=== PATIENT | female | born 1950 | race Caucasian/White ===

== ENCOUNTER 2020-01-01 10:00 | Day surgery (SDC) | payer MEDICARE, SELFPAY ==
[2019-12-31 14:06] VITALS: BMI 22.6
--- NOTE | 2019-12-31 14:27 | HO.ANESPROP2 ---
Documented by User: Audelia Rome 12/31/19 14:28 HPI - Anesthesia Eval Consult details Narrative: 69yo F for EGD and Colonoscopy [facility] Past Medical History Medical History Anxiety Normal colonoscopy Surgical History Surgical History S/P LAURO (total abdominal hysterectomy) Social History Social History Smoking Status: Never smoker Use of substances other than those prescribed or required for medical reasons: No Have you been hit, kicked, punched, or otherwise hurt by someone within the past year? If so, by whom?: No Advance Directives: No Advance Directives Information Provided: Yes Advance Directives on File: No Recently lost weight without trying: Unsure Meds Allergies Allergy/AdvReac Type Severity Reaction Status Date / Time peanut [PEANUT] Allergy Intermediate HEADACHE,RA Verified 01/01/20 06:17 SH tree nut [TREE NUT] Allergy Mild HEADACHE,RA Verified 01/01/20 06:17 SH meperidine [From DEMEROL] AdvReac Intermediate AGITATION Verified 01/01/20 06:17 BEER Allergy Intermediate RASH/HEADAC Uncoded 01/01/20 06:17 HE WINE Allergy Intermediate HEADACHE,RA Uncoded 01/01/20 06:17 Home Medications Medication Instructions Recorded Confirmed Type escitalopram oxalate 1 tab PO DAILY 01/01/20 01/01/20 History Exam Exam Date and Time: December 31, 2019 1427 Height,Weight and Vital Signs: Height 5 ft 2 in Weight 56.245 kg Assessment and Plan Assessment Anesthesia Assessment: Chart Reviewed Documented by User: Refugio Garcia 01/01/20 10:53 [facility] Past Medical History Medical History Anxiety Normal colonoscopy Surgical History Surgical History S/P LAURO (total abdominal hysterectomy) Social History Social History Smoking Status: Never smoker Use of substances other than those prescribed or required for medical reasons: No Have you been hit, kicked, punched, or otherwise hurt by someone within the past year? If so, by whom?: No Advance Directives: No Advance Directives Information Provided: Yes Advance Directives on File: No Recently lost weight without trying: Unsure Meds Allergies Allergy/AdvReac Type Severity Reaction Status Date / Time peanut [PEANUT] Allergy Intermediate HEADACHE,RA Verified 01/01/20 06:17 SH tree nut [TREE NUT] Allergy Mild HEADACHE,RA Verified 01/01/20 06:17 SH meperidine [From DEMEROL] AdvReac Intermediate AGITATION Verified 01/01/20 06:17 BEER Allergy Intermediate RASH/HEADAC Uncoded 01/01/20 06:17 HE WINE Allergy Intermediate HEADACHE,RA Uncoded 01/01/20 06:17 SH Home Medications Medication Instructions Recorded Confirmed Type escitalopram oxalate 1 tab PO DAILY 01/01/20 01/01/20 History Exam Airway Mallampati Class: II TM Dist: >3cm Neck ROM: Full Loose/Missing/Broken Teeth: No ([id number]+[id number]) Lungs: cta b/l Assessment and Plan Assessment Anesthesia Assessment: Anesthesia Plan Discussed, PAT Visit and Chart Reviewed Final Anesthetic Review NPO: Yes ASA Class: II Final Preanesthetic Review: No Changes in Pt Med Stat, Meds/Allgs Chart Reviewed, Consent Obtained/Reviewed and Anes Risks/Benef Reviewed Patient Risk: Low Procedure Risk: Low Anesthetic Plan Anesthetic Plan: MAC: Disposition: Standard PACU
[2020-01-01 10:10] VITALS: BP 145/81; PULSE 102; RESP 18; TEMP 36.1; O2SAT 96
[2020-01-01] MEDS: Lactated Ringers 1,000 ML 100 ML IVCONT (10:28)
[2020-01-01 11:57] VITALS: BP 121/55; PULSE 96; RESP 12; TEMP 35.8; O2SAT 97
--- NOTE | 2020-01-01 12:07 | PM.OP ---
Brief Operative Note Date of procedure: 01/01/20 Pre-op diagnosis: GERD and rectal bleeding Post-op diagnosis: other (Hiatal hernia, Mild gastritis, Nonobstructing esophageal ring, diverticulosis, internal and external hemorrhoids) Procedure: EGD with biopsies and Colonoscopy to the cecum and TI Surgeon: Wiley Andersen Anesthesia: MAC Pathology: other (A. Gastric antrum) Condition: stable Disposition: PACU
[2020-01-01 12:12] VITALS: BP 133/59; PULSE 78; RESP 18; O2SAT 98
[2020-01-01] MEDS: Magnesium Hydrox/Alum Hydrox 30 ML ORAL.SUSP PO (12:21)
[2020-01-01 12:23] VITALS: BP 100/79; O2SAT 96
[2020-01-01] MEDS: ondansetron HCL 4 MG/2 ML VIAL IVPUSH (12:33)
--- NOTE | 2020-01-01 12:52 | OP_ITS ---
SURGEON: Wiley Andersen MD INDICATIONS: The patient presents for evaluation of gastroesophageal reflux and hematochezia. Full consent has been obtained from her for this, including risks of bleeding and perforation. PREOPERATIVE DIAGNOSIS: POSTOPERATIVE DIAGNOSIS: PROCEDURE PERFORMED: Esophagogastroduodenoscopy with biopsies, and colonoscopy to cecum and terminal ileum. ESTIMATED BLOOD LOSS: COMPLICATIONS: ANESTHESIA: Monitored anesthesia care. ASSISTANTS: SPECIMENS: PREOPERATIVE DIAGNOSES: Gastroesophageal reflux and hematochezia. POSTOPERATIVE DIAGNOSES: Gastroesophageal reflux and hematochezia, hiatal hernia, nonobstructing esophageal ring, mild gastritis, diverticulosis, internal and external hemorrhoids. DESCRIPTION OF PROCEDURE: The patient was placed in the left lateral decubitus position. The Olympus video gastroscope was passed in the posterior oropharynx and upper esophagus under direct vision. The scope was passed slowly to the distal esophagus. The gastroesophageal junction appeared at 33 cm. There was no sign of esophagitis nor Judd's esophagus. There was a non-obstructing esophageal ring and the scope easily entered the stomach. There was a moderate-sized hiatal hernia. The hiatal hernia mucosa appeared normal. The scope was advanced to pylorus and duodenum cannulated to the descending portion. The duodenum including the bulb appeared normal without mass or ulceration. The scope was withdrawn back in the stomach. The gastric antrum had some mild areas of edema and erythema, but no erosions or ulceration. There was good peristalsis. Scope was retroflexed visualizing the proximal stomach carefully, which appeared normal, without any sign of mass or ulceration. The scope was straightened. Biopsies were obtained from the gastric antrum. The scope was withdrawn back in the esophagus. The esophageal mucosa appeared normal. The scope was withdrawn from the patient. She was turned around for colonoscopy. The digital rectal exam revealed some small external hemorrhoidal tissue. The digital rectal exam revealed no other abnormalities. The Olympus video pediatric colonoscope was entered into the rectum and advanced easily to the cecum. Once in the cecum, I did identify normal-appearing cecal pouch with appendiceal orifice and a normal-appearing ileocecal valve. The terminal ileum was cannulated and appeared normal. The scope was withdrawn back in the colon. The entire cecum and ileocecal valve appeared normal. The scope was slowly withdrawn assessing all mucosal surfaces carefully. Preparation was excellent. I did not visualize any sign of polyps, colitis, nor angiodysplasia. There was a mild amount of sigmoid diverticulosis. In the rectum, scope was retroflexed visualizing small internal hemorrhoids, but no other pathology. The rectal mucosa appeared normal. The scope was straightened and withdrawn from the patient. She tolerated both procedures well and was returned to the recovery area in stable condition. IMPRESSION: 1. Moderate-sized hiatal hernia. 2. Nonobstructing distal esophageal ring. 3. Mild gastritis. 4. Mild diverticulosis. 5. Internal and external hemorrhoids. PLAN: The results of the biopsy will be checked. At this point, she has been using Pepcid once or twice a day for reflux, which she said is working well. I did advise to use that as needed. If her symptoms worsen, we could always switch her to a PPI if need be. I do not think H pylori needs to be treated if it is in the gastric biopsies unless she was to have more upper GI complaints. Given her age, today's negative colonoscopy, and no family history of colon cancer other than in her father in his 80s, I do not think she will need any further screening colonoscopies at this time. As such, she will see me on a p.r.n. basis. This has been discussed with her family. MD LIZANDRO Mckeon/ROSANA / [id number]
[2020-01-01 12:54] VITALS: BP 140/58; PULSE 68; O2SAT 97
[2020-01-01 13:17] VITALS: BP 141/61; PULSE 58; RESP 18; TEMP 36.1; O2SAT 98
== END 2020-01-01 13:59 | disposition home or self-care (01) ==
PROVIDERS: PCP Internal Medicine; Visit Provider Internal Medicine
PROC: (CPT 45378; principal; 2020-01-01 11:30)
DX: K62.5 Hemorrhage of anus and rectum (principal); K57.30 Diverticulosis of large intestine without perforation or abscess without bleeding; K64.8 Other hemorrhoids; K64.4 Residual hemorrhoidal skin tags; K21.9 Gastro-esophageal reflux disease without esophagitis; K22.2 Esophageal obstruction; K29.50 Unspecified chronic gastritis without bleeding; K44.9 Diaphragmatic hernia without obstruction or gangrene; Z79.899 Other long term (current) drug therapy; Z91.010 Allergy to peanuts; Z91.018 Allergy to other foods; Z88.8 Allergy status to other drugs, medicaments and biological substances
CPT/HCPCS: 45378; 43239; 88305; 88342; J2405

== ENCOUNTER 2020-06-08 10:33 | Outpatient (REF) | payer MEDICARE, SELFPAY ==
[2020-06-08 15:34] LABS: Alanine Aminotransferase 24 U/L (0-31); Albumin Level 4.4 g/dL (3.5-5.0); Alkaline Phosphatase 98 U/L (39-117); Anion Gap 14 (12-20); Aspartate Amino Transferase 32 U/L (5-31); Bilirubin Total 0.6 mg/dL (0.0-1.0); Blood Urea Nitrogen 17 mg/dL (9-16); Calcium 8.8 mg/dL (8.4-10.2); Carbon Dioxide 27 mmol/L (22-29); Chloride 107 mmol/L (96-108); Cholesterol 201 mg/dL; Estimated Glomerular Filt Rate 54; Glucose Fasting 89 mg/dL (60-99); HDL Cholesterol 88 mg/dL; LDL Cholesterol Calculated 94 mg/dl; Potassium 4.2 mmol/L (3.3-5.1); Sodium 144 mmol/L (135-145); Triglycerides 95 mg/dL
== END 2020-06-08 10:34 | disposition home or self-care (01) ==
LOC: HO.HMGCLDS 10:33
PROVIDERS: PCP Internal Medicine; Visit Provider Internal Medicine
DX: E78.00 Pure hypercholesterolemia, unspecified (principal)
CPT/HCPCS: 36415; 80053; 80061

== ENCOUNTER 2020-09-15 12:50 | Outpatient (REF) | payer MEDICARE, SELFPAY ==
--- NOTE | ~2020-09-15 | XR_ITS ---
EXAMINATION: XR ELBOW, RIGHT CLINICAL INFORMATION: Injury COMPARISON: None TECHNIQUE: AP, lateral, and oblique views of the right elbow. FINDINGS: The bones and soft tissues are normal. No fracture or joint effusion. Alignment is anatomic. Joint spaces are maintained. XR/XR elbow RT min 3V IMPRESSION: Normal right elbow.
== END 2020-09-15 12:51 | disposition home or self-care (01) ==
LOC: HO.HMGCX 12:50
PROVIDERS: PCP Internal Medicine; Visit Provider Nurse Practitioner Family
DX: S59.901A Unspecified injury of right elbow, initial encounter (principal)
CPT/HCPCS: 73080

== ENCOUNTER 2020-10-02 14:30 | Outpatient (RCR) | payer MEDICARE, SELFPAY ==
--- NOTE | 2020-10-02 15:26 | MHC.OT.DC ---
[address] [phone] F: [phone] Occupational Therapy Discharge Note Provider: Arin Jansen, Diagnosis: Right elbow medial epicondylitis Date of Surgery: Date of Evaluation: 09/28/20 Date of Discharge: Treatments to Date: 3 Cancellations to Date: 0 No Shows to Date: Discharge Status: Achieved Goals Improved Function Independent with HEP Discharge Summary: Pt denies pain. Tender at medial elbow and mild edema improving Pt with a good awareness of return to sports , principles and tech. Goals met Electronically Signed By: Stephanie Montano OT CHT CLT Reviewed/agree with student documentation: N/A Therapist: Please Sign and return to therapist, thank you for your referral.
== END 2020-10-02 15:27 | disposition other institution (70) ==
LOC: HO.OT 14:30
PROVIDERS: PCP Internal Medicine; Visit Provider Nurse Practitioner Family
DX: M77.01 Medial epicondylitis, right elbow (principal)
CPT/HCPCS: 97033; 97110; 97165

== ENCOUNTER 2020-10-27 09:41 | Outpatient (REF) | payer MEDICARE, SELFPAY ==
[2020-10-27 11:27] LABS: MANUAL DIFF FLAG NO
[2020-10-27 11:36] LABS: Basophils Percent Auto 0.8 % (0-2); Eosinophils Absolute Auto 0.1 X10*3/uL (0.0-0.4); Eosinophils Percent Auto 2.3 % (0-4); Hematocrit 38.9 % (37-47); Hemoglobin 12.6 g/dl (12.0-16.0); Imm Gran Abs Auto 0.01 X10*3/uL (0.00-0.03); Imm Gran Pct Auto 0.2 % (0.0-0.4); Lymphocytes Absolute Auto 2.6 X10*3/uL (1.2-4.9); Lymphocytes Percent Auto 50.4 % (20-40); Mean Corpuscular HGB Conc 32.4 g/dl (31.0-35.0); Mean Corpuscular Hemoglobin 30.2 pg (27.0-33.0); Mean Corpuscular Volume 93.3 fL (80-98); Mean Platelet Volume 9.2 fL (9.4-12.3); Monocytes Absolute Auto 0.4 X10*3/uL (0.1-1.2); Monocytes Percent Auto 8.4 % (2-11); Neutrophils Absolute Auto 1.9 X10*3/uL (2.0-8.3); Neutrophils Percent Auto 37.9 % (45-73); Platelet Count 338 X10*3/uL (160-400); Red Blood Count 4.17 X10*6/uL (4.20-5.50); Red Cell Distribution Width 12.9 % (11.0-16.0); White Blood Count 5.1 X10*3/uL (4.8-10.8)
[2020-10-27 12:04] LABS: Alanine Aminotransferase 26 U/L (0-31); Albumin Level 4.3 g/dL (3.5-5.0); Alkaline Phosphatase 96 U/L (39-117); Anion Gap 13 (12-20); Aspartate Amino Transferase 34 U/L (5-31); Bilirubin Total 0.4 mg/dL (0.0-1.0); Blood Urea Nitrogen 14 mg/dL (9-16); Calcium 9.2 mg/dL (8.4-10.2); Carbon Dioxide 28 mmol/L (22-29); Chloride 107 mmol/L (96-108); Estimated Glomerular Filt Rate 57; Glucose Random 85 mg/dL (60-115); Potassium 4.6 mmol/L (3.3-5.1); Sodium 143 mmol/L (135-145); Total Protein 6.8 g/dL (6.5-8.0)
[2020-10-27 12:08] LABS: Thyroid Stimulating Hormone 2.43 uIU/mL (0.32-4.0)
== END 2020-10-27 09:42 | disposition home or self-care (01) ==
LOC: HO.HMGCLDS 09:41
PROVIDERS: PCP Internal Medicine; Visit Provider Internal Medicine
DX: R06.02 Shortness of breath (principal)
CPT/HCPCS: 36415; 80053; 84443; 85025

== ENCOUNTER → 2020-11-04 08:53 | Outpatient (REF) | payer MEDICARE, SELFPAY ==
--- NOTE | 2020-11-04 08:59 | CA_ITS ---
Acquisition Time: 2020-11-04 09:21:28 Total Exercise Time: 00:06:20 Test Indications: CP Medications: Protocol: BLAINE Max HR: 148 BPM 100% of Pred: 148 BPM Max BP: 140/080 mmHG Max Work Load: 7.4 METS Exercise stress test using Blaine protocol, total of 6 minutes and 20 sec. METS 7.40 and MAPHR up to 100 %. Pt c/o troat thightness that started at 1 min 46 sec into the exercise and then chest thighness 3/10 that went away in recovery. EKG with occ. PVC's, mild horizontal depressions seen lateraly and inferiorly. Normotensive response to exercise. Test reviewed with Dr. Bowne. Referred By: Wiley Segura Overread By: Leatha Carlos NP
== END ==
LOC: HO.CARD 08:53
PROVIDERS: Visit Provider Internal Medicine
DX: R06.09 Other forms of dyspnea (principal)
CPT/HCPCS: 93017

== ENCOUNTER → 2020-11-10 13:44 | Outpatient (REF) | payer MEDICARE, SELFPAY ==
[2020-11-10 15:42] LABS: INTERNATIONAL NORM RATIO 0.9 (0.9-1.1); Prothrombin Time 9.9 SEC (9.9-13.0)
== END ==
LOC: HO.CARD 13:44
PROVIDERS: PCP Internal Medicine; Visit Provider Internal Medicine
DX: Z20.822 Contact with and (suspected) exposure to COVID-19 (principal); R07.2 Precordial pain
CPT/HCPCS: 85610; U0003; U0005

== ENCOUNTER → 2020-11-11 07:13 | Outpatient (REF) | payer MEDICARE, SELFPAY ==
--- NOTE | 2020-11-11 07:20 | CA_ITS ---
Transthoracic Echocardiogram Patient (Last, First, Middle): Leslie Wagner R Gender: Female Date of : 1950 Age: 70 Procedure Date: 11/11/2020 Procedure Type: Transthoracic Echocardiogram Location: OP Height: 157.48 cm Weight: 57.15 kg BSA: 1.57 m2 Heart Rate: bpm BP: 132 / 70 mmHg Shovel Operator: ANDREA Jackson MD: Bhupendra Bowen MD Filler Feeder: Darius Brink MD Symptoms: I25.10 - Atherosclerotic heart disease of [place] coronary... Study Quality: Fair ECG Rhythm: Sinus Conclusions: - 1. Normal LV systolic function with grade 1 diastolic dysfunction with basal inferior hypokinesis 2. Normal cardiac valvular Doppler 3. Normal RV systolic pressure 4. No pericardial effusion Findings Left Ventricle Normal left ventricular size, thickness, and systolic function. The visually estimated ejection fraction is between 60-65%. Spectral Doppler is indicative of an impaired relaxation filling pattern. E/E prime ratio is <8, consistent with normal filling pressures. Evidence suggests grade I (mild) diastolic dysfunction. Wall Motion Rest Echo Findings The basal inferior segment is hypokinetic. All other scored wall segments showed normal motion. Right Ventricle Normal right ventricular cavity size and systolic function. Atria Both atria are normal in size. There is no evidence of interatrial shunt. Aortic Valve The aortic valve structure and function is likely normal. There is no aortic valve stenosis. There is no aortic valve regurgitation. Mitral Valve Normal mitral valve structure and function. There is trace mitral valve regurgitation. There is no mitral valve stenosis. Pulmonic Valve The pulmonic valve was not well visualized. Tricuspid Valve Likely normal tricuspid valve structure and function. There is trace tricuspid valve regurgitation. The right ventricular systolic pressure is normal. The right ventricular systolic pressure is 12 mmHg. Normal right atrial pressure. There is no evidence of pulmonary hypertension. Great Vessels All visible segments of the aorta are normal in size. The pulmonary artery was not well visualized. Venous The inferior vena cava is normal in size and collapses greater than 50% with inspiration. Pericardium/Pleural There is no evidence of pericardial effusion. Prior Study Comparison No prior study available for comparison. Measurements 2D Linear Measurements IVSd: 0.74 0.6-0.9/0.6-1.0 cm LVIDd: 4.35 3.9-5.3/4.2-5.9 cm LVIDd Index: 2.77 2.4-3.2/2.2-3.1 cm/m2 LVIDs: 2.64 2.0-3.6 cm LVPWd: 0.84 0.7-1.1 cm Ao Root: 2.90 2.1-3.5 cm LA Diam: 3.00 2.7-3.8/3.0-4.0 cm LAIDs Index: 1.91 1.5-2.3 cm/m2 LV Mass: 131.70 67-162/88-224 g LV Mass Index: 83.89 43-95/49-115 g/m2 LVOT Diam: 2.00 3.0+(-)1.3 cm 2D Systolic Function EF 4C: 55.40 >55% EF 2C: 70.00 >55% EF BiP: 62.90 >55% Mitral Valve MV Pk E: 0.84 MV PK A: 0.85 MV Decel Time: 248.00 E/A: 1.00 E'Lateral: 7.40 E'Medial: 5.87 E/E' Med: 14.30 E/E' Lat: 11.30 PHT: 73.00 MVA PHT: 3.01 Decel [place]: 3.38 Aortic Valve AoV Pk Angus: 1.12 AoV Mn Angus: 0.84 AoV VTI: 0.29 AoV Pk Grad: 5.00 Aov Mn Grad: 3.00 PRANAV Cont.VTI: 2.06 LVOT LVOT Pk Angus: 0.72 LVOT Mn Angus: 0.51 LVOT VTI: 0.19 LVOT Pk Grad: 2.00 LVOT Mn Grad: 1.00 LVOT Diam: 2.00 LVOT Area: 3.14 Diastolic Function MV Pk E: 0.84 MV Pk A: 0.85 E/A: 1.00 E'Medial: 5.87 E/E' Med: 14.30 E' Laterial: 7.40 E/E' Lat: 11.30 Right Ventricle TAPSE (mm): 1.92 TVS' Angus: 10.00 Tricuspid Valve TR Pk Angus: 1.47 TR Pk Grad: 9.00 RA Press: 3.00 RVSP: 12.00 Great Vessels Aorta Ao Root-2D: 2.90 2.0-3.7 cm Ao Asc: 2.30 2.1-3.4 cm Ao Arch: 2.80 Updated in Other Vendor System with Status of Final Darius Brink MD electronically signed on 11/11/2020 1:49:15 PM with status of Final
== END ==
LOC: HO.CARD 07:13
PROVIDERS: PCP Internal Medicine; Visit Provider Internal Medicine
DX: R07.2 Precordial pain (principal); I25.10 Atherosclerotic heart disease of native coronary artery without angina pectoris; R94.39 Abnormal result of other cardiovascular function study; Z20.822 Contact with and (suspected) exposure to COVID-19
CPT/HCPCS: 85610; 93005; 93306; 99202; U0003; U0005

== ENCOUNTER 2020-11-24 10:53 | Outpatient (REF) | payer MEDICARE, SELFPAY ==
--- NOTE | 2020-11-24 | PFT_ITS ---
INDICATION: Shortness of breath. SPIROMETRY: The FEV1 to FVC of 79% with an FEV1 of 1.78 L, which is 87% predicted, and an FVC of 2.26 L, which is 84% predicted. No significant response to bronchodilators noted. Maximum voluntary ventilation 87% predicted. LUNG VOLUMES: Total lung capacity 83% predicted with residual volume of 86% predicted. DIFFUSION CAPACITY: DLCO 55% predicted. COMPARISONS: None. INTERPRETATION: No obstructive nor restrictive ventilatory defects have been identified. No significant response to bronchodilators noted. Maximum voluntary ventilation is within normal limits. The patient does have a low normal total lung capacity, in addition to that, has a moderate diffusion impairment. Need to consider occult interstitial lung conditions and/or pulmonary vascular conditions. Should also correct for hemoglobin. The patient does have normal pulmonary function study. The patient should undergo imaging studies and consider a pulmonary consultation. Marvel Root MD MR/MODL / [id number]
--- NOTE | ~2020-11-24 | XR_ITS ---
EXAMINATION: XR CHEST CLINICAL INFORMATION: Shortness of breath on exertion. COMPARISON: None TECHNIQUE: 2 views of the chest were obtained. FINDINGS: No significant abnormality is noted involving the heart, lungs, mediastinum, bony thorax or soft tissues. XR/XR chest 2V IMPRESSION: Unremarkable chest exam.
== END 2020-11-24 10:54 | disposition home or self-care (01) ==
LOC: HO.RESP 10:53
PROVIDERS: PCP Internal Medicine; Visit Provider Internal Medicine
DX: R06.02 Shortness of breath (principal)
CPT/HCPCS: 71046; 94060; 94727; 94729

== ENCOUNTER → 2020-11-26 14:13 | Outpatient (BNVA) | payer MEDICARE, SELFPAY | PROVIDERS: PCP Internal Medicine; Visit Provider Internal Medicine | DX: R06.02 Shortness of breath (principal); R07.2 Precordial pain | CPT/HCPCS: 99212 ==

== ENCOUNTER → 2020-12-03 15:07 | Outpatient (BNVA) | payer MEDICARE, SELFPAY | PROVIDERS: PCP Internal Medicine; Visit Provider Internal Medicine | DX: K21.9 Gastro-esophageal reflux disease without esophagitis (principal); G47.9 Sleep disorder, unspecified; R06.02 Shortness of breath; R07.2 Precordial pain | CPT/HCPCS: 99202 ==

== ENCOUNTER 2020-12-08 12:48 | Outpatient (REF) | payer MEDICARE, SELFPAY ==
[2020-12-08 13:48] LABS: MANUAL DIFF FLAG NO
[2020-12-08 14:06] LABS: Basophils Percent Auto 0.7 % (0-2); Eosinophils Absolute Auto 0.1 X10*3/uL (0.0-0.4); Eosinophils Percent Auto 1.6 % (0-4); Hemoglobin 12.6 g/dl (12.0-16.0); Imm Gran Abs Auto 0.02 X10*3/uL (0.00-0.03); Imm Gran Pct Auto 0.3 % (0.0-0.4); Lymphocytes Absolute Auto 2.1 X10*3/uL (1.2-4.9); Mean Corpuscular HGB Conc 33.2 g/dl (31.0-35.0); Mean Corpuscular Hemoglobin 30.8 pg (27.0-33.0); Mean Corpuscular Volume 92.9 fL (80-98); Mean Platelet Volume 9.5 fL (9.4-12.3); Monocytes Absolute Auto 0.5 X10*3/uL (0.1-1.2); Neutrophils Percent Auto 52.4 % (45-73); Platelet Count 277 X10*3/uL (160-400); Red Blood Count 4.09 X10*6/uL (4.20-5.50); Red Cell Distribution Width 12.6 % (11.0-16.0); White Blood Count 5.8 X10*3/uL (4.8-10.8)
[2020-12-08 14:16] LABS: Alanine Aminotransferase 23 U/L (0-31); Albumin Level 4.6 g/dL (3.5-5.0); Alkaline Phosphatase 89 U/L (39-117); Anion Gap 14 (12-20); Aspartate Amino Transferase 27 U/L (5-31); Bilirubin Total 0.9 mg/dL (0.0-1.0); Blood Urea Nitrogen 14 mg/dL (9-16); Calcium 9.7 mg/dL (8.4-10.2); Carbon Dioxide 23 mmol/L (22-29); Chloride 107 mmol/L (96-108); Estimated Glomerular Filt Rate > 60; Glucose Random 109 mg/dL (60-115); Potassium 3.9 mmol/L (3.3-5.1); Sodium 140 mmol/L (135-145)
[2020-12-08 14:38] LABS: Free T4 (Free Thyroxine) 0.88 ng/dL (0.71-1.85); Thyroid Stimulating Hormone 1.02 uIU/mL (0.32-4.0)
[2020-12-10 11:37] LABS: Triiodothyronine T3 Free 2.9 pg/mL (2.3-4.2)
== END 2020-12-08 12:49 | disposition home or self-care (01) ==
LOC: HO.HMGCLDS 12:48
PROVIDERS: PCP Internal Medicine; Visit Provider Internal Medicine
DX: R06.02 Shortness of breath (principal); R23.2 Flushing
CPT/HCPCS: 36415; 80053; 84439; 84443; 84481; 85025

== ENCOUNTER 2020-12-16 09:51 | Outpatient (REF) | payer MEDICARE, SELFPAY ==
--- NOTE | ~2020-12-16 | CT_ITS ---
EXAMINATION: CT CHEST WITHOUT CONTRAST CLINICAL INFORMATION: Shortness of breath COMPARISON: Chest x-ray November 2020 TECHNIQUE: Multidetector volumetric CT imaging of the chest was done. Axial MIP volume rendering provided. Sagittal and coronal reformatted images were obtained. This CT examination was performed using dose optimization techniques as appropriate, variously including the following: *Automated exposure control *Adjustment of mA and/or kV according to patient size (this includes techniques or standardized protocols for targeted exams where dose is matched to indication/reason for exam; i.e. extremities or head) *Use of iterative reconstruction technique DLP: 84 mGy-cm FINDINGS: LUNGS: There is a 2 mm calcified right middle lobe nodule axial image 266 series 4. The lungs are otherwise clear. No evidence of emphysema interstitial lung disease or bronchiectasis is seen. There is no endobronchial or endotracheal lesion. MEDIASTINUM: The mediastinum is normal. PLEURA: There is no pleural effusion. No pleural mass or thickening. AXILLA: No lymphadenopathy. UPPER ABDOMEN: There are surgical clips in the upper retroperitoneum. There are atrophic changes or fatty infiltration of the pancreas. There is a small 2 mm stone in the upper pole right kidney. OSSEOUS STRUCTURES: There are mild degenerative changes of the spine. There is curvature of the lower thoracic and upper lumbar spine to the right. CT/CT chest wo con IMPRESSION: Solitary small 2 mm calcified right middle lobe nodule. Otherwise unremarkable exam. Postsurgical changes in the upper midline retroperitoneum. Atrophic changes of the pancreas. Small right renal stone.
== END 2020-12-16 09:52 | disposition home or self-care (01) ==
LOC: HO.CT 09:51
PROVIDERS: PCP Internal Medicine; Visit Provider Internal Medicine
DX: R06.02 Shortness of breath (principal)
CPT/HCPCS: 71250

== ENCOUNTER 2020-12-17 09:54 | Outpatient (REF) | payer MEDICARE, SELFPAY ==
--- NOTE | ~2020-12-17 | US_ITS ---
EXAMINATION: US THYROID CLINICAL INFORMATION: Shortness of breath. COMPARISON: Ultrasound soft tissue head/neck thyroid dated 02/16/2006. TECHNIQUE: Linear transducer grayscale and color Doppler examination with attention to the region of the thyroid. FINDINGS: SIZE: Measurements of the thyroid lobes and nodules are given in sagittal, anteroposterior and transverse dimensions respectively. Right Thyroid Lobe: 4.01 x 1.35 x 1.07 cm, volume 3.02 mL. Measurements were not documented on the prior study. Parenchyma: The gland echotexture is heterogeneous. Thyroid vascularity is normal. Left Thyroid Lobe: 3.8 x 0.87 x 0.88 cm, volume 1.5 mL. Measurements were not documented on the prior study. Parenchyma: The gland echotexture is heterogeneous. Thyroid vascularity is normal. Isthmus: 0.17 cm in maximum AP dimension. Measurements were not documented on the prior study. Estimated total number of nodules greater than or equal to 1 cm: 1. Sales Trainer nodules are described as follows: 1. Location: Right superior. Size: 1.3 x 0.77 x 0.92 cm, volume 0.49 mL. Previously: 1.1 x 0.77 x 0.89 cm, volume 0.40 mL. Nodule characteristics: Composition: Solid (2). Echogenicity: Hypoechoic (2). Shape: Not taller than wide (0). Margins: Smooth (0). Echogenic Foci: None (0). ACR TI-RADS total points: 4 ACR TI-RADS category: 4 Significant change in size (>/= 20% in 2 dimensions and minimal increase of 2 mm or 50% or greater increase in volume): Change in features: Change in ACR TI-RADS risk category: 2. Location: Left superior. Size: 0.2 x 0.22 x 0.18 cm, volume 0.004 mL. Nodule characteristics: Composition: Cystic(0). ACR TI-RADS total points: 0 ACR TI-RADS category: 1 NODES: No lymphadenopathy is seen in the tissue surrounding the thyroid gland. US/US thyroid IMPRESSION: Small heterogeneous thyroid gland. Solitary solid right thyroid nodule not appreciably changed from 2006. ACR TI-RADS RECOMMENDATION REFERENCE: Ultrasound-guided fine-needle aspiration, followup ultrasound, no further follow up. * TR1 (0 point) and TR 2 (2 points): No FNA or follow up * TR3 (3 points): FNA if more than or equal to 2.5 cm in maximum dimension, followup ultrasound in 1, 3 and 5 years if 1.5 to 2.4 cm in maximum dimension. * TR4 (4-6 points): FNA if more than or equal to 1.5 cm in maximum dimension, followup ultrasound in 1, 2, 3 and 5 years if 1 to 1.4 cm in maximum dimension. * TR5 (more than or equal to 7 points): FNA if more than or equal to 1 cm in maximum dimension, followup ultrasound every year for 5 years if 0.5 to 0.9 cm in maximum dimension. * TR3, TR4 or TR5 nodules that are below the size threshold for follow up receive no follow up.
[2020-12-19 05:11] LABS: Lyme Abs Screen <0.90 index
== END 2020-12-17 09:55 | disposition home or self-care (01) ==
LOC: HO.HMGCX 09:54
PROVIDERS: PCP Internal Medicine; Visit Provider Internal Medicine
DX: M25.579 Pain in unspecified ankle and joints of unspecified foot (principal); R22.1 Localized swelling, mass and lump, neck; R06.02 Shortness of breath
CPT/HCPCS: 36415; 76536; 86617; 86618

== ENCOUNTER → 2020-12-22 14:09 | Outpatient (BNVA) | payer MEDICARE, SELFPAY | PROVIDERS: PCP Internal Medicine; Visit Provider Internal Medicine | DX: G47.9 Sleep disorder, unspecified (principal); K21.9 Gastro-esophageal reflux disease without esophagitis | CPT/HCPCS: 99212 ==

== ENCOUNTER 2020-12-30 08:16 | Outpatient (REF) | payer MEDICARE, SELFPAY ==
--- NOTE | ~2020-12-30 | US_ITS ---
EXAMINATION: US DIAGNOSTIC ULTRASOUND BREAST, RIGHT CLINICAL INFORMATION: Palpable abnormality 10:00 position. COMPARISON: Mammography of same day and mammograms dating back to May 07, 2018. TECHNIQUE: Ultrasound of the breast is performed with real-time chang scale imaging and color Doppler. FINDINGS: Targeted right breast ultrasound did not demonstrate any abnormal cystic or solid masses. No region of abnormal distal sound shadowing appreciated. Results are discussed with the patient at time of visit. US/US breast RT limited IMPRESSION: No mammographic or ultrasound right breast abnormality appreciated. Left breast density deep inferior aspect for which 6 month follow-up right breast mammography is recommended. ASSESSMENT: BI-RADS 3: Probably Benign RECOMMENDATION: Diagnostic left mammography in 6 months.
--- NOTE | ~2020-12-30 | MM_ITS ---
EXAMINATION: MM DIAGNOSTIC DIGITAL BREAST TOMOSYNTHESIS, BILATERAL US TARGETED RIGHT BREAST ULTRASOUND CLINICAL INFORMATION: Palpable abnormality right breast 10 o'clock position. The lifetime risk of breast cancer based on the Tyrer-Cuzick Model is 7%. COMPARISON: Mammography: 04/16/2020 and 05/07/2018. TECHNIQUE: Digital breast tomosynthesis is performed in both the craniocaudal and mediolateral oblique views along with computer-aided detection (CAD). Synthesized 2D images are generated from the tomosynthesis. Spot compression views of the left breast in craniocaudal projection. Targeted right breast ultrasound. FINDINGS: MAMMOGRAM: There are scattered areas of fibroglandular density (ACR BI-RADS breast composition Category b). No specific right breast parenchymal abnormality is appreciated. Within the deep inferior aspect of the left breast, which had not been imaged that far back previously, there is a density lying approximately 10 to 12 cm from the nipple but which on tomosynthesis views appears to represent asymmetric parenchyma rather than a true mass. ULTRASOUND: Targeted right breast ultrasound did not demonstrate any abnormal cystic or solid masses. No region of abnormal distal sound shadowing appreciated. Results are discussed with the patient at time of visit. MM/MM tomosynthesis diagnostic BI IMPRESSION: No mammographic or ultrasound right breast abnormality appreciated. Left breast density deep inferior aspect for which a 6-month follow-up left breast mammography is recommended. ASSESSMENT: BI-RADS 3: Probably benign. RECOMMENDATION: Diagnostic left mammography in 6 months. This patient's information was entered into a reminder system with a target due date for their next mammogram.
== END 2020-12-30 08:17 | disposition home or self-care (01) ==
LOC: HO.MAMMO 08:16
PROVIDERS: Visit Provider Student in an Organized Health Care Education/Training Program
DX: N63.11 Unspecified lump in the right breast, upper outer quadrant (principal)
CPT/HCPCS: 76642; 77062; 77066

== ENCOUNTER 2021-01-06 08:01 | Outpatient (REF) | payer MEDICARE, SELFPAY ==
--- NOTE | ~2021-01-06 | CT_ITS ---
EXAMINATION: CT ABDOMEN WITH CONTRAST CLINICAL INFORMATION: Atrophic pancreas COMPARISON: Chest CT November 2020 and abdominal ultrasound October 2017 and renal ultrasound August 2016 TECHNIQUE: Contiguous axial thin section helical images of the abdomen were performed following the administration of oral contrast and 85 mL of Omnipaque 350 intravenous contrast. The data set was reformatted in the coronal and sagittal planes and reviewed on an independent workstation. This CT examination was performed using dose optimization techniques as appropriate, variously including the following: *Automated exposure control *Adjustment of mA and/or kV according to patient size (this includes techniques or standardized protocols for targeted exams where dose is matched to indication/reason for exam; i.e. extremities or head) *Use of iterative reconstruction technique DLP: 118 mGy-cm FINDINGS: LUNG BASES: The lung bases are clear. LIVER, GALLBLADDER, AND BILIARY TREE: The liver is low in attenuation suggestive of fatty infiltration. The liver is normal in size and contour. No focal liver lesion or biliary duct dilatation. Normal gallbladder. PANCREAS: There is fatty infiltration of the pancreas. The main pancreatic duct does not appear dilated. SPLEEN: Normal. ADRENAL GLANDS AND KIDNEYS: The adrenal glands are normal. There is a small 2 mm nonobstructing stone in the upper pole the right kidney. The kidneys are otherwise normal. BOWEL LOOPS: Normal LYMPH NODES: Normal. VASCULAR: There are surgical clips in the upper retroperitoneum adjacent to the celiac axis. BONES: There is mild curvature of the proximal lumbar spine to the right and lower lumbar spine to the left. CT/CT abdomen w con IMPRESSION: Fatty infiltration of the pancreas. Fatty infiltration of the liver. Small 2 mm nonobstructing right upper pole renal stone.
[2021-01-06] MEDS: iohexoL 350 MG/ML 100 ML INFUS..BTL IV (09:42)
[2021-01-06] MEDS: Barium Sulfate Oral (Vanilla) 450 ML ORAL.SUSP PO (09:44)
== END 2021-01-06 08:02 | disposition home or self-care (01) ==
LOC: HO.CT 08:01
PROVIDERS: Visit Provider Internal Medicine
DX: K86.89 Other specified diseases of pancreas (principal)
CPT/HCPCS: 74160; Q9967

== ENCOUNTER → 2021-01-20 11:15 | Outpatient (BNVA) | payer MEDICARE, SELFPAY | PROVIDERS: PCP Internal Medicine; Visit Provider Internal Medicine | DX: E04.2 Nontoxic multinodular goiter (principal) | CPT/HCPCS: 99202 ==

== ENCOUNTER 2021-01-21 13:00 | Outpatient (REF) | payer MEDICARE, SELFPAY ==
[2021-01-21 14:40] LABS: Free T4 (Free Thyroxine) 0.82 ng/dL (0.71-1.85); Thyroid Stimulating Hormone 2.75 uIU/mL (0.32-4.0)
[2021-01-22 18:01] LABS: Thyroglobulin Antibodies <1 IU/mL (< or = 1); Thyroid Peroxidase Antibodies 2 IU/mL (<9)
== END 2021-01-21 13:01 | disposition home or self-care (01) ==
LOC: HO.HMGCLDS 13:00
PROVIDERS: PCP Internal Medicine; Visit Provider Internal Medicine
DX: E04.2 Nontoxic multinodular goiter (principal)
CPT/HCPCS: 36415; 84439; 84443; 86376; 86800

== ENCOUNTER 2021-03-09 13:07 | Outpatient (REF) | payer MEDICARE, SELFPAY ==
--- NOTE | ~2021-03-09 | CT_ITS ---
EXAMINATION: CT SOFT TISSUE NECK WITHOUT CONTRAST CLINICAL INFORMATION: Nontoxic nodular goiter. COMPARISON: Previous chest CT and thyroid ultrasound November 2020. TECHNIQUE: Helical imaging was performed in the axial plane with generation of coronal and sagittal reformatted images. This CT examination was performed using dose optimization techniques as appropriate, variously including the following: *Automated exposure control *Adjustment of mA and/or kV according to patient size (this includes techniques or standardized protocols for targeted exams where dose is matched to indication/reason for exam; i.e. extremities or head) *Use of iterative reconstruction technique DLP: 344 mGy-cm FINDINGS: The thyroid gland appears small. No nodules appreciated by CT scan. The nasopharynx, oropharynx, hypopharynx and larynx are normal. The salivary glands are normal. There are no enlarged lymph nodes. Visualized intracranial structures are normal. The orbits are normal. The paranasal analysis, mastoid air cells and middle ears are clear. The superior mediastinum is normal. The visualized lung apices are clear. There is degenerative spondylosis and degenerative disc disease at C5-C6 and C6-C7. CT/CT soft tissue neck wo con IMPRESSION: Small thyroid gland. No thyroid nodule appreciated by CT scan. No adenopathy.
== END 2021-03-09 13:08 | disposition home or self-care (01) ==
LOC: HO.CT 13:07
PROVIDERS: Visit Provider Internal Medicine
DX: E04.2 Nontoxic multinodular goiter (principal)
CPT/HCPCS: 70490

== ENCOUNTER 2021-04-08 09:40 | Outpatient (REF) | payer MEDICARE, SELFPAY ==
--- NOTE | 2021-04-08 10:36 | P.BOP_ITS ---
Brief Operative Note Date of Service: 04/08/21 Pre-op diagnosis: Multinodular thyroid Procedure: This is doctor Jamia Serrano. This is an ultrasound-guided fine-needle aspiration report. Date of Examination: 04/08/2021 Indication: Multinodular Thyroid Porcedure: Procedure was explained to the patient. Alternatives, the risk and benefits were discussed. Written consent was obtained. A time-out was also obtained. After sterile preparation, fine-needle aspiration of a right mid pole 1.0 cm thyroid nodule was performed using direct ultrasound guidance to confirm accurate needle placement. Four aspirations were made using 27 gauge needles. Samples were submitted for cytology. 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 The patient tolerated the procedure well. Aftercare instructions were provided. Impression: Uncomplicated fine needle aspiration biopsy of a right mid pole 1.0 cm thyroid nodule under ultrasound guidance. Surgeon: Jamia Serrano, DO Was an Supervisor Shuttle Veneering used for this Procedure?: No Estimated blood loss (mL): 0
[2021-04-08] MEDS: Lidocaine HCl 1 % MPF 5 ML VIAL 2 ML SUBCUT (11:35)
== END 2021-04-08 09:41 | disposition home or self-care (01) ==
LOC: HO.US 09:40
PROVIDERS: Visit Provider Internal Medicine
DX: E04.2 Nontoxic multinodular goiter (principal)
CPT/HCPCS: 10005; 88172; 88173; 88177

== ENCOUNTER → 2021-04-26 10:08 | Outpatient (BNVA) | payer MEDICARE, SELFPAY | PROVIDERS: PCP Internal Medicine; Visit Provider Internal Medicine | DX: E04.2 Nontoxic multinodular goiter (principal) | CPT/HCPCS: Q3014 ==

== ENCOUNTER 2021-06-20 12:22 | Inpatient (IN) | payer MEDICARE, SELFPAY ==
--- NOTE | ~2021-06-20 | CT_ITS ---
EXAMINATION: CT ABDOMEN AND PELVIS WITH CONTRAST CLINICAL INFORMATION: Flank pain COMPARISON: 01/06/2021 TECHNIQUE: Multidetector volumetric images were obtained from the superior aspect of the liver through the pubic symphysis following administration 85 mL of Omnipaque 350 intravenous contrast. Sagittal and coronal reformatted images were obtained on the technologist's workstation. Oral contrast: No This CT examination was performed using dose optimization techniques as appropriate, variously including the following: *Automated exposure control *Adjustment of mA and/or kV according to patient size (this includes techniques or standardized protocols for targeted exams where dose is matched to indication/reason for exam; i.e. extremities or head) *Use of iterative reconstruction technique DLP: 558 mGy-cm FINDINGS: LUNG BASES: Mild atelectasis LIVER, GALLBLADDER, AND BILIARY TREE: Mild intrahepatic ductal prominence. The gallbladder is unremarkable with no evidence of radiopaque gallstones, gallbladder wall thickening, or obvious pericholecystic inflammatory changes. PANCREAS: Unremarkable. SPLEEN: Unremarkable. ADRENAL GLANDS: Unremarkable. KIDNEYS AND URETERS: Soft tissue stranding around the right kidney. The right ureter is prominent to the level of the UVJ.. There is no obvious stone here. There is some high density is seen in the region. An underlying lesion or blood clot versus other would be a consideration. Left kidney is unremarkable BLADDER: Unremarkable. GASTROINTESTINAL TRACT: Diverticulosis. There is some fluid immediately adjacent to the distal sigmoid but I feel this is likely change associated with the adjacent right ureter which is demonstrating again prominence with mildly thick wall. ABDOMINAL WALL: No significant hernia is appreciated. LYMPH NODES: Normal. VASCULAR: Some atherosclerotic changes mild PELVIC VISCERA: Unremarkable. OSSEOUS STRUCTURES: Unremarkable. CT/CT abdomen pelvis w con IMPRESSION: Abnormal right ureter with dilatation and thickening and enhancement of the wall with some surrounding fluid. There is also fluid surrounding the right kidney. Certainly pyelonephritis needs to be a consideration. As described no evidence for an obstructing stone but at the level of the UVJ the ureter once again is thick and there appears to be high density within it. Certainly a blood clot other inspissated material would need to be considered. No stone is identified. A lesion cannot be excluded here. As described there is some fluid adjacent to diverticula disease in the mid to distal sigmoid but I believe this likely is likely reflective of fluid around the adjacent right ureter. Correlation recommended clinically. The bowel pattern is nonobstructing. Fleischner guidelines were followed.
--- NOTE | ~2021-06-20 | FL_ITS ---
EXAMINATION: XR FLUOROSCOPY WITH IMAGES CLINICAL INFORMATION: Right ureteral stent placement. COMPARISON: CT abdomen and pelvis 06/20/2021 TECHNIQUE: Fluoroscopy performed by Dr. Margarito Garcia. Fluoroscopy time: 3.7 seconds Dosage: 0.69 mGy Images: 1 FINDINGS: Single image demonstrates the tip of a catheter/stent in the right renal pelvis. No pelvocaliectasis is seen. FL/FL guidance in OR IMPRESSION: Fluoroscopy and spot films provided during ureteral stent placement. Please see Dr. Garcia's procedure note.
[2021-06-20 12:25] VITALS: BP 193/74; PULSE 71; RESP 18; TEMP 36.9; O2SAT 98; BMI 21.9
--- NOTE | 2021-06-20 12:44 | PC.NURSE ---
PT SLIDE SELF OFF OF CAIR TO FLOOR STATING SHE PASS OUT FROM THE PAIN PT WAS ALERT ON ASSESSMENT CHG AWARE
[2021-06-20 15:44] VITALS: BP 162/94; PULSE 82; RESP 18; TEMP 36.6; O2SAT 98
[2021-06-20 16:06] LABS: MANUAL DIFF FLAG NO
[2021-06-20] MEDS: 0.9 % Sodium Chloride 1,000 ML 999 ML IV (16:06)
[2021-06-20] MEDS: Ketorolac Tromethamine 15 MG/ML VIAL IVPUSH (16:06)
[2021-06-20] MEDS: ondansetron HCL 4 MG/2 ML VIAL IVPUSH (16:06)
[2021-06-20 16:08] LABS: Appearance Urine HAZY; Color Urine YELLOW; Glucose Urine UA NEG (NEG); Leukocyte Esterase Urine NEG (NEG); Nitrite Urine NEG (NEG); PH 5.5 (5.0-8.0); Specific Gravity - Urine >= 1.030 (1.005-1.025); UACC Culture Trigger NO; Urine Blood 3+ (NEG); Urine Ketones 40 MG/DL (NEG); Urine Protein TRACE MG/DL (NEG-TRACE)
[2021-06-20 16:09] LABS: Basophils Percent Auto 0.3 % (0-2); Eosinophils Percent Auto 0.1 % (0-4); Hematocrit 38.1 % (37.0-47.0); Hemoglobin 12.2 g/dl (12.0-16.0); Imm Gran Abs Auto 0.04 X10*3/uL (0.00-0.03); Imm Gran Pct Auto 0.4 % (0.0-0.4); Lymphocytes Absolute Auto 0.8 X10*3/uL (1.2-4.9); Lymphocytes Percent Auto 7.1 % (20-40); Mean Corpuscular Hemoglobin 30.3 pg (27.0-33.0); Mean Corpuscular Volume 94.5 fL (80.0-98.0); Mean Platelet Volume 9.4 fL (9.4-12.3); Monocytes Absolute Auto 0.4 X10*3/uL (0.1-1.2); Monocytes Percent Auto 3.8 % (2-11); Neutrophils Absolute Auto 9.8 x10*3/uL (2.0-8.3); Neutrophils Percent Auto 88.3 % (45-73); Platelet Count 252 X10*3/uL (160-400); Red Blood Count 4.03 X10*6/uL (4.20-5.50); Red Cell Distribution Width 13.3 % (11.0-16.0); White Blood Count 11.1 X10*3/uL (4.8-10.8)
[2021-06-20 16:16] LABS: Bacteria Urine 1+ /LPF; Mucus Urine TRACE /LPF; RBC Urine TNTC /HPF (0); Squamous Epithelial Cell Urine TRACE /LPF; UACC CULT YES
[2021-06-20 16:28] LABS: Alanine Aminotransferase 22 U/L (0-31); Albumin Level 4.3 g/dL (3.5-5.0); Alkaline Phosphatase 113 U/L (39-117); Anion Gap 16 (12-20); Aspartate Amino Transferase 27 U/L (5-31); Bilirubin Total 0.5 mg/dL (0.0-1.0); Blood Urea Nitrogen 12 mg/dL (9-16); Calcium 9.1 mg/dL (8.4-10.2); Carbon Dioxide 21 mmol/L (22-29); Chloride 106 mmol/L (96-108); Creatinine Clr Calc Pharmacy 39.8; Estimated Glomerular Filt Rate 54; Glucose Random 125 mg/dL (60-115); Lipase 11 U/L (8-78); Potassium 4.2 mmol/L (3.3-5.1); Sodium 139 mmol/L (135-145)
--- NOTE | 2021-06-20 16:56 | ED_ITS ---
HPI - Female Genitourinary General Chief complaint: Urogenital-Female Stated complaint: Kidney stone? Time Seen by Provider: 06/20/21 14:44 Source: patient Mode of arrival: ambulatory Limitations: no limitations History of Present Illness HPI Narrative: 70-year-old female who presents emergency department for evaluation of right flank pain. She states the pain came on gradually yesterday in the morning. She points to her right lower quadrant and right flank when asked to localize the pain. She states the pain is a constant, sharp pain which is 10/10 at its worst. She has had some dysuria and urgency. She states that she did have diarrhea 3 days prior but it is not unusual for her to get diarrhea on and off and she has seen a car groomer for this problem. She states that today she took a Tylenol p.m. with no relief of her pain. On presentation to the emergency department the patient states that her pain is 10/10. Related Data Home Medications Medication Instructions Recorded Confirmed rosuvastatin 10 mg tablet 10 mg PO BEDTIME 09/15/20 04/26/21 diphenhydramine 25 1 tab PO BEDTIME 11/10/20 04/26/21 mg-acetaminophen 500 mg tablet (Tylenol PM Extra Strength) aspirin 81 mg tablet,delayed 81 mg PO DAILY 11/11/20 04/26/21 release (Adult Low Dose Aspirin) estradiol 0.025 mg/24 hr weekly 1 patch TOPICAL QWEEK 12/22/20 04/26/21 transdermal patch melatonin 10 mg capsule 10 mg PO BEDTIME PRN 12/22/20 04/26/21 omeprazole 20 mg capsule,delayed 20 mg PO DAILY 04/26/21 04/26/21 release Previous Rx's Medication Instructions Recorded trazodone 50 mg tablet 50 mg PO BEDTIME 90 Days #90 tab 01/11/21 cephalexin 500 mg capsule 500 mg PO QID 5 Days #20 cap 06/20/21 morphine 15 mg immediate release 15 mg PO Q4-6H PRN #14 tab 06/20/21 tablet tamsulosin 0.4 mg capsule (Flomax) 0.4 mg PO BEDTIME #30 cap 06/20/21 Allergies Allergy/AdvReac Type Severity Reaction Status Date / Time meperidine [From DEMEROL] AdvReac Intermediate AGITATION Verified 04/26/21 12:04 Review of Systems Review of Systems: Yes all other systems are reviewed and are negative [facility] Past Medical History [facility] Narrative: Social history: The patient denies tobacco use. She denies drug use. She states that she drinks a glass of wine at night. Medical History Anxiety GERD (gastroesophageal reflux disease) Lump Multinodular thyroid Normal colonoscopy Sleep disorder Thyroid nodule Surgical History History of cardiac catheterization (~10/2020) S/P LAURO (total abdominal hysterectomy) Family History Family History Father History of colon cancer Family history of hypertension Family history of polyps in the colon Congestive heart failure Mother Family history of hypertension History of diabetes mellitus History of heart disease Congestive heart failure Brother Family history of prostate cancer Sister History of heart disease Sister Breast cancer History of heart disease Sister Fatty liver Social History Social History Alcohol intake: current Alcohol intake frequency: 0-2 drinks per day Alcohol type: wine Patient Tobacco Use Status: Never used Tobacco Advance Directives: No Physical Exam Vital Signs: Vital Signs: Last Vital Signs Temp 97.8 F 06/20/21 17:29 Pulse 80 06/20/21 21:39 Resp 12 06/20/21 21:39 BP 158/50 H 06/20/21 21:39 Pulse Ox 97 06/20/21 21:39 BMI result Body Mass Index 21.9 Const: Other: Very pleasant and cooperative female patient, answers all questions appropriately, does appear to be in moderate distress secondary to her pain. HEENT: Head: Yes normal to inspection, Yes normocephalic and Yes atraumatic Ears: external ears normal General nose exam: Normal external nose present Face and sinus: Yes normal facial exam Mouth: Normal oral and palatal mucosa present Throat: Yes posterior oropharynx normal Eyes: General: appearance normal, both eyes and all related structures Pupils: Equal, round and reactive pupils present Neck: Neck: Yes normal visual inspection, Yes no lymphadenopathy, Yes trachea midline and Yes supple Chest: Chest palpation & inspection: normal inspection of the chest and normal palpation of entire chest wall Resp: Effort & Inspection: normal respiratory effort and able to speak in complete sentences Auscultation: clear to auscultation bilaterally Cardio: Rate: regular rate Rhythm: regular rhythm Heart sounds: S1 normal heart sound present, S2 normal heart sound present and no murmurs GI: Inspection: Yes normal to inspection Palpation (GI): Soft to palpation, Tenderness to palpation present (GI) in the RLQ (Moderate to severe) and no guarding Auscultation: normal bowel sounds : General: Yes CVA tenderness on the right (Moderate) Back/Spine/Pelvis: Back: CVA tenderness Skin: General skin exam: no rashes or lesions noted Neuro: Cranial nerves: Yes CN's II-XII intact bilaterally and Yes Equal, round and reactive pupils present Cognition (Neuro): normal cognition Motor exam (neuro): 5/5 motor strength present throughout Extrem: General: Yes normal to inspection Psych: Appearance: grossly normal Speech and movement: Normal speech and movement present Affect: normal affect Attitude: cooperative Thought process: Normal thought process present Thought content: Normal thought content present Course Course Course Narrative: 70-year-old female who presents emergency department for evaluation of gradual onset right-sided pain which began yesterday morning and got progressively worse. The patient currently is complaining of severe right lower quadrant and right flank pain. She states she does have a history of kidney stones in the past. Past surgical history was significant for hysterectomy and celiac artery occlusion. Vital signs did reveal an elevated blood pressure of 193/74 otherwise unremarkable. Physical examination did reveal significant right lower quadrant tenderness and right CVA tenderness. Differential includes was not limited to appendicitis, ureteral stone, pyelonephritis, colitis, diverticulitis. Laboratory evaluation and CT scan of the abdomen pelvis with IV contrast was ordered patient was ordered to get Toradol 15 mg IV, Zofran 4 mg IV and normal saline x1 L. 1833: Laboratory evaluation: WBC elevated 11,100. CO2 low 21. Glucose elevated 125. Urinalysis 3+ blood. Microscopic too numerous to count RBCs, 9 WBCs, 1+ bacteria, 1+ squamous cells. Radiology evaluation: CT scan of the abdomen pelvis with IV contrast radiology reading below: IMPRESSION: Abnormal right ureter with dilatation and thickening and enhancement of the wall with some surrounding fluid. There is also fluid surrounding the right kidney. Certainly pyelonephritis needs to be a consideration. ? As described no evidence for an obstructing stone but at the level of the UVJ the ureter once again is thick and there appears to be high density within it. Certainly a blood clot other inspissated material would need to be considered. No stone is identified. A lesion cannot be excluded here. ? As described there is some fluid adjacent to diverticula disease in the mid to distal sigmoid but I believe this likely is likely reflective of fluid around the adjacent right ureter. Correlation recommended clinically. The bowel pattern is nonobstructing. 2214:The patient got minimal improvement with IV Toradol, she was given morphine 4 mg IV x2 with complete resolution of her pain however, when the nurse went to discharge the patient she states that she still felt uncomfortable and did not think that she could go home. I did discuss the patient's findings and presentation with the covering neurologist, Dr. Garcia and he agreed that the patient should be admitted for pain management and that the patient should be managed on the hospital service. I will contact the covering hospitalist to discuss admission. MDM - Female Genitourinary Lab Data Result diagrams: 06/20/21 15:59 06/20/21 15:59 Labs: Lab Results 06/20/21 06/20/21 06/20/21 Range/Units 15:59 15:59 16:01 WBC 11.1 H (4.8-10.8) X10*3/uL RBC 4.03 L (4.20-5.50) X10*6/uL Hgb 12.2 (12.0-16.0) g/dl Hct 38.1 (37.0-47.0) % MCV 94.5 (80.0-98.0) fL MCH 30.3 (27.0-33.0) pg MCHC 32.0 (31.0-35.0) g/dl RDW 13.3 (11.0-16.0) % Plt Count 252 (160-400) X10*3/uL MPV 9.4 (9.4-12.3) fL Immature Gran % (Auto) 0.4 (0.0-0.4) % Neut % (Auto) 88.3 H (45-73) % Lymph % (Auto) 7.1 L (20-40) % Dale % (Auto) 3.8 (2-11) % Eos % (Auto) 0.1 (0-4) % Baso % (Auto) 0.3 (0-2) % Lymph # (Auto) 0.8 L (1.2-4.9) X10*3/uL Dale # (Auto) 0.4 (0.1-1.2) X10*3/uL Eos # (Auto) 0.0 (0.0-0.4) X10*3/uL Baso # (Auto) 0.0 (0.0-0.2) X10*3/uL Abs Immat Gran (auto) 0.04 H (0.00-0.03) X10*3/uL Absolute Neuts (auto) 9.8 H (2.0-8.3) x10*3/uL Absolute Nucleated RBC 0.000 (0.0-0.012) X10*3/uL Nucleated RBC % (auto) 0.0 (0.0-0.2) /100WBC Sodium 139 (135-145) mmol/L Potassium 4.2 (3.3-5.1) mmol/L Chloride 106 (96-108) mmol/L Carbon Dioxide 21 L (22-29) mmol/L Anion Gap 16 (12-20) BUN 12 (9-16) mg/dL Creatinine 1.01 (0.5-1.4) mg/dL Estim Creat Clear Calc 39.8 Estimated GFR 54 Random Glucose 125 H (60-115) mg/dL Calcium 9.1 D (8.4-10.2) mg/dL Total Bilirubin 0.5 (0.0-1.0) mg/dL AST 27 (5-31) U/L ALT 22 (0-31) U/L Alkaline Phosphatase 113 D (39-117) U/L Total Protein 7.0 (6.5-8.0) g/dL Albumin 4.3 (3.5-5.0) g/dL Lipase 11 (8-78) U/L Urine Color YELLOW Urine Appearance HAZY Urine pH 5.5 (5.0-8.0) Ur Specific [place] >= 1.030 H (1.005-1.025) Urine Protein TRACE (NEG-TRACE) MG/DL Urine Glucose (UA) NEG (NEG) MG/DL Urine Ketones 40 (NEG) MG/DL Urine Blood 3+ H (NEG) Urine Nitrite NEG (NEG) Ur Leukocyte Esterase NEG (NEG) Urine RBC TNTC H (0) /HPF Urine WBC 5-9 H (0-4) /HPF Ur Squamous Epith Cells TRACE /LPF Urine Bacteria 1+ /LPF Urine Mucus TRACE /LPF COVID-19 ([facility]) (Negative) COVID-19 Clin Com 06/20/21 Range/Units 18:58 WBC (4.8-10.8) X10*3/uL RBC (4.20-5.50) X10*6/uL Hgb (12.0-16.0) g/dl Hct (37.0-47.0) % MCV (80.0-98.0) fL MCH (27.0-33.0) pg MCHC (31.0-35.0) g/dl RDW (11.0-16.0) % Plt Count (160-400) X10*3/uL MPV (9.4-12.3) fL Immature Gran % (Auto) (0.0-0.4) % Neut % (Auto) (45-73) % Lymph % (Auto) (20-40) % Dale % (Auto) (2-11) % Eos % (Auto) (0-4) % Baso % (Auto) (0-2) % Lymph # (Auto) (1.2-4.9) X10*3/uL Dale # (Auto) (0.1-1.2) X10*3/uL Eos # (Auto) (0.0-0.4) X10*3/uL Baso # (Auto) (0.0-0.2) X10*3/uL Abs Immat Gran (auto) (0.00-0.03) X10*3/uL Absolute Neuts (auto) (2.0-8.3) x10*3/uL Absolute Nucleated RBC (0.0-0.012) X10*3/uL Nucleated RBC % (auto) (0.0-0.2) /100WBC Sodium (135-145) mmol/L Potassium (3.3-5.1) mmol/L Chloride (96-108) mmol/L Carbon Dioxide (22-29) mmol/L Anion Gap (12-20) BUN (9-16) mg/dL Creatinine (0.5-1.4) mg/dL Estim Creat Clear Calc Estimated GFR Random Glucose (60-115) mg/dL Calcium (8.4-10.2) mg/dL Total Bilirubin (0.0-1.0) mg/dL AST (5-31) U/L ALT (0-31) U/L Alkaline Phosphatase (39-117) U/L Total Protein (6.5-8.0) g/dL Albumin (3.5-5.0) g/dL Lipase (8-78) U/L Urine Color Urine Appearance Urine pH (5.0-8.0) Ur Specific [place] (1.005-1.025) Urine Protein (NEG-TRACE) MG/DL Urine Glucose (UA) (NEG) MG/DL Urine Ketones (NEG) MG/DL Urine Blood (NEG) Urine Nitrite (NEG) Ur Leukocyte Esterase (NEG) Urine RBC (0) /HPF Urine WBC (0-4) /HPF Ur Squamous Epith Cells /LPF Urine Bacteria /LPF Urine Mucus /LPF COVID-19 ([facility]) Negative (Negative) COVID-19 Clin Com See Note Discharge Plan Discharge Clinical Impression: Renal colic, Ureteral obstruction, right, Acute UTI Patient Disposition: Home, Self-Care Instructions: Kidney Stones (ED), How to Strain Your Urine (ED) Additional Instructions: Your blood work was unremarkable. Including normal kidney function with a BUN of 12 and a creatinine of 1.0. The CT scan of your abdomen pelvis with IV contrast did reveal inflammatory changes around your right kidney with swelling of the right ureter up until the point where it attaches to your bladder at the ureteral vesicular junction (UVJ). The radiologist dense material at the UVJ which could be a kidney stone however the radiologist was not certain therefore it is important that you follow-up with your urologist and you may need a cystoscopy to determine if this is stone or another cause for blockage of the ureter. In the emergency department you received Toradol 15 mg IV, morphine 4 mg IV x2, Flomax 0.4 mg orally and ceftriaxone 1 g IV for possible urine infection. Medications Take Flomax (tamsulosin) 0.4 mg, 1 pill at night until you pass the kidney stone. Strain your urine to try to catch kidney stone. Take Keflex (cephalexin) 500 mg pills, 1 pill 3 times a day for 5 days for urinary tract infection. Take ibuprofen 200 mg pills, 2 pills every 6 hours as needed for pain. Take Tylenol (acetaminophen) 500 mg pills, 2 pills every 4-6 hours as needed for pain. For pain not relieved by ibuprofen or Tylenol take morphine 15 mg pills, 1 pill every 4 hours as needed for pain. Do not drive or work while taking this medication since they can cause sleepiness. Morphine is a narcotic medication that can be addicting. If you are concerned about addiction you can ask the pharmacist for less pills or do not get this prescription filled. Follow-up with your [facility] urologist in 2-3 days for re-evaluation. Please return to the emergency department if your symptoms get worse or if you develop any symptoms that are concerning to you. Here is the official radiology reading of your CT scan [place] [id number] CT Scan Report Signed Patient: Leslie Wagner MR#: [id number] : 1950 Acct:[id number] Age/Sex: 70 / F ADM Date: 06/20/[address]: Ordering Physician: Renan Parker MD Date of Service: 06/20/21 Procedure(s): CT abdomen pelvis w con Accession Number(s): [id number] cc: Renan Parker MD~ EXAMINATION: CT ABDOMEN AND PELVIS WITH CONTRAST? CLINICAL INFORMATION: Flank pain? COMPARISON: 01/06/2021? TECHNIQUE: Multidetector volumetric images were obtained from the superior aspect of the liver through the pubic symphysis following administration 85 mL of Omnipaque 350 intravenous contrast. Sagittal and coronal reformatted images were obtained on the technologist's workstation.? Oral contrast: No This CT examination was performed using dose optimization techniques as appropriate, variously including the following: *Automated exposure control *Adjustment of mA and/or kV according to patient size (this includes techniques or standardized protocols for targeted exams where dose is matched to indication/reason for exam; i.e. extremities or head) *Use of iterative reconstruction technique DLP: 558 mGy-cm FINDINGS: LUNG BASES: Mild atelectasis? LIVER, GALLBLADDER, AND BILIARY TREE: Mild intrahepatic ductal prominence. The gallbladder is unremarkable with no evidence of radiopaque gallstones, gallbladder wall thickening, or obvious pericholecystic inflammatory changes.? PANCREAS: Unremarkable.? SPLEEN: Unremarkable.? ADRENAL GLANDS: Unremarkable.? KIDNEYS AND URETERS: Soft tissue stranding around the right kidney. The right ureter is prominent to the level of the UVJ.. There is no obvious stone here. There is some high density is seen in the region. An underlying lesion or blood clot versus other would be a consideration. Left kidney is unremarkable BLADDER: Unremarkable.? GASTROINTESTINAL TRACT: Diverticulosis. There is some fluid immediately adjacent to the distal sigmoid but I feel this is likely change associated with the adjacent right ureter which is demonstrating again prominence with mildly thick wall.? ABDOMINAL WALL: No significant hernia is appreciated.? LYMPH NODES: Normal. VASCULAR: Some atherosclerotic changes mild PELVIC VISCERA: Unremarkable.? OSSEOUS STRUCTURES: Unremarkable. CT/CT abdomen pelvis w con IMPRESSION: Abnormal right ureter with dilatation and thickening and enhancement of the wall with some surrounding fluid. There is also fluid surrounding the right kidney. Certainly pyelonephritis needs to be a consideration. ? As described no evidence for an obstructing stone but at the level of the UVJ the ureter once again is thick and there appears to be high density within it. Certainly a blood clot other inspissated material would need to be considered. No stone is identified. A lesion cannot be excluded here. ? As described there is some fluid adjacent to diverticula disease in the mid to distal sigmoid but I believe this likely is likely reflective of fluid around the adjacent right ureter. Correlation recommended clinically. The bowel pattern is nonobstructing. ? Prescriptions: New cephalexin 500 mg capsule 500 mg PO QID 5 Days Qty: 20 0RF morphine 15 mg tablet 15 mg PO Q4-6H PRN (Reason: pain) Qty: 14 0RF Rx Instructions: Patient may request partial fill tamsulosin [Flomax] 0.4 mg capsule 0.4 mg PO BEDTIME Qty: 30 0RF No Action aspirin [Adult Low Dose Aspirin] 81 mg tablet,delayed release (DR/EC) 81 mg PO DAILY 0RF trazodone 50 mg tablet 50 mg PO BEDTIME 90 Days Qty: 90 1RF rosuvastatin 10 mg tablet 10 mg PO BEDTIME 0RF diphenhydramine-acetaminophen [Tylenol PM Extra Strength] 25-500 mg tablet 1 tab PO BEDTIME 0RF estradiol 0.025 mg/24 hr patch weekly 1 patch topical QWEEK 0RF melatonin 10 mg capsule 10 mg PO BEDTIME PRN0RF omeprazole 20 mg capsule,delayed release(DR/EC) 20 mg PO DAILY 0RF
[2021-06-20] MEDS: iohexoL 350 MG/ML 100 ML INFUS..BTL IV (17:13)
[2021-06-20] MEDS: Morphine Sulfate 4 MG/ML CARTRIDGE IVPUSH ×3 (17:25→23:32)
[2021-06-20 17:29] VITALS: BP 162/94; PULSE 85; RESP 11; TEMP 36.6; O2SAT 98
[2021-06-20 19:21] LABS: COVID-19 Test Negative (Negative)
[2021-06-20] MEDS: Tamsulosin HCL 0.4 MG CAPSULE PO (19:28)
[2021-06-20 21:39] VITALS: BP 158/50; PULSE 80; RESP 12; O2SAT 97
--- NOTE | 2021-06-20 22:21 | PM.IMHP ---
History of Present Illness Date of Service: 06/20/21 Chief Complaint: Right flank pain 70-year-old female with a past medical history of multi nodular goiter, anxiety, sleep disorder; presented to the hospital today with a chief complaint of right flank pain. Patient reports that over the past 1-2 days she has been having right flank pain which has been gradually worsening; denies any nausea vomiting or diarrhea. Reports he has mild burning in the urination. Denies any urinary frequency. Denies any fever chills cough. Denies any chest pain or palpitations. Review of all other systems is negative except mentioned above ER course: Per ER team patient noted to have right flank tenderness; CT abdomen showed findings concerning for pyelonephritis and possible UVJ kidney stone; discussed with Dr. Garcia who recommended admission to the hospitalist service. Urinalysis was abnormal consistent UTI. Given ceftriaxone. FOR[facility], LATER [facility] Medical History Anxiety GERD (gastroesophageal reflux disease) Lump Multinodular thyroid Normal colonoscopy Sleep disorder Thyroid nodule Family History Father History of colon cancer Family history of hypertension Family history of polyps in the colon Congestive heart failure Mother Family history of hypertension History of diabetes mellitus History of heart disease Congestive heart failure Brother Family history of prostate cancer Sister History of heart disease Sister Breast cancer History of heart disease Sister Fatty liver Surgical History History of cardiac catheterization (~10/2020) S/P LAURO (total abdominal hysterectomy) Social History Household Members: None Housing: House Alcohol intake: current Alcohol intake frequency: 0-2 drinks per day Alcohol type: wine Patient Tobacco Use Status: Never used Tobacco Advance Directives Date on File: 06/21/21 service: No Current occupational status: retired Meds Allergies Allergy/AdvReac Type Severity Reaction Status Date / Time hydromorphone [From Dilaudid] Allergy Palpitation Verified 06/29/21 10:16 s meperidine [From DEMEROL] AdvReac Intermediate AGITATION Verified 06/29/21 10:16 Home Medications Medication Instructions Recorded Confirmed Last Taken Type rosuvastatin 10 mg tablet 10 mg PO DAILY 09/15/20 06/21/21 Unknown History diphenhydramine 25 1 tab PO BEDTIME 11/10/20 06/21/21 Unknown History mg-acetaminophen 500 mg tablet (Tylenol PM Extra Strength) aspirin 81 mg tablet,delayed 81 mg PO DAILY 11/11/20 06/21/21 Unknown History release (Adult Low Dose Aspirin) melatonin 10 mg capsule 10 mg PO BEDTIME PRN Sleep 12/22/20 06/21/21 Unknown History omeprazole 20 mg capsule,delayed 20 mg PO DAILY 04/26/21 06/21/21 Unknown History release cholecalciferol (vitamin D3) 25 25 mcg PO DAILY 06/21/21 06/21/21 Unknown History mcg (1,000 unit) tablet (Vitamin D3) estradiol 1 g vaginal DAILY PRN DISCOMFORT 06/21/21 06/21/21 Unknown History estradiol 0.0375 mg/24 hr weekly 1 patch transdermal TOPETE@1000 06/21/21 06/21/21 06/20/21 History transdermal patch tamsulosin 0.4 mg capsule 0.4 mg PO BEDTIME 06/29/21 Unknown History Physical Exam Vital Signs and Narrative: Vital Signs: Last Vital Signs Temp 97.8 F 06/20/21 17:29 Pulse 80 06/20/21 21:39 Resp 12 06/20/21 21:39 BP 158/50 H 06/20/21 21:39 Pulse Ox 97 06/20/21 21:39 BMI result Body Mass Index 21.9 Gen: Appears be in no acute distress HEENT: NCAT, Moist mucosa. Pulmonary: Vesicular breath sounds, fair air entry CVS: Normal S1-S2 Abdomen: BS+, Soft, tender in the right flank Extremities: Warm well perfused Neuro: Alert and awake. Results Labs CBC and Chem 7: 06/23/21 05:17 06/23/21 05:17 Labs: Laboratory Results - last 24 hr 06/20/21 06/20/21 06/20/21 15:59 15:59 16:01 MCV 94.5 MCH 30.3 MCHC 32.0 RDW 13.3 Plt Count 252 MPV 9.4 Immature Gran % (Auto) 0.4 Neut % (Auto) 88.3 H Lymph % (Auto) 7.1 L [place] % (Auto) 3.8 Eos % (Auto) 0.1 Baso % (Auto) 0.3 Lymph # (Auto) 0.8 L [place] # (Auto) 0.4 Eos # (Auto) 0.0 Baso # (Auto) 0.0 Abs Immat Gran (auto) 0.04 H Absolute Neuts (auto) 9.8 H Absolute Nucleated RBC 0.000 Nucleated RBC % (auto) 0.0 Anion Gap 16 Estim Creat Clear Calc 39.8 Estimated GFR 54 Random Glucose 125 H Calcium 9.1 D Total Bilirubin 0.5 AST 27 ALT 22 Alkaline Phosphatase 113 D Total Protein 7.0 Albumin 4.3 Lipase 11 Urine Color YELLOW Urine Appearance HAZY Urine pH 5.5 Ur Specific [place] >= 1.030 H Urine Protein TRACE Urine Glucose (UA) NEG Urine Ketones 40 Urine Blood 3+ H Urine Nitrite NEG Ur Leukocyte Esterase NEG Urine RBC TNTC H Urine WBC 5-9 H Ur Squamous Epith Cells TRACE Urine Bacteria 1+ Urine Mucus TRACE COVID-19 ([facility]) COVID-19 Clin Com 06/20/21 18:58 MCV MCH MCHC RDW Plt Count MPV Immature Gran % (Auto) Neut % (Auto) Lymph % (Auto) [place] % (Auto) Eos % (Auto) Baso % (Auto) Lymph # (Auto) [place] # (Auto) Eos # (Auto) Baso # (Auto) Abs Immat Gran (auto) Absolute Neuts (auto) Absolute Nucleated RBC Nucleated RBC % (auto) Anion Gap Estim Creat Clear Calc Estimated GFR Random Glucose Calcium Total Bilirubin AST ALT Alkaline Phosphatase Total Protein Albumin Lipase Urine Color Urine Appearance Urine pH Ur Specific [place] Urine Protein Urine Glucose (UA) Urine Ketones Urine Blood Urine Nitrite Ur Leukocyte Esterase Urine RBC Urine WBC Ur Squamous Epith Cells Urine Bacteria Urine Mucus COVID-19 ([facility]) Negative COVID-19 Clin Com See Note Imaging Radiologist's Impressions: Impressions Abdomen/Pelvis CT 06/20/21 17:16 IMPRESSION: Abnormal right ureter with dilatation and thickening and enhancement of the wall with some surrounding fluid. There is also fluid surrounding the right kidney. Certainly pyelonephritis needs to be a consideration. As described no evidence for an obstructing stone but at the level of the UVJ the ureter once again is thick and there appears to be high density within it. Certainly a blood clot other inspissated material would need to be considered. No stone is identified. A lesion cannot be excluded here. As described there is some fluid adjacent to diverticula disease in the mid to distal sigmoid but I believe this likely is likely reflective of fluid around the adjacent right ureter. Correlation recommended clinically. The bowel pattern is nonobstructing. Fleischner guidelines were followed. Assessment and Plan (1) Renal colic: Status: Resolved (2) Acute UTI: Status: Resolved Plan 70-year-old female with a past medical history of multi nodular goiter, anxiety, sleep disorder; presented to the hospital today with a chief complaint of right flank pain. Noted to have pyelonephritis/question kidney stone. Admitted for further management. Pyelonephritis: Continue ceftriaxone. Follow up cultures. ?UVJ stone: Dr. Garcia from urology was notified. Pain control. Microscopic hematuria: Likely in the setting of renal stone. DVT prophylaxis: Subcu heparin Code status: Full code Quality Stroke Does the patient have a stroke diagnosis?: No VTE Prior VTE?: No VTE Risk Level:: Medical - moderate - high VTE Device Contraindication: Treatment Not Indicated VTE Drug Contraindication: N/A - Med Ordered
[2021-06-20] MEDS: Heparin Sodium,Porcine 5,000 UNIT/ML VIAL 5000 UNIT SUBCUT (23:32)
[2021-06-20] MEDS: Dextrose 5 % and 0.45 % NaCl 1,000 ML 50 ML IVCONT (23:32)
[2021-06-21] VITALS (13 sets, daily range): BP systolic 115–167; BP diastolic 54–77; PULSE 75–97; RESP 7–20; TEMP 36.5–37.3; O2SAT 91–98
[2021-06-21] MEDS: diphenhydrAMINE HCL 25 MG TABLET PO (01:11)
[2021-06-21] MEDS: Acetaminophen 325 MG TABLET 650 MG PO ×4 (01:11→22:50)
[2021-06-21] MEDS: HYDROmorphone HCl 1 MG/ML SYRINGE 0.5 MG IVPUSH (01:23)
[2021-06-21 06:34] LABS: MANUAL DIFF FLAG NO
[2021-06-21 06:47] LABS: Basophils Percent Auto 0.6 % (0-2); Eosinophils Absolute Auto 0.1 X10*3/uL (0.0-0.4); Hematocrit 32.4 % (37.0-47.0); Hemoglobin 10.3 g/dl (12.0-16.0); Imm Gran Abs Auto 0.01 X10*3/uL (0.00-0.03); Imm Gran Pct Auto 0.1 % (0.0-0.4); Lymphocytes Percent Auto 28.6 % (20-40); Mean Corpuscular HGB Conc 31.8 g/dl (31.0-35.0); Mean Corpuscular Hemoglobin 30.3 pg (27.0-33.0); Mean Corpuscular Volume 95.3 fL (80.0-98.0); Mean Platelet Volume 9.4 fL (9.4-12.3); Monocytes Absolute Auto 0.8 X10*3/uL (0.1-1.2); Monocytes Percent Auto 11.6 % (2-11); Neutrophils Absolute Auto 3.9 x10*3/uL (2.0-8.3); Neutrophils Percent Auto 57.1 % (45-73); Platelet Count 234 X10*3/uL (160-400); Red Cell Distribution Width 13.4 % (11.0-16.0); White Blood Count 6.9 X10*3/uL (4.8-10.8)
[2021-06-21 07:01] LABS: Anion Gap 11 (12-20); Blood Urea Nitrogen 9 mg/dL (9-16); Calcium 8.4 mg/dL (8.4-10.2); Carbon Dioxide 23 mmol/L (22-29); Chloride 107 mmol/L (96-108); Estimated Glomerular Filt Rate > 60; Glucose Random 89 mg/dL (60-115); Potassium 3.6 mmol/L (3.3-5.1); Sodium 137 mmol/L (135-145)
[2021-06-21] MEDS: Heparin Sodium,Porcine 5,000 UNIT/ML VIAL 5000 UNIT SUBCUT ×2 (08:10→21:35)
[2021-06-21] MEDS: 0.9 % Sodium Chloride Flush 3 ML SYRINGE IVFLUSH (08:13)
--- NOTE | 2021-06-21 08:32 | PHA.MEDREC ---
MED REC COMPLETE, NO ISSUES Pharmacy Consult ? Medication Reconciliation Pharmacy has completed the medication reconciliation.
[2021-06-21] MEDS: Morphine Sulfate 4 MG/ML CARTRIDGE IVPUSH ×3 (09:03→20:56)
--- NOTE | 2021-06-21 10:52 | HO.PM.IMPN ---
Subjective Subjective Date of Service: 06/21/21 Interval History: Complaining of severe right flank pain little better with morphine, also complaining of headache, denies fever, chills no nausea, vomiting, has multiple questions about course of treatment. Review of Systems Review of Systems: Yes all other systems are reviewed and are negative Physical Exam Vital Signs: Vital Signs: Last Vital Signs Temp 97.8 F 06/20/21 17:29 Pulse 76 06/21/21 10:20 Resp 18 06/21/21 10:20 BP 154/65 H 06/21/21 10:20 Pulse Ox 96 06/21/21 10:20 BMI result Body Mass Index 21.9 Const: Other: General Awake alert, no acute distress. Neck supple no JVD. CVS regular rate rhythm, Respiratory lungs clear to auscultation, no respiratory distress, no wheeze, no rhonchi. Gastrointestinal abdomen soft, bowel sounds audible, tenderness right lower quadrant right flank, positive right CVA tenderness Extremities no edema. Neuro nonfocal Skin no rash psych appropriate affect Objective Data Active Medications Acetaminophen (Acetaminophen 325 Mg Tablet) 650 mg PO Q6H PRN PRN Reason: Pain, Mild (Pain Scale 1-3) Last Admin: 06/21/21 10:26 Dose: 650 mg Documented by: BROCK Aspirin (Aspirin Enteric Coated 81 Mg Tablet.) 81 mg PO DAILY [facility] Atorvastatin Calcium (Atorvastatin Calcium 40 Mg Tablet) 40 mg PO DAILY [facility] Heparin Sodium (Porcine) (Heparin Sodium,Porcine 5,000 Unit/Ml Vial) 5,000 unit SUBCUT Q8H [facility] Last Admin: 06/21/21 08:10 Dose: 5,000 unit Documented by: BROCK Ceftriaxone Sodium 1 gm/ (Sodium Chloride) 50 mls @ 100 mls/hr IV Q24H [facility] Dextrose/Sodium Chloride (D5ns) 1,000 mls @ 125 mls/hr IVCONT .Q8H [facility] Melatonin (Melatonin 3 Mg Tablet) 9 mg PO BEDTIME PRN PRN Reason: Sleep Morphine Sulfate (Morphine Sulfate 4 Mg/Ml Cartridge) 4 mg IVPUSH Q4H PRN; Protocol PRN Reason: Pain, Severe (Pain Scale 7-10) Last Admin: 06/21/21 09:03 Dose: 4 mg Documented by: BROCK Omeprazole (Omeprazole 20 Mg Capsule.) 20 mg PO DAILY [facility] Senna (Sennosides 8.6 Mg Tablet) 17.2 mg PO BEDTIME PRN PRN Reason: Constipation Sodium Chloride (0.9 % Sodium Chloride Flush 3 Ml Syringe) 3 ml IVFLUSH QSHIFT [facility] Last Admin: 06/21/21 08:13 Dose: 3 ml Documented by: BROCK Vitamin D (Cholecalciferol (Vitamin D3) 25 Mcg Tablet) 25 mcg PO DAILY [facility] Labs CBC & Chem 7: 06/21/21 06:28 06/21/21 06:28 Labs: Laboratory Results - last 24 hr 06/20/21 06/20/21 06/20/21 15:59 15:59 16:01 MCV 94.5 MCH 30.3 MCHC 32.0 RDW 13.3 Plt Count 252 MPV 9.4 Immature Gran % (Auto) 0.4 Neut % (Auto) 88.3 H Lymph % (Auto) 7.1 L [place] % (Auto) 3.8 Eos % (Auto) 0.1 Baso % (Auto) 0.3 Lymph # (Auto) 0.8 L [place] # (Auto) 0.4 Eos # (Auto) 0.0 Baso # (Auto) 0.0 Abs Immat Gran (auto) 0.04 H Absolute Neuts (auto) 9.8 H Absolute Nucleated RBC 0.000 Nucleated RBC % (auto) 0.0 Anion Gap 16 Estim Creat Clear Calc 39.8 Estimated GFR 54 Random Glucose 125 H Calcium 9.1 D Total Bilirubin 0.5 AST 27 ALT 22 Alkaline Phosphatase 113 D Total Protein 7.0 Albumin 4.3 Lipase 11 Urine Color YELLOW Urine Appearance HAZY Urine pH 5.5 Ur Specific [place] >= 1.030 H Urine Protein TRACE Urine Glucose (UA) NEG Urine Ketones 40 Urine Blood 3+ H Urine Nitrite NEG Ur Leukocyte Esterase NEG Urine RBC TNTC H Urine WBC 5-9 H Ur Squamous Epith Cells TRACE Urine Bacteria 1+ Urine Mucus TRACE COVID-19 ([facility]) COVID-19 Clin Com 06/20/21 06/21/21 06/21/21 18:58 06:28 06:28 MCV 95.3 MCH 30.3 MCHC 31.8 RDW 13.4 Plt Count 234 MPV 9.4 Immature Gran % (Auto) 0.1 Neut % (Auto) 57.1 Lymph % (Auto) 28.6 [place] % (Auto) 11.6 H Eos % (Auto) 2.0 Baso % (Auto) 0.6 Lymph # (Auto) 2.0 [place] # (Auto) 0.8 Eos # (Auto) 0.1 Baso # (Auto) 0.0 Abs Immat Gran (auto) 0.01 Absolute Neuts (auto) 3.9 Absolute Nucleated RBC 0.000 Nucleated RBC % (auto) 0.0 Anion Gap 11 L Estim Creat Clear Calc 49.0 Estimated GFR > 60 Random Glucose 89 Calcium 8.4 D Total Bilirubin AST ALT Alkaline Phosphatase Total Protein Albumin Lipase Urine Color Urine Appearance Urine pH Ur Specific [place] Urine Protein Urine Glucose (UA) Urine Ketones Urine Blood Urine Nitrite Ur Leukocyte Esterase Urine RBC Urine WBC Ur Squamous Epith Cells Urine Bacteria Urine Mucus COVID-19 ([facility]) Negative COVID-19 Clin Com See Note Assessment and Plan (1) Ureteral obstruction, right: Status: Acute (2) Renal colic: Status: Acute (3) Acute pyelonephritis: Status: Acute Plan 70-year-old female with a past medical history of multi nodular goiter, anxiety, sleep disorder; presented to the hospital today with a chief complaint of right flank pain.? Noted to have pyelonephritis/question kidney stone.? Admitted for further management.? Acute Pyelonephritis: Continue iv ceftriaxone, Follow urine cultures. WBC normalized, no fever, UVJ density question stone: severe right flank and lower abdominal pain?, continue IV fluids, continue analgesics, await input from Dr. Garcia Microscopic hematuria:? Likely in the setting of renal stone. Anemia drop in hematocrit likely dilutional, no active GI bleed, no marcus hematuria,follow CBC hyperlipidemia continue statin Insomnia continue melatonin at home also take Tylenol p.m. DVT prophylaxis:? Subcu heparin Code status:? Full code Quality Stroke Does the patient have a stroke diagnosis?: No VTE Prior VTE?: No VTE Risk Level:: Medical - moderate - high VTE Device Contraindication: Treatment Not Indicated VTE Drug Contraindication: N/A - Med Ordered
[2021-06-21] MEDS: Dextrose 5 % and 0.9 % NaCl 1,000 ML 125 ML IVCONT ×2 (11:39→21:29)
[2021-06-21] MEDS: Omeprazole 20 MG CAPSULE.DR PO (11:46)
[2021-06-21] MEDS: Cholecalciferol (Vitamin D3) 25 MCG TABLET PO (11:46)
[2021-06-21] MEDS: Atorvastatin Calcium 40 MG TABLET PO (11:46)
--- NOTE | 2021-06-21 13:33 | MHC.CM.PN ---
CM attempted to speak with Patient at [phone], but her Sister/HCP/Heydi answered the phone. 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 Home/no services and continued support from Heydi is the goal and BRIANNA has initiated and will follow for dc planning. Dr. Wiley Segura is the PCP and Patient has received Moderna/covid vax x3.
--- NOTE | 2021-06-21 18:43 | MHC.SHP ---
Pre-Procedural Eval Section A Date of Service: 06/21/21 The patient is an INPATIENT: Yes Changes since office visit: No Cold of Flu in the past 2 weeks, No New Medical Problems, No Changes in Medication and No Patient answered all questions The History & Physical has been completed within 30 days and I have reviewed it.: No Section B Chief Complaint: UTI Details of Present Illness: present with right-sided flank pain and question of distal right ureteric narrowing. Relevant Family History (Specify if Yes): No Relevant Social History: None Present Medications: see Short Stay Collaborative assessment Medical History: No relevant PMH History of Previous Operations: No relevant previous surgery Allergies: Allergies Allergy/AdvReac Type Severity Reaction Status Date / Time hydromorphone [From Dilaudid] Allergy Palpitation Verified 06/21/21 15:09 s meperidine [From DEMEROL] AdvReac Intermediate AGITATION Verified 04/26/21 12:04 Review of Systems Sugical H&P ROS: Negative: Constitution, Cardiovascular, Respiratory, Neurological, Psychiatric, Hem-Onc, Allergic/Immunologic, Gastrointestinal, Genitourinary, Musculoskeletal, Integumentary, Endocrine and Eyes/Ears/Nose/Throat Exam Surgical H&P Exam: Normal: HEENT, Normal: Heart, Normal: Lungs, Normal: Extremities, Normal: Abdomen, Normal: Skin and Normal: Neurological Plan Diagnosis/Plan: Unchanged ( Cystoscopy, right retrograde, right stent placement) I have reviewed the history and physical and performed a pertinent physical examination on my patient. No changes have occurred unless specified.
--- NOTE | 2021-06-21 18:49 | HO.ANESPROP2 ---
[facility] Active Problems Active Problems: All Active Problems (Updated 06/21/21 @ 10:57 by Johnny Villalobos MD) Acute pyelonephritis (Acute) Renal colic (Acute) Ureteral obstruction, right (Acute) Acute UTI (Acute) Multinodular thyroid (Acute) Thyroid nodule (Acute) Sleep disorder (Acute) GERD (gastroesophageal reflux disease) (Acute) Lump (Acute) SOB (shortness of breath) (Acute) Abnormal stress test (Acute) Precordial chest pain (Acute) Medial epicondylitis of right elbow (Acute) Elbow injury (Acute) Past Medical History Medical History Anxiety GERD (gastroesophageal reflux disease) Lump Multinodular thyroid Normal colonoscopy Sleep disorder Thyroid nodule Family History Family History Father History of colon cancer Family history of hypertension Family history of polyps in the colon Congestive heart failure Mother Family history of hypertension History of diabetes mellitus History of heart disease Congestive heart failure Brother Family history of prostate cancer Sister History of heart disease Sister Breast cancer History of heart disease Sister Fatty liver Family history of problems with anesthesia: No Surgical History Surgical History History of cardiac catheterization (~10/2020) S/P LAURO (total abdominal hysterectomy) History of Problems with Anesthesia: No Social History Social History Alcohol intake: current Alcohol intake frequency: 0-2 drinks per day Alcohol type: wine Patient Tobacco Use Status: Never used Tobacco service: No Current occupational status: retired Meds Allergies Allergy/AdvReac Type Severity Reaction Status Date / Time hydromorphone [From Dilaudid] Allergy Palpitation Verified 06/21/21 15:09 s meperidine [From DEMEROL] AdvReac Intermediate AGITATION Verified 04/26/21 12:04 Active Medications: Current Medications Acetaminophen (Acetaminophen 325 Mg Tablet) 650 mg PO Q6H PRN PRN Reason: Pain, Mild (Pain Scale 1-3) Last Admin: 06/21/21 10:26 Dose: 650 mg Documented by: Aspirin (Aspirin Enteric Coated 81 Mg Tablet.) 81 mg PO DAILY [facility] Atorvastatin Calcium (Atorvastatin Calcium 40 Mg Tablet) 40 mg PO DAILY [facility] Last Admin: 06/21/21 11:46 Dose: 40 mg Documented by: Heparin Sodium (Porcine) (Heparin Sodium,Porcine 5,000 Unit/Ml Vial) 5,000 unit SUBCUT Q8H [facility] Last Admin: 06/21/21 16:21 Dose: Not Given Documented by: Ceftriaxone Sodium 1 gm/ (Sodium Chloride) 50 mls @ 100 mls/hr IV Q24H [facility] Dextrose/Sodium Chloride (D5ns) 1,000 mls @ 125 mls/hr IVCONT .Q8H [facility] Last Admin: 06/21/21 11:39 Dose: 125 mls/hr Documented by: Melatonin (Melatonin 3 Mg Tablet) 9 mg PO BEDTIME PRN PRN Reason: Sleep Morphine Sulfate (Morphine Sulfate 4 Mg/Ml Cartridge) 4 mg IVPUSH Q4H PRN; Protocol PRN Reason: Pain, Severe (Pain Scale 7-10) Last Admin: 06/21/21 14:55 Dose: 4 mg Documented by: Omeprazole (Omeprazole 20 Mg Capsule.) 20 mg PO DAILY [facility] Last Admin: 06/21/21 11:46 Dose: 20 mg Documented by: Senna (Sennosides 8.6 Mg Tablet) 17.2 mg PO BEDTIME PRN PRN Reason: Constipation Sodium Chloride (0.9 % Sodium Chloride Flush 3 Ml Syringe) 3 ml IVFLUSH QSHIFT [facility] Last Admin: 06/21/21 16:38 Dose: Not Given Documented by: Vitamin D (Cholecalciferol (Vitamin D3) 25 Mcg Tablet) 25 mcg PO DAILY [facility] Last Admin: 06/21/21 11:46 Dose: 25 mcg Documented by: Home Medications Medication Instructions Recorded Confirmed Last Taken Type rosuvastatin 10 mg tablet 10 mg PO DAILY 09/15/20 06/21/21 Unknown History diphenhydramine 25 1 tab PO BEDTIME 11/10/20 06/21/21 Unknown History mg-acetaminophen 500 mg tablet (Tylenol PM Extra Strength) aspirin 81 mg tablet,delayed 81 mg PO DAILY 11/11/20 06/21/21 Unknown History release (Adult Low Dose Aspirin) melatonin 10 mg capsule 10 mg PO BEDTIME PRN 12/22/20 06/21/21 Unknown History omeprazole 20 mg capsule,delayed 20 mg PO DAILY 04/26/21 06/21/21 Unknown History release cholecalciferol (vitamin D3) 25 25 mcg PO DAILY 06/21/21 06/21/21 Unknown History mcg (1,000 unit) tablet (Vitamin D3) estradiol 1 g VAGINAL DAILY PRN 06/21/21 06/21/21 Unknown History estradiol 0.0375 mg/24 hr weekly 1 patch TRANSDERMAL TOPETE@1000 06/21/21 06/21/21 06/20/21 History transdermal patch Exam Exam Date and Time: June 21, [id number] Height,Weight and Vital Signs: Height 5 ft 2 in Weight 54.431 kg Last Vital Signs Temp 97.7 F 06/21/21 18:38 Pulse 90 06/21/21 18:38 Resp 20 06/21/21 18:38 BP 166/66 H 06/21/21 18:38 Pulse Ox 96 06/21/21 18:38 Pertinent Lab Results Pertinent Lab Results: Laboratory Tests 06/20/21 06/20/21 06/20/21 15:59 15:59 16:01 WBC 11.1 H RBC 4.03 L Hgb 12.2 Hct 38.1 MCV 94.5 MCH 30.3 MCHC 32.0 RDW 13.3 Plt Count 252 MPV 9.4 Immature Gran % (Auto) 0.4 Neut % (Auto) 88.3 H Lymph % (Auto) 7.1 L [place] % (Auto) 3.8 Eos % (Auto) 0.1 Baso % (Auto) 0.3 Lymph # (Auto) 0.8 L [place] # (Auto) 0.4 Eos # (Auto) 0.0 Baso # (Auto) 0.0 Abs Immat Gran (auto) 0.04 H Absolute Neuts (auto) 9.8 H Absolute Nucleated RBC 0.000 Nucleated RBC % (auto) 0.0 Sodium 139 Potassium 4.2 Chloride 106 Carbon Dioxide 21 L Anion Gap 16 BUN 12 Creatinine 1.01 Estim Creat Clear Calc 39.8 Estimated GFR 54 Random Glucose 125 H Calcium 9.1 D Total Bilirubin 0.5 AST 27 ALT 22 Alkaline Phosphatase 113 D Total Protein 7.0 Albumin 4.3 Lipase 11 Urine Color YELLOW Urine Appearance HAZY Urine pH 5.5 Ur Specific [place] >= 1.030 H Urine Protein TRACE Urine Glucose (UA) NEG Urine Ketones 40 Urine Blood 3+ H Urine Nitrite NEG Ur Leukocyte Esterase NEG Urine RBC TNTC H Urine WBC 5-9 H Ur Squamous Epith Cells TRACE Urine Bacteria 1+ Urine Mucus TRACE COVID-19 ([facility]) COVID-19 Clin Com 06/20/21 06/21/21 06/21/21 18:58 06:28 06:28 WBC 6.9 RBC 3.40 L Hgb 10.3 L Hct 32.4 L MCV 95.3 MCH 30.3 MCHC 31.8 RDW 13.4 Plt Count 234 MPV 9.4 Immature Gran % (Auto) 0.1 Neut % (Auto) 57.1 Lymph % (Auto) 28.6 [place] % (Auto) 11.6 H Eos % (Auto) 2.0 Baso % (Auto) 0.6 Lymph # (Auto) 2.0 [place] # (Auto) 0.8 Eos # (Auto) 0.1 Baso # (Auto) 0.0 Abs Immat Gran (auto) 0.01 Absolute Neuts (auto) 3.9 Absolute Nucleated RBC 0.000 Nucleated RBC % (auto) 0.0 Sodium 137 Potassium 3.6 Chloride 107 Carbon Dioxide 23 Anion Gap 11 L BUN 9 Creatinine 0.82 Estim Creat Clear Calc 49.0 Estimated GFR > 60 Random Glucose 89 Calcium 8.4 D Total Bilirubin AST ALT Alkaline Phosphatase Total Protein Albumin Lipase Urine Color Urine Appearance Urine pH Ur Specific [place] Urine Protein Urine Glucose (UA) Urine Ketones Urine Blood Urine Nitrite Ur Leukocyte Esterase Urine RBC Urine WBC Ur Squamous Epith Cells Urine Bacteria Urine Mucus COVID-19 ([facility]) Negative COVID-19 Clin Com See Note Airway Mallampati Class: I TM Dist: >3cm Neck ROM: Full Heart: RRR Lungs: CTA Assessment and Plan Assessment Anesthesia Assessment: Anesthesia Plan Discussed and Chart Reviewed Final Anesthetic Review Family History of Problems with Anesthesia: No History of Problems with Anesthesia: No NPO: Yes ASA Class: II Final Preanesthetic Review: No Changes in Pt Med Stat, Meds/Allgs Chart Reviewed, Consent Obtained/Reviewed and Anes Risks/Benef Reviewed Patient Risk: Intermediate Procedure Risk: Low Anesthetic Plan Anesthetic Plan: MAC: Disposition: Standard PACU
--- NOTE | 2021-06-21 18:51 | P.CNUR_ITS ---
History of Present Illness Consult details Consult date: 06/21/21 Narrative: 70-year-old female who presented to hospital with right-sided flank pain. Initial WBC 11.4 Imaging performed KIDNEYS AND URETERS: Soft tissue stranding around the right kidney. The right ureter is prominent to the level of the UVJ.. There is no obvious stone here. There is some high density is seen in the region urine culture Gram-negative rods Given persistent pain and inability to fully managed with oral pain medications recommendation for cystoscopy, retrograde, stent placement Review of Systems Constitutional: Constitutional: Reports as per HPI and Reports no additional constitutional complaints Cardiovascular: Cardiovascular: Reports as per HPI and Reports no additional cardiovascular complaints Respiratory: Respiratory: Reports as per HPI and Reports no additional respiratory complaints Gastrointestinal: Gastrointestinal: Reports as per HPI and Reports no additional gastrointestinal complaints Genitourinary: Genitourinary: Reports as per HPI Musculoskeletal: Musculoskeletal: Reports no additional musculoskeletal complaints and Reports as per HPI Neurologic: Reports system reviewed and no additional complaints, except as documented and Reports as per HPI PMFSH Past Medical History Medical History Anxiety GERD (gastroesophageal reflux disease) Lump Multinodular thyroid Normal colonoscopy Sleep disorder Thyroid nodule Family History Family History Father History of colon cancer Family history of hypertension Family history of polyps in the colon Congestive heart failure Mother Family history of hypertension History of diabetes mellitus History of heart disease Congestive heart failure Brother Family history of prostate cancer Sister History of heart disease Sister Breast cancer History of heart disease Sister Fatty liver Surgical History Surgical History History of cardiac catheterization (~10/2020) S/P LAURO (total abdominal hysterectomy) Social History Social History Alcohol intake: current Alcohol intake frequency: 0-2 drinks per day Alcohol type: wine Patient Tobacco Use Status: Never used Tobacco service: No Current occupational status: retired Meds Allergies Allergy/AdvReac Type Severity Reaction Status Date / Time hydromorphone [From Dilaudid] Allergy Palpitation Verified 06/21/21 15:09 s meperidine [From DEMEROL] AdvReac Intermediate AGITATION Verified 04/26/21 12:04 Active Medications: Current Medications Acetaminophen (Acetaminophen 325 Mg Tablet) 650 mg PO Q6H PRN PRN Reason: Pain, Mild (Pain Scale 1-3) Last Admin: 06/21/21 10:26 Dose: 650 mg Documented by: Aspirin (Aspirin Enteric Coated 81 Mg Tablet.) 81 mg PO DAILY [facility] Atorvastatin Calcium (Atorvastatin Calcium 40 Mg Tablet) 40 mg PO DAILY [facility] Last Admin: 06/21/21 11:46 Dose: 40 mg Documented by: Heparin Sodium (Porcine) (Heparin Sodium,Porcine 5,000 Unit/Ml Vial) 5,000 unit SUBCUT Q8H [facility] Last Admin: 06/21/21 16:21 Dose: Not Given Documented by: Ceftriaxone Sodium 1 gm/ (Sodium Chloride) 50 mls @ 100 mls/hr IV Q24H [facility] Dextrose/Sodium Chloride (D5ns) 1,000 mls @ 125 mls/hr IVCONT .Q8H [facility] Last Admin: 06/21/21 11:39 Dose: 125 mls/hr Documented by: Melatonin (Melatonin 3 Mg Tablet) 9 mg PO BEDTIME PRN PRN Reason: Sleep Morphine Sulfate (Morphine Sulfate 4 Mg/Ml Cartridge) 4 mg IVPUSH Q4H PRN; Protocol PRN Reason: Pain, Severe (Pain Scale 7-10) Last Admin: 06/21/21 14:55 Dose: 4 mg Documented by: Omeprazole (Omeprazole 20 Mg Capsule.) 20 mg PO DAILY [facility] Last Admin: 06/21/21 11:46 Dose: 20 mg Documented by: Senna (Sennosides 8.6 Mg Tablet) 17.2 mg PO BEDTIME PRN PRN Reason: Constipation Sodium Chloride (0.9 % Sodium Chloride Flush 3 Ml Syringe) 3 ml IVFLUSH QSHIFT [facility] Last Admin: 06/21/21 16:38 Dose: Not Given Documented by: Vitamin D (Cholecalciferol (Vitamin D3) 25 Mcg Tablet) 25 mcg PO DAILY [facility] Last Admin: 06/21/21 11:46 Dose: 25 mcg Documented by: Home Medications Medication Instructions Recorded Confirmed Last Taken Type rosuvastatin 10 mg tablet 10 mg PO DAILY 09/15/20 06/21/21 Unknown History diphenhydramine 25 1 tab PO BEDTIME 11/10/20 06/21/21 Unknown History mg-acetaminophen 500 mg tablet (Tylenol PM Extra Strength) aspirin 81 mg tablet,delayed 81 mg PO DAILY 11/11/20 06/21/21 Unknown History release (Adult Low Dose Aspirin) melatonin 10 mg capsule 10 mg PO BEDTIME PRN 12/22/20 06/21/21 Unknown History omeprazole 20 mg capsule,delayed 20 mg PO DAILY 04/26/21 06/21/21 Unknown History release cholecalciferol (vitamin D3) 25 25 mcg PO DAILY 06/21/21 06/21/21 Unknown History mcg (1,000 unit) tablet (Vitamin D3) estradiol 1 g VAGINAL DAILY PRN 06/21/21 06/21/21 Unknown History estradiol 0.0375 mg/24 hr weekly 1 patch TRANSDERMAL TOPETE@1000 06/21/21 06/21/21 06/20/21 History transdermal patch Physical Exam Vital Signs: Vital Signs: Last Vital Signs Temp 97.7 F 06/21/21 18:38 Pulse 90 06/21/21 18:38 Resp 20 06/21/21 18:38 BP 166/66 H 06/21/21 18:38 Pulse Ox 96 06/21/21 18:38 BMI result Body Mass Index 21.9 Const: General: cooperative, healthy appearing, comfortable and no acute distress Orientation/consciousness: patient oriented x3 HEENT: Face and sinus: Yes normal facial exam Mouth: moist mucous membranes Neck: Neck: Yes normal visual inspection, Yes full ROM and Yes trachea midline Chest: Chest palpation & inspection: normal inspection of the chest Resp: Effort & Inspection: normal respiratory effort, able to speak in complete sentences and no respiratory distress GI: Inspection: Yes normal to inspection Back/Spine/Pelvis: Cervical Spine: normal cervical lordosis Thoracic/Lumbar Spine: thoracic and lumbar spine normal to inspection Skin: General skin exam: no rashes or lesions noted Neuro: General: patient oriented x3, tone normal and moves all extremities Extrem: General: Yes normal to inspection and Yes capillary refill normal Results Labs Result diagrams: 06/21/21 06:28 06/21/21 06:28 Labs: Abnormal lab results 06/21/21 06/21/21 Range/Units 06:28 06:28 RBC 3.40 L (4.20-5.50) X10*6/uL Hgb 10.3 L (12.0-16.0) g/dl Hct 32.4 L (37.0-47.0) % Bertie % (Auto) 11.6 H (2-11) % Anion Gap 11 L (12-20) Short CBC 06/21/21 Range/Units 06:28 WBC 6.9 (4.8-10.8) X10*3/uL Hgb 10.3 L (12.0-16.0) g/dl Hct 32.4 L (37.0-47.0) % Plt Count 234 (160-400) X10*3/uL BMP 06/21/21 06:28 Sodium 137 Potassium 3.6 Chloride 107 Carbon Dioxide 23 BUN 9 Creatinine 0.82 Calcium 8.4 D Urine 06/20/21 Range/Units 16:01 Urine Color YELLOW Urine Appearance HAZY Urine pH 5.5 (5.0-8.0) Ur Specific [place] >= 1.030 H (1.005-1.025) Urine Protein TRACE (NEG-TRACE) MG/DL Urine Glucose (UA) NEG (NEG) MG/DL All other labs normal. Assessment and Plan (1) Ureteral obstruction, right: Status: Acute Plan Risks, benefits and alternatives to therapy were discussed. These include but are not limited to infection, bleeding, damage to local organs and tissues, need for further interventions. Anesthetic risks regarding cardiac arrhythmia, blood clots, and potential mortality were discussed. The patient understands the typical recovery time and the outpatient nature of the procedure. After consideration of these risks the patient gives full in formed consent and they wish to move ahead with the procedure. Procedures Date of Service Date of Service: 06/21/21
--- NOTE | 2021-06-21 19:30 | P.OP_ITS ---
Operative Note Operative Note Date of Service: 06/21/21 Narrative: PreOperative Diagnosis: right hydroureteronephrosis Post Operative Diagnosis: distal right ureteric stone Procedure: cystoscopy, right retrograde, right stent placement Surgeon: Dr Margarito Garcia Anesthesia: sedation Indications for procedure: presented with right flank pain not tolerating oral medication and hydroureteronephrosis on imaging Procedure: After informed consent was verified the patient was brought to the operating room and placed in a supine position. anesthesia was administered per protocol. placed was placed in modified dorsal lithotomy position and prepped and draped in sterile fashion. Safety pause time-out was performed. Antibiotics being given. Cystoscopy performed. Right ureteric orifice was clearly inflamed. Retrograde examination performed. Hydroureteronephrosis. Sensor guidewire placed small stone popped out of the distal portion of the ureter and sat in the bladder. Six [place] by 22 cm double-J stent placed over the wire up to the level renal pelvis and in the bladder under fluoroscopy and direct visualization The small stone that had fallen to the bladder was able to be removed through the cystoscope. The patient tolerated procedure well was extubated in operating room transferred in stable condition recovery area Pathology: Stones Drains: 6 [place] by 22 cm double-J stent right side
[2021-06-21] MEDS: cefTRIAXone sodium 1 GM in 0.9 % Sodium Chloride 50 ML IV (21:27)
[2021-06-21] MEDS: Phenazopyridine HCL 100 MG TABLET PO (21:35)
[2021-06-21] MEDS: oxyCODONE HCl Immed Release 5 MG TABLET PO (22:50)
[2021-06-22] VITALS (7 sets, daily range): BP systolic 130–187; BP diastolic 68–85; PULSE 75–82; RESP 14–18; TEMP 36–37.2; O2SAT 91–98
[2021-06-22] MEDS: Morphine Sulfate 4 MG/ML CARTRIDGE IVPUSH ×4 (01:41→20:08)
[2021-06-22] MEDS: ondansetron HCL 4 MG/2 ML VIAL IVPUSH (04:12)
[2021-06-22] MEDS: Dextrose 5 % and 0.9 % NaCl 1,000 ML 125 ML IVCONT (04:15)
[2021-06-22] MEDS: Atorvastatin Calcium 40 MG TABLET PO (07:33)
[2021-06-22] MEDS: Aspirin Enteric Coated 81 MG TABLET.DR PO (07:33)
[2021-06-22] MEDS: Cholecalciferol (Vitamin D3) 25 MCG TABLET PO (07:33)
[2021-06-22] MEDS: Omeprazole 20 MG CAPSULE.DR PO (07:33)
--- NOTE | 2021-06-22 09:44 | PC.NURSE ---
Attempted to scan patients wristband 4 times, scanner would not scan. Done manual as patient needed pain medication.
--- NOTE | 2021-06-22 11:37 | P.PNIM_ITS ---
Subjective Subjective Date of Service: 06/22/21 Interval History: complaining of significant right flank pain, dry heaves and headache, denies fever chills denies urinary symptoms no other acute issues overnight, family concern about side effect from anesthesia medication, since she has allergy to Demerol, patient received propofol and fentanyl yesterday for cystoscopy. Review of Systems Review of Systems: Yes all other systems are reviewed and are negative Physical Exam Vital Signs: Vital Signs: Last Vital Signs Temp 97.7 F 06/22/21 11:13 Pulse 77 06/22/21 11:13 Resp 17 06/22/21 11:13 BP 140/74 H 06/22/21 11:13 Pulse Ox 92 06/22/21 11:13 BMI result Body Mass Index 21.9 Const: Other: General ? Awake alert, mild acute distress due to headache and nausea? Neck supple no JVD. CVS? regular rate rhythm, Respiratory lungs clear to auscultation, no respiratory distress, no wheeze, no rhonchi. Gastrointestinal abdomen soft,? bowel sounds audible, tenderness right right flank Extremities no edema. Neuro nonfocal Skin no rash/pale psych appropriate affect Objective Data Active Medications Acetaminophen (Acetaminophen 325 Mg Tablet) 650 mg PO Q6H PRN PRN Reason: Pain, Mild (Pain Scale 1-3) Last Admin: 06/21/21 22:50 Dose: 650 mg Documented by: ALEX Acetaminophen (Acetaminophen 325 Mg Tablet) 650 mg PO ONCE PRN PRN Reason: Pain, Mild (Pain Scale 1-3) Aspirin (Aspirin Enteric Coated 81 Mg Tablet.) 81 mg PO DAILY [facility] Last Admin: 06/22/21 07:33 Dose: 81 mg Documented by: ROSENDO Atorvastatin Calcium (Atorvastatin Calcium 40 Mg Tablet) 40 mg PO DAILY [facility] Last Admin: 06/22/21 07:33 Dose: 40 mg Documented by: ROSENDO Fentanyl (Fentanyl Citrate/Pf 100 Mcg/2 Ml Vial) 50 mcg IVPUSH Q5M PRN; Protocol PRN Reason: Pain, Severe (Pain Scale 7-10) Heparin Sodium (Porcine) (Heparin Sodium,Porcine 5,000 Unit/Ml Vial) 5,000 unit SUBCUT Q8H [facility] Last Admin: 06/22/21 05:39 Dose: Not Given Documented by: ALEX Non-Admin Reason: pt ambulating Hydromorphone HCl (Hydromorphone Hcl 0.5 Mg/0.5 Ml Syringe) 0.25 mg IVPUSH Q5M PRN; Protocol PRN Reason: Pain, Severe (Pain Scale 7-10) Ceftriaxone Sodium 1 gm/ (Sodium Chloride) 50 mls @ 100 mls/hr IV Q24H [facility] Last Infusion: 06/21/21 22:31 Dose: 0 mls/hr Documented by: ALEX Melatonin (Melatonin 3 Mg Tablet) 9 mg PO BEDTIME PRN PRN Reason: Sleep Morphine Sulfate (Morphine Sulfate 4 Mg/Ml Cartridge) 4 mg IVPUSH Q4H PRN; Protocol PRN Reason: Pain, Severe (Pain Scale 7-10) Last Admin: 06/22/21 09:43 Dose: 4 mg Documented by: ROSENDO Omeprazole (Omeprazole 20 Mg Capsule.Dr) 20 mg PO DAILY [facility] Last Admin: 06/22/21 07:33 Dose: 20 mg Documented by: ROSENDO Senna (Sennosides 8.6 Mg Tablet) 17.2 mg PO BEDTIME PRN PRN Reason: Constipation Sodium Chloride (0.9 % Sodium Chloride Flush 3 Ml Syringe) 3 ml IVFLUSH QSHIFT [facility] Last Admin: 06/22/21 07:33 Dose: Not Given Documented by: ROSENDO Non-Admin Reason: IV Running Tramadol HCl (Tramadol Hcl 50 Mg Tablet) 50 mg PO Q6H PRN PRN Reason: Pain, Moderate (Pain Scale 4-6 Vitamin D (Cholecalciferol (Vitamin D3) 25 Mcg Tablet) 25 mcg PO DAILY [facility] Last Admin: 06/22/21 07:33 Dose: 25 mcg Documented by: ROSENDO Labs CBC & Chem 7: 06/21/21 06:28 06/21/21 06:28 Microbiology Microbiology Results: Microbiology 06/20/21 16:16 Urine Culture - Final Urine clean catch - Clean Catch Midstream Enterobacter aerogenes Assessment and Plan (1) Ureteral obstruction, right: Status: Acute (2) Renal colic: Status: Acute (3) Acute pyelonephritis: Status: Acute Plan 70-year-old female with a past medical history of multi nodular goiter, anxiety, sleep disorder; presented to the hospital today with a chief complaint of right flank pain.? Noted to have pyelonephritis/question kidney stone.? Admitted for further management.? Acute Pyelonephritis: Continue iv ceftriaxone, urine culture grew Enterobacter aerogenes sensitive to ceftriaxone right hydroureteronephrosis secondary to right UVJ stone: underwent cystoscopy and stent placement with removal of stone postprocedure complaining of significant headache, dry heaves and back pain continue symptomatic treatment with IV fluids, antiemetics, analgesics symptoms question related to infection and anesthesia medication Anemia drop in hematocrit likely dilutional, no active GI bleed, no marcus hematuria,follow CBC hyperlipidemia continue statin Insomnia continue melatonin prn DVT prophylaxis:? Subcu heparin Code status:? Full code Quality Stroke Does the patient have a stroke diagnosis?: No VTE Prior VTE?: No VTE Risk Level:: Medical - moderate - high VTE Device Contraindication: Treatment Not Indicated VTE Drug Contraindication: N/A - Med Ordered
--- NOTE | 2021-06-22 12:13 | PC.NURSE ---
Spoke with pharmacist Rin, concerning hydromorphone allergy and being ordered. Rin said we could use it if we needed to but she will look into it more, she did not think it was a true allergy. I told Rin that I was using the Morphine instead.
[2021-06-22] MEDS: Dextrose 5 % and 0.9 % NaCl 1,000 ML 100 ML IVCONT ×2 (14:19→22:55)
--- NOTE | 2021-06-22 14:19 | HO.POSTANES ---
Post Anesthesia Evaluation Post Anesthesia Evaluation Vital Signs: Vital Signs Temp Pulse Resp BP Pulse Ox 06/22/21 11:13 97.7 F 77 17 140/74 H 92 06/22/21 07:24 96.8 F 79 17 130/84 92 06/22/21 04:00 98.9 F 76 16 163/72 H 91 L Anesthesia: General Mental Status: Awake Pain Control: Satisfactory Nausea/Vomiting: None Hydration: Adequate Anesthesia-Related Issues: No Anes. Related Issues
[2021-06-22] MEDS: traMADoL HCL 50 MG TABLET PO (16:16)
[2021-06-22] MEDS: Heparin Sodium,Porcine 5,000 UNIT/ML VIAL 5000 UNIT SUBCUT ×2 (16:18→22:53)
[2021-06-22] MEDS: 0.9 % Sodium Chloride Flush 3 ML SYRINGE IVFLUSH ×2 (16:18→22:55)
[2021-06-22] MEDS: cefTRIAXone sodium 1 GM in 0.9 % Sodium Chloride 50 ML IV (20:07)
[2021-06-22] MEDS: SUMAtriptan succinate 50 MG TABLET PO (20:52)
[2021-06-23] VITALS (13 sets, daily range): BP systolic 148–180; BP diastolic 67–96; PULSE 70–90; RESP 14–18; TEMP 36.7–37.2; O2SAT 96–99
[2021-06-23] MEDS: hydrALAZINE HCl 20 MG/ML VIAL 5 MG IVPUSH (01:00)
[2021-06-23 05:47] LABS: Hematocrit 34.9 % (37.0-47.0); Hemoglobin 11.1 g/dl (12.0-16.0); Mean Corpuscular HGB Conc 31.8 g/dl (31.0-35.0); Mean Corpuscular Hemoglobin 29.8 pg (27.0-33.0); Mean Corpuscular Volume 93.8 fL (80.0-98.0); Mean Platelet Volume 9.7 fL (9.4-12.3); Platelet Count 259 X10*3/uL (160-400); Red Blood Count 3.72 X10*6/uL (4.20-5.50); Red Cell Distribution Width 13.2 % (11.0-16.0); White Blood Count 6.6 X10*3/uL (4.8-10.8)
[2021-06-23 06:30] LABS: Anion Gap 13 (12-20); Blood Urea Nitrogen 3 mg/dL (9-16); Calcium 8.8 mg/dL (8.4-10.2); Carbon Dioxide 23 mmol/L (22-29); Chloride 108 mmol/L (96-108); Creatinine Clr Calc Pharmacy 55.1; Estimated Glomerular Filt Rate > 60; Glucose Random 130 mg/dL (60-115); Potassium 3.6 mmol/L (3.3-5.1); Sodium 140 mmol/L (135-145)
[2021-06-23] MEDS: Acetaminophen 325 MG TABLET 650 MG PO ×2 (07:46→15:12)
[2021-06-23] MEDS: Cholecalciferol (Vitamin D3) 25 MCG TABLET PO (07:46)
[2021-06-23] MEDS: Aspirin Enteric Coated 81 MG TABLET.DR PO (07:47)
[2021-06-23] MEDS: Heparin Sodium,Porcine 5,000 UNIT/ML VIAL 5000 UNIT SUBCUT ×2 (07:48→16:33)
[2021-06-23] MEDS: Omeprazole 20 MG CAPSULE.DR PO (10:36)
[2021-06-23] MEDS: Atorvastatin Calcium 40 MG TABLET PO (10:37)
[2021-06-23] MEDS: traMADoL HCL 50 MG TABLET PO (10:37)
[2021-06-23] MEDS: amLODIPine Besylate 5 MG TABLET PO (12:02)
[2021-06-23] MEDS: polyethylene glycoL 3350 17 GM POWD.PACK PO (12:03)
[2021-06-23] MEDS: Fluticasone Propionate Nasal 16 GM SPRAY 1 SPRAY NOSTRIL-B ×2 (14:01→20:17)
--- NOTE | 2021-06-23 15:24 | HO.PM.IMPN ---
Subjective Subjective Date of Service: 06/23/21 Interval History: multiple complaints this morning complaining of headache, right facial pressure, blocked right ear, mild right lower abdominal discomfort, and dry heaves, denies chest pain, no shortness of breath no palpitations, no fevers, no chills. Review of Systems Review of Systems: Yes all other systems are reviewed and are negative Physical Exam Vital Signs: Vital Signs: Last Vital Signs Temp 99.0 F 06/23/21 15:02 Pulse 80 06/23/21 15:02 Resp 17 06/23/21 15:02 BP 170/67 H 06/23/21 15:02 Pulse Ox 96 06/23/21 15:02 BMI result Body Mass Index 21.9 Const: Other: General ? Awake alert,? mild acute distress due to headache ? Neck supple no JVD. CVS? regular rate rhythm, Respiratory lungs clear to auscultation, no respiratory distress, no wheeze, no rhonchi. Gastrointestinal abdomen soft,? bowel sounds audible, mild discomfort right Lower quadrant, no CVA tenderness Extremities no edema. Neuro nonfocal Skin no rash psych appropriate affect Objective Data Active Medications Acetaminophen (Acetaminophen 325 Mg Tablet) 650 mg PO Q6H PRN PRN Reason: Pain, Mild (Pain Scale 1-3) Last Admin: 06/23/21 15:12 Dose: 650 mg Documented by: RUDDY Acetaminophen (Acetaminophen 325 Mg Tablet) 650 mg PO ONCE PRN PRN Reason: Pain, Mild (Pain Scale 1-3) Amlodipine Besylate (Amlodipine Besylate 5 Mg Tablet) 5 mg PO DAILY [facility]; Protocol Last Admin: 06/23/21 12:02 Dose: 5 mg Documented by: ROC Comments: BP148/80 P 71, first dose teaching med purpose & side effects Aspirin (Aspirin Enteric Coated 81 Mg Tablet.) 81 mg PO DAILY [facility] Last Admin: 06/23/21 07:47 Dose: 81 mg Documented by: ROC Atorvastatin Calcium (Atorvastatin Calcium 40 Mg Tablet) 40 mg PO DAILY [facility] Last Admin: 06/23/21 10:37 Dose: 40 mg Documented by: ROC Cefuroxime Axetil (Cefuroxime Axetil 250 Mg Tablet) 250 mg PO Q12H [facility] Last Admin: 06/23/21 10:37 Dose: 250 mg Documented by: ROC Comments: pt teaching first dose med purpose, side effects, when to notify staff Fentanyl (Fentanyl Citrate/Pf 100 Mcg/2 Ml Vial) 50 mcg IVPUSH Q5M PRN; Protocol PRN Reason: Pain, Severe (Pain Scale 7-10) Fluticasone Propionate (Fluticasone Propionate Nasal 16 Gm [place]) 1 spray NOSTRIL-B BID [facility] Last Admin: 06/23/21 14:01 Dose: 1 spray Documented by: ROSENDO Heparin Sodium (Porcine) (Heparin Sodium,Porcine 5,000 Unit/Ml Vial) 5,000 unit SUBCUT Q8H [facility] Last Admin: 06/23/21 07:48 Dose: 5,000 unit Documented by: ROC Hydromorphone HCl (Hydromorphone Hcl 0.5 Mg/0.5 Ml Syringe) 0.25 mg IVPUSH Q5M PRN; Protocol PRN Reason: Pain, Severe (Pain Scale 7-10) Melatonin (Melatonin 3 Mg Tablet) 9 mg PO BEDTIME PRN PRN Reason: Sleep Morphine Sulfate (Morphine Sulfate 4 Mg/Ml Cartridge) 4 mg IVPUSH Q4H PRN; Protocol PRN Reason: Pain, Severe (Pain Scale 7-10) Last Admin: 06/22/21 20:08 Dose: 4 mg Documented by: JAMES Omeprazole (Omeprazole 20 Mg Capsule.Dr) 20 mg PO DAILY [facility] Last Admin: 06/23/21 10:36 Dose: 20 mg Documented by: ROC Polyethylene Glycol (Polyethylene Glycol 3350 17 Gm Powd.Pack) 17 gm PO DAILY [facility] Last Admin: 06/23/21 12:03 Dose: 17 gm Documented by: ROC Comments: med first dose teaching Senna (Sennosides 8.6 Mg Tablet) 17.2 mg PO BEDTIME PRN PRN Reason: Constipation Sodium Chloride (0.9 % Sodium Chloride Flush 3 Ml Syringe) 3 ml IVFLUSH QSHIFT [facility] Last Admin: 06/23/21 15:13 Dose: Not Given Documented by: RUDDY Non-Admin Reason: No Access Tramadol HCl (Tramadol Hcl 50 Mg Tablet) 50 mg PO Q6H PRN PRN Reason: Pain, Moderate (Pain Scale 4-6 Last Admin: 06/23/21 10:37 Dose: 50 mg Documented by: ROC Vitamin D (Cholecalciferol (Vitamin D3) 25 Mcg Tablet) 25 mcg PO DAILY [facility] Last Admin: 06/23/21 07:46 Dose: 25 mcg Documented by: ROC Labs CBC & Chem 7: 06/23/21 05:17 06/23/21 05:17 Labs: Laboratory Results - last 24 hr 06/23/21 06/23/21 05:17 05:17 MCV 93.8 MCH 29.8 MCHC 31.8 RDW 13.2 Plt Count 259 MPV 9.7 Absolute Nucleated RBC 0.000 Nucleated RBC % (auto) 0.0 Anion Gap 13 Estim Creat Clear Calc 55.1 Estimated GFR > 60 Random Glucose 130 H Calcium 8.8 Assessment and Plan (1) Ureteral obstruction, right: Status: Acute (2) Renal colic: Status: Acute (3) Acute pyelonephritis: Status: Acute Plan 70-year-old female with a past medical history of multi nodular goiter, anxiety, sleep disorder; presented to the hospital today with a chief complaint of right flank pain.? Noted to have pyelonephritis/question kidney stone.? Admitted for further management.? Acute Pyelonephritis: on iv ceftriaxone, urine culture grew Enterobacter aerogenes sensitive to ceftriaxone no fevers, WBC normalized, will change antibiotic to by mouth Ceftin right hydroureteronephrosis secondary to right UVJ stone: underwent cystoscopy and stent placement with removal of stone postprocedure complaining of significant headache, and dry heaves back pain and right flank pain improved continue symptomatic treatment with antiemetics, DC narcotics due to nausea and constipation, will place on Fioricet/ nasal spray Elevated blood pressure, not on antihypertensives, at baseline systolic blood pressure 140-[address] patient on Norvasc 5 mg daily, question headache related to hypertension Anemia drop in hematocrit likely dilutional, no active GI bleed, no marcus hematuria, repeat hematocrit improved to 34.9 hyperlipidemia continue statin Insomnia continue melatonin prn DVT prophylaxis:? Subcu heparin Code status:? Full code will need continued inpatient hospitalization due to persistent lower abdominal pain, worsening headache, dry heaves, decreased by mouth intake and elevated blood pressure. Quality Stroke Does the patient have a stroke diagnosis?: No VTE Prior VTE?: No VTE Risk Level:: Medical - moderate - high VTE Device Contraindication: Treatment Not Indicated VTE Drug Contraindication: N/A - Med Ordered
[2021-06-23] MEDS: Butalb/Acetamin/Caff 50/325/40 TABLET 1 TAB PO ×2 (15:35→20:17)
[2021-06-24] MEDS: Heparin Sodium,Porcine 5,000 UNIT/ML VIAL 5000 UNIT SUBCUT ×2 (00:12→08:12)
[2021-06-24 03:50] VITALS: BP 140/68; PULSE 89; RESP 14; TEMP 36.4; O2SAT 96
[2021-06-24 07:52] VITALS: BP 130/70; PULSE 70; RESP 18; TEMP 36.8; O2SAT 95
[2021-06-24] MEDS: Omeprazole 20 MG CAPSULE.DR PO (08:12)
[2021-06-24] MEDS: Atorvastatin Calcium 40 MG TABLET PO (08:12)
[2021-06-24] MEDS: Aspirin Enteric Coated 81 MG TABLET.DR PO (08:12)
[2021-06-24] MEDS: amLODIPine Besylate 5 MG TABLET PO (08:12)
[2021-06-24] MEDS: Cholecalciferol (Vitamin D3) 25 MCG TABLET PO (08:12)
[2021-06-24] MEDS: Fluticasone Propionate Nasal 16 GM SPRAY 1 SPRAY NOSTRIL-B (08:14)
[2021-06-24] MEDS: polyethylene glycoL 3350 17 GM POWD.PACK PO (08:27)
[2021-06-24] MEDS: Acetaminophen 325 MG TABLET 650 MG PO (08:27)
--- NOTE | 2021-06-24 09:40 | PM.DS ---
DS: Providers Provider Date of Service: 06/24/21 Date of admission: 06/20/21 22:28 Primary care physician: Wiley Segura MD, DO Consults: 06/20/21 22:27 Consult to Urology Routine Consulting Provider: Margarito Garcia Reason for consultation: kidney stone; pyelonephritis DS: Diagnosis Discharge Diagnosis (1) Ureteral obstruction, right: Status: Acute (2) Renal colic: Status: Acute (3) Acute pyelonephritis: Status: Acute DS: Summary Hospital Course Hospital Course: Chief Complaint: Right flank pain 70-year-old female with a past medical history of multi nodular goiter, anxiety, sleep disorder; presented to the hospital today with a chief complaint of right flank pain.? Patient reports that over the past 1-2 days she has been having right flank pain which has been gradually worsening; denies any nausea vomiting or diarrhea.? Reports he has mild burning in the urination.? Denies any urinary frequency.? Denies any fever chills cough.? Denies any chest pain or palpitations.? Review of all other systems is negative except mentioned above ER course: Per ER team patient noted to have right flank tenderness; CT abdomen showed findings concerning for pyelonephritis and possible UVJ kidney stone; discussed with Dr. Garcia who recommended admission to the hospitalist service. Urinalysis was abnormal consistent UTI.? Given ceftriaxone. hospital course 70-year-old female with a past medical history of multi nodular goiter, anxiety, sleep disorder; presented to the hospital today with a chief complaint of right flank pain.? Noted to have pyelonephritis/question kidney stone.? Admitted for further management.? ?Acute Pyelonephritis: patient treated with IV ceftriaxone, urine culture grew Enterobacter aerogenes sensitive to ceftriaxone?,had?no fevers, WBC normalized, patient underwent cystoscopy due to?right hydroureteronephrosis secondary to right UVJ? stone by Dr. Garcia for stent placement with removal of stone, postprocedure patient developed headache, dry heaves, and back pain required treatment with antiemetics, analgesics all symptoms have resolved patient is tolerating diet therefore being discharged home on Ceftin 250 mg twice daily for 6 more days and has been recommended to follow-up with Dr. Garcia for stent removal. ? Elevated blood pressure, Noted to have elevated blood pressure,not on antihypertensives at home, placed on Norvasc 5 mg daily, with good blood pressure control recommend to continue Norvasc 5 mg and follow up with PCP Anemia drop in hematocrit likely dilutional, no active GI bleed, no marcus hematuria,? repeat hematocrit improved to 34.9, follow CBC as outpatient. hyperlipidemia continue statin Insomnia continue melatonin prn Time Spent with Patient Time attestation: Total time spent providing and/or coordinating discharge services: Discharge coordination time: Greater than 30 minutes Quality: Safe Use of Opioids Does Pt have an Active Cancer Diagnosis on the Problem List?: No Quality: Stroke Does the patient have a stroke diagnosis?: No Physical Exam Vital Signs: Vital Signs: Last Vital Signs Temp 98.3 F 06/24/21 07:52 Pulse 70 06/24/21 07:52 Resp 18 06/24/21 07:52 BP 130/70 06/24/21 07:52 Pulse Ox 95 06/24/21 07:52 BMI result Body Mass Index 21.9 Const: Other: General ? Awake alert, no acute distress Neck supple no JVD. CVS? regular rate rhythm, Respiratory lungs clear to auscultation, no respiratory distress, no wheeze, no rhonchi. Gastrointestinal abdomen soft,? bowel sounds audible,nontender, no CVA tenderness Extremities no edema. Neuro nonfocal Skin no rash psych appropriate affect DS: Data Data Completed and Pending Completed studies during hospitalization [Text1]: Pending at discharge 06/21/21 19:31 Surgical [PTH] Routine Discharge Plan Discharge Patient Disposition: Home, Self-Care Discharge Diagnosis: Acute pyelonephritis right hydroureteronephrosis secondary to right UVJ stone elevated blood pressure Referrals: Wiley Segura MD, DO [Primary Care Provider] - 1 Week Discharge Medications: New cefuroxime axetil 250 mg Tablet 250 mg PO Q12H Qty: 12 0RF amlodipine 5 mg Tablet 5 mg PO DAILY Qty: 30 0RF Protocol: Hold for SBP< HOLD for SBP < : 90 Continued aspirin [Adult Low Dose Aspirin] 81 mg tablet,delayed release (DR/EC) 81 mg PO DAILY 0RF cholecalciferol (vitamin D3) [Vitamin D3] 25 mcg (1,000 unit) Tablet 25 mcg PO DAILY 0RF estradiol 0.0375 mg/24 hr Patch Weekly 1 patch TRANSDERMAL TOPETE@1000 0RF estradiol 0.01 % (0.1 mg/gram) Cream 1 g VAGINAL DAILY PRN (Reason: DISCOMFORT) 0RF rosuvastatin 10 mg tablet 10 mg PO DAILY 0RF diphenhydramine-acetaminophen [Tylenol PM Extra Strength] 25-500 mg tablet 1 tab PO BEDTIME 0RF melatonin 10 mg capsule 10 mg PO BEDTIME PRN (Reason: Sleep) 0RF omeprazole 20 mg capsule,delayed release(DR/EC) 20 mg PO DAILY 0RF Discharge Orders: Discharge Order (Routine); Ordered 06/24/21 Ordered By: Johnny Villalobos Diet: advance to usual diet Activity on Discharge: As tolerated Stand Alone Forms: Patient Portal Discharge page Care Plan Goals: acute pyelonephritis improved take Ceftin 1 tablet twice daily for 6 more days, take Norvasc 5 mg by mouth daily for elevated blood pressure and follow-up with primary care physician. Health Concerns: take all home medications as before Plan of Treatment: outpatient follow-up with Dr. Garcia next week Assessment: per discharge summary Patient Instructions: Kidney Stones (ED), How to Strain Your Urine (ED)
--- NOTE | 2021-06-24 09:47 | MHC.CM.PN ---
PATIENT IS DC HOME - SELF CARE. SISTER TO PROVIDE TRANSPORT HOME. IMM 06/23 IN CHART
[2021-06-25 20:52] LABS: Stone Source KIDNEY STONE
== END 2021-06-24 10:49 | disposition home or self-care (01) | DRG 661 ==
LOC: HO.ED 18:49 → HO.EDOVER 22:59 → HO.S3 06-21 18:00
PROVIDERS: Urology; Admitting Provider Hospitalist; Emergency Provider Emergency Medicine Emergency Medical Services; PCP Internal Medicine; Visit Provider Hospitalist
PROC: 0T768DZ Dilation of Right Ureter with Intraluminal Device, Via Natural or Artificial Opening Endoscopic (ICD-10-PCS; principal; 2021-06-21 14:20)
DX: N13.6 Pyonephrosis (principal); K21.9 Gastro-esophageal reflux disease without esophagitis; D64.9 Anemia, unspecified; F41.9 Anxiety disorder, unspecified; I10 Essential (primary) hypertension; E78.5 Hyperlipidemia, unspecified; G47.00 Insomnia, unspecified; Z20.822 Contact with and (suspected) exposure to COVID-19; Z88.5 Allergy status to narcotic agent; Z79.82 Long term (current) use of aspirin; Z79.890 Hormone replacement therapy; Z79.899 Other long term (current) drug therapy
CPT/HCPCS: 36415; 74177; 80048; 80053; 81001; 82365; 83690; 85025; 85027; 87086; 87088; 87186; 87635; 88300; 96361; 96365; 96375; 96376; 99285; C1758; C1769; C2617; J0696; J1170; J1885; J2270; J2405; J2550; J3010; Q0163; Q9967

== ENCOUNTER 2021-06-28 09:27 | Outpatient (REF) | payer MEDICARE, SELFPAY ==
--- NOTE | ~2021-06-28 | MM_ITS ---
EXAMINATION: MM DIAGNOSTIC DIGITAL BREAST TOMOSYNTHESIS, LEFT CLINICAL INFORMATION: Short interval six-month follow-up probable benign parenchymal asymmetry posterior left breast noted on prior mammogram, beyond field of view on prior outside exams. The lifetime risk of breast cancer based on the Tyrer-Cuzick Model is 4%. COMPARISON: Mammography: 12/30/2020 (diagnostic, BI-RADS 3); outside mammography 04/16/2020, 05/07/2018 ([facility]). TECHNIQUE: Digital breast tomosynthesis is performed in both the craniocaudal and mediolateral oblique views along with computer-aided detection (CAD). Synthesized 2D images are generated from the tomosynthesis. FINDINGS: There are scattered areas of fibroglandular density (ACR BI-RADS breast composition Category b). Parenchymal pattern is similar to prior studies. The asymmetric density left breast along posterior nipple line at posterior aspect CC view is stable from prior exam. There is no developing density or interval architectural changes. The remainder left breast parenchymal pattern is similar to prior studies. There are no abnormal calcifications. The axilla and skin contours are unremarkable. Results are provided to the patient at time of visit by the technologist. MM/MM tomosynthesis diagnostic LT IMPRESSION: Probable benign asymmetric density posterior left breast on CC view, stable. ASSESSMENT: BI-RADS 3: Probably Benign RECOMMENDATION: Diagnostic mammography at time of annual bilateral mammography, due in 6 months. This patient's information was entered into a reminder system with a target due date for their next mammogram.
== END 2021-06-28 09:28 | disposition home or self-care (01) ==
LOC: HO.MAMMO 09:27
PROVIDERS: Visit Provider Internal Medicine
DX: R92.8 Other abnormal and inconclusive findings on diagnostic imaging of breast (principal)
CPT/HCPCS: 77061; 77062; 77065

== ENCOUNTER → 2021-06-29 10:02 | Outpatient (BNVA) | payer MEDICARE, SELFPAY | PROVIDERS: PCP Internal Medicine; Visit Provider Urology | DX: N20.0 Calculus of kidney (principal); N13.5 Crossing vessel and stricture of ureter without hydronephrosis | CPT/HCPCS: 52310; 99212 ==

== ENCOUNTER 2021-08-23 14:30 | Outpatient (REF) | payer MEDICARE, SELFPAY ==
--- NOTE | ~2021-08-23 | US_ITS ---
EXAMINATION: US RETROPERITONEAL LIMITED (RENAL ONLY) CLINICAL INFORMATION: Calculus of kidney. COMPARISON: CT abdomen and pelvis 06/20/2021, renal ultrasound 09/15/2016, ultrasound abdomen 10/23/2013. TECHNIQUE: Real-time imaging of the kidneys. FINDINGS: RIGHT KIDNEY: 8.1 x 3.3 x 4.8 cm (SAG x AP x TRV). The kidney is normal in size, contour, and echogenicity. Renal cortical thickness is normal. No calculi or focal parenchymal lesions. No hydronephrosis. Mildly prominent ureter pelvic junction but no visible echogenic stones. LEFT KIDNEY: 9.7 x 4.7 x 4.1 cm (SAG x AP x TRV). The kidney is normal in size, contour, and echogenicity. Renal cortical thickness is normal. No calculi or focal parenchymal lesions. No hydronephrosis. Mildly prominent ureteric pelvic junction but no visible echogenic stones. US/US renal BI IMPRESSION: Prominent bilateral UPJ stones. No echogenic calculi.
== END 2021-08-23 14:31 | disposition home or self-care (01) ==
LOC: HO.HMGCX 14:30
PROVIDERS: PCP Internal Medicine; Visit Provider Urology
DX: N20.0 Calculus of kidney (principal)
CPT/HCPCS: 76775

== ENCOUNTER → 2021-09-03 08:24 | Outpatient (BNVA) | payer MEDICARE, SELFPAY | PROVIDERS: PCP Internal Medicine; Visit Provider Urology | DX: N20.0 Calculus of kidney (principal) | CPT/HCPCS: Q3014 ==

== ENCOUNTER 2021-09-06 09:39 | Outpatient (REF) | payer MEDICARE, SELFPAY ==
[2021-09-06 11:18] LABS: MANUAL DIFF FLAG NO
[2021-09-06 11:29] LABS: Basophils Percent Auto 0.7 % (0-2); Eosinophils Absolute Auto 0.1 X10*3/uL (0.0-0.4); Eosinophils Percent Auto 2.6 % (0-4); Hemoglobin 12.1 g/dl (12.0-16.0); Imm Gran Abs Auto 0.01 X10*3/uL (0.00-0.03); Imm Gran Pct Auto 0.2 % (0.0-0.4); Lymphocytes Absolute Auto 2.1 X10*3/uL (1.2-4.9); Lymphocytes Percent Auto 45.9 % (20-40); Mean Corpuscular HGB Conc 31.8 g/dl (31.0-35.0); Mean Corpuscular Hemoglobin 29.7 pg (27.0-33.0); Mean Corpuscular Volume 93.4 fL (80.0-98.0); Mean Platelet Volume 9.7 fL (9.4-12.3); Monocytes Absolute Auto 0.4 X10*3/uL (0.1-1.2); Monocytes Percent Auto 9.5 % (2-11); Neutrophils Absolute Auto 1.9 x10*3/uL (2.0-8.3); Neutrophils Percent Auto 41.1 % (45-73); Platelet Count 313 X10*3/uL (160-400); Red Blood Count 4.07 X10*6/uL (4.20-5.50); Red Cell Distribution Width 13.2 % (11.0-16.0); White Blood Count 4.5 X10*3/uL (4.8-10.8)
[2021-09-06 11:43] LABS: Appearance Urine CLOUDY; Color Urine YELLOW; Glucose Urine UA NEG (NEG); Leukocyte Esterase Urine NEG (NEG); Nitrite Urine NEG (NEG); PH 5.5 (5.0-8.0); Specific Gravity - Urine 1.025 (1.005-1.025); Urine Blood 2+ (NEG); Urine Ketones NEG (NEG); Urine Protein NEG (NEG-TRACE)
[2021-09-06 11:57] LABS: Alanine Aminotransferase 12 U/L (0-31); Albumin Level 4.1 g/dL (3.5-5.0); Alkaline Phosphatase 94 U/L (39-117); Anion Gap 10 (12-20); Aspartate Amino Transferase 19 U/L (5-31); Bilirubin Total 0.7 mg/dL (0.0-1.0); Blood Urea Nitrogen 19 mg/dL (9-16); Calcium 8.6 mg/dL (8.4-10.2); Carbon Dioxide 25 mmol/L (22-29); Chloride 109 mmol/L (96-108); Cholesterol 191 mg/dL; Estimated Glomerular Filt Rate > 60; Glucose Fasting 92 mg/dL (60-99); HDL Cholesterol 83 mg/dL; LDL Cholesterol Calculated 87 mg/dl; Potassium 4.3 mmol/L (3.3-5.1); Sodium 140 mmol/L (135-145); Total Protein 6.8 g/dL (6.5-8.0); Triglycerides 107 mg/dL
[2021-09-06 12:04] LABS: Vitamin D 25-OH Total 26.6 ng/mL (>30)
[2021-09-06 12:26] LABS: WBC Urine 0-2 /HPF (0-4)
[2021-09-06 12:27] LABS: Bacteria Urine 1+ /LPF; Squamous Epithelial Cell Urine 2+ /LPF
== END 2021-09-06 09:40 | disposition home or self-care (01) ==
LOC: HO.HMGCLDS 09:39
PROVIDERS: Visit Provider Internal Medicine
DX: K21.9 Gastro-esophageal reflux disease without esophagitis (principal); E78.00 Pure hypercholesterolemia, unspecified
CPT/HCPCS: 36415; 80053; 80061; 81001; 82306; 85025

== ENCOUNTER 2021-11-05 08:34 | Outpatient (REF) | payer MEDICARE, SELFPAY ==
[2021-11-05 09:01] LABS: Binax Internal Control QC Valid; Binax Now Covid-19 Ag Negative (Negative)
== END 2021-11-05 08:35 | disposition home or self-care (01) ==
LOC: HO.HMGCLDS 08:34
PROVIDERS: PCP Internal Medicine; Visit Provider Internal Medicine
DX: Z20.822 Contact with and (suspected) exposure to COVID-19 (principal); J06.9 Acute upper respiratory infection, unspecified
CPT/HCPCS: 87811; C9803

== ENCOUNTER 2021-11-20 10:23 | Outpatient (REF) | payer MEDICARE, SELFPAY ==
--- NOTE | ~2021-11-20 | XR_ITS ---
EXAMINATION: XR LUMBOSACRAL SPINE WITH OBLIQUES CLINICAL INFORMATION: Sacrococcygeal disorders. COMPARISON: None TECHNIQUE: AP, both oblique, and lateral views of the lumbar spine. Lateral view of the lumbosacral junction. FINDINGS: There is normal lumbar lordosis and spinal alignment. Minimal to mild multilevel degenerative disc disease is seen. There is no acute fracture. There is normal sacrococcygeal curvature. The soft tissues are unremarkable. Postsurgical clips overlie the epigastric region. XR/XR lumbar spine 4V min IMPRESSION: Minimal to mild multilevel degenerative disc disease in the lumbar spine. No acute abnormality.
== END 2021-11-20 10:24 | disposition home or self-care (01) ==
LOC: HO.HMGCX 10:23
PROVIDERS: PCP Internal Medicine; Visit Provider Nurse Practitioner Acute Care
DX: M53.3 Sacrococcygeal disorders, not elsewhere classified (principal)
CPT/HCPCS: 72110

== ENCOUNTER 2022-02-15 08:28 | Outpatient (REF) | payer MEDICARE, SELFPAY ==
--- NOTE | ~2022-02-15 | MM_ITS ---
EXAMINATION: MM DIAGNOSTIC DIGITAL BREAST TOMOSYNTHESIS, BILATERAL CLINICAL INFORMATION: Due for yearly. Also follow-up probable benign parenchymal asymmetry posterior left breast at film margin 1 view. Family history breast cancer, sister. COMPARISON: Mammography: 06/28/2021, 12/30/2020 (diagnostic, BI-RADS 3); outside mammography 04/16/2020, 05/07/2018 ([facility]). TECHNIQUE: Digital breast tomosynthesis is performed in both the craniocaudal and mediolateral oblique views along with computer-aided detection (CAD). Synthesized 2D images are generated from the tomosynthesis. FINDINGS: There are scattered parenchymal asymmetries similar to prior studies. No developing density or interval mass or architectural abnormality. No abnormal calcifications. The axilla and skin contours are unremarkable. The small asymmetric density posterior central left breast on CC view is linear, possibly stromal, and less conspicuous when compared with prior exam. There is no developing density or architectural changes. Finding will be reassessed at next bilateral annual mammography in 12 months. Results are provided to the patient at time of visit by the technologist. MM/MM tomosynthesis diagnostic BI IMPRESSION: -No mammographic evidence of malignancy. -Small asymmetric density posterior central left breast on CC view is less conspicuous. ASSESSMENT: BI-RADS 3: Probably Benign RECOMMENDATION: Diagnostic mammography at time of next annual exam, due in 12 months. This patient's information was entered into a reminder system with a target due date for their next mammogram.
== END 2022-02-15 08:29 | disposition home or self-care (01) ==
LOC: HO.MAMMO 08:28
PROVIDERS: Visit Provider Internal Medicine
DX: R92.8 Other abnormal and inconclusive findings on diagnostic imaging of breast (principal)
CPT/HCPCS: 77062; 77066

== ENCOUNTER 2022-02-23 12:05 | Outpatient (REF) | payer MEDICARE, SELFPAY ==
--- NOTE | ~2022-02-23 | XR_ITS ---
EXAMINATION: XR CHEST CLINICAL INFORMATION: Cough. COMPARISON: 11/24/2020 chest radiographs. TECHNIQUE: 2 views of the chest were obtained. FINDINGS: No significant abnormality is noted involving the heart, lungs, mediastinum, bony thorax or soft tissues. Surgical clips overlie the epigastric region. XR/XR chest 2V IMPRESSION: No acute cardiopulmonary process.
== END 2022-02-23 12:06 | disposition home or self-care (01) ==
LOC: HO.HMGCX 12:05
PROVIDERS: PCP Internal Medicine; Visit Provider Nurse Practitioner Family
DX: R05.9 Cough, unspecified (principal)
CPT/HCPCS: 71046

== ENCOUNTER 2022-04-22 12:58 | Outpatient (REF) | payer MEDICARE, SELFPAY ==
--- NOTE | ~2022-04-22 | US_ITS ---
EXAMINATION: US THYROID CLINICAL INFORMATION: Nontoxic multinodular goiter. COMPARISON: Ultrasound thyroid 12/17/2020. CT soft tissue neck without contrast 03/09/2021. US-guided thyroid biopsy 04/08/2021. TECHNIQUE: Linear transducer grayscale and color Doppler examination with attention to the region of the thyroid. FINDINGS: SIZE: Measurements of the thyroid lobes and nodules are given in sagittal, anteroposterior and transverse dimensions respectively. Right Thyroid Lobe: 3.9 x 1.2 x 1.3 cm, volume 3.1 mL. Previously 4.0 x 1.3 x 1.1 cm, volume 3.0 mL. Parenchyma: The gland echotexture is heterogeneous. Thyroid vascularity is normal. Left Thyroid Lobe: 3.3 x 1.1 x 1.0 cm, volume 1.8 mL. Previously 3.8 x 0.9 x 0.9 cm, volume 1.5 mL. Parenchyma: The gland echotexture is homogeneous. Thyroid vascularity is normal. Isthmus: 0.14 cm in maximum AP dimension. Previously 0.17 cm. Estimated total number of nodules greater than or equal to 1 cm: 1. Thread Singer nodules are described as follows: 1. Location: Right superior/mid. Size: 1.4 x 1.0 x 1.0 cm, volume 0.7 mL. Previously: 1.3 x 0.8 x 0.9 cm, volume 0.49 mL. Nodule characteristics: Composition: Solid/almost completely solid (2). Echogenicity: Hypoechoic (2). Shape: Not taller than wide (0). Margins: Smooth (0). Echogenic Foci: None (0). ACR TI-RADS total points: 4 Previous: 4 ACR TI-RADS category: 4 Previous: 4 Significant change in size (>/= 20% in 2 dimensions and minimal increase of 2 mm or 50% or greater increase in volume): No Change in features: No Change in ACR TI-RADS risk category: No 2. Location: Left superior. Size: 0.5 x 0.2 x 0.3 cm, volume 0.02 mL. Previously: 0.2 x 0.2 x 0.2 cm, volume 0.04 mL. Nodule characteristics: Composition: Cystic(0). ACR TI-RADS total points: 0 Previous: 0 ACR TI-RADS category: 1 Previous: 1 Significant change in size (>/= 20% in 2 dimensions and minimal increase of 2 mm or 50% or greater increase in volume): No Change in features: No Change in ACR TI-RADS risk category: No NODES: No lymphadenopathy is seen in the tissue surrounding the thyroid gland. US/US thyroid IMPRESSION: 1. Bilateral thyroid nodules are seen, as detailed. 2. There is heterogeneous thyroid echotexture, which can be associated with thyroiditis. ACR TI-RADS RECOMMENDATION REFERENCE: Ultrasound-guided fine-needle aspiration, followup ultrasound, no further follow up. * TR1 (0 point) and TR2 (2 points): No FNA or follow up. * TR3 (3 points): FNA if more than or equal to 2.5 cm in maximum dimension, followup ultrasound in 1, 3 and 5 years if 1.5 to 2.4 cm in maximum dimension. * TR4 (4-6 points): FNA if more than or equal to 1.5 cm in maximum dimension, followup ultrasound in 1, 2, 3 and 5 years if 1 to 1.4 cm in maximum dimension. * TR5 (more than or equal to 7 points): FNA if more than or equal to 1 cm in maximum dimension, followup ultrasound every year for 5 years if 0.5 to 0.9 cm in maximum dimension. * TR3, TR4 or TR5 nodules that are below the size threshold for followup receive no follow up.
== END 2022-04-22 12:59 | disposition home or self-care (01) ==
LOC: HO.HMGCX 12:58
PROVIDERS: PCP Internal Medicine; Visit Provider Internal Medicine
DX: E04.2 Nontoxic multinodular goiter (principal)
CPT/HCPCS: 76536

== ENCOUNTER 2022-04-25 09:52 | Outpatient (REF) | payer MEDICARE, SELFPAY ==
[2022-04-25 12:16] LABS: Free T4 (Free Thyroxine) 0.91 ng/dL (0.71-1.85); Thyroid Stimulating Hormone 2.27 uIU/mL (0.32-4.0)
== END 2022-04-25 09:53 | disposition home or self-care (01) ==
LOC: HO.LAB 09:52
PROVIDERS: PCP Internal Medicine; Visit Provider Internal Medicine
DX: E04.2 Nontoxic multinodular goiter (principal)
CPT/HCPCS: 36415; 84439; 84443; 99212

== ENCOUNTER 2022-04-29 07:29 | Outpatient (REF) | payer MEDICARE, SELFPAY ==
--- NOTE | ~2022-04-29 | CT_ITS ---
EXAMINATION: CT SOFT TISSUE NECK WITHOUT CONTRAST CLINICAL INFORMATION: Nontoxic multinodular goiter. COMPARISON: Previous thyroid ultrasound April 2022. TECHNIQUE: Helical imaging was performed in the axial plane with generation of coronal and sagittal reformatted images. This CT examination was performed using dose optimization techniques as appropriate, variously including the following: *Automated exposure control *Adjustment of mA and/or kV according to patient size (this includes techniques or standardized protocols for targeted exams where dose is matched to indication/reason for exam; i.e. extremities or head) *Use of iterative reconstruction technique DLP: 301 mGy-cm FINDINGS: Small thyroid gland. Known thyroid nodule seen by ultrasound not well appreciated. No adenopathy. Normal salivary glands. Normal hard palate variant, torus palatini. Visualized paranasal sinuses, mastoid air cells and middle ears are clear. Visualized orbits and intracranial structures are normal. The superior mediastinum is normal. Visualized upper lungs are clear. There are mild degenerative changes of the spine. CT/CT soft tissue neck wo IV con IMPRESSION: Small thyroid gland. Known thyroid nodules not well appreciated by CT scan. No adenopathy.
== END 2022-04-29 07:30 | disposition home or self-care (01) ==
LOC: HO.CT 07:29
PROVIDERS: PCP Internal Medicine; Visit Provider Internal Medicine
DX: E04.2 Nontoxic multinodular goiter (principal)
CPT/HCPCS: 70490

== ENCOUNTER → 2022-06-06 14:37 | Outpatient (BNVA) | payer MEDICARE, SELFPAY | PROVIDERS: PCP Internal Medicine; Visit Provider Internal Medicine | DX: E04.2 Nontoxic multinodular goiter (principal) | CPT/HCPCS: 99212 ==

== ENCOUNTER 2022-07-27 07:38 | Outpatient (REF) | payer MEDICARE, SELFPAY ==
--- NOTE | ~2022-07-27 | CT_ITS ---
EXAMINATION: CT SOFT TISSUE NECK WITHOUT CONTRAST CLINICAL INFORMATION: Nontoxic multinodular goiter. COMPARISON: Neck CT April 29, 2022. TECHNIQUE: Helical imaging was performed in the axial plane with generation of coronal and sagittal reformatted images. This CT examination was performed using dose optimization techniques as appropriate, variously including the following: *Automated exposure control *Adjustment of mA and/or kV according to patient size (this includes techniques or standardized protocols for targeted exams where dose is matched to indication/reason for exam; i.e. extremities or head) *Use of iterative reconstruction technique DLP: 288 mGy-cm FINDINGS: The nasopharynx appears normal. The palatine tonsils and base of tongue appears normal. No oral cavity lesion is seen. There is prominent torus palatinus. No laryngeal lesion is seen. The parotid and submandibular glands appear normal. No enlarged cervical chain lymph nodes are seen. The thyroid gland is small in size but otherwise unremarkable. No enlarged upper mediastinal lymph nodes are seen. There is no consolidation within the upper lungs. The imaged intracranial contents are unremarkable. Mild multilevel degenerative changes are seen within the spine. CT/CT soft tissue neck wo IV con IMPRESSION: No neck mass or suspicious lymphadenopathy identified. Thyroid gland is small in size but otherwise unremarkable.
== END 2022-07-27 07:39 | disposition home or self-care (01) ==
LOC: HO.CT 07:38
PROVIDERS: Visit Provider Internal Medicine
DX: E04.2 Nontoxic multinodular goiter (principal)
CPT/HCPCS: 70490

== ENCOUNTER 2022-07-28 07:54 | Outpatient (REF) | payer MEDICARE, SELFPAY ==
--- NOTE | ~2022-07-28 | XR_ITS ---
EXAMINATION: XR CHEST 2 VIEWS CLINICAL INFORMATION: Hoarseness and anxiety. COMPARISON: Radiographs dated 02/23/2022. TECHNIQUE: Frontal and lateral views of the chest were obtained. FINDINGS: The heart, great vessels, pulmonary vasculature and mediastinum are normal. The lungs show no focal infiltrate, effusion or pneumothorax. There is no acute osseous abnormality. There is a mild thoracic levoscoliosis. There are upper abdominal surgical clips. XR/XR chest 2V IMPRESSION: No active cardiopulmonary disease.
[2022-07-28 11:23] LABS: MANUAL DIFF FLAG NO
[2022-07-28 11:43] LABS: Basophils Percent Auto 0.6 % (0-2); Eosinophils Absolute Auto 0.2 X10*3/uL (0.0-0.4); Eosinophils Percent Auto 3.6 % (0-4); Hematocrit 38.1 % (37.0-47.0); Hemoglobin 12.1 g/dl (12.0-16.0); Lymphocytes Absolute Auto 2.6 X10*3/uL (1.2-4.9); Lymphocytes Percent Auto 51.8 % (20-40); Mean Corpuscular HGB Conc 31.8 g/dl (31.0-35.0); Mean Corpuscular Hemoglobin 30.6 pg (27.0-33.0); Mean Corpuscular Volume 96.5 fL (80.0-98.0); Mean Platelet Volume 9.6 fL (9.4-12.3); Monocytes Absolute Auto 0.5 X10*3/uL (0.1-1.2); Monocytes Percent Auto 10.1 % (2-11); Neutrophils Absolute Auto 1.7 x10*3/uL (2.0-8.3); Neutrophils Percent Auto 33.9 % (45-73); Platelet Count 334 X10*3/uL (160-400); Red Blood Count 3.95 X10*6/uL (4.20-5.50); Red Cell Distribution Width 13.4 % (11.0-16.0)
[2022-07-28 12:07] LABS: Alanine Aminotransferase 15 U/L (0-31); Albumin Level 4.1 g/dL (3.5-5.0); Alkaline Phosphatase 91 U/L (39-117); Anion Gap 13 (12-20); Aspartate Amino Transferase 25 U/L (5-31); Bilirubin Total 0.6 mg/dL (0.0-1.0); Blood Urea Nitrogen 11 mg/dL (9-16); Calcium 8.9 mg/dL (8.4-10.2); Carbon Dioxide 28 mmol/L (22-29); Chloride 107 mmol/L (96-108); Cholesterol 196 mg/dL; Estimated Glomerular Filt Rate > 60; Glucose Fasting 93 mg/dL (60-99); HDL Cholesterol 95 mg/dL; LDL Cholesterol Calculated 77 mg/dl; Sodium 144 mmol/L (135-145); Total Protein 6.6 g/dL (6.5-8.0); Triglycerides 120 mg/dL
[2022-07-28 12:25] LABS: Erythrocyte Sedimentation Rate 7 MM/HR (0-20)
== END 2022-07-28 07:55 | disposition home or self-care (01) ==
LOC: HO.HMGCX 07:54
PROVIDERS: PCP Internal Medicine; Visit Provider Internal Medicine
DX: E04.1 Nontoxic single thyroid nodule (principal); K21.9 Gastro-esophageal reflux disease without esophagitis; E78.00 Pure hypercholesterolemia, unspecified; F41.9 Anxiety disorder, unspecified; R49.0 Dysphonia
CPT/HCPCS: 36415; 71046; 80053; 80061; 84443; 85025; 85652; 86140

== ENCOUNTER 2022-08-04 10:28 | Outpatient (REF) | payer MEDICARE, SELFPAY ==
--- NOTE | 2022-08-04 11:19 | PM.OP ---
Brief Operative Note Date of Service: 08/04/22 Pre-op diagnosis: Multinodular Thyroid Procedure: EXAMINATION: US THYROID CLINICAL INFORMATION: Multinodular Thyroid COMPARISON: Prior TECHNIQUE: Linear transducer chang-scale and color Doppler examination with attention to the region of the thyroid. FINDINGS: SIZE: Measurements of the thyroid lobes and nodules are given in sagittal, anteroposterior and transverse dimensions respectively. Right Thyroid Lobe: 3.4 x 1.6 x 1.4 cm, volume 4.0 mL. Parenchyma: The gland echotexture is heterogenous. Left Thyroid Lobe: 3.1 x 0.9 x 1.0 cm, volume 1.5 mL. Parenchyma: The gland echotexture is heterogenous. Isthmus: 0.1 cm in maximum AP dimension. RIGHT THYROID LOBE: There is 1 nodule. 1) Right upper lobe: There is a 1.22 x 0.81 x 0.71 cm predominantly solid hypoechoic nodule. Regular margins, no microcalcifications. LEFT THYROID LOBE: There are no nodules. NODES: No lymphadenopathy is seen in the tissue surrounding the thyroid gland. Surgeon: Jamia Serrano, DO Was an Wood Veneer Taper used for this Procedure?: No Estimated blood loss (mL): 0
== END 2022-08-04 10:29 | disposition home or self-care (01) ==
LOC: HO.US 10:28
PROVIDERS: PCP Internal Medicine; Visit Provider Internal Medicine
DX: E04.2 Nontoxic multinodular goiter (principal)
CPT/HCPCS: 76536

== ENCOUNTER 2022-08-12 10:00 | Outpatient (REF) | payer MEDICARE, SELFPAY ==
--- NOTE | ~2022-08-12 | FL_ITS ---
EXAMINATION: FL BARIUM SWALLOW CLINICAL INFORMATION: Dysphagia. Palpable swelling right neck. COMPARISON: None available. TECHNIQUE: Barium swallow examination is performed using fluoroscopic evaluation in addition to multiple fluoroscopic spot views. The patient is imaged both upright and prone and using both thick and thin sulfate along with effervescent granules. Fluoroscopy time: 1.0 minutes DAP: 3.695 Gycm2 Images: 40 FINDINGS: Following oral administration of thick barium, barium coated turkey and barium tablet in upright view there is normal propagation of bolus from the oral cavity through the pharynx, esophagus into stomach without any evidence of obstruction, narrowing or stricture. There is no hiatal hernia or reflux seen in the upright view. There are surgical emrey in the left epigastric region from previous intervention. FL/FL barium swallow IMPRESSION: Unremarkable barium swallow exam.
== END 2022-08-12 10:01 | disposition home or self-care (01) ==
LOC: HO.XRAY 10:00
PROVIDERS: PCP Internal Medicine; Visit Provider Internal Medicine
DX: R13.10 Dysphagia, unspecified (principal)
CPT/HCPCS: 74220

== ENCOUNTER 2022-09-01 12:58 | Outpatient (REF) | payer MEDICARE, SELFPAY ==
[2022-09-01 15:12] LABS: Free T4 (Free Thyroxine) 0.77 ng/dL (0.71-1.85); Thyroid Stimulating Hormone 1.84 uIU/mL (0.32-4.0)
== END 2022-09-01 12:59 | disposition home or self-care (01) ==
LOC: CF 12:58
PROVIDERS: PCP Internal Medicine; Visit Provider Internal Medicine
DX: E04.2 Nontoxic multinodular goiter (principal); Z71.2 Person consulting for explanation of examination or test findings; Z79.899 Other long term (current) drug therapy
CPT/HCPCS: 36415; 84439; 84443; 99212

== ENCOUNTER 2022-09-30 09:02 | Outpatient (REF) | payer MEDICARE, SELFPAY ==
--- NOTE | ~2022-09-30 | US_ITS ---
EXAMINATION: US RETROPERITONEAL LIMITED (RENAL ONLY) CLINICAL INFORMATION: Calculus of kidney. COMPARISON: Renal ultrasound 08/23/2021 and 09/15/2016. CT abdomen and pelvis 06/20/2021. TECHNIQUE: Real-time imaging of the kidneys. FINDINGS: RIGHT KIDNEY: 8.0 x 3.5 x 4.2 cm (SAG x AP x TRV). The kidney is normal in size, contour, and echogenicity. Renal cortical thickness is normal. No calculi or focal parenchymal lesions. No hydronephrosis. LEFT KIDNEY: 8.5 x 4.2 x 4.4 cm (SAG x AP x TRV). The kidney is normal in size, contour, and echogenicity. Renal cortical thickness is normal. No calculi or focal parenchymal lesions. No hydronephrosis. US/US renal BI IMPRESSION: Normal renal ultrasound.
== END 2022-09-30 09:03 | disposition home or self-care (01) ==
LOC: HO.US 09:02
PROVIDERS: PCP Internal Medicine; Visit Provider Urology
DX: N20.0 Calculus of kidney (principal)
CPT/HCPCS: 76775

== ENCOUNTER 2022-10-21 10:06 | Outpatient (AMB) | payer MEDICARE, SELFPAY ==
--- NOTE | 2022-10-21 10:10 | MHC.OFFVIS ---
Intake Intake Visit Reasons: 1Y US(set) Intake Note: Patient is present for Follow Up ultrasound Urology Med: Estradiol, Tamsulosin Antibiotic Allergy:None Blood Thinner: Aspirin Pharmacy: [facility] Allergies hydromorphone [From Dilaudid] Allergy (Verified 10/21/22 10:12) Palpitations meperidine [From DEMEROL] Adverse Reaction (Intermediate, Verified 10/21/22 10:12) AGITATION Medication List - Last Reconciled 10/21/22 by Margarito Garcia MD amlodipine 5 mg See Protocol PO DAILY aspirin (Adult Low Dose Aspirin) 81 mg PO DAILY diphenhydramine-acetaminophen 25-500 mg (Tylenol PM Extra Strength) 1 tab PO BEDTIME estradiol 1 patch transdermal TOPETE@1000 estradiol 0.01%(0.1mg/gram) 1 g vaginal DAILY PRN melatonin 10 mg PO BEDTIME PRN naproxen 500 mg PO BID PRN omeprazole 20 mg PO DAILY rosuvastatin 10 mg PO DAILY tamsulosin 0.4 mg PO BEDTIME HPI HPI Comments History of Present Illness Details Leslie is a very pleasant female. She is a patient of Dr. Segura. She is seen for the following urologic conditions - nephrolithiasis Ultrasound no evidence of stones Continue adequate oral intake Imaging in 12 months Nephrolithiasis Seen in hospital 06/08 Distal right ureteric stone Ureteroscopy performed Imaging - 10/09 renal ultrasound negative Intervention - 06/08 right ureteroscopy Stone composition - 06/08 calcium oxalate Therapeutic plan - encourage fluid intake - surveillance imaging PFSH Medical History Anxiety GERD (gastroesophageal reflux disease) Lump Multinodular thyroid Normal colonoscopy Sleep disorder Thyroid nodule Surgical History History of cardiac catheterization (~10/2020) Hx of elbow surgery S/P LAURO (total abdominal hysterectomy) Family History Father History of colon cancer Family history of hypertension Family history of polyps in the colon Congestive heart failure Mother Family history of hypertension History of diabetes mellitus History of heart disease Congestive heart failure Brother Family history of prostate cancer Sister History of heart disease Sister Breast cancer History of heart disease Sister Fatty liver Social History Household Members: None Housing: House Alcohol intake: current Alcohol intake frequency: 0-2 drinks per day Alcohol type: wine Patient Tobacco Use Status: Never used Tobacco Advance Directives Date on File: 06/21/21 service: No Current occupational status: retired Review of Systems Const Denies chills and Denies fever(s) Card Reports no additional complaints and Denies syncope Resp Denies cough GI Denies abdominal pain and Denies heartburn Reports as per HPI and Denies change in libido Neuro Denies syncope Psych Denies change in libido Endo Denies change in libido Physical Exam Const General: cooperative, healthy appearing, comfortable and no acute distress Orientation/consciousness: patient oriented x3 HEENT Face and sinus: Yes normal facial exam Mouth: moist mucous membranes Neck Neck: Yes normal visual inspection, Yes full ROM and Yes trachea midline Chest Chest palpation & inspection: normal inspection of the chest Resp Effort & Inspection: normal respiratory effort, able to speak in complete sentences and no respiratory distress GI Inspection: Yes normal to inspection Back/Spine/Pelvis Cervical Spine: normal cervical lordosis Thoracic/Lumbar Spine: thoracic and lumbar spine normal to inspection Skin General skin exam: no rashes or lesions noted Neuro General: patient oriented x3, gait normal, tone normal and moves all extremities Extrem General: Yes normal to inspection and Yes capillary refill normal Assessment & Plan Assessment & Plan (1) Nephrolithiasis: Code(s): N20.0 - Calculus of kidney Plan Yearly surveillance Orders: Orders US renal BI 364 Days N20.0 - Calculus of kidney Patient Instructions: Imaging studies, laboratory and physical exam results were discussed and reviewed in detail. No major barriers to patient understanding were identified. An opportunity to ask questions regarding the treatment plan was provided. All questions were answered. The patient expressed understanding and agreement with the above treatment plan. The patient is aware they should contact our office by phone for worsening of their current condition or the appearance of new urologic symptoms. Compliance is encouraged with any medications and followup testing that is ordered. It is a privilege to participate in the urologic care of your patient. If you have any questions or concerns regarding treatment for the above conditions, or other urologic issues, please do not hesitate to contact me. The office telephone contact is [phone]. This note is constructed using voice recognition software. While every effort has been made to ensure accuracy management development specialist errors may have been included. Yours sincerely, Dr Margarito Garcia MD, [facility] - Urology Providers of Expert, Compassionate Care for the Genitourinary System Coding Level of Care Code Est Pt Level 4 (33276) Diagnoses Nephrolithiasis N20.0
== END 2022-10-21 10:55 | disposition home or self-care (01) ==
PROVIDERS: Visit Provider Urology
DX: N20.0 Calculus of kidney (principal)
CPT/HCPCS: 99214

== ENCOUNTER → 2022-10-21 10:06 | Outpatient (BNVA) | payer MEDICARE, SELFPAY | PROVIDERS: Visit Provider Urology | DX: N20.0 Calculus of kidney (principal) | CPT/HCPCS: 99212 ==

== ENCOUNTER 2022-12-12 08:56 | Outpatient (AMB) | payer MEDICARE, SELFPAY ==
--- NOTE | 2022-12-12 09:19 | AM.OFFWIN_ITS ---
Intake Vital Signs 12/12/22 09:22 Height 5 ft 2 in Weight 125 lb BMI 22.9 BP 126/70 Blood Pressure Location Rt brachial Position Sitting Pulse 70 Pulse Source Pulse Oximeter Temp 97.6 F Temp Source Temporal Artery Scan Pulse Oximetry (%) 97 Intake Visit Reasons: EST/sore throat(masked lobby) Intake Note: pt is here for c/o sore throat Patient Tobacco Use Status: Never used Tobacco Allergies hydromorphone [From Dilaudid] Allergy (Verified 12/12/22 09:53) Palpitations meperidine [From DEMEROL] Adverse Reaction (Intermediate, Verified 12/12/22 09:53) AGITATION Medication List - Last Reconciled 12/12/22 by Isma Westbrook MD albuterol sulfate 90 mcg/actuation (Ventolin HFA) 1 inh inhalation QID PRN amlodipine 5 mg See Protocol PO DAILY azithromycin take 500 mg today (day 1), then 250 mg for 4 days (days 2-5) PO diphenhydramine-acetaminophen 25-500 mg (Tylenol PM Extra Strength) 1 tab PO BEDTIME estradiol 1 patch transdermal TOPETE@1000 estradiol 0.01%(0.1mg/gram) 1 g vaginal DAILY PRN melatonin 10 mg PO BEDTIME PRN omeprazole 20 mg PO DAILY rosuvastatin 10 mg PO DAILY tamsulosin 0.4 mg PO BEDTIME Do you need a note to return to daycare/school/sports/work: Yes HPI EST/sore throat(masked lobby) HPI Details Patient presents for a sick visit. Reporting symptoms of sinus congestion, sore throat and difficulty swallowing. Low-grade fever. No family member is sick. No recent travel. Patient reports symptoms of malaise and fatigue. PFSH Medical History Anxiety GERD (gastroesophageal reflux disease) Lump Multinodular thyroid Normal colonoscopy Sleep disorder Thyroid nodule Surgical History History of cardiac catheterization (~10/2020) Hx of elbow surgery S/P LAURO (total abdominal hysterectomy) Family History Father History of colon cancer Family history of hypertension Family history of polyps in the colon Congestive heart failure Mother Family history of hypertension History of diabetes mellitus History of heart disease Congestive heart failure Brother Family history of prostate cancer Sister History of heart disease Sister Breast cancer History of heart disease Sister Fatty liver Social History Household Members: None Housing: House Alcohol intake: current Alcohol intake frequency: 0-2 drinks per day Alcohol type: wine Patient Tobacco Use Status: Never used Tobacco Advance Directives Date on File: 06/21/21 service: No Current occupational status: retired Physical Exam Vital Signs: Last Vital Signs Temp 97.6 F 12/12/22 09:22 Pulse 70 12/12/22 09:22 BP 126/70 12/12/22 09:22 Pulse Ox 97 12/12/22 09:22 BMI result Body Mass Index 22.9 Const General: cooperative and healthy appearing Nutritional Appearance: well nourished Orientation/consciousness: patient oriented x3 Limitations: no limitations HEENT Head: Yes normal to inspection Eyes General: appearance normal, both eyes and all related structures Neck Neck: Yes normal visual inspection Chest Chest palpation & inspection: normal palpation of entire chest wall Resp Effort & Inspection: normal respiratory effort Neuro General: patient oriented x3 Results AMB Rapid Strep AMB Rapid Strep Negative Last Edit by Erlin Tyler CMA on 12/12/22 09 :32 Results Reviewed Results Reviewed: Laboratory Last Values Strep Scn Rapid Clinic Negative 12/12/22 09:32 Assessment & Plan Assessment & Plan (1) Upper respiratory tract infection: Code(s): J06.9 - Acute upper respiratory infection, unspecified Qualifiers: URI type: unspecified URI Qualified Code(s): J06.9 - Acute upper respiratory infection, unspecified Plan: Antibiotics ordered. Increase fluid intake. Tylenol for aches and pains. If symptoms worsen, follow-up here for a recheck. Will call with results of the COVID test. Orders: Orders SARS-CoV2/FLU/RSV Today R43.9 - Unspecified disturbances of smell and taste AMB Rapid Strep Screen Today Z13.9 - Encounter for screening, unspecified Medications: New albuterol sulfate 90 mcg/actuation (Ventolin HFA) 1 inh inhalation QID PRN 8.5 grams 1RF shortness of breath or wheezing azithromycin take 500 mg today (day 1), then 250 mg for 4 days (days 2-5) PO 6 tabs 0RF Coding Level of Care Code Est Pt Level 3 (03174) Diagnoses Upper respiratory tract infection, unspecified type J06.9 URI type: unspecified URI
[2022-12-12 09:22] VITALS: BP 126/70; PULSE 70; TEMP 36.4; O2SAT 97; BMI 22.9
== END 2022-12-12 10:06 | disposition home or self-care (01) ==
PROVIDERS: PCP Internal Medicine; Visit Provider Internal Medicine
DX: J06.9 Acute upper respiratory infection, unspecified (principal); J02.9 Acute pharyngitis, unspecified
CPT/HCPCS: 87880; 99213

== ENCOUNTER 2022-12-12 13:35 | Outpatient (REF) | payer MEDICARE, SELFPAY ==
[2022-12-12 15:51] LABS: Influenza A PCR NEGATIVE (Negative); Influenza B PCR NEGATIVE (Negative); Resp Syncy Virus RNA Qual PCR NEGATIVE (Negative); SARS COV2 PCR INHOUSE NEGATIVE (Negative)
== END 2022-12-12 13:36 | disposition home or self-care (01) ==
LOC: HO.LNP 13:35
PROVIDERS: Visit Provider Internal Medicine
DX: Z20.822 Contact with and (suspected) exposure to COVID-19 (principal); R43.9 Unspecified disturbances of smell and taste
CPT/HCPCS: 0241U

== ENCOUNTER 2023-02-16 13:27 | Outpatient (REF) | payer MEDICARE, SELFPAY ==
--- NOTE | ~2023-02-16 | MM_ITS ---
EXAMINATION: MM DIAGNOSTIC DIGITAL BREAST TOMOSYNTHESIS, BILATERAL CLINICAL INFORMATION: Follow-up left breast density far posterior aspect along the nipple line. Not seen on ML or MLO views. Stable since 2000. COMPARISON: Mammography: 02/15/2022, 06/28/2021, 12/30/2020. TECHNIQUE: Digital breast tomosynthesis is performed in both the craniocaudal and mediolateral oblique views along with computer-aided detection (CAD). Synthesized 2D images are generated from the tomosynthesis. In addition, full-field right ML view was obtained, as well as a 3-D spot compression right CC view. FINDINGS: There are scattered areas of fibroglandular density (ACR BI-RADS breast composition Category b). The small asymmetry in the far posterior left cc view along the nipple line is unchanged, and has remained unchanged since 2000 confirming benignity. No further follow-up recommended. There is a stable asymmetry in the slightly outer right CC projection, posterior one third, which spreads out nicely on spot compression view, and is likely a small island of normal tissue. This has been unchanged since 2020. Otherwise, there are no suspicious masses, suspicious grouped calcifications, or areas of architectural distortion in either breast. The parenchymal pattern is stable from prior exams. MM/MM tomosynthesis diagnostic BI IMPRESSION: There are no findings suspicious for malignancy in either breast. Recommend the patient return to routine annual screening. ASSESSMENT: BI-RADS BI-RADS 2 - Benign Findings RECOMMENDATION: 1 year F/U Results were provided to the patient at time of visit by the technologist. This patient's information was entered into a reminder system with a target due date for their next mammogram.
== END 2023-02-16 13:28 | disposition home or self-care (01) ==
LOC: HO.MAMMO 13:27
PROVIDERS: Absent Provider Nurse Practitioner Adult Health; PCP Internal Medicine; Visit Provider Internal Medicine
DX: R92.2 Inconclusive mammogram (principal)
CPT/HCPCS: 77062; 77066

== ENCOUNTER 2023-02-23 11:27 | Outpatient (AMB) | payer MEDICARE, SELFPAY ==
--- NOTE | 2023-02-23 11:29 | MHC.OFFVIS ---
Intake Vital Signs 02/23/23 11:39 Height 5 ft 2 in Weight 125 lb BMI 22.9 BP 137/63 Blood Pressure Location Rt brachial Position Standing Respiration 82 H Intake Visit Reasons: External Hemorrhoid, ? fissure Intake Note: This patient presents for an assessment for external hemorrhoid, question fissure. Patient c/o; reports occasional rectal bleeding , reports discomfort with bowel movements, reports changes in bowel habits. Product Support Sales Representative Required: No Gallery Or Museum Technician: Gallery Or Museum Technician offered & declined Accompanied by: Self / Same As Patient Allergies hydromorphone [From Dilaudid] Allergy (Verified 02/23/23 11:36) Palpitations meperidine [From DEMEROL] Adverse Reaction (Intermediate, Verified 02/23/23 11:36) AGITATION Medication List - Last Reconciled 02/23/23 by Manuel Carter MD albuterol sulfate 90 mcg/actuation (Ventolin HFA) 1 inh inhalation QID PRN amlodipine 5 mg See Protocol PO DAILY azithromycin take 500 mg today (day 1), then 250 mg for 4 days (days 2-5) PO diphenhydramine-acetaminophen 25-500 mg (Tylenol PM Extra Strength) 1 tab PO BEDTIME estradiol 1 patch transdermal TOPETE@1000 estradiol 0.01%(0.1mg/gram) 1 g vaginal DAILY PRN melatonin 10 mg PO BEDTIME PRN omeprazole 20 mg PO DAILY rosuvastatin 10 mg PO DAILY tamsulosin 0.4 mg PO BEDTIME HPI External Hemorrhoid, ? fissure HPI Details 72-year-old female referred for hemorrhoids. She describes having some discomfort with passage of stools. She says she does not think that this is actually ?pain?. She just says that this is some vague dull discomfort with bowel movements. She occasionally notices small amounts of blood on wiping but this is not often. She has had these for more than a year as well. She knows that she has hemorrhoids since her and her son is now 50 years old. She also says that she has had pain on her tailbone after she had fallen on her backside about 8 months ago. She describes very irregular bowel movements for a couple of years now with diarrhea and constipation. She had a colonoscopy about 2 years ago which was unremarkable she says. [facility] Medical History (Updated 02/23/23 @ 12:15 by Manuel Carter MD) External hemorrhoid, bleeding Multinodular thyroid Thyroid nodule Sleep disorder GERD (gastroesophageal reflux disease) Lump Normal colonoscopy Anxiety Surgical History Hx of elbow surgery History of cardiac catheterization (~10/2020) S/P LAURO (total abdominal hysterectomy) Family History Father History of colon cancer Family history of hypertension Family history of polyps in the colon Congestive heart failure Mother Family history of hypertension History of diabetes mellitus History of heart disease Congestive heart failure Brother Family history of prostate cancer Sister History of heart disease Sister Breast cancer History of heart disease Sister Fatty liver Social History Household Members: None Housing: House Alcohol intake: current Alcohol intake frequency: 0-2 drinks per day Alcohol type: wine Comment: NOT PROCEDURAL RELATED PAIN Patient Tobacco Use Status: Never used Tobacco Advance Directives Date on File: 06/21/21 service: No Current occupational status: retired Review of Systems Const Denies chills and Denies fever(s) Card Denies chest pain, Denies dyspnea and Denies dyspnea on exertion Resp Denies cough, Denies dyspnea and Denies dyspnea on exertion GI Reports hematochezia and Denies change in bowel habits Denies hematuria Musc Denies back pain and Denies limited range of motion Neuro Denies focal weakness and Denies convulsions Psych Denies depression and Denies mood swings Physical Exam Vital Signs: Last Vital Signs Resp 82 H 02/23/23 11:39 BP 137/63 02/23/23 11:39 BMI result Body Mass Index 22.9 Const General: comfortable and no acute distress Orientation/consciousness: patient oriented x3 Neck Neck: Yes no lymphadenopathy Resp Auscultation: clear to auscultation bilaterally Cardio Rhythm: regular rhythm GI Other: Rectal exam - external hemorrhoids on the anterior side, moderate-sized, nonthrombosed, nontender, no fissure Palpation (GI): Soft to palpation, nontender and no guarding Neuro General: patient oriented x3 Office Procedures Anoscopy She was in bryant-knife position. The anoscope was gently inserted. A full examination of the anal canal was done. Small internal hemorrhoids on both the left and right side. There was no ulcer, fissure nor bleeding. She did have this external hemorrhoid anteriorly which was moderate size. Again there was no induration on digital exam. There was no fissure. [id number] Assessment & Plan Assessment & Plan (1) External hemorrhoid, bleeding: Code(s): K64.4 - Residual hemorrhoidal skin tags Plan: She describes discomfort with passage of stools periodically. She does have a long history of alternating diarrhea and constipation. She also sees small amounts of blood on wiping once in a while. She does have external hemorrhoids and internal hemorrhoids as described above I advised her to try taking Metamucil twice a day to achieved some regularity of bowel movements at this will help with her hemorrhoid issues. I also assured her that her pain on her coccyx is related to her hemorrhoids as she had fallen in the past. I did tell her that she is welcome to come to the office to be re-examined if he has concerns down the line. She seems to be comfortable with the plan. Coding Level of Care Code New Pt Level 3 (06759) Diagnoses External hemorrhoid, bleeding K64.4 CPT Codes Details - CPT: 99810-[id number] ([id number])
[2023-02-23 11:39] VITALS: BP 137/63; RESP 82; BMI 22.9
== END 2023-02-23 12:04 | disposition home or self-care (01) ==
PROVIDERS: PCP Internal Medicine; Referring Provider Internal Medicine; Visit Provider Surgery
DX: K64.4 Residual hemorrhoidal skin tags (principal)
CPT/HCPCS: 46600; 99203

== ENCOUNTER → 2023-02-23 11:27 | Outpatient (BNVA) | payer MEDICARE, SELFPAY | PROVIDERS: PCP Internal Medicine; Referring Provider Internal Medicine; Visit Provider Surgery | DX: K64.4 Residual hemorrhoidal skin tags (principal) | CPT/HCPCS: 46600; 99202 ==

== ENCOUNTER 2023-06-22 09:05 | Outpatient (AMB) | payer MEDICARE, SELFPAY ==
[2023-06-22 09:10] VITALS: BP 120/78; PULSE 79; TEMP 36.2; O2SAT 98; BMI 22.7
--- NOTE | 2023-06-22 09:10 | AM.OFFWIN_ITS ---
Intake Vital Signs 06/22/23 09:10 Height 5 ft 2 in Weight 124 lb BMI 22.7 BP 120/78 Blood Pressure Location Lt brachial Position Sitting Pulse 79 Pulse Source Pulse Oximeter Temp 97.2 F Temp Source Temporal Artery Scan Pulse Oximetry (%) 98 Oxygen Delivery Method Room Air Intake Visit Reasons: EP RT Ear ache Intake Note: pt is here today for rt ear ache started 1 week ago Patient Tobacco Use Status: Never used Tobacco Allergies hydromorphone [From Dilaudid] Allergy (Verified 06/22/23 10:05) Palpitations meperidine [From DEMEROL] Adverse Reaction (Intermediate, Verified 06/22/23 10:05) AGITATION Do you need a note to return to daycare/school/sports/work: No HPI EP RT Ear ache HPI Details 72 year old female patient presents toda y with 1 week history of right ear pain/pressure. Denies fever/chills or URI symptoms. Reports frequent ear infections. Has seen ENT previously. PFS Medical History External hemorrhoid, bleeding Multinodular thyroid Thyroid nodule Sleep disorder GERD (gastroesophageal reflux disease) Lump Normal colonoscopy Anxiety Surgical History Hx of elbow surgery History of cardiac catheterization (~10/2020) S/P LAURO (total abdominal hysterectomy) Family History Father History of colon cancer Family history of hypertension Family history of polyps in the colon Congestive heart failure Mother Family history of hypertension History of diabetes mellitus History of heart disease Congestive heart failure Brother Family history of prostate cancer Sister History of heart disease Sister Breast cancer History of heart disease Sister Fatty liver Social History Household Members: None Housing: House Alcohol intake: current Alcohol intake frequency: 0-2 drinks per day Alcohol type: wine Comment: NOT PROCEDURAL RELATED PAIN Patient Tobacco Use Status: Never used Tobacco Advance Directives Date on File: 06/21/21 service: No Current occupational status: retired Review of Systems Const All systems reviewed & are unremarkable except as noted in HPI and below Physical Exam Vital Signs: Last Vital Signs Temp 97.2 F 06/22/23 09:10 Pulse 79 06/22/23 09:10 BP 120/78 06/22/23 09:10 Pulse Ox 98 06/22/23 09:10 Oxygen Delivery Method Room Air 06/22/23 09:10 BMI result Body Mass Index 22.7 Const General: cooperative, healthy appearing and no acute distress HEENT Head: Yes normal to inspection Ears: hearing grossly normal bilaterally, external ears normal, TM abnormal (ri ght TM erythematous, serous effusion) wth effusion and unable to visualize TM (cerumen) on the left General nose exam: Normal external nose present Throat: Yes posterior oropharynx normal Neck Neck: Yes no lymphadenopathy Resp Effort & Inspection: normal respiratory effort Auscultation: clear to auscultation bilaterally Cardio Rate: regular rate Rhythm: regular rhythm Skin General skin exam: no rashes or lesions noted Extrem General: Yes capillary refill normal Psych Appearance: grossly normal Mental Status: mental status grossly normal Speech and movement: Normal speech and movement present Assessment & Plan Assessment & Plan (1) Right otitis media: Code(s): H66.91 - Otitis media, unspecified, right ear Qualifiers: Otitis media type: unspecified Qualified Code(s): H66.91 - Otitis media, unspecified, right ear Plan: Will start on Augmentin 7 days. Reviewed indications, use, possible s/e of medication. Advised debrox drops for the cerumen buildup and informed patient she can return once feeling better to have ear irrigation if she wishes to. If she does not improve with treatment she will return to the clinic for further evaluation. She agrees to plan. Medications: New amoxicillin-pot clavulanate 875-125 mg 1 tab PO BID 7 days 14 tabs 0RF H66.91 - Otitis media, unspecified, right ear Coding Level of Care Code Est Pt Level 4 (40220) Diagnoses Right otitis media, unspecified otitis media type H66.91 Otitis media type: unspecified
== END 2023-06-22 10:41 | disposition home or self-care (01) ==
PROVIDERS: PCP Internal Medicine; Visit Provider Nurse Practitioner Family
DX: H66.91 Otitis media, unspecified, right ear (principal)
CPT/HCPCS: 99214

== ENCOUNTER 2023-08-21 08:33 | Outpatient (REF) | payer MEDICARE, SELFPAY ==
--- NOTE | ~2023-08-21 | US_ITS ---
EXAMINATION: US THYROID CLINICAL INFORMATION: Nontoxic multinodular goiter. Prior FNA 04/08/2021, right mid lobe, benign COMPARISON: Thyroid ultrasound 08/04/2022 and 04/22/2022. CT soft tissue neck 07/27/2022. Ultrasound-guided thyroid biopsy 04/08/2021. TECHNIQUE: Linear transducer grayscale and color Doppler examination with attention to the region of the thyroid. FINDINGS: SIZE: Measurements of the thyroid lobes and nodules are given in sagittal, anteroposterior and transverse dimensions respectively. Right Thyroid Lobe: 3.7 x 1.3 x 1.3 cm, volume 3.3 mL. Previously 3.9 x 1.1 x 1.3 cm, volume 3.1 mL. Parenchyma: The gland echotexture is heterogeneous. Thyroid vascularity is normal. Left Thyroid Lobe: 3.6 x 0.9 x 1.1 cm, volume 1.9 mL. Previously 3.3 x 1.1 x 1.0 cm, volume 1.8 mL. Parenchyma: The gland echotexture is heterogeneous. Thyroid vascularity is normal. Isthmus: 0.1 cm in maximum AP dimension. Previously 0.1 cm. Estimated total number of nodules greater than or equal to 1 cm: 1. Ensemble Member nodules are described as follows: 1. Location: Right mid pole. Size: 1.4 x 0.9 x 0.9 cm, volume 0.60 mL. Previously: 1.4 x 1.0 x 1.0 cm, volume 0.73 mL. Nodule characteristics: Composition: Solid (2). Echogenicity: Hypoechoic (2). Shape: Not taller than wide (0). Margins: Smooth (0). Echogenic Foci: None (0). ACR TI-RADS total points: 4 Previous: 4 ACR TI-RADS category: 4 Previous: 4 Significant change in size (>/= 20% in 2 dimensions and minimal increase of 2 mm or 50% or greater increase in volume): No Change in features: No Change in ACR TI-RADS risk category: No 2. Location: Left upper pole. Size: 0.6 x 0.3 x 0.4 cm, volume 0.03 mL. Previously: 0.5 x 0.2 x 0.3 cm, volume 0.02 mL. Nodule characteristics: Composition: Cystic(0). ACR TI-RADS total points: 0 Previous: 0 ACR TI-RADS category: 1 Previous: 1 Significant change in size (>/= 20% in 2 dimensions and minimal increase of 2 mm or 50% or greater increase in volume): No Change in features: No Change in ACR TI-RADS risk category: No NODES: No lymphadenopathy is seen in the tissue surrounding the thyroid gland. US/US thyroid IMPRESSION: 1.4 cm nodule in the mid right lobe, TR 4. Follow-up ultrasound in one year is recommended. ACR TI-RADS RECOMMENDATION REFERENCE: Ultrasound-guided fine-needle aspiration, follow up ultrasound, no further followup. * TR1 (0 point) and TR2 (2 points): No FNA or followup * TR3 (3 points): FNA if more than or equal to 2.5 cm in maximum dimension, follow up ultrasound in 1, 3 and 5 years if 1.5 to 2.4 cm in maximum dimension. * TR4 (4-6 points): FNA if more than or equal to 1.5 cm in maximum dimension, follow up ultrasound in 1, 2, 3 and 5 years if 1 to 1.4 cm in maximum dimension. * TR5 (more than or equal to 7 points): FNA if more than or equal to 1 cm in maximum dimension, follow up ultrasound every year for 5 years if 0.5 to 0.9 cm in maximum dimension. * TR3, TR4 or TR5 nodules that are below the size threshold for follow up receive no followup.
== END 2023-08-21 08:34 | disposition home or self-care (01) ==
LOC: HO.HMGCX 08:33
PROVIDERS: PCP Internal Medicine; Visit Provider Internal Medicine Endocrinology, Diabetes & Metabolism
DX: E04.2 Nontoxic multinodular goiter (principal)
CPT/HCPCS: 76536

== ENCOUNTER 2023-08-28 14:36 | Outpatient (REF) | payer MEDICARE, SELFPAY ==
[2023-08-28 16:36] LABS: Free T4 (Free Thyroxine) 0.78 ng/dL (0.71-1.85); Thyroid Stimulating Hormone 2.36 uIU/mL (0.32-4.0)
== END 2023-08-28 14:37 | disposition home or self-care (01) ==
LOC: HO.HMGCLDS 14:36
PROVIDERS: PCP Internal Medicine; Visit Provider Internal Medicine Endocrinology, Diabetes & Metabolism
DX: E04.2 Nontoxic multinodular goiter (principal)
CPT/HCPCS: 36415; 84439; 84443

== ENCOUNTER 2023-08-31 10:31 | Outpatient (AMB) | payer MEDICARE, SELFPAY ==
--- NOTE | 2023-08-31 10:40 | MHC.OFFVIS ---
Vital Signs 08/31/23 10:41 Height 5 ft 2 in Weight 126 lb 15.78 oz BMI 23.2 BP 136/78 Blood Pressure Location Lt brachial Position Sitting Pulse 83 Pulse Source Pulse Oximeter Intake Visit Reasons: NMG-CONFIRMED Intake Note: Patient present today for MNG follow up visit. Previously seen by Dr. Goins on 08/01/22. Underliner Required: No Accompanied by: Self / Same As Patient Allergies hydromorphone [From Dilaudid] Allergy (Verified 08/31/23 10:45) Palpitations meperidine [From DEMEROL] Adverse Reaction (Intermediate, Verified 08/31/23 10:45) AGITATION Medication List - Last Reconciled 08/31/23 by Wiley Washington MD albuterol sulfate 90 mcg/actuation (Ventolin HFA) 1 inh inhalation QID PRN amlodipine 5 mg See Protocol PO DAILY amoxicillin-pot clavulanate 875-125 mg 1 tab PO BID 7 days diphenhydramine-acetaminophen 25-500 mg (Tylenol PM Extra Strength) 1 tab PO BEDTIME estradiol 1 patch transdermal TOPETE@1000 estradiol 0.01%(0.1mg/gram) 1 g vaginal DAILY PRN melatonin 10 mg PO BEDTIME PRN omeprazole 20 mg PO DAILY rosuvastatin 10 mg PO DAILY HPI Comments Details: 71 YO Female with a PMHx of a multinodular thyroid who is seen in F/U for the same. Patient last saw Dr. Goins 09/01/2022 She had an US of the thyroid in 2005 which revealed a 1.1 cm hypoechoic nodule within the RMP. She was subsequently lost to F/U. More recently she began having tenderness in the neck. This prompted her PCP to check an US of the thyroid which revealed a 1.3 cm RMP thyroid nodule. This was present in 2005, and measured 1.1 cm. She underwent FNA Biopsy of her RMP 1.0 cm thyroid nodule 04/08/2021 with benign (bethesda category II) cytology. She had her US repeated 04/22/2022 which does reveal significant growth in terms of volume. I repeated the US myself 08/04/2022 and remeasured this nodule at 1.2 cm, with no significant change to indicate repeat FNA biopsy. She is complaining of tenderness in the neck particularly with activity as well as some swelling in the neck. She does report a sensation of catching while swallowing. She had a CT of the neck 04/29/2022 which was largely WNL. Labs do now show hypothyroidism. US Thyroid: 04/22/2022 Right Thyroid Lobe: 3.9 x 1.2 x 1.3 cm, volume 3.1 mL. Previously 4.0 x 1.3 x 1.1 cm, volume 3.0 mL. Parenchyma: The gland echotexture is heterogeneous. Thyroid vascularity is normal. Left Thyroid Lobe: 3.3 x 1.1 x 1.0 cm, volume 1.8 mL. Previously 3.8 x 0.9 x 0.9 cm, volume 1.5 mL. Parenchyma: The gland echotexture is homogeneous. Thyroid vascularity is normal. Isthmus: 0.14 cm in maximum AP dimension. Previously 0.17 cm. Estimated total number of nodules greater than or equal to 1 cm: 1. Configuration Management Consultant nodules are described as follows: 1.? Location: Right superior/mid. ?? ? Size: 1.4 x 1.0 x 1.0 cm, volume 0.7 mL. ?? ? Previously: 1.3 x 0.8 x 0.9 cm, volume 0.49 mL. ?? ? Nodule characteristics: ?? ? Composition: Solid/almost completely solid (2). ?? ? Echogenicity: Hypoechoic (2). ?? ? Shape: Not taller than wide (0). ?? ? Margins: Smooth (0). ?? ? Echogenic Foci: None (0). ? ACR TI-RADS total points: 4 Previous: 4 ?? ? ACR TI-RADS category: 4 Previous: 4 ? Significant change in size (>/= 20% in 2 dimensions and minimal increase of 2 mm or 50% or greater increase in volume): No ?? ? Change in features: No ?? ? Change in ACR TI-RADS risk category: No 2.? Location: Left superior. ?? ? Size: 0.5 x 0.2 x 0.3 cm, volume 0.02 mL. ?? ? Previously: 0.2 x 0.2 x 0.2 cm, volume 0.04 mL. ?? ? Nodule characteristics: ?? ? Composition: Cystic(0). ?? ? ACR TI-RADS total points: 0 Previous: 0 ?? ? ACR TI-RADS category: 1 Previous: 1 ? Significant change in size (>/= 20% in 2 dimensions and minimal increase of 2 mm or 50% or greater increase in volume): No ?? ? Change in features: No ?? ? Change in ACR TI-RADS risk category: No NODES: No lymphadenopathy is seen in the tissue surrounding the thyroid gland. Labs: Laboratory Tests 04/25/22 07/28/22 10:35 08:11 TSH 4.80 H Free T4 0.91 PFSH Medical History External hemorrhoid, bleeding Multinodular thyroid Thyroid nodule Sleep disorder GERD (gastroesophageal reflux disease) Lump Normal colonoscopy Anxiety Surgical History Hx of elbow surgery History of cardiac catheterization (~10/2020) S/P LAURO (total abdominal hysterectomy) Family History Father History of colon cancer Family history of hypertension Family history of polyps in the colon Congestive heart failure Mother Family history of hypertension History of diabetes mellitus History of heart disease Congestive heart failure Brother Family history of prostate cancer Sister History of heart disease Sister Breast cancer History of heart disease Sister Fatty liver Social History Household Members: None Housing: House Alcohol intake: current Alcohol intake frequency: 0-2 drinks per day Alcohol type: wine Comment: NOT PROCEDURAL RELATED PAIN Patient Tobacco Use Status: Never used Tobacco Advance Directives Date on File: 06/21/21 service: No Current occupational status: retired Physical Exam Vital Signs: Last Vital Signs Pulse 83 08/31/23 10:41 BP 136/78 08/31/23 10:41 BMI result Body Mass Index 23.2 Const Other: Thyroid gland is normal size weighs about 15 g. There are no palpable thyroid nodules Assessment & Plan Assessment & Plan (1) Thyroid nodule: Code(s): E04.1 - Nontoxic single thyroid nodule Category: Medical Plan: This is a 72-year-old white female with a history of multinodular goiter status post FNA of a right midpole nodule with benign cytology. Repeat thyroid ultrasound report is pending. Patient appears to be clinically and biochemically euthyroid Will await thyroid ultrasound report. Assuming nodule stable in size, patient can follow up with the primary care provider can we check a thyroid ultrasound about 2-3 years time at this a change in the size or characteristics of the nodule, patient returned back to endocrinology Coding Level of Care Code Est Pt Level 3 (77349) Diagnoses Thyroid nodule E04.1
[2023-08-31 10:41] VITALS: BP 136/78; PULSE 83; BMI 23.2
== END 2023-08-31 11:36 | disposition home or self-care (01) ==
PROVIDERS: PCP Internal Medicine; Visit Provider Internal Medicine Endocrinology, Diabetes & Metabolism
DX: E04.1 Nontoxic single thyroid nodule (principal)
CPT/HCPCS: 99213

== ENCOUNTER → 2023-08-31 10:31 | Outpatient (BNVA) | payer MEDICARE, SELFPAY | PROVIDERS: PCP Internal Medicine; Visit Provider Internal Medicine Endocrinology, Diabetes & Metabolism | DX: E04.1 Nontoxic single thyroid nodule (principal) | CPT/HCPCS: 99212 ==

== ENCOUNTER 2023-10-11 08:21 | Outpatient (REF) | payer MEDICARE, SELFPAY ==
--- NOTE | ~2023-10-11 | US_ITS ---
EXAMINATION: US RETROPERITONEAL LIMITED (RENAL ONLY) CLINICAL INFORMATION: Calculus of kidney. COMPARISON: Renal ultrasound 09/30/2022 and 08/23/2021. CT abdomen and pelvis 06/20/2021. TECHNIQUE: Real-time imaging of the kidneys. FINDINGS: RIGHT KIDNEY: 7.6 x 4.3 x 3.9 cm (SAG x AP x TRV). The kidney is normal in size, contour, and echogenicity. Renal cortical thickness is normal. No calculi or focal parenchymal lesions. No hydronephrosis. LEFT KIDNEY: 9.1 x 4.0 x 4.5 cm (SAG x AP x TRV). The kidney is normal in size, contour, and echogenicity. Renal cortical thickness is normal. No calculi or focal parenchymal lesions. No hydronephrosis. US/US renal BI IMPRESSION: Unremarkable examination. No detected renal calculi.
== END 2023-10-11 08:22 | disposition home or self-care (01) ==
LOC: HO.HMGCX 08:21
PROVIDERS: PCP Internal Medicine; Visit Provider Urology
DX: N20.0 Calculus of kidney (principal)
CPT/HCPCS: 76775

== ENCOUNTER 2023-10-19 09:30 | Outpatient (AMB) | payer MEDICARE, SELFPAY ==
--- NOTE | 2023-10-19 09:38 | MHC.OFFVIS ---
Intake Visit Reasons: 1Y Follow Up- US(set) Intake Note: Patient is Present for Follow Up Ultrasound Urology Medication: None Antibiotic Allergies: None Blood Thinners: None Regional Branch Manager Required: No Accompanied by: Self / Same As Patient Allergies hydromorphone [From Dilaudid] Allergy (Verified 10/19/23 09:40) Palpitations meperidine [From DEMEROL] Adverse Reaction (Intermediate, Verified 10/19/23 09:40) AGITATION Medication List - Last Reconciled 10/19/23 by Margarito Garcia MD albuterol sulfate 90 mcg/actuation (Ventolin HFA) 1 inh inhalation QID PRN amlodipine 5 mg See Protocol PO DAILY diphenhydramine-acetaminophen 25-500 mg (Tylenol PM Extra Strength) 1 tab PO BEDTIME estradiol 1 patch transdermal TOPETE@1000 estradiol 0.01%(0.1mg/gram) 1 g vaginal DAILY PRN melatonin 10 mg PO BEDTIME PRN omeprazole 20 mg PO DAILY rosuvastatin 10 mg PO DAILY HPI Comments Details: Leslie is a very pleasant female. She is a patient of Dr. Segura. She is seen for the following urologic conditions - nephrolithiasis Ultrasound no evidence of stones Continue adequate oral intake Imaging in 12 months Continue to encourage use of lemon juice in her fluids She remains very active playing pickleball almost daily and golfing and hiking Nephrolithiasis Seen in hospital 06/08 Distal right ureteric stone Ureteroscopy performed Imaging - 10/09 renal ultrasound negative Intervention - 06/08 right ureteroscopy Stone composition - 06/08 calcium oxalate Therapeutic plan - encourage fluid intake - surveillance imaging PFSH Medical History External hemorrhoid, bleeding Multinodular thyroid Thyroid nodule Sleep disorder GERD (gastroesophageal reflux disease) Lump Normal colonoscopy Anxiety Surgical History Hx of elbow surgery History of cardiac catheterization (~10/2020) S/P LAURO (total abdominal hysterectomy) Family History Father History of colon cancer Family history of hypertension Family history of polyps in the colon Congestive heart failure Mother Family history of hypertension History of diabetes mellitus History of heart disease Congestive heart failure Brother Family history of prostate cancer Sister History of heart disease Sister Breast cancer History of heart disease Sister Fatty liver Social History Household Members: None Housing: House Alcohol intake: current Alcohol intake frequency: 0-2 drinks per day Alcohol type: wine Comment: NOT PROCEDURAL RELATED PAIN Patient Tobacco Use Status: Never used Tobacco Advance Directives Date on File: 06/21/21 service: No Current occupational status: retired Review of Systems Const Denies chills and Denies fever(s) Card Reports no additional complaints and Denies syncope Resp Denies cough GI Denies abdominal pain and Denies heartburn Reports as per HPI and Denies change in libido Neuro Denies syncope Psych Denies change in libido Endo Denies change in libido Physical Exam Const General: cooperative, healthy appearing, comfortable and no acute distress Orientation/consciousness: patient oriented x3 HEENT Face and sinus: Yes normal facial exam Mouth: moist mucous membranes Neck Neck: Yes normal visual inspection, Yes full ROM and Yes trachea midline Chest Chest palpation & inspection: normal inspection of the chest Resp Effort & Inspection: normal respiratory effort, able to speak in complete sentences and no respiratory distress GI Inspection: Yes normal to inspection Back/Spine/Pelvis Cervical Spine: normal cervical lordosis Thoracic/Lumbar Spine: thoracic and lumbar spine normal to inspection Skin General skin exam: no rashes or lesions noted Neuro General: patient oriented x3, gait normal, tone normal and moves all extremities Extrem General: Yes normal to inspection and Yes capillary refill normal Assessment & Plan Assessment & Plan (1) Nephrolithiasis: Code(s): N20.0 - Calculus of kidney Category: Medical Plan 12 month follow-up renal ultrasound Orders: Orders US renal BI 1 Year N20.0 - Calculus of kidney Patient Instructions: Imaging studies, laboratory and physical exam results were discussed and reviewed in detail. No major barriers to patient understanding were identified. An opportunity to ask questions regarding the treatment plan was provided. All questions were answered. The patient expressed understanding and agreement with the above treatment plan. The patient is aware they should contact our office by phone for worsening of their current condition or the appearance of new urologic symptoms. Compliance is encouraged with any medications and followup testing that is ordered. It is a privilege to participate in the urologic care of your patient. If you have any questions or concerns regarding treatment for the above conditions, or other urologic issues, please do not hesitate to contact me. The office telephone contact is [phone]. This note is constructed using voice recognition software. While every effort has been made to ensure accuracy casting machine service operator errors may have been included. Yours sincerely, Dr Margarito Garcia MD, [facility] - Urology Providers of Expert, Compassionate Care for the Genitourinary System Coding Level of Care Code Est Pt Level 4 (97594) Diagnoses Nephrolithiasis N20.0
== END 2023-10-19 10:14 | disposition home or self-care (01) ==
PROVIDERS: PCP Internal Medicine; Visit Provider Urology
DX: N20.0 Calculus of kidney (principal)
CPT/HCPCS: 99214

== ENCOUNTER → 2023-10-19 09:30 | Outpatient (BNVA) | payer MEDICARE, SELFPAY | PROVIDERS: PCP Internal Medicine; Visit Provider Urology | DX: N20.0 Calculus of kidney (principal) | CPT/HCPCS: 99212 ==

== ENCOUNTER 2023-12-04 09:26 | Outpatient (REF) | payer MEDICARE, SELFPAY ==
[2023-12-04 13:46] LABS: MANUAL DIFF FLAG NO
[2023-12-04 13:52] LABS: Basophils Percent Auto 0.9 % (0-2); Eosinophils Absolute Auto 0.2 X10*3/uL (0.0-0.4); Eosinophils Percent Auto 4.3 % (0-4); Hematocrit 39.1 % (37.0-47.0); Hemoglobin 12.8 g/dl (12.0-16.0); Imm Gran Abs Auto 0.01 X10*3/uL (0.00-0.03); Imm Gran Pct Auto 0.2 % (0.0-0.4); Lymphocytes Absolute Auto 1.7 X10*3/uL (1.2-4.9); Lymphocytes Percent Auto 36.7 % (20-40); Mean Corpuscular HGB Conc 32.7 g/dl (31.0-35.0); Mean Corpuscular Hemoglobin 31.3 pg (27.0-33.0); Mean Corpuscular Volume 95.6 fL (80.0-98.0); Mean Platelet Volume 9.7 fL (9.4-12.3); Monocytes Absolute Auto 0.5 X10*3/uL (0.1-1.2); Monocytes Percent Auto 10.8 % (2-11); Neutrophils Absolute Auto 2.2 x10*3/uL (2.0-8.3); Neutrophils Percent Auto 47.1 % (45-73); Platelet Count 291 X10*3/uL (160-400); Red Blood Count 4.09 X10*6/uL (4.20-5.50); Red Cell Distribution Width 12.6 % (11.0-16.0); White Blood Count 4.6 X10*3/uL (4.8-10.8)
[2023-12-04 14:25] LABS: Alanine Aminotransferase 38 U/L (0-31); Albumin Level 4.2 g/dL (3.5-5.0); Alkaline Phosphatase 83 U/L (39-117); Anion Gap 13 (12-20); Aspartate Amino Transferase 33 U/L (5-31); Bilirubin Total 0.4 mg/dL (0.0-1.0); Blood Urea Nitrogen 15 mg/dL (9-16); Carbon Dioxide 26 mmol/L (22-29); Chloride 109 mmol/L (96-108); Cholesterol 196 mg/dL (<200); Estimated Glomerular Filt Rate > 60; Glucose Fasting 89 mg/dL (60-99); HDL Cholesterol 82 mg/dL (>40); LDL Cholesterol Calculated 84 mg/dL (<100); Sodium 144 mmol/L (135-145); Total Protein 6.8 g/dL (6.5-8.0); Triglycerides 153 mg/dL (<150)
[2023-12-04 14:43] LABS: Thyroid Stimulating Hormone 2.99 uIU/mL (0.32-4.0)
== END 2023-12-04 09:27 | disposition home or self-care (01) ==
LOC: HO.HMGCLDS 09:26
PROVIDERS: PCP Internal Medicine; Visit Provider Internal Medicine
DX: I10 Essential (primary) hypertension (principal); E78.00 Pure hypercholesterolemia, unspecified; K21.9 Gastro-esophageal reflux disease without esophagitis
CPT/HCPCS: 36415; 80053; 80061; 84443; 85025

== ENCOUNTER 2024-02-19 13:59 | Outpatient (REF) | payer MEDICARE, SELFPAY ==
--- NOTE | ~2024-02-19 | MM_ITS ---
EXAMINATION: MM SCREENING DIGITAL BREAST TOMOSYNTHESIS, BILATERAL CLINICAL INFORMATION: Screening. Asymptomatic. COMPARISON: Mammography: Comparison is made with available priors TECHNIQUE: Digital breast mammography with tomosynthesis is performed in both the craniocaudal and mediolateral oblique views along with computer-aided detection (CAD). FINDINGS: There are scattered areas of fibroglandular density (ACR BI-RADS breast composition Category b). Left: There are no significant masses, abnormal calcifications, or other abnormalities. Right: Asymmetry superior breast middle depth on MLO view. No suspicious calcifications or other abnormal findings. MM/MM tomosynthesis screening BI IMPRESSION: Additional imaging is recommended ASSESSMENT: BI-RADS BI-RADS 0 - Incomplete: Needs additional Imaging. RECOMMENDATION: 1. Additional views of the right breast 2. Targeted ultrasound if warranted after review of the additional views. 3. Radiology department staff will contact the patient for additional imaging. Additional Imaging required This examination should not preclude the clinical evaluation of a suspicious palpable abnormality. This patient's information was entered into a reminder system with a target due date for their next mammogram. Electronically signed by: Ro Styles DO 02/26/2024 09:00 AM AIYANA
== END 2024-02-19 14:00 | disposition home or self-care (01) ==
LOC: HO.MAMMO 13:59
PROVIDERS: PCP Internal Medicine; Visit Provider Internal Medicine
DX: Z12.31 Encounter for screening mammogram for malignant neoplasm of breast (principal)
CPT/HCPCS: 77063; 77067

== ENCOUNTER → 2024-02-19 14:00 | Outpatient (BNV) | payer MEDICARE, SELFPAY | PROVIDERS: PCP Internal Medicine; Visit Provider Internal Medicine | DX: Z12.31 Encounter for screening mammogram for malignant neoplasm of breast (principal) | CPT/HCPCS: 77063; 77067 ==

== ENCOUNTER 2024-03-21 13:31 | Outpatient (REF) | payer MEDICARE, SELFPAY ==
--- NOTE | ~2024-03-21 | MM_ITS ---
EXAMINATION: MM DIAGNOSTIC DIGITAL BREAST TOMOSYNTHESIS, RIGHT Limited right breast ultrasound. CLINICAL INFORMATION: Call back from screening for asymmetry in the right breast MLO view. COMPARISON: Mammography: relevant available prior examinations. TECHNIQUE: Digital breast tomosynthesis is performed in both the craniocaudal and mediolateral oblique views along with computer-aided detection (CAD). Synthesized 2D images are generated from the tomosynthesis. Limited right breast ultrasound. FINDINGS: The breasts are heterogeneously dense, which may obscure small masses (ACR BI-RADS breast composition Category c). Asymmetry in the superior right breast on MLO view partially effaces on additional imaging projections. Suspicious calcifications or other abnormal findings. Targeted color Doppler ultrasound from 9- 2:00 demonstrates normal fibroglandular breast tissue. There is no sonographic abnormality. MM/MM tomosynthesis added views R IMPRESSION: Asymmetry superior right breast on MLO view without sonographic correlate which partially effaces. Recommend 6 month follow-up right breast mammography for further evaluation of stability. ASSESSMENT: BI-RADS BI-RADS 3 - Probably benign finding(s) - 6 month follow-up suggested RECOMMENDATION: 6 Month F/U Results were provided to the patient at time of visit by the technologist. This patient's information was entered into a reminder system with a target due date for their next mammogram. Electronically signed by: Ro Styles DO 03/21/2024 02:33 PM AIYANA ALVARADO
--- OUTSIDE RECORDS SUMMARY | 2024-03-21 14:46 | XMS_ITS ---
Author Organization [facility] Segura DO [facility] Address [address] [place], [place] [id number] Care Team Providers Care Multiple Wire Sawyer Name Role Phone Wiley Segura Primary Care Provider REASON FOR VISIT 6 month f/u Encounters Encounter Location Date Provider Diagnosis Wiley Segura DO, [facility] [id number] 12/05/2023 Wiley Segura PLAN OF TREATMENT No Information
--- OUTSIDE RECORDS SUMMARY | 2024-03-21 14:47 | XMS_ITS ---
Author Organization Wiley Segura DO, [facility] Address [address] [place], [place] [id number] Care Team Providers Care Nurse Administrator Name Role Phone Wiley Segura Primary Care Provider REASON FOR VISIT Message Encounters Encounter Location Date Provider Diagnosis Wiley Segura DO, [facility] [address] [place], [place] [id number] 12/01/2023 Wiley Segura Primary hypertension I10 ; Hypercholesterolemia E78.00 and Gastroesophageal reflux disease, esophagitis presence not specified K21.9 ASSESSMENTS Encounter Date Diagnosis Assessment Notes Treatment Notes Treatment Clinical Notes 12/01/2023 Primary hypertension (ICD-10 - I10) 12/01/2023 Hypercholesterolemia (ICD-10 - E78.00) 12/01/2023 Gastroesophageal ref lux disease, esophagitis presence not specified (ICD-10 - K21.9) PLAN OF TREATMENT No Information
--- OUTSIDE RECORDS SUMMARY | 2024-03-21 14:47 | XMS_ITS ---
Author Organization [facility] Address [address] [place] [address] Care Team Providers Care Trading Analyst Name Role Phone Wiley Segura DO Primary Care Provider Unavail able Wiley Andersen Unavailable [phone] ALLERGIES Allergen (clinical drug ingredient) Drug/Non Drug Allergy documented on EMR Reaction Allergy Type Onset Date Status meperidine Demerol Unknown Drug Allergy Active REASON FOR VISIT Patient presents today for constipation MEDICATIONS Medication SIG (Take, Route, Frequency, Duration) Notes Start Date End Date Status Rosuvastatin Calcium 10 MG Oral for 90 Active Biotin Active Tylenol PM Extra Strength Active Omeprazole 20 MG TAKE 1 CAPSULE BY [facility] EVERY MORNING FOR 30 DAYS for 90 Active Estradiol 0.0375 MG/24HR Transdermal for 84 Active Pepcid AC Maximum Strength 20 MG 1 Orally BID Active SOCIAL HISTORY Tobacco Use: Social History Observation Description Date Details (start date - stop date) Never Smoker NA - NA Sex Assigned At : Social History Observation Description Sex Assigned At Unknown Tobacco Use/Smoking Question Answer Notes Patient is a nonsmoker Alcohol Screen Question Answer Notes Did you have a drink contain ing alcohol in the past year? Yes How often did you have a dri nk containing alcohol in the past year? 4 or more times a week (4 points) How many drinks did you have on a typical day when you were drinking in the past year? 1 or 2 drinks (0 point) How often did you have 6 or more drinks on one occasion in the past year? Never (0 point) Points 4 Interpretation Positive PROBLEMS Problem Type ICD Code Onset Dates Problem Status W/U Status Risk SNOMED Code Notes Problem Constipation, unspecified constipation type (K59.00) Active confirmed 86551938 VITAL SIGNS BMI 22.86 kg/m2 11/29/2022 Blood pressure systolic 000 mm Hg 11/30/19 23 Blood pressure diastolic 00 mm Hg 023 Height 62 in 11/29/2022 Temperature 98.2 degrees Fahrenheit 11/30/19 23 Weight 125 lbs 11/29/2022 Encounters Encounter Location Date Provider Diagnosis [facility] [address] [place] [address] 11/29/2022 Wiley Andersen Constipation, unspec ified constipation type K59.00 and Gastroesophageal reflux disease without esophagitis K21.9 ASSESSMENTS Encounter Date Diagnosis Assessment Notes Treatment Notes Treatment Clinical Notes 11/29/2022 Constipation, unspecified constipation type (ICD-10 - K59.00) Stop [employer] fiber. Begin using 2 Metamucil fiber pills once or twice a day with a lot of water. Use Miralax 1 capful in a glass of water at least every other day, but take every day if needed Try some Senokot by the third day if needed 11/29/2022 Gastroesophageal ref lux disease without esophagitis (ICD-10 - K21.9) PLAN OF TREATMENT Treatment Notes Assessment Notes Constipation, unspecified constipation t ype Stop [employer] fiber. Begin using 2 Metamucil fiber pills once or twice a day with a lot of water. Use Miralax 1 capful in a glass of water at least every other day, but take every day if needed Try some Senokot by the third day if needed Next Appt Details Follow Up: prn, Reason: Progress Notes * Examination Category Sub-Category Detail Notes General Examination GENERAL APPEARANCE: pleasant , well nourished, well developed, in no acute distress HEAD: EYES: sclera non-icteric EARS: NOSE: THROAT: NECK/THYROID: no cervical lymphade nopathy, neck supple HEART: S1, S2 normal CHEST: LUNGS: clear to auscultatio n bilaterally ABDOMEN: normal bowel sounds, no guarding or rigidity, no guarding or rigidity, no masses palpable, soft, nontender, nondistended NEUROLOGIC: alert and oriented SKIN: nonjaundiced, no spi yonis angiomata EXTREMITIES: no edema PERIPHERAL PULSES: BACK: BREASTS: MUSCULOSKELETAL: MALE GENITOURINARY: LYMPH NODES: RECTAL EXAM: FEMALE GENITOURINARY: ORAL CAVITY: mucosa moist
--- OUTSIDE RECORDS SUMMARY | 2024-03-21 14:47 | XMS_ITS ---
Author Organization Wiley Segura DO, FACP Address [address], [place] [id number] Care Team Providers Care Paralegal Legal Secretary Name Role Phone Wiley Segura Primary Care Provider ALLERGIES Allergen (clinical drug ingredient) Drug/Non Drug Allergy documented on EMR Reaction Allergy Type Onset Date Status meperidine Demerol excitation Drug Allergy Activ e REASON FOR VISIT Pre-op, cataracts MEDICATIONS Medication SIG (Take, Route, Frequency, Duration) Notes Start Date End Date Status Estradiol 0.0375 MG/24HR 1 patch to skin Transdermal Once a Week Active Omeprazole 40 MG 1 capsule 30 minutes before morning meal as needed Orally Once a day Active Rosuvastatin Calcium 10 MG 1 tablet Oral ly Once a day Active amLODIPine Besylate 5 MG 1 tablet Orally Once a day Active SOCIAL HISTORY Tobacco Use: Social History Observation Description Date Details (start date - stop date) Never Smoker NA - NA Sex Assigned At : Social History Observation Description Sex Assigned At Unknown Tobacco Use/Smoking Question Answer Notes Patient is a nonsmoker Additional Findings: Tobacco Non-User Cu rrent non-smoker, currently using no form of tobacco Alcohol Screen Question Answer Notes Did you have a drink contain ing alcohol in the past year? Yes How often did you have a dri nk containing alcohol in the past year? 2 to 3 times a week (3 points) How many drinks did you have on a typical day when you were drinking in the past year? 1 or 2 drinks (0 point) How often did you have 6 or more drinks on one occasion in the past year? Never (0 point) Points 3 Interpretation Positive PROBLEMS Problem Type ICD Code Onset Dates Problem Status W/U Status Risk SNOMED Code Notes Problem Cataract of both eyes, unspecified cataract type (H26.9) Active confirmed [id number] VITAL SIGNS BMI 24.02 kg/m2 06/07/2023 Blood pressure systolic 102 mm Hg 06/07/19 24 Blood pressure diastolic 60 mm Hg 024 Height 60 in 06/07/2023 Weight 123 lbs 06/07/2023 Encounters Encounter Location Date Provider Diagnosis Wiley Segura DO, [address] [id number] 06/07/2023 Wiley Segura Cataract of both eye s, unspecified cataract type H26.9 ; Primary hypertension I10 ; Hypercholesterolemia E78.00 and Gastroesophageal reflux disease, esophagitis presence not specified K21.9 ASSESSMENTS Encounter Date Diagnosis Assessment Notes Treatment Notes Treatment Clinical Notes 06/07/2023 Cataract of both eye s, unspecified cataract type (ICD-10 - H26.9) Nneka is an appropriate candidate for the proposed surgical procesdures and is medically cleared for surgery 06/07/2023 Primary hypertension (ICD-10 - I10) 06/07/2023 Hypercholesterolemia (ICD-10 - E78.00) 06/07/2023 Gastroesophageal ref lux disease, esophagitis presence not specified (ICD-10 - K21.9) PLAN OF TREATMENT Medication Medication Name Sig Start Date Stop Date Notes Estradiol 0.0375 MG/24HR 1 patch to skin Transdermal Once a Week Omeprazole 40 MG 1 capsule 30 minutes before morning meal as needed Orally Once a day Rosuvastatin Calcium 10 MG 1 tablet Orally Once a day amLODIPine Besylate 5 MG 1 tablet Orally Once a day Treatment Notes Assessment Notes Cataract of both eyes, unspe cified cataract type Nneka is an appropriate candidate for the proposed surgical procesdures and is medically cleared for surgery Next Appt Details Follow Up: 6 Months, Reason: follow up visit Progress Notes * Examination Category Sub-Category Detail Notes General Examination GENERAL APPEARANCE: in no ac dorina distress, well developed, well nourished HEAD: normocephalic, atrau matic HEART: no murmurs, regular rate and rhythm, S1, S2 normal LUNGS: clear to auscultatio n bilaterally ABDOMEN: normal, bowel sounds present, soft, nontender, nondistended NEUROLOGIC: nonfocal SKIN: warm and dry EXTREMITIES: no edema PSYCH: alert, oriented, cog nitive function intact
--- OUTSIDE RECORDS SUMMARY | 2024-03-21 14:47 | XMS_ITS ---
Author Organization [facility] Address [address] [place] [address] Care Team Providers Care Bindery Machine Setter/Set Up Operator Name Role Phone Wiley Segura DO Primary Care Provider Unavail able Wliey Andersen Unavailable [phone] Encounters Encounter Location Date Provider Diagnosis [facility] [address] [place] [address] 11/01/2022 Wiley Andersen PLAN OF TREATMENT No Information
--- OUTSIDE RECORDS SUMMARY | 2024-03-21 14:47 | XMS_ITS ---
Author Organization [facility] Address [address] [place] [address] Care Team Providers Care Cloth Shrinker Name Role Phone Wiley Rodriguez DO Primary Care Provider Unavail able Wiley Andersen Unavailable [phone] rodriguez requesting pts note from yesterday Encounters Encounter Location Date Provider Diagnosis [facility] [address] [place] [address] 11/30/2022 Wiley Andersen PLAN OF TREATMENT No Information
--- OUTSIDE RECORDS SUMMARY | 2024-03-21 14:47 | XMS_ITS | Patient Health Record ---
Author Organization Wiley Segura DO, FAC Address [address], [place] [id number] Care Team Providers Care Incoming Freight Clerk Name Role Phone Wiley Segura Primary Care Provider ALLERGIES Allergen (clinical drug ingredient) Drug/Non Drug Allergy documented on EMR Reaction Allergy Type Onset Date Status meperidine Demerol excitation Drug Allergy Activ e RESULTS Component Value Reference Range Notes US thyroid Reviewed date:09/04/2023 10:40:55 AM Interpretation:Abnormal Performing Lab: Notes/Report: [facility] [address] [place] [address] [place] [address] Ultrasound Report Signed Patient: Leslie Wagner MR#: [id number] : 1950 Acct:[id number] Age/Sex: 72 / F ADM Date: 08/21/23 Loc: HO.HMGCX Attending Dr: Wiley Washington MD Ordering Physician: Wiley Washington MD Date of Service: 08/21/23 Procedure(s): US thyroid Accession Number(s): [id number] cc: Wiley Washington MD; Wiley Segura DO EXAMINATION: US THYROID CLINICAL INFORMATION: Nontoxic multinodular goiter. Prior FNA 04/08/2021, right mid lobe, benign COMPARISON: Thyroid ultrasound 08/04/2022 and 04/22/2022. CT soft tissue neck 07/27/2022. Ultrasound-guided thyroid biopsy 04/08/2021. TECHNIQUE: Linear transducer grayscale and color Doppler examination with attention to the region of the thyroid. FINDINGS: SIZE: Measurements of the thyroid lobes and nodules are given in sagittal, anteroposterior and transverse dimensions respectively. Right Thyroid Lobe: 3.7 x 1.3 x 1.3 cm, volume 3.3 mL. Previously 3.9 x 1.1 x 1.3 cm, volume 3.1 mL. Parenchyma: The gland echotexture is heterogeneous. Thyroid vascularity is normal. Left Thyroid Lobe: 3.6 x 0.9 x 1.1 cm, volume 1.9 mL. Previously 3.3 x 1.1 x 1.0 cm, volume 1.8 mL. Parenchyma: The gland echotexture is heterogeneous. Thyroid vascularity is normal. Isthmus: 0.1 cm in maximum AP dimension. Previously 0.1 cm. Estimated total number of nodules greater than or equal to 1 cm: 1. Public Health Professor nodules are described as follows: 1. Location: Right mid pole. Size: 1.4 x 0.9 x 0.9 cm, volume 0.60 mL. Previously: 1.4 x 1.0 x 1.0 cm, volume 0.73 mL. Nodule characteristics: Composition: Solid (2). Echogenicity: Hypoechoic (2). Shape: Not taller than wide (0). Margins: Smooth (0). Echogenic Foci: None (0). ACR TI-RADS total points: 4 Previous: 4 ACR TI-RADS category: 4 Previous: 4 Significant change in size (>/= 20% in 2 dimensions and minimal increase of 2 mm or 50% or greater increase in volume): No Change in features: No Change in ACR TI-RADS risk category: No 2. Location: Left upper pole. Size: 0.6 x 0.3 x 0.4 cm, volume 0.03 mL. Previously: 0.5 x 0.2 x 0.3 cm, volume 0.02 mL. Nodule characteristics: Composition: Cystic(0). ACR TI-RADS total points: 0 Previous: 0 ACR TI-RADS category: 1 Previous: 1 Significant change in size (>/= 20% in 2 dimensions and minimal increase of 2 mm or 50% or greater increase in volume): No Change in features: No Change in ACR TI-RADS risk category: No NODES: No lymphadenopathy is seen in the tissue surrounding the thyroid gland. US/US thyroid IMPRESSION: 1.4 cm nodule in the mid right lobe, TR 4. Follow-up ultrasound in one year is recommended. ACR TI-RADS RECOMMENDATION REFERENCE: Ultrasound-guided fine-needle aspiration, follow up ultrasound, no further followup. * TR1 (0 point) and TR2 (2 points): No FNA or followup * TR3 (3 points): FNA if more than or equal to 2.5 cm in maximum dimension, follow up ultrasound in 1, 3 and 5 years if 1.5 to 2.4 cm in maximum dimension. * TR4 (4-6 points): FNA if more than or equal to 1.5 cm in maximum dimension, follow up ultrasound in 1, 2, 3 and 5 years if 1 to 1.4 cm in maximum dimension. * TR5 (more than or equal to 7 points): FNA if more than or equal to 1 cm in maximum dimension, follow up ultrasound every year for 5 years if 0.5 to 0.9 cm in maximum dimension. * TR3, TR4 or TR5 nodules that are below the size threshold for follow up receive no followup. Dictated By: Rolanda Abad MD Signed By: <Electronically signed by Rolanda Abad MD in OV> 09/04/23 1022 DD/ 0855 TD/TT: Auto Body Repair Technician: Free T4 (Free Thyroxine) Reviewed date:08/28/2023 04:55:14 PM Interpretation:Normal Performing Lab:[address] [address] Notes/Report: Free T4 (Free Thyroxine) 0.78 0.71-1.85 ng/dL Thyroid Stimulating Hormone Reviewed date:08/28/2023 04:55:14 PM Interpretation:Normal Performing Lab:[address] [address] Notes/Report: Thyroid Stimulating Hormone 2.36 0.32-4.0 uIU/ mL TSH 3rd Generation ([facility]) US renal BI Reviewed date:10/26/2023 09:36:48 PM Interpretation:Normal Performing Lab: Notes/Report: [facility] [place] [address] Ultrasound Report Signed Patient: Leslie Wagner MR#: [id number] : 1950 Acct:[id number] Age/Sex: 72 / F ADM Date: 10/11/23 Loc: HO.HMGCX Attending Dr: Margarito Garcia MD Ordering Physician: Margarito Garcia MD Date of Service: 10/11/23 Procedure(s): US renal BI Accession Number(s): [id number] cc: Margarito Garcia MD; Wiley Segura DO EXAMINATION: US RETROPERITONEAL LIMITED (RENAL ONLY) CLINICAL INFORMATION: Calculus of kidney. COMPARISON: Renal ultrasound 09/30/2022 and 08/23/2021. CT abdomen and pelvis 06/20/2021. TECHNIQUE: Real-time imaging of the kidneys. FINDINGS: RIGHT KIDNEY: 7.6 x 4.3 x 3.9 cm (SAG x AP x TRV). The kidney is normal in size, contour, and echogenicity. Renal cortical thickness is normal. No calculi or focal parenchymal lesions. No hydronephrosis. LEFT KIDNEY: 9.1 x 4.0 x 4.5 cm (SAG x AP x TRV). The kidney is normal in size, contour, and echogenicity. Renal cortical thickness is normal. No calculi or focal parenchymal lesions. No hydronephrosis. US/US renal BI IMPRESSION: Unremarkable examination. No detected renal calculi. Dictated By: Yusef Anderson MD Signed By: <Electronically signed by Yusef Anderson MD in OV> 10/26/232034 DD/ 0850 TD/TT: Auto Body Repair Technician: Complete Blood Count Auto Di ff Reviewed date:12/04/2023 02:00:13 PM Interpretation:Abnormal Performing Lab:[facility], [address] [place] [phone] Notes/Report: White Blood Count 4.6 4.8-10.8 X10*3/uL Red Blood Count 4.09 4.20-5.50 X10*6/uL Hemoglobin 12.8 12.0-16.0 g/dl Hematocrit 39.1 37.0-47.0 % Mean Corpuscular Volume 95.6 80.0-98.0 fL Mean Corpuscular Hemoglobin 31.3 27.0-33.0 pg Mean Corpuscular HGB Conc 32.7 31.0-35.0 g/dl Red Cell Distribution Width 12.6 11.0-16.0 % Platelet Count 291 160-400 X10*3/uL Mean Platelet Volume 9.7 9.4-12.3 fL Neutrophils Percent Auto 47.1 45-73 % Imm Gran Pct Auto 0.2 0.0-0.4 % Lymphocytes Percent Auto 36.7 20-40 % Monocytes Percent Auto 10.8 2-11 % Eosinophils Percent Auto 4.3 0-4 % Basophils Percent Auto 0.9 0-2 % NRBC Pct Auto 0.0 0.0-0.2 /100WBC Neutrophils Absolute Auto 2.2 2.0-8.3 x10*3/u L Imm Gran Abs Auto 0.01 0.00-0.03 X10*3/uL Lymphocytes Absolute Auto 1.7 1.2-4.9 X10*3/u L Monocytes Absolute Auto 0.5 0.1-1.2 X10*3/uL Eosinophils Absolute Auto 0.2 0.0-0.4 X10*3/u L Basophils Absolute Auto 0.0 0.0-0.2 X10*3/uL NRBC Abs Auto 0.000 0.0-0.012 X10*3/uL Comprehensive [place]. Panel Fa st Reviewed date:12/05/2023 10:23:54 AM Interpretation:Abnormal Performing Lab:[facility], [address] [place] [phone] Notes/Report: Sodium 144 135-145 mmol/L Potassium 4.0 3.3-5.1 mmol/L Chloride 109 96-108 mmol/L Carbon Dioxide 26 22-29 mmol/L Anion Gap 13 12-20 Blood Urea Nitrogen 15 9-16 mg/dL Creatinine 0.90 0.5-1.4 mg/dL Estimated Glomerular Filt Rate > 60 NOTE: For -Leb[place] individuals, multiply the result by 1.210. Chronic Kidney Disease: Estimated GFR < 60 mL/min/1.73m2 Severe Kidney Disease: Estimated GFR < 15 mL/min/1.73m2 Glucose Fasting 89 60-99 mg/dL Calcium 9.0 8.4-10.2 mg/dL Bilirubin Total 0.4 0.0-1.0 mg/dL Aspartate Amino Transferase 33 5-31 U/L Alanine Aminotransferase 38 0-31 U/L Total Protein 6.8 6.5-8.0 g/dL Albumin Level 4.2 3.5-5.0 g/dL Alkaline Phosphatase 83 39-117 U/L Lipid Panel Reviewed date:12/04/2023 03:03:46 PM Interpretation:Normal Performing Lab:[facility], [address] [place] [phone] Notes/Report: Triglycerides 153 <150 mg/dL Desirable Triglyceride: less than 150 mg/dL Borderline High Triglyceride 150-199 mg/dL High Triglyceride: 200-499 mg/dL Very High Triglyceride: greater than or equal to 5OO mg/dL Cholesterol 196 <200 mg/dL Desirable Cholesterol: less than 200 mg/dL Borderline High Cholesterol: 200-239 mg/dL High Cholesterol: greater than 239 mg/dL LDL Cholesterol Calculated 84 <100 mg/dL Desirable LDL: less than 100 mg/dL Near Optimal/Above Optimal LDL: 110-129 mg/dL Borderline High LDL: 130-159 mg/dL High LDL: 160-189 mg/dL Very High LDL: greater than or equal to 190 mg/dL HDL Cholesterol 82 >40 mg/dL Desirable HDL: greater than 40 mg/dL Note: This HDL assay may give artificially low results in patients with liver disease. Thyroid Stimulating Hormone Reviewed date:12/04/2023 03:03:46 PM Interpretation:Normal Performing Lab:[facility], [address] [place] [phone] Notes/Report: Thyroid Stimulating Hormone 2.99 0.32-4.0 uIU/ mL Note: A sustained TSH level above 2.5 uIU/mL may warrant further investigation. TSH 3rd Generation ([facility]) MM tomosynthesis screening B I Reviewed date:02/26/2024 10:15:07 AM Interpretation:Incomplete Performing Lab: Notes/Report: [facility] [address] [place] [address] Mammography Report Signed Patient: Leslie Wagner MR#: [id number] : 1950 Acct:[id number] Age/Sex: 73 / F ADM Date: 02/19/24 Loc: HO.MAMMO Attending Dr: Wiley Segura DO Ordering Physician: Wiley Segura DO Results: 0Incom plete: Needs Additional Imaging Evaluation Date of Service: 02/19/24 Follow Up: Additional Imagi ng Procedure(s): MM tomosynthesis screening BI Accession Number(s): [id number] cc: Wiley Segura DO EXAMINATION: MM SCREENING DIGITAL BREAST TOMOSYNTHESIS, BILATERAL CLINICAL INFORMATION: Screening. Asymptomatic. COMPARISON: Mammography: Comparison is made with available priors TECHNIQUE: Digital breast mammography with tomosynthesis is performed in both the craniocaudal and mediolateral oblique views along with computer-aided detection (CAD). FINDINGS: There are scattered areas of fibroglandular density (ACR BI-RADS breast composition Category b). Left: There are no significant masses, abnormal calcifications, or other abnormalities. Right: Asymmetry superior breast middle depth on MLO view. No suspicious calcifications or other abnormal findings. MM/MM tomosynthesis screening BI IMPRESSION: Additional imaging is recommended ASSESSMENT: BI-RADS BI-RADS 0 - Incomplete: Needs additional Imaging. RECOMMENDATION: 1. Additional views of the right breast 2. Targeted ultrasound if warranted after review of the additional views. 3. Radiology department staff will contact the patient for additional imaging. Additional Imaging required This examination should not preclude the clinical evaluation of a suspicious palpable abnormality. This patient's information was entered into a reminder system with a target due date for their next mammogram. Electronically signed by: Ro Styles DO 02/26/2024 09:00 AM EST Dictated By: Ro Styles DO Signed By: <Electronically signed by Ro Styles DO in OV> 02/26/24 0900 DD/ 1405 TD/TT: 02/19/24 1421 Auto Body Repair Technician: RAVI tomosynthecesar added views R (Not yet reviewed by provider) Interpretation: Performing Lab: Notes/Report: [facility] [address] [place] [address] Mammography Report Signed Patient: Leslie Wagner MR#: [id number] : 1950 Acct:[id number] Age/Sex: 73 / F ADM Date: 03/21/24 Loc: HO.MAMMO Attending Dr: Wiley Segura DO Ordering Physician: Wiley Segura DO Results: 3.6MPr obably Benign Finding - Short 6 M F/U Suggested Date of Service: 03/21/24 Follow Up: 6 Month F/U Procedure(s): MM tomosynthesis added views R Accession Number(s): [id number] cc: Wiley Segura DO; JUANA DENT NP EXAMINATION: MM DIAGNOSTIC DIGITAL BREAST TOMOSYNTHESIS, RIGHT Limited right breast ultrasound. CLINICAL INFORMATION: Call back from screening for asymmetry in the right breast MLO view. COMPARISON: Mammography: relevant available prior examinations. TECHNIQUE: Digital breast tomosynthesis is performed in both the craniocaudal and mediolateral oblique views along with computer-aided detection (CAD). Synthesized 2D images are generated from the tomosynthesis. Limited right breast ultrasound. FINDINGS: The breasts are heterogeneously dense, which may obscure small masses (ACR BI-RADS breast composition Category c). Asymmetry in the superior right breast on MLO view partially effaces on additional imaging projections. Suspicious calcifications or other abnormal findings. Targeted color Doppler ultrasound from 9- 2:00 demonstrates normal fibroglandular breast tissue. There is no sonographic abnormality. MM/MM tomosynthesis added views R IMPRESSION: Asymmetry superior right breast on MLO view without sonographic correlate which partially effaces. Recommend 6 month follow-up right breast mammography for further evaluation of stability. ASSESSMENT: BI-RADS BI-RADS 3 - Probably benign finding(s) - 6 month follow-up suggested RECOMMENDATION: 6 Month F/U Results were provided to the patient at time of visit by the technologist. This patient's information was entered into a reminder system with a target due date for their next mammogram. Electronically signed by: Ro Styles DO 03/21/2024 02:33 PM [facility] Dictated By: Ro Styles DO Signed By: <Electronically signed by Ro Styles DO in OV> 03/21/24 1433 DD/ 1345 TD/TT: 03/21/24 1355 Auto Body Repair Technician: US breast RT limited mamm on ly (Not yet reviewed by provider) Interpretation: Performing Lab: Notes/Report: [facility] [address] [place] [address] Ultrasound Report Signed Patient: Leslie Wagner MR#: [id number] : 1950 Acct:[id number] Age/Sex: 73 / F ADM Date: 03/21/24 Loc: HO.MAMMO Attending Dr: Wiley Segura DO Ordering Physician: Wiley Segura DO Date of Service: 03/21/24 Procedure(s): US breast RT limited mamm only Accession Number(s): [id number] cc: Wiley Segura DO; JUANA DENT SALES AND MARKETING ENGINEER EXAMINATION: MM DIAGNOSTIC DIGITAL BREAST TOMOSYNTHESIS, RIGHT Limited right breast ultrasound. CLINICAL INFORMATION: Call back from screening for asymmetry in the right breast MLO view. COMPARISON: Mammography: relevant available prior examinations. TECHNIQUE: Digital breast tomosynthesis is performed in both the craniocaudal and mediolateral oblique views along with computer-aided detection (CAD). Synthesized 2D images are generated from the tomosynthesis. Limited right breast ultrasound. FINDINGS: The breasts are heterogeneously dense, which may obscure small masses (ACR BI-RADS breast composition Category c). Asymmetry in the superior right breast on MLO view partially effaces on additional imaging projections. Suspicious calcifications or other abnormal findings. Targeted color Doppler ultrasound from 9- 2:00 demonstrates normal fibroglandular breast tissue. There is no sonographic abnormality. US/US breast RT limited mamm only IMPRESSION: Asymmetry superior right breast on MLO view without sonographic correlate which partially effaces. Recommend 6 month follow-up right breast mammography for further evaluation of stability. ASSESSMENT: BI-RADS BI-RADS 3 - Probably benign finding(s) - 6 month follow-up suggested RECOMMENDATION: 6 Month F/U Results were provided to the patient at time of visit by the technologist. This patient's information was entered into a reminder system with a target due date for their next mammogram. Electronically signed by: Ro Styles DO 03/21/2024 02:33 PM [facility] Dictated By: Ro Styles DO Signed By: <Electronically signed by Ro Styles DO in OV> 03/21/24 1433 DD/ 1400 TD/TT: 03/21/24 1428 Auto Body Repair Technician: REASON FOR REFERRAL No Information MEDICATIONS Medication SIG (Take, Route, Frequency, Duration) Notes Start Date End Date Status amLODIPine Besylate 5 MG 1 tablet Orally Once a day for 90 days Active Estradiol 0.0375 MG/24HR 1 patch to skin Transdermal Once a Week Active Omeprazole 40 MG 1 capsule 30 minutes before morning meal as needed Orally Once a day Active Rosuvastatin Calcium 10 MG 1 tablet Oral ly Once a day Active IMMUNIZATIONS Vaccine Route Administration Date Status Comme nts Influenza Quad IM Intramuscular 01/16/2019 Administered COVID-19 Moderna Vaccine Unknown 06/10/2020 Administere d COVID-19 Moderna Vaccine Unknown 05/13/2020 Administere d Influnza High Dose Quad Unknown 01/12/2021 Administered Influnza High Dose Quad Unknown 12/23/2019 Administered Influenza High Dose Unknown 01/02/2017 Administered Influenza High Dose Unknown 01/18/2016 Administered COVID-19 Moderna Vaccine Unknown 03/18/2021 Administere d Zoster Vaccine Unknown 01/05/2012 Administered Influenza High Dose Unknown 12/27/2017 Administered SOCIAL HISTORY Tobacco Use: Social History Observation [...] W/U Status Risk SNOMED Code Notes Problem Adjustment insomnia (F51.02) Active confirmed 477366343 Problem Anxiety (F41.9) Active confirmed 819592 02 Problem SOB (shortness of breath) on exertion (R06.02) Active confirmed 53117833 Problem Gastroesophageal ref lux disease, esophagitis presence not specified (K21.9) Active confirmed 337441884 Problem Hypercholesterolemia (E78.00) Active confirmed 02516043 Problem Thyroid nodule (E04.1) Active confirmed Thyroid nodule (062531621) Problem Cataract of both eye s, unspecified cataract type (H26.9) Active confirmed 19884826 Problem Dysphagia, unspecifi ed type (R13.10) Active confirmed 95839866 Problem BRBPR (bright red bl ood per rectum) (K62.5) Active confirmed 16236156 Problem Primary hypertension (I10) Active confirmed 78353783 VITAL SIGNS Blood pressure diastolic 60 mm Hg 06/07/2023 Height 60 in 06/07/2023 Blood pressure systolic 102 mm Hg 06/07/2023 Weight 123 lbs 06/07/2023 BMI 24.02 kg/m2 06/07/2023 Encounters Encounter Location Date Provider Diagnosis Wiley Choi [facility], [facility] [address], [place] [phone] 06/07/2023 Wiley Flowersman Cataract of both eye s, unspecified cataract type H26.9 ; Primary hypertension I10 ; Hypercholesterolemia E78.00 and Gastroesophageal reflux disease, esophagitis presence not specified K21.9 Wiley Segura DO, [facility] [address], [place] [phone] 12/05/2023 Wiley Segura DO, [facility] [address], [place] [phone] 03/24/2023 Wiley Segura Wiley Choi [facility], [facility] [address], [place] [phone] 12/01/2023 Wiley Segura Primary hypertension I10 ; Hypercholesterolemia E78.00 and Gastroesophageal reflux disease, esophagitis presence not specified K21.9 ASSESSMENTS Encounter Date Diagnosis Assessment Notes Treatment Notes Treatment Clinical Notes 06/07/2023 Cataract of both eye s, unspecified cataract type (ICD-10 - H26.9) Nneka is an appropriate candidate for the proposed surgical procesdures and is medically cleared for surgery 06/07/2023 Primary hypertension (ICD-10 - I10) 12/01/2023 Hypercholesterolemia (ICD-10 - E78.00) 12/01/2023 Primary hypertension (ICD-10 - I10) 06/07/2023 Hypercholesterolemia (ICD-10 - E78.00) 12/01/2023 Gastroesophageal ref lux disease, esophagitis presence not specified (ICD-10 - K21.9) 06/07/2023 Gastroesophageal ref lux disease, esophagitis presence not specified (ICD-10 - K21.9) PLAN OF TREATMENT Pending Test Test Name Order Date MM tomosynthesis added views R 5 US breast RT limited mamm only 5 Insurance Providers Payer Name Payer Address Payer Phone Subscriber Number Group Number Insured Name Patient Relationship to Insured Coverage Start Date Coverage End Date MEDICARE [address] [place] [phone] [id number] Lselie Allen Self - patient is the insured MED[employer] [address] [place] [address] [id number] Leslie Allen Self - patient is the insured MEDICAL (GENERAL) HISTORY Medical History History ICD Code chronic sinusitis endometriosis migraine headaches Adjustment insomnia F51.02 Anxiety F41.9 Gastroesophageal reflux disease, esophag itis presence not specified K21.9 Hypercholesterolemia E78.00 Gross hematuria R31.0 SOB (shortness of breath) on exertion R0 6.02 Thyroid nodule E04.1 Dysphagia, unspecified type R13.10 Surgical History Surgery Date(Month/Year) hysterectomy, total with bilateral salpi clifton-oophorectomy (BSO) celiac artery surgery deviated septum repair tonsillectomy
--- OUTSIDE RECORDS SUMMARY | 2024-03-21 14:48 | XMS_ITS | Patient Health Record ---
Author Organization [facility] Address [address] [facility] [place] [address] Care Team Providers Care Landcare Facilitator Name Role Phone Wiley Segura MD Primary Care Provider Unavail able [place] Disla Unavailable [phone] Allergies Allergen (clinical drug ingredient) Drug/Non Drug Allergy documented on EMR Reaction Allergy Type Onset Date Status 12 Hour Nasal [place] Unknown Drug Allergy Active meperidine Demerol Unknown Drug Allergy Active Reason For Referral No Information Medications Medication SIG (Take, Route, Frequency, Duration) Notes Start Date End Date Status Rosuvastatin Calcium 10 MG 1 tablet Orally Once a day for 30 day(s) Not-Taking Atorvastatin Calcium Active Immunizations Vaccine Route Administration Date Status Comme nts COVID-19 Moderna Vaccine Unknown 05/13/2020 Administered Second Dose: Social History Tobacco Use: Social History Observation Description Date Details (start date - stop date) Never Smoker NA - NA Tobacco Use/Smoking Question Answer Notes Are you a: nonsmoker Alcohol Screen Question Answer Notes Did you have a drink contain ing alcohol in the past year? Yes How often did you have a dri nk containing alcohol in the past year? 2 to 4 times a month (2 points) How often did you have 6 or more drinks on one occasion in the past year? Weekly (3 points) Points 5 Interpretation Positive Tobacco use other than smoking: Question Answer Notes Are you an other tobacco user? No Problems Problem Type SNOMED Code ICD Code Onset Dates Problem Status W/U Status Risk Notes Problem [id number] Hallux valgus (acquired), left foot (M20.12) Active confirmed Plan Of Treatment No Information Insurance Providers Payer Name Payer Address Payer Phone Subscriber Number Group Number Insured Name Patient Relationship to Insured Coverage Start Date Coverage End Date Medicare National [employer]t [employer] [address] [place] [address] [id number] Leslie Allen Self - patient is the insured [employer] [address] [place] [address] [phone] [id number] Leslie Allen Self - patient is the insured Medical (General) History Surgical History Surgery Date(Month/Year) Systocopy 1984 Celiac Artery Repair 1985
--- OUTSIDE RECORDS SUMMARY | 2024-03-21 14:48 | XMS_ITS | Patient Health Record ---
Author Organization [facility] Address [address] [place] [address] Care Team Providers Care Ad Operations Specialist Name Role Phone Wiley Segura DO Primary Care Provider Unavail able Wiley Andersen Unavailable [phone] ALLERGIES Allergen (clinical drug ingredient) Drug/Non Drug Allergy documented on EMR Reaction Allergy Type Onset Date Status meperidine Demerol Unknown Drug Allergy Active REASON FOR REFERRAL No Information MEDICATIONS Medication SIG (Take, Route, Frequency, Duration) Notes Start Date End Date Status Rosuvastatin Calcium 10 MG Oral for 90 Active Biotin Active Tylenol PM Extra Strength Active Pepcid AC Maximum Strength 20 MG 1 Orally BID Active Omeprazole 20 MG TAKE 1 CAPSULE BY [facility] EVERY MORNING FOR 30 DAYS for 90 Active Estradiol 0.0375 MG/24HR Transdermal for 84 Active IMMUNIZATIONS Vaccine Route Administration Date Status Comme nts Influenza Unknown 12/18/2020 Administered SOCIAL HISTORY Tobacco Use: Social History [...] W/U Status Risk SNOMED Code Notes Problem Rectal bleeding (K62.5) Active confirmed 20795044 Problem Gastroesophageal reflux disease, unspecified whether esophagitis present (K21.9) Active confirmed 968480761 Problem Gastroesophageal reflux disease without esophagitis (K21.9) Active confirmed 989983442 Problem Hiatal hernia (K44.9) Active confirmed 48401625 Problem Fatty liver (K76.0) Active confirmed 19 8113789 Problem Fatty pancreas (K86.89) Active confirmed 769354960 Problem Constipation, unspecified constipation type (K59.00) Active confirmed 95283134 PLAN OF TREATMENT Future Test Test Name Order Date UPPER GI ENDOSCOPY 12/25/2019 COLONOSCOPY 12/25/2019 Insurance Providers Payer Name Payer Address Payer Phone Subscriber Number Group Number Insured Name Patient Relationship to Insured Coverage Start Date Coverage End Date MEDICARE OF [place] [address] [place] [address] [id number] GIANCARLO THOMSON Self - patient is the insured [employer] ATT[employer] CLAIMS [address] [place] [address] [phone] [id number] GIANCARLO THOMSON Self - patient is the insured MEDICAL (GENERAL) HISTORY Medical History History ICD Code Anxiety Neg. screening colonoscopy in 09/2008 Denies [place],DM,CVA,Lung disease,renal dise ase EGD 12/2019 with a moderate- sized hiatal hernia, negative for esophagitis, Judd's, nor H.pylori Screening Colonoscopy 12/2019 was negati ve Surgical History Surgery Date(Month/Year) LAURO Celiac Artery Surgery 1972
--- OUTSIDE RECORDS SUMMARY | 2024-03-21 14:48 | XMS_ITS | Continuity of Care Document ---
Author Organization [facility] [address] [place] [address] Phone [phone] Social History Type Date Description Comments Sex Unknown Medical Devices Description No Information Available Encounters Description No Information Available Assessments Description No Information Available Plan of Treatment No Information Available Functional Status Description No Information Available Mental Status Description No Information Available Referrals Description No Information Available
== END 2024-03-21 13:32 | disposition home or self-care (01) ==
LOC: HO.MAMMO 13:31
PROVIDERS: PCP Nurse Practitioner Adult Health; Visit Provider Internal Medicine
DX: N64.89 Other specified disorders of breast (principal); R92.331 Mammographic heterogeneous density, right breast
CPT/HCPCS: 76642; 77061; 77065

== ENCOUNTER → 2024-03-21 14:00 | Outpatient (BNV) | payer MEDICARE, SELFPAY | PROVIDERS: PCP Nurse Practitioner Adult Health; Visit Provider Internal Medicine | DX: N64.89 Other specified disorders of breast (principal) | CPT/HCPCS: 76642; 77065; G0279 ==

== ENCOUNTER 2024-06-26 11:03 | Outpatient (REF) | payer MEDICARE, SELFPAY ==
--- NOTE | ~2024-06-26 | XR_ITS ---
EXAMINATION: XR KNEE, RIGHT CLINICAL INFORMATION: M25.561 - Pain in right knee COMPARISON: None available. TECHNIQUE: Two views of the right knee. FINDINGS: No fracture or joint effusion. Alignment is anatomic. Minimal medial and lateral compartment joint space narrowing. No significant marginal spurs. No evidence of joint effusion. Normal soft tissues. XR/XR knee RT 2V IMPRESSION: 1. No acute bony abnormalities. 2. Minimal medial and lateral compartment osteoarthrosis. Electronically signed by: Ortega Maravilla MD 06/26/2024 12:55 PM EDT
--- OUTSIDE RECORDS SUMMARY | 2024-06-26 14:07 | XMS_ITS | Continuity of Care Document ---
Author Organization [facility] [address] [place] [address] Phone [phone] Social History Type Date Description Comments Sex Unknown Medical Devices Description No Information Available Encounters Description No Information Available Assessments Description No Information Available Plan of Treatment No Information Available Functional Status Description No Information Available Mental Status Description No Information Available Referrals Description No Information Available
== END 2024-06-26 11:04 | disposition home or self-care (01) ==
LOC: HO.HMGCX 11:03
PROVIDERS: PCP Nurse Practitioner Adult Health; Visit Provider Internal Medicine
DX: M25.561 Pain in right knee (principal); M71.21 Synovial cyst of popliteal space [Baker], right knee
CPT/HCPCS: 73560; 99212

== ENCOUNTER 2024-06-26 11:03 | Outpatient (AMB) | payer MEDICARE, SELFPAY ==
--- NOTE | 2024-06-26 11:07 | AM.OFFWIN_ITS ---
Intake Vital Signs 06/26/24 11:10 Weight 125 lb BP 130/90 H Blood Pressure Location Lt brachial Position Sitting Pulse 90 Pulse Source Pulse Oximeter Pulse Oximetry (%) 97 Oxygen Delivery Method Room Air Intake Visit Reasons: EP RT leg pain/pulled muscle? Intake Note: Patient here for right leg pain after playing pickle ball on monday. Patient Tobacco Use Status: Never used Tobacco Allergies hydromorphone [From Dilaudid] Allergy (Verified 06/26/24 11:11) Palpitations meperidine [From DEMEROL] Adverse Reaction (Intermediate, Verified 06/26/24 11:11) AGITATION Medication List - Last Reconciled 06/26/24 by Erich Damian MD albuterol sulfate 90 mcg/actuation (Ventolin HFA) 1 inh inhalation QID PRN amlodipine 5 mg See Protocol PO DAILY diphenhydramine-acetaminophen 25-500 mg (Tylenol PM Extra Strength) 1 tab PO BEDTIME estradiol 1 patch transdermal TOPETE@1000 melatonin 10 mg PO BEDTIME PRN omeprazole 20 mg PO DAILY rosuvastatin 10 mg PO DAILY Do you need a note to return to daycare/school/sports/work: No HPI EP RT leg pain/pulled muscle? HPI Details History - The patient is a 73-year-old female pr esenting with concern over pain in the leg. - Experienced onset of symptoms the prev ious day while playing pickleball. - Pain is localized behind the knee, exa cerbated by weight-bearing activities, and becomes more pronounced at night. - The patient reported tenderness rather than sharp pain during specific movements. - Continued physical activity despite di scomfort, which led to more pronounced symptoms. - Current management includes Tylenol an d topical creams, with rest providing temporary relief. - Painful area is not associated with vi sible swelling as per patient report but worsens with certain movements. Problem List - Reynolds's Cyst Patient Instructions - Rest the affected leg and avoid activi ties such as jogging, running, or long walks. - Use Ibuprofen, Naproxen, or Aleve for inflammation if available. Suggested dosage: one Aleve with breakfast and another five hours later for a week. - Apply cold compresses to help with swe lling. - Massage the back of the knee gently wi th oil if comfortable. - Follow up with an x-ray to rule out an y further complications; this will not visualize the cyst, but can check the joint structure. Review of Systemsg. - General: No fever no chills - Neurological: No headaches no dizziness - Ear nose throat: No sore throat no hearing difficulty no ear pain - Cardiovascular: No syncope, no chest pain, no palpitations - Gastrointestinal: No nausea vomiting or diarrhea Physical Exam General: No acute distress HEENT: No acute findings Neck: Supple Respiratory system: Able to talk in full sentences, no audible wheeze Gastrointestinal: No pain Extremities: Tenderness behind the knee, knee with full range of motion no swelling, no calf tenderness Homans sign negative ALLIGATOR TRAPPER: Alert awake oriented x3 motor sensory intact Skin: Normal turgor PFSH Medical History External hemorrhoid, bleeding Multinodular thyroid Thyroid nodule Sleep disorder GERD (gastroesophageal reflux disease) Lump Normal colonoscopy Anxiety Surgical History Hx of elbow surgery History of cardiac catheterization (~10/2020) S/P LAURO (total abdominal hysterectomy) Family History Father History of colon cancer Family history of hypertension Family history of polyps in the colon Congestive heart failure Mother Family history of hypertension History of diabetes mellitus History of heart disease Congestive heart failure Brother Family history of prostate cancer Sister History of heart disease Sister Breast cancer History of heart disease Sister Fatty liver Social History Household Members: None Housing: House Alcohol intake: current Alcohol intake frequency: 0-2 drinks per day Alcohol type: wine Comment: NOT PROCEDURAL RELATED PAIN Patient Tobacco Use Status: Never used Tobacco Advance Directives Date on File: 06/21/21 service: No Current occupational status: retired Physical Exam Vital Signs: Last Vital Signs Pulse 90 06/26/24 11:10 BP 130/90 H 06/26/24 11:10 Pulse Ox 97 06/26/24 11:10 Oxygen Delivery Method Room Air 06/26/24 11:10 Assessment & Plan Assessment & Plan (1) Knee pain, right: Code(s): M25.561 - Pain in right knee Qualifiers: Chronicity: acute Qualified Code(s): M25.561 - Pain in right knee (2) Synovial cyst of popliteal space [Reynolds], right knee: Code(s): M71.21 - Synovial cyst of popliteal space [Reynolds], right knee Plan History - The patient is a 73-year-old female presenting with concern over pain in the leg. - Experienced onset of symptoms the previous day while playing pickleball. - Pain is localized behind the knee, exacerbated by weight-bearing activities, and becomes more pronounced at night. - The patient reported tenderness rather than sharp pain during specific movements. - Continued physical activity despite discomfort, which led to more pronounced symptoms. - Current management includes Tylenol and topical creams, with rest providing temporary relief. - Painful area is not associated with visible swelling as per patient report but worsens with certain movements. Problem List - Reynolds's Cyst Patient Instructions - Rest the affected leg and avoid activities such as jogging, running, or long walks. - Use Ibuprofen, Naproxen, or Aleve for inflammation if available. Suggested dosage: one Aleve with breakfast and another five hours later for a week. - Apply cold compresses to help with swelling. - Massage the back of the knee gently with oil if comfortable. - Follow up with an x-ray to rule out any further complications; this will not visualize the cyst, but can check the joint structure. Orders: Orders XR knee RT 2V Today M25.561 - Pain in right knee Coding Level of Care Code Est Pt Level 3 (78940) Diagnoses Acute pain of right knee M25.561 Chronicity: acute Synovial cyst of popliteal space [Reynolds], right knee M71.21
[2024-06-26 11:10] VITALS: BP 130/90; PULSE 90; O2SAT 97
--- OUTSIDE RECORDS SUMMARY | 2024-06-26 13:02 | XMS_ITS | Continuity of Care Document ---
Author Organization [facility] [address] [place] [address] Phone [phone] Social History Type Date Description Comments Sex Unknown Medical Devices Description No Information Available Encounters Description No Information Available Assessments Description No Information Available Plan of Treatment No Information Available Functional Status Description No Information Available Mental Status Description No Information Available Referrals Description No Information Available
--- OUTSIDE RECORDS SUMMARY | 2024-06-26 13:02 | XMS_ITS | Patient Health Record ---
Author Organization [facility] Address [address] [place] [address] Care Team Providers Care Electroencephalographic Technologist Name Role Phone Wiley Segura MD Primary Care Provider Unavail able Mansoor Disla Unavailable [phone] Allergies Allergen (clinical drug ingredient) Drug/Non Drug Allergy documented on EMR Reaction Allergy Type Onset Date Status 12 Hour Nasal [place] Unknown Drug Allergy Active meperidine Demerol Unknown [...] Problem Status W/U Status Risk Notes Problem [id number] Hallux valgus (acquired), left foot (M20.12) Active confirmed Plan Of Treatment No Information Insurance Providers Payer Name Payer Address Payer Phone Subscriber Number Group Number Insured Name Patient Relationship to Insured Coverage Start Date Coverage End Date Medicare National [employer]t S[employer] [address] [place] [address] [id number] Leslie Allen Self - patient is the insured [employer] [address] [place] [address] [id number] Leslie Allen Self - patient is the insured Medical (General) History Surgical History Surgery Date(Month/Year) Systocopy 1984 Celiac Artery Repair 1985
--- OUTSIDE RECORDS SUMMARY | 2024-06-26 13:02 | XMS_ITS | Patient Health Record ---
Author Organization [facility] Address [address] [place] [address] Care Team Providers Care Front End Technician Name Role Phone Colton (RETIRED) Wiley JOHNSON Primary Care Provid er Unavailable Wiley Andersen Unavailable [phone] Allergies Allergen (clinical drug ingredient) Drug/Non Drug Allergy documented on EMR Reaction Allergy Type Onset Date Status meperidine Demerol Unknown Drug Allergy Active Reason For Referral No Information Medications Medication SIG (Take, Route, Frequency, Duration) Notes Start Date End Date Status Rosuvastatin Calcium 10 MG Oral for 90 Active Biotin Active Tylenol PM Extra Strength Active Pepcid AC Maximum Strength 20 MG 1 Orally BID Active Omeprazole 20 MG TAKE 1 CAPSULE BY [facility] EVERY MORNING FOR 30 DAYS for 90 Active Estradiol 0.0375 MG/24HR Transdermal for 84 Active Immunizations Vaccine Route Administration Date Status Comme nts Influenza Unknown 12/18/2020 Administered Social History Tobacco Use: Social History Observation Description Date Details (start date - stop date) Never Smoker NA - NA Tobacco Use/Smoking Question Answer Notes Patient is [...] Never (0 point) Points 4 Interpretation Positive Section Notes: Nonsmoker; 1 glass of wine Q D Nonsmoker; 1 glass of wine Q D Nonsmoker; 1 glass of wine Q D Problems Problem Type SNOMED Code ICD Code Onset Dates Problem Status W/U Status Risk Notes Problem 72394870 Rectal bleeding (K62.5) Active confirmed Problem 091363358 Gastroesophageal reflux disease without esophagitis (K21.9) Active confirmed Problem 219225259 Fatty liver (K76.0) Active confirmed Problem 09535090 Hiatal hernia (K44.9) Active confirmed Problem 26036324 Constipation, unspecified constipation type (K59.00) Active confirmed Problem 274796816 Gastroesophageal reflux disease, unspecified whether esophagitis present (K21.9) Active confirmed Problem 694820614 Fatty pancreas (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) Active confirmed Plan Of Treatment Future Test Test Name Order Date UPPER GI ENDOSCOPY 12/25/2019 COLONOSCOPY 12/25/2019 Insurance Providers Payer Name Payer Address Payer Phone Subscriber Number Group Number Insured Name Patient Relationship to Insured Coverage Start Date Coverage End Date MEDICARE OF [place] [address] [place] [address] [id number] GIANCARLO THOMSON Self - patient is the insured [employer] ATTN CLAIMS [address] [place] [address] [id number] GIANCARLO THOMSON Self - patient is the insured Medical (General) History Medical History History ICD Code Anxiety Neg. screening colonoscopy in 09/2008 Denies [place],DM,CVA,Lung disease,renal dise ase EGD 12/2019 with a moderate- sized hiatal hernia, negative for esophagitis, Judd's, nor H.pylori Screening Colonoscopy 12/2019 was negati ve Surgical History Surgery Date(Month/Year) LAURO Celiac Artery Surgery 1972
== END 2024-06-26 12:21 | disposition home or self-care (01) ==
PROVIDERS: PCP Nurse Practitioner Adult Health; Visit Provider Internal Medicine
DX: M25.561 Pain in right knee (principal); M71.21 Synovial cyst of popliteal space [Baker], right knee

== ENCOUNTER → 2024-06-26 12:06 | Outpatient (BNV) | payer MEDICARE, SELFPAY | PROVIDERS: PCP Nurse Practitioner Adult Health; Visit Provider Radiology Diagnostic Radiology | DX: M25.561 Pain in right knee (principal) | CPT/HCPCS: 73560 ==

== ENCOUNTER 2024-07-04 09:52 | Outpatient (REF) | payer MEDICARE, SELFPAY ==
--- NOTE | ~2024-07-04 | XR_ITS ---
EXAMINATION: XR SHOULDER, RIGHT CLINICAL INFORMATION: S46.911A - Strain of unspecified muscle, fascia and tendon at shoulder a... COMPARISON: None available. TECHNIQUE: AP external rotation, Grashey, scapular Y, and axillary views of the right shoulder. FINDINGS: Normal bone mineralization. No gross fracture or suspicious bone lesion. The glenohumeral joint is intact. Mild degenerative arthritis. The AC joint is significantly widened, and mildly subluxed, suggesting high-grade injury. There is a type I acromion. No undersurface spurring. The subacromial space is preserved. Remainder of the soft tissue and bony structures appear normal. XR/XR shoulder RT min 2V IMPRESSION: No fracture. Widening and subluxation of the right AC joint suggesting high-grade AC joint injury. Electronically signed by: Ortega Maravilla MD 07/04/2024 11:26 AM EDT
--- OUTSIDE RECORDS SUMMARY | 2024-07-04 12:35 | XMS_ITS | Continuity of Care Document ---
Author Organization [facility] [address] [place] [address] Phone [phone] Social History Type Date Description Comments Sex Unknown Medical Devices Description No Information Available Encounters Description No Information Available Assessments Description No Information Available Plan of Treatment No Information Available Functional Status Description No Information Available Mental Status Description No Information Available Referrals Description No Information Available
== END 2024-07-04 09:53 | disposition home or self-care (01) ==
LOC: HO.HMGCX 09:52
PROVIDERS: PCP Nurse Practitioner Adult Health; Visit Provider Nurse Practitioner Family
DX: S46.911A Strain of unspecified muscle, fascia and tendon at shoulder and upper arm level, right arm, initial encounter (principal)
CPT/HCPCS: 73030; 99212

== ENCOUNTER 2024-07-04 09:52 | Outpatient (AMB) | payer MEDICARE, SELFPAY ==
[2024-07-04 09:58] VITALS: BP 130/80; PULSE 72; O2SAT 98
--- NOTE | 2024-07-04 09:58 | AM.OFFWIN_ITS ---
Intake Vital Signs 07/04/24 09:58 Weight 121 lb BP 130/80 Blood Pressure Location Rt brachial Position Sitting Pulse 72 Pulse Source Pulse Oximeter Pulse Oximetry (%) 98 Oxygen Delivery Method Room Air Intake Visit Reasons: EP-rt shoulder pain from fall Intake Note: Patient here for right shoulder pain after a fall yesterday. Patient Tobacco Use Status: Never used Tobacco Allergies hydromorphone [From Dilaudid] Allergy (Verified 07/04/24 09:58) Palpitations meperidine [From DEMEROL] Adverse Reaction (Intermediate, Verified 07/04/24 09:5 8) AGITATION Do you need a note to return to daycare/school/sports/work: No HPI HPI Comments History of Present Illness Details 73 y/o Female patient who presents to [facility] walk in clinic with c/o Right shoulder pain after a Fall yesterday. She was working in her garden Trimming the bushes when she tripped and fell to the ground, hitting her right shoulder. Reports pain with ROM. She has been taking Advil and Acetaminophen with minimal relief. [facility] Medical History (Updated 07/04/24 @ 10:28 by Radha Verma NP) Muscle strain of right shoulder External hemorrhoid, bleeding Multinodular thyroid Thyroid nodule Sleep disorder GERD (gastroesophageal reflux disease) Lump Normal colonoscopy Anxiety Surgical History Hx of elbow surgery History of cardiac catheterization (~10/2020) S/P LAURO (total abdominal hysterectomy) Family History Father History of colon cancer Family history of hypertension Family history of polyps in the colon Congestive heart failure Mother Family history of hypertension History of diabetes mellitus History of heart disease Congestive heart failure Brother Family history of prostate cancer Sister History of heart disease Sister Breast cancer History of heart disease Sister Fatty liver Social History Household Members: None Housing: House Alcohol intake: current Alcohol intake frequency: 0-2 drinks per day Alcohol type: wine Comment: NOT PROCEDURAL RELATED PAIN Patient Tobacco Use Status: Never used Tobacco Advance Directives Date on File: 06/21/21 service: No Current occupational status: retired Review of Systems Const All systems reviewed & are unremarkable except as noted in HPI and below Physical Exam Vital Signs: Last Vital Signs Pulse 72 07/04/24 09:58 BP 130/80 07/04/24 09:58 Pulse Ox 98 07/04/24 09:58 Oxygen Delivery Method Room Air 07/04/24 09:58 Const General: no acute distress; No comfortable Nutritional Appearance: well nourished Orientation/consciousness: patient oriented x3 Neuro General: patient oriented x3, gait normal and moves all extremities Extrem Right upper extremity: shoulder/upper arm Details: normal to inspection, tenderness and abnormal ROM Details: pain with active ROM and pain with passive ROM; no swelling and no crepitus Psych Speech and movement: Normal speech and movement present Assessment & Plan Assessment & Plan (1) Muscle strain of right shoulder: Code(s): S46.911A - Strain of unspecified muscle, fascia and tendon at shoulder and upper arm level, right arm, initial encounter Qualifiers: Encounter type: initial encounter Qualified Code(s): S46.911A - Strain of unspecified muscle, fascia and tendon at shoulder and upper arm level, right arm, initial encounter Plan: Ordered Xray Shoulder. Placed Arm on a Sling NSAIDs and Acetaminophen for pain relief. Ice/Hot Rest Joint. Orders: Orders XR shoulder RT min 2V Today S46.911A - Strain of unspecified muscle, fascia and tendon at shoulder and upper arm level, right arm, initial encounter Medications: New cyclobenzaprine 5 mg PO BEDTIME 14 tabs 0RF S46.911A - Strain of unspecified muscle, fascia and tendon at shoulder and upper arm level, right arm, initial encounter ibuprofen 800 mg PO Q8H 30 tabs 0RF S46.911A - Strain of unspecified muscle, fascia and tendon at shoulder and upper arm level, right arm, initial encounter Coding Level of Care Code Est Pt Level 4 (30350) Diagnoses Muscle strain of right shoulder, initial encounter S46.911A Encounter type: initial encounter Time Spent (min) 20
--- OUTSIDE RECORDS SUMMARY | 2024-07-04 11:27 | XMS_ITS | Patient Health Record ---
Author Organization [facility] Address [address] [place] [address] Care Team Providers Care Integration Aide Name Role Phone Colton (RETIRED) Wiley JOHNSON Primary Care Provid er Unavailable Wiley Andersen Unavailable [phone] Allergies Allergen (clinical drug ingredient) Drug/Non Drug [...] 20 MG TAKE 1 CAPSULE BY [facility] EVERY MORNING FOR 30 DAYS for 90 [...] Problem Status W/U Status Risk Notes Problem 11015569 Rectal bleeding (K62.5) Active confirmed Problem 299435872 Gastroesophageal reflux disease without esophagitis (K21.9) Active confirmed Problem 191296052 Fatty liver (K76.0) Active confirmed Problem 46408958 Hiatal hernia (K44.9) Active confirmed Problem 98540020 Constipation, unspecified constipation type (K59.00) Active confirmed Problem 595881601 Gastroesophageal reflux disease, unspecified whether esophagitis present (K21.9) Active confirmed Problem 671978626 Fatty pancreas (K86.89) Active confirmed Plan Of Treatment Future Test Test Name Order Date UPPER GI ENDOSCOPY 12/25/2019 COLONOSCOPY 12/25/2019 Insurance Providers Payer Name Payer Address Payer Phone Subscriber Number Group Number Insured Name Patient Relationship to Insured Coverage Start Date Coverage End Date MEDICARE OF [place] [address] [place] [address] [id number] GIANCARLO THOMSON Self - patient is the insured [employer] ATT[employer] CLAIMS [address] [place] [address] [id number] GIANCARLO THOMSON Self - patient is the insured Medical (General) History Medical History History ICD Code Anxiety Neg. screening colonoscopy in 09/2008 Denies [place],DM,CVA,Lung disease,renal dise ase EGD 12/2019 with a moderate- sized hiatal hernia, negative for esophagitis, Judd's, nor H.pylori Screening Colonoscopy 12/2019 was negati ve Surgical History Surgery Date(Month/Year) LAURO Celiac Artery Surgery 1972
--- OUTSIDE RECORDS SUMMARY | 2024-07-04 11:27 | XMS_ITS | Continuity of Care Document ---
Author Organization [facility] [address] [place] [address] Phone [phone] Social History Type Date Description Comments Sex Unknown Medical Devices Description No Information Available Encounters Description No Information Available Assessments Description No Information Available Plan of Treatment No Information Available Functional Status Description No Information Available Mental Status Description No Information Available Referrals Description No Information Available
--- OUTSIDE RECORDS SUMMARY | 2024-07-04 11:27 | XMS_ITS | Patient Health Record ---
[facility] Address [address] [place] [address] Care Team Providers Care Oral Hygienist Name Role Phone Wiley Segura MD Primary Care Provider Unavail able Mansoor Disla Unavailable [phone] Allergies Allergen (clinical drug ingredient) Drug/Non Drug Allergy documented on EMR Reaction Allergy Type Onset Date Status 12 Hour Nasal [place] Unknown Drug Allergy Active meperidine Demerol Unknown [...] Problem Status W/U Status Risk Notes Problem [id number] Hallux valgus (acquired), left foot (M20.12) Active confirmed Plan Of Treatment No Information Insurance Providers Payer Name Payer Address Payer Phone Subscriber Number Group Number Insured Name Patient Relationship to Insured Coverage Start Date Coverage End Date Medicare National Govt Sv[employer] [address] [place] [address] [id number] Leslie Allen Self - patient is the insured [employer] Blue Shield [address] [place] [address] [phone] [id number] Leslie Allen Self - patient is the insured Medical (General) History Surgical History Surgery Date(Month/Year) Systocopy 1984 Celiac Artery Repair 1985
== END 2024-07-04 11:16 | disposition home or self-care (01) ==
PROVIDERS: PCP Nurse Practitioner Adult Health; Visit Provider Nurse Practitioner Family
DX: S46.911A Strain of unspecified muscle, fascia and tendon at shoulder and upper arm level, right arm, initial encounter (principal)

== ENCOUNTER → 2024-07-04 10:33 | Outpatient (BNV) | payer MEDICARE, SELFPAY | PROVIDERS: PCP Nurse Practitioner Adult Health; Visit Provider Radiology Diagnostic Radiology | DX: S43.111A Subluxation of right acromioclavicular joint, initial encounter (principal) | CPT/HCPCS: 73030 ==

== ENCOUNTER 2024-07-23 13:52 | Outpatient (REF) | payer MEDICARE, SELFPAY ==
--- OUTSIDE RECORDS SUMMARY | 2024-07-23 15:15 | XMS_ITS | Patient Health Record ---
Author Organization [facility] Address [address] [place] [address] Care Team Providers Care Vault Cashier Name Role Phone Wiley Segura MD Primary Care Provider Unavail able Mansoor Disla Unavailable [phone] Allergies Allergen (clinical drug ingredient) Drug/Non Drug Allergy documented on EMR Reaction Allergy Type Onset Date Status 12 Hour Nasal [place] Unknown Drug Allergy Active meperidine Demerol Unknown [...] Problem Status W/U Status Risk Notes Problem [id number] Hallux valgus (acquired), left foot (M20.12) Active confirmed Plan Of Treatment No Information Insurance Providers Payer Name Payer Address Payer Phone Subscriber Number Group Number Insured Name Patient Relationship to Insured Coverage Start Date Coverage End Date Medicare National Govt Svcs Inc [address] [place] [address] [id number] Leslie Allen Self - patient is the insured [employer] [address] [place] [address] [phone] [id number] Leslie Allen Self - patient is the insured Medical (General) History Surgical History Surgery Date(Month/Year) Systocopy 1984 Celiac Artery Repair 1985
--- OUTSIDE RECORDS SUMMARY | 2024-07-23 15:15 | XMS_ITS | Continuity of Care Document ---
Author Organization [facility] [address] [place] [address] Phone [phone] Social History Type Date Description Comments Sex Unknown Medical Devices Description No Information Available Encounters Description No Information Available Assessments Description No Information Available Plan of Treatment No Information Available Functional Status Description No Information Available Mental Status Description No Information Available Referrals Description No Information Available
--- OUTSIDE RECORDS SUMMARY | 2024-07-23 15:15 | XMS_ITS | Patient Health Record ---
Author Organization [facility] Address [address] [place] [address] Care Team Providers Care Inspector Advanced Composite Name Role Phone Colton (RETIRED) Wiley JOHNSON Primary Care Provid er Unavailable Wiley Andersen Unavailable [phone] Allergies Allergen (clinical drug ingredient) Drug/Non Drug [...] Omeprazole 20 MG TAKE 1 CAPSULE BY [facility] EVERY MORNING FOR 30 DAYS for [...] Problem Status W/U Status Risk Notes Problem [id number] Rectal bleeding (K62.5) Active confirmed Problem [id number] Gastroesophageal reflux disease without esophagitis (K21.9) Active confirmed Problem 749961082 Fatty liver (K76.0) Active confirmed Problem 86949399 Hiatal hernia (K44.9) Active confirmed Problem 92490428 Constipation, unspecified constipation type (K59.00) Active confirmed Problem 186802578 Gastroesophageal reflux disease, unspecified whether esophagitis present (K21.9) Active confirmed Problem 985185925 Fatty pancreas (K86.89) Active confirmed Plan Of Treatment Future Test Test Name Order Date UPPER GI ENDOSCOPY 12/25/2019 COLONOSCOPY 12/25/2019 Insurance Providers Payer Name Payer Address Payer Phone Subscriber Number Group Number Insured Name Patient Relationship to Insured Coverage Start Date Coverage End Date MEDICARE OF [place] [address] [place] [address] [id number] GIANCARLO THOMSON Self - patient is the insured [employer] CLAIM[employer] [address] [place] [address] [phone] [id number] GIANCARLO THOMSON Self - patient is the insured Medical (General) History Medical History History ICD Code Anxiety Neg. screening colonoscopy in 09/2008 Denies [place],DM,CVA,Lung disease,renal dise ase EGD 12/2019 with a moderate- sized hiatal hernia, negative for esophagitis, Judd's, nor H.pylori Screening Colonoscopy 12/2019 was negati ve Surgical History Surgery Date(Month/Year) LAURO Celiac Artery Surgery 1972
[2024-07-23 16:07] LABS: MANUAL DIFF FLAG NO
[2024-07-23 16:14] LABS: Basophils Percent Auto 0.6 % (0-2); Eosinophils Absolute Auto 0.1 X10*3/uL (0.0-0.4); Eosinophils Percent Auto 0.9 % (0-4); Hematocrit 38.5 % (37.0-47.0); Hemoglobin 12.8 g/dl (12.0-16.0); Imm Gran Abs Auto 0.02 X10*3/uL (0.00-0.03); Imm Gran Pct Auto 0.3 % (0.0-0.4); Lymphocytes Percent Auto 29.2 % (20-40); Mean Corpuscular HGB Conc 33.2 g/dl (31.0-35.0); Mean Corpuscular Hemoglobin 30.7 pg (27.0-33.0); Mean Corpuscular Volume 92.3 fL (80.0-98.0); Mean Platelet Volume 8.8 fL (9.4-12.3); Monocytes Absolute Auto 0.4 X10*3/uL (0.1-1.2); Monocytes Percent Auto 6.1 % (2-11); Neutrophils Absolute Auto 4.3 x10*3/uL (2.0-8.3); Neutrophils Percent Auto 62.9 % (45-73); Platelet Count 367 X10*3/uL (160-400); Red Blood Count 4.17 X10*6/uL (4.20-5.50); Red Cell Distribution Width 12.4 % (11.0-16.0); White Blood Count 6.9 X10*3/uL (4.8-10.8)
[2024-07-23 16:27] LABS: Estimated Average Glucose 111 mg/dL; Hemoglobin A1C 121.3676 umol/L; Hemoglobin A1c % 5.5 % (<6.0); Total Hemoglobin (HGBA1C) 3358.6376 umol/L
[2024-07-23 16:51] LABS: Erythrocyte Sedimentation Rate 13 MM/HR (0-20)
[2024-07-23 18:25] LABS: Vitamin B12 795 pg/mL (200-900)
[2024-07-23 19:06] LABS: Alanine Aminotransferase 33 U/L (0-31); Albumin Level 4.2 g/dL (3.5-5.0); Alkaline Phosphatase 107 U/L (39-117); Anion Gap 13 (12-20); Aspartate Amino Transferase 33 U/L (5-31); Bilirubin Direct 0.1 mg/dL (0.0-0.5); Bilirubin Total 0.3 mg/dL (0.0-1.0); Blood Urea Nitrogen 15 mg/dL (9-16); C Reactive Protein 0.39 mg/dL (< or = 0.50); Calcium 8.5 mg/dL (8.4-10.2); Carbon Dioxide 23 mmol/L (22-29); Chloride 107 mmol/L (96-108); Cholesterol 170 mg/dL (<200); Estimated Glomerular Filt Rate > 60; Glucose Random 82 mg/dL (60-115); HDL Cholesterol 82 mg/dL (>40); LDL Cholesterol Calculated 72 mg/dL (<100); Magnesium 2.1 mg/dL (1.6-2.6); Potassium 4.1 mmol/L (3.3-5.1); Sodium 139 mmol/L (135-145); Total Protein 7.1 g/dL (6.5-8.0); Triglycerides 84 mg/dL (<150)
[2024-07-23 19:08] LABS: TSH reflex Free T4 2.42 uIU/mL (0.32-4.0); Vitamin D 25-OH Total 37.7 ng/mL (>30)
== END 2024-07-23 13:53 | disposition home or self-care (01) ==
LOC: HO.HMGCLDS 13:52
PROVIDERS: PCP Internal Medicine; Visit Provider Physician Assistant Medical
DX: Z00.00 Encounter for general adult medical examination without abnormal findings (principal); Z13.1 Encounter for screening for diabetes mellitus; Z13.6 Encounter for screening for cardiovascular disorders
CPT/HCPCS: 36415; 80053; 80061; 82248; 82306; 82607; 82746; 83036; 83735; 84443; 85025; 85652; 86140

== ENCOUNTER 2024-07-24 08:30 | Outpatient (REF) | payer MEDICARE, SELFPAY ==
--- OUTSIDE RECORDS SUMMARY | 2024-07-24 10:12 | XMS_ITS | Continuity of Care Document ---
Author Organization [facility] [address] [place] [address] Phone [phone] Social History Type Date Description Comments Sex Unknown Medical Devices Description No Information Available Encounters Description No Information Available Assessments Description No Information Available Plan of Treatment No Information Available Functional Status Description No Information Available Mental Status Description No Information Available Referrals Description No Information Available
== END 2024-07-24 08:31 | disposition home or self-care (01) ==
LOC: HO.HMGCLNP 08:30
PROVIDERS: Visit Provider Physician Assistant Medical
DX: R10.9 Unspecified abdominal pain (principal)
CPT/HCPCS: 87338

== ENCOUNTER 2024-07-26 13:28 | Outpatient (AMB) | payer MEDICARE, SELFPAY ==
[2024-07-26 13:24] VITALS: BP 138/76; PULSE 96; RESP 14; TEMP 36.4; O2SAT 100; BMI 22.1
--- NOTE | 2024-07-26 13:24 | MHC.PC.OV ---
Vital Signs 07/26/24 13:24 Height 5 ft 2 in Weight 121 lb BMI 22.1 BP 138/76 Blood Pressure Location Lt brachial Position Sitting Respiration 14 Pulse 96 Pulse Source Pulse Oximeter Temp 97.5 F Temp Source Temporal Artery Scan Pulse Oximetry (%) 100 Oxygen Delivery Method Room Air Intake Visit Reasons: Black, tarry stools Concrete Form Setter And Finisher Required: No Accompanied by: Self / Same As Patient Allergies hydromorphone [From Dilaudid] Allergy (Verified 07/26/24 13:59) Palpitations meperidine [From DEMEROL] Adverse Reaction (Intermediate, Verified 07/26/24 13:59) AGITATION Medication List - Last Reconciled 07/26/24 by Cari Wang PA-C amlodipine 5 mg See Protocol PO DAILY estradiol 1 patch transdermal TOPETE@1000 melatonin 10 mg PO BEDTIME PRN omeprazole 20 mg PO DAILY rosuvastatin 10 mg PO DAILY Tobacco use date assessed: 07/26/24 Fall risk assessment: 1 Fall in past year Last assessed Fall Risk: 07/26/24 Dental Screening Dental Screen Date: 07/26/24 Did you have a dental visit in the last 12 months?: Yes Did you have a dental problem in the last 6 months where you did not have access to dental care?: No Was dental information given to patient?: Patient has dentist HPI Black, tarry stools HPI Details The patient is a 73-year-old female presenting with melena. She describes black stools lasting up to four weeks before resolving, with this pattern repeating over six months. There are no associated medication changes such as the introduction of iron or bismuth-containing products, and her current medications include amlodipine 5 mg, estradiol, melatonin, omeprazole 20 mg, and rosuvastatin 10 mg. A previous colonoscopy from December 2019 indicated a hiatal hernia alongside gastritis, consistent with her current reports of indigestion and cramps related to bowel movements. Recent lab work displayed only mildly elevated liver enzymes (AST and ALT at 33), showing improvement from previous evaluations, with negative findings for H. pylori infection. Despite mild hypertension, likely exacerbated by decreased physical engagement, her overall condition suggests stable health, maintaining an active lifestyle by participating in regular physical activities such as pickleball. Social History - Active lifestyle, regularly participates in pickleball and chair aerobics. 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 - Consumes red and white wine; dietary habits not detailed. - Experienced significant impact from 's passing, who succumbed following multiple major surgeries. [facility] Medical History (Updated 07/26/24 @ 14:28 by Cari Wang PA-C) Establishing care with new doctor, encounter for Essential hypertension Elevated ALT measurement Elevated AST (SGOT) Hemorrhoids Indigestion Hiatal hernia Encounter for screening fecal occult blood testing Black stools Abdominal pain Muscle strain of right shoulder External hemorrhoid, bleeding Multinodular thyroid Thyroid nodule Sleep disorder GERD (gastroesophageal reflux disease) Lump Normal colonoscopy Anxiety Surgical History Hx of elbow surgery History of cardiac catheterization (~10/2020) S/P LAURO (total abdominal hysterectomy) Family History Father History of colon cancer Family history of hypertension Family history of polyps in the colon Congestive heart failure Mother Family history of hypertension History of diabetes mellitus History of heart disease Congestive heart failure Brother Family history of prostate cancer Sister History of heart disease Sister Breast cancer History of heart disease Sister Fatty liver Social History Household Members: None Housing: House Alcohol intake: current Alcohol intake frequency: 0-2 drinks per day Alcohol type: wine Comment: NOT PROCEDURAL RELATED PAIN Patient Tobacco Use Status: Never used Tobacco Advance Directives Date on File: 06/21/21 service: No Current occupational status: retired Cognitive needs: No Hearing needs: No Vision needs: Yes (reading glasses) Questionnaire PHQ-9 Over the last 2 weeks, how often have you been bothered by any of the following problems? 1. Little interest or pleasure in doing things: not at all 2. Feeling down, depressed, or hopeless: not at all 3. Trouble falling or staying asleep, or sleeping too much: not at all 4. Feeling tired or having little energy: not at all 5. Poor appetite or overeating: not at all 6. Feeling bad about yourself - or that you are a failure or have let yourself or your family down: not at all 7. Trouble concentrating on things, such as reading the newspaper or watching television: not at all 8. Moving or speaking so slowly that other people could have noticed. Or the opposite - being so fidgety or restless that you have been moving around a lot more than usual: not at all 9. Thoughts that you would be better off or of hurting yourself in some way: not at all Total score: 0 Depression Screening Interpretation: Negative Depression Screening Done: Yes 23255 - PHQ-9 Billing: Yes Source: Developed by Drs. Wiley Garcia, Karen Pelayo, Rodriguez Cochran and colleagues, with an educational ash from [employer]. Thrive Questionnaire Date Thrive assessed: 07/26/24 I am a: Patient What is your living situation today?: I have a steady place to live Within the past 12 months, did the food you bought not last and you didn't have the money to get more?: Never true Within the past 12 months, did you worry whether your food would run out before you got money to buy more?: Never true Do you have trouble paying for medicines?: No Do you have trouble getting transportation to medical appointments?: No Do you have trouble paying your heating and electricity bill?: No Do you have trouble taking care of your child, family member or friend?: No Do you have trouble with day-to-day activities such as bathing, preparing meals, shopping, managing finances, etc.?: No Are you currently unemployed and looking for a job?: No Are you interested in more education?: No Please select the resources that you would like help with: None THRIVE Score: 0 AUDIT C Alcohol Use Questionnaire (AUDIT-C) 1. How often do you have a drink containing alcohol?: 4 or more times a week 2. How many drinks containing alcohol do you have on a typical day when you are drinking?: 1 or 2 3. How often do you have six or more drinks on one occasion?: Never Total Score: 4 Score Reviewed/Action Taken: Yes (Pt declines) BRIANNA-7 AMB Questionnaire BRIANNA-7 Date BRIANNA - 7 assessed: 07/26/24 Feeling nervous, anxious, or on edge: 0 = Not at all Not being able to stop or control worryin = Not at all Worrying too much about different things: 0 = Not at all Trouble relaxin = Not at all Being so restless that it is hard to sit still: 0 = Not at all Becoming easily annoyed or irritable: 0 = Not at all Feeling afraid as if something awful might happen: 0 = Not at all Total BRIANNA-7 score (0-4 normal; 5-9 mild; 10-14 moderate; 15-21 severe): 0 Source: Developed by Drs. Wiley Garcia, Karen Pelayo, Rodriguez Cochran and colleagues, with an educational ash from [employer]. BRIANNA-7 Assessment Billing BRIANNA-7 Assessment Tool: BRIANNA-7 Assessment 76843 Review of Systems Const Details: - Gastrointestinal: Reports melena, episodes of indigestion and abdominal cramping, denies abdominal pain. - Cardiac: Denies chest pain. - Respiratory: Denies shortness of breath or any respiratory symptoms. - Musculoskeletal: Denies musculoskeletal pain impacting her active lifestyle. - Hematologic: Denies excessive bruising or bleeding outside of described melena. - Neurologic: Reports episodes of dizziness when blood pressure is elevated. - Dermatologic: Denies skin changes or rashes. - Psychological: Denies feelings of depression, despite life changes after 's passing. Physical exam (Primary Care) Vital Signs: Last Vital Signs Temp 97.5 F 07/26/24 13:24 Pulse 96 07/26/24 13:24 Resp 14 07/26/24 13:24 BP 142/84 H 07/26/24 13:24 Pulse Ox 100 07/26/24 13:24 Oxygen Delivery Method Room Air 07/26/24 13:24 Care Plan Goal for BP management: <130/90 at Goal BMI result Body Mass Index 22.1 normal bmi Tobacco/Smoking Status: Tobacco use Status Tobacco use date assessed 07/26/24 07/26/24 13:26 Patient Tobacco Use Status Never used Tobacco 07/26/24 13:26 PHQ-9: PHQ-9 Score PHQ-9: Total score 0 07/26/24 13:45 Depression Screening Interpretation: Negative Thrive Assessment: Date of Thrive Assessment Date Thrive assessed 07/26/24 07/26/24 13:26 Const Other: Appearance: Alert. Oriented X3. No acute distress. Head: Normal external exam. Normocephalic. Atraumatic. Eyes: Pupils are equal, round, and reactive to light. Extraocular movements intact. Conjunctiva and sclera normal. Eyelids normal. Throat: Pharynx normal. Uvula midline. Moist mucous membranes. Neck: Normal inspection. Neck supple. Full range of motion. Cardiovascular: Normal heart rate and rhythm. Respiratory: No respiratory distress. Painless inspiration. Abdomen: Soft and nontender. Bowel sounds normal in all 4 quadrants. No distention noted. No organomegaly noted. No visible injury noted. Stool occult at bedside was negative. Patient had brown colored stools. Patient noted to have 1 external hemorrhoid not thrombosed. Back: Full range of motion noted. Skin: Skin warm and dry. Normal skin color. Normal skin turgor. No rashes/lesions/lacerations noted. Extremities: Extremities exhibit normal range of motion. Neuro: Oriented X 3. No motor deficit. No sensory deficit. Reflexes normal. Office Procedures Comment: done in house not give Results AMB Fecal Occult Blood X1 AMB Fecal Occult Blood X1 Negative Last Edit by Cari Wang PA-C on 07/26/24 14:16 Results Reviewed Results Reviewed: - Labs: AST and ALT levels both 33, indicating slightly elevated but improved liver enzymes. - Stool examination: Negative stool occult test result. - Negative H. pylori test in stool sample from recent evaluation. - patient had a normal H&H that I ordered prior to this visit. Normal CBC. Normal chemistry. Coding Level of Care Code Est Pt Level 4 (83588) Complex EM visit Add On G2211 Diagnoses Establishing care with new doctor, encounter for Z76. Abdominal pain R10.9 Black stools K92.1 Encounter for screening fecal occult blood testing Z12.11 Hiatal hernia K44.9 Indigestion K30 Hemorrhoids K64.9 Elevated AST (SGOT) R74.01 Elevated ALT measurement R74.01 Essential hypertension I10 Additional Codes PHQ-9 - 02719 - PHQ-9 Billing: Yes ([id number]) BRIANNA-7 Assessment Billing - BRIANNA-7 Assessment Tool: BRIANNA-7 Assessment 31024 ([id number]) Assessment & Plan Assessment & Plan (1) Establishing care with new doctor, encounter for: Code(s): Z76.89 - Persons encountering health services in other specified circumstances Category: Medical (2) Abdominal pain: Code(s): R10.9 - Unspecified abdominal pain Category: Medical Plan: Abdomen is soft and nontender. No CVA tenderness noted. Will order outpatient CT scan of abdomen pelvis with IV and p.o. contrast. Will refer to GI. Will increase her omeprazole to 40 mg daily. Stool occult was negative. Will continue to monitor patient instructed to go to the emergency department if any new or worsening symptoms or persistent symptoms. Patient understands agrees with this plan. (3) Black stools: Code(s): K92.1 - Melena Category: Medical Plan: Collection of darker stools recommended during episodes to allow for comprehensive analysis. Omeprazole adjustment to 40 mg, referral to GI including potential for endoscopic evaluations, and schedule a CAT scan of the abdomen and pelvis with contrast. (4) Encounter for screening fecal occult blood testing: Comment: negative in office stool occult on 07/26/2024 Code(s): Z12.11 - Encounter for screening for malignant neoplasm of colon Category: Medical Plan: Stool occult was negative at bedside. (5) Hiatal hernia: Code(s): K44.9 - Diaphragmatic hernia without obstruction or gangrene Category: Medical Plan: Increase in omeprazole to 40 mg, additional instructions on lifestyle and dietary modifications were provided, and arrangements for further GI evaluation. Condition is chronic and stable will continue to monitor. (6) Indigestion: Code(s): K30 - Functional dyspepsia Category: Medical Plan: Increased dose of omeprazole discussed, explored dietary changes, and recommendation for further GI-focused exploration. Condition is chronic and stable will continue to monitor. (7) Hemorrhoids: Code(s): K64.9 - Unspecified hemorrhoids Category: Medical Plan: Recommended lifestyle changes include dietary adjustments and hydration, with continued conservative management preferred. Condition is chronic and stable will continue to monitor. (8) Elevated AST (SGOT): Code(s): R74.01 - Elevation of levels of liver transaminase levels Category: Medical Plan: AST and ALT 33 which has been chronic. Continued monitoring with present management, patient education on potential future evaluations. Condition is chronic and stable continue to monitor. (9) Elevated ALT measurement: Code(s): R74.01 - Elevation of levels of liver transaminase levels Category: Medical Plan: AST and ALT 33 which has been chronic. Continued monitoring with present management, patient education on potential future evaluations. Condition is chronic and stable continue to monitor. (10) Essential hypertension: Code(s): I10 - Essential (primary) hypertension Category: Medical Plan: Maintain antihypertensive regimen with amlodipine 5 mg daily, return to normal physical activity levels anticipated to ease hypertension. Condition is chronic and stable will continue to monitor. Plan Plan Patient was informed and verbally consented to the use of an ambient scribe for clinic note documentation during this visit. 1. Melena Collection of darker stools recommended during episodes to allow for comprehensive analysis. Omeprazole adjustment to 40 mg, referral to GI including potential for endoscopic evaluations, and schedule a CAT scan of the abdomen and pelvis with contrast. 2. Hiatal Hernia Increase in omeprazole to 40 mg, additional instructions on lifestyle and dietary modifications were provided, and arrangements for further GI evaluation. 3. Indigestion Increased dose of omeprazole discussed, explored dietary changes, and recommendation for further GI-focused exploration. 4. Hemorrhoids Recommended lifestyle changes include dietary adjustments and hydration, with continued conservative management preferred. 5. Elevated Liver Enzymes Continued monitoring with present management, patient education on potential future evaluations. 6. Essential Hypertension Maintain antihypertensive regimen, return to normal physical activity levels anticipated to ease hypertension. We discussed at length the episodic nature of the patient's melena and the importance of obtaining a stool sample during an active episode for further analysis. I explained the rationale behind increasing the omeprazole dosage to 40 mg to manage the symptoms associated with her hiatal hernia and indigestion. A referral to Gastroenterology for potential repeat endoscopy was made to rule out any ongoing issues with her gastrointestinal tract, and a CT scan of the abdomen and pelvis with contrast was scheduled, given her reported symptoms and family history of liver disease, despite her liver enzymes showing improvement. We reviewed her elevated blood pressure and the temporary reduction in physical activity due to a shoulder issue, which likely contributed to hypertension levels. I advised that resuming her regular physical activities, including pickleball, could benefit her condition. I have scheduled follow-ups for her to return in about six months, allowing us to review the results and progress, noting any changes from the planned interventions. Orders: Orders CT abdomen pelvis w IV con Today K92.1 - Melena, R10.9 - Unspecified abdominal pain, Z12.11 - Encounter for screening for malignant neoplasm of colon Referrals Gastroenterology Referral K92.1 - Melena, R10.9 - Unspecified abdominal pain, Z12.11 - Encounter for screening for malignant neoplasm of colon Medications: Changed From omeprazole 40 mg PO DAILY To omeprazole 40 mg PO DAILY 90 caps 1RF Patient Instructions: - Monitor for any further black stools and collect a sample if possible. - Begin taking omeprazole 40 mg as directed. - Follow through with scheduled CT scan and Gastroenterology appointments. - Maintain current lifestyle and dietary modifications, prioritize hydration and fiber intake. - Resume physical activities as shoulder recovery allows. - Schedule a follow-up appointment in six months or sooner if symptoms persist or worsen.
== END 2024-07-26 14:16 | disposition home or self-care (01) ==
PROVIDERS: PCP Internal Medicine; Visit Provider Physician Assistant Medical
DX: Z76.89 Persons encountering health services in other specified circumstances (principal); R10.9 Unspecified abdominal pain; K92.1 Melena; Z12.11 Encounter for screening for malignant neoplasm of colon; K44.9 Diaphragmatic hernia without obstruction or gangrene; K30 Functional dyspepsia; K64.9 Unspecified hemorrhoids; R74.01 Elevation of levels of liver transaminase levels; I10 Essential (primary) hypertension

== ENCOUNTER → 2024-07-26 13:28 | Outpatient (BNVA) | payer MEDICARE, SELFPAY | PROVIDERS: PCP Internal Medicine; Visit Provider Physician Assistant Medical | DX: R10.9 Unspecified abdominal pain (principal); K92.1 Melena; K44.9 Diaphragmatic hernia without obstruction or gangrene; K30 Functional dyspepsia; K64.9 Unspecified hemorrhoids; R74.01 Elevation of levels of liver transaminase levels; I10 Essential (primary) hypertension; Z76.89 Persons encountering health services in other specified circumstances | CPT/HCPCS: 96127; 99212 ==

== ENCOUNTER 2024-08-30 12:32 | Outpatient (REF) | payer MEDICARE, SELFPAY ==
--- NOTE | ~2024-08-30 | CT_ITS ---
EXAMINATION: CT ABDOMEN AND PELVIS WITH CONTRAST CLINICAL INFORMATION: Abdominal pain COMPARISON: June 20, 2021 DLP: 298 mGY*cm TECHNIQUE: Multidetector volumetric images were obtained from the superior aspect of the liver through the pubic symphysis following administration 85 mL of Omnipaque 350 intravenous contrast. Sagittal and coronal reformatted images were obtained on the technologist's workstation. Oral contrast: Present This CT examination was performed using dose optimization techniques as appropriate, variously including the following: *Automated exposure control *Adjustment of mA and/or kV according to patient size (this includes techniques or standardized protocols for targeted exams where dose is matched to indication/reason for exam; i.e. extremities or head) *Use of iterative reconstruction technique FINDINGS: LUNG BASES: The visualized lung bases are unremarkable. LIVER, GALLBLADDER, AND BILIARY TREE: Mild diffuse fatty changes are present in the liver. The gallbladder is unremarkable with no evidence of radiopaque gallstones, gallbladder wall thickening, or obvious pericholecystic inflammatory changes. PANCREAS: Unremarkable with fatty infiltration SPLEEN: Unremarkable. ADRENAL GLANDS: Unremarkable. KIDNEYS AND URETERS: The kidneys are normal in size, shape, and attenuation. No hydronephrosis, hydroureter, or calculi seen. No perinephric stranding. BLADDER: Moderately decompressed which likely accounts for mildly thickened appearance of the wall. GASTROINTESTINAL TRACT: There are changes of diverticulosis in the sigmoid colon. Appendix is not well demonstrated. ABDOMINAL WALL: No significant hernia is appreciated. Multiple surgical clips are present in the upper abdomen adjacent to the aorta. LYMPH NODES: Normal. VASCULAR: Multifocal atherosclerotic calcifications are present in the aorta and iliac arteries. PELVIC VISCERA: There are surgical clips likely from prior hysterectomy and oophrectomy. OSSEOUS STRUCTURES: Unremarkable. CT/CT abdomen pelvis w IV con IMPRESSION: Diverticulosis in sigmoid colon without evidence of acute infection. Fatty liver Fleischner guidelines were followed. Electronically signed by: Sinan Ceron MD 08/30/2024 05:32 PM EDT
--- OUTSIDE RECORDS SUMMARY | 2024-08-30 13:05 | XMS_ITS | Continuity of Care Document ---
Author Organization [facility] [address] [facility] [address] [place] [address] Phone [phone] Social History Type Date Description Comments Sex Female Sex Unknown Medical Devices Description No Information Available Encounters Description No Information Available Assessments Description No Information Available Plan of Treatment No Information Available Functional Status Description No Information Available Mental Status Description No Information Available Referrals Description No Information Available
[2024-08-30] MEDS: Barium Sulfate Oral (Berry) 450 ML ORAL.SUSP 900 ML PO (15:53)
[2024-08-30] MEDS: iohexoL 350 MG/ML 100 ML INFUS..BTL 85 ML IV (15:54)
[2024-09-02 07:09] LABS: Creatinine POC 0.9 mg/dL (0.5-1.4); GFR POC > 60
== END 2024-08-30 12:33 | disposition home or self-care (01) ==
LOC: HO.CT 12:32
PROVIDERS: PCP Internal Medicine; Visit Provider Physician Assistant Medical
DX: R10.9 Unspecified abdominal pain (principal); K92.1 Melena
CPT/HCPCS: 74177; 82565; Q9967

== ENCOUNTER → 2024-08-30 12:34 | Outpatient (BNV) | payer MEDICARE, SELFPAY | PROVIDERS: PCP Internal Medicine; Visit Provider Radiology Diagnostic Radiology | DX: K57.30 Diverticulosis of large intestine without perforation or abscess without bleeding (principal); K76.0 Fatty (change of) liver, not elsewhere classified | CPT/HCPCS: 74177 ==

== ENCOUNTER 2024-09-26 12:01 | Outpatient (AMB) | payer MEDICARE, SELFPAY ==
--- NOTE | 2024-09-26 12:03 | AM.OFFWIN_ITS ---
Intake Vital Signs 3 09/26/24 12:04 Height 5 ft 2 in Weight 124 lb BMI 22.7 BP 120/60 Blood Pressure Location Rt brachial Position Sitting Pulse 84 Pulse Source Pulse Oximeter Temp 97.5 F Temp Source Oral Pulse Oximetry (%) 97 Oxygen Delivery Method Room Air Intake Visit Reasons: EP Bee sting on LT ring finger, swelling Intake Note: here for left ring finger swelling, itchy and pain from bee sting 5 days ago Patient Tobacco Use Status: Never used Tobacco Allergies hydromorphone (From Dilaudid) Allergy (Verified 09/26/24 12:04) Palpitations meperidine (From DEMEROL) Adverse Reaction (Intermediate, Verified 09/26/24 12:04) AGITATION Do you need a note to return to daycare/school/sports/work: No HPI HPI Comments 2 History of Present Illness0 Details 73 y/o Female patient who presents to [facility] walk in clinic with c/o left ring finger swelling and pain. Pt was stung by a Bee 5 days ago. Pt reports soaking her finger into warm water once or twice and taking Ibuprofen for pain relief. Denies fevers, chills, nausea or vomiting. [facility] Medical History (Updated 09/26/24 @ 12:53 by Radha Verma NP) Swelling of left ring finger History of mammogram (~03/21/24) Establishing care with new doctor, encounter for Essential hypertension Elevated ALT measurement Elevated AST (SGOT) Hemorrhoids Indigestion Hiatal hernia Encounter for screening fecal occult blood testing Black stools Abdominal pain Muscle strain of right shoulder External hemorrhoid, bleeding Multinodular thyroid Thyroid nodule Sleep disorder GERD (gastroesophageal reflux disease) Lump Normal colonoscopy Anxiety Surgical History (Updated 07/26/24 @ 14:35 by Cari Wang PA-C) History of colonoscopy (~01/01/20) Hx of elbow surgery History of cardiac catheterization (~10/2020) S/P LAURO (total abdominal hysterectomy) Family History Father History of colon cancer Family history of hypertension Family history of polyps in the colon Congestive heart failure Mother Family history of hypertension History of diabetes mellitus History of heart disease Congestive heart failure Brother Family history of prostate cancer Sister History of heart disease Sister Breast cancer History of heart disease Sister Fatty liver Social History Household Members: None Housing: House Alcohol intake: current Alcohol intake frequency: 0-2 drinks per day Alcohol type: wine Comment: NOT PROCEDURAL RELATED PAIN Patient Tobacco Use Status: Never used Tobacco Advance Directives Date on File: 06/21/21 service: No Current occupational status: retired Cognitive needs: No Hearing needs: No Vision needs: Yes (reading glasses) Review of Systems Const All systems reviewed & are unremarkable except as noted in HPI and below Physical Exam Vital Signs: Last Vital Signs Temp 97.5 F 09/26/24 12:04 Pulse 84 09/26/24 12:04 BP 120/60 09/26/24 12:04 Pulse Ox 97 09/26/24 12:04 Oxygen Delivery Method Room Air 09/26/24 12:04 BMI result Body Mass Index 22.7 Const General: comfortable and no acute distress Nutritional Appearance: well nourished Orientation/consciousness: patient oriented x3 Neuro General: patient oriented x3 Extrem Left upper extremity: normal capillary refill and hand Details: normal capillary refill, tenderness Location: of the 4th digit Location: involving the fingernail and involving the entire digit, normal ROM of fingers and swelling Location: of the 4th digit; no unusual warmth and no crepitus; no cyanosis Hand/finger images: 2 1. Some mild swelling, normal color and temperature, TTP Psych Speech and movement: Normal speech and movement present Assessment & Plan Assessment & Plan (1) Swelling of left ring finger: Code(s): M79.89 - Other specified soft tissue disorders Plan: Left ring finger not infected at this time, just swelling. Advised to soak finger everyday - every 20 minutes Ordered Topical Abx BID for now RTC if symptom worse Ibuprofen for pain relief. Coding Level of Care Code Est Pt Level 4 (81283) Diagnoses Swelling of left ring finger M79.89 Time Spent (min) 20
[2024-09-26 12:04] VITALS: BP 120/60; PULSE 84; TEMP 36.4; O2SAT 97; BMI 22.7
== END 2024-09-26 13:36 | disposition home or self-care (01) ==
PROVIDERS: PCP Physician Assistant Medical; Visit Provider Nurse Practitioner Family
DX: M79.89 Other specified soft tissue disorders (principal)

== ENCOUNTER → 2024-09-26 12:01 | Outpatient (BNVA) | payer MEDICARE, SELFPAY | PROVIDERS: PCP Physician Assistant Medical; Visit Provider Nurse Practitioner Family | DX: M79.89 Other specified soft tissue disorders (principal) | CPT/HCPCS: 99212 ==

== ENCOUNTER 2024-09-30 12:21 | Outpatient (REF) | payer MEDICARE, SELFPAY ==
--- NOTE | ~2024-09-30 | MM_ITS ---
EXAMINATION: MM DIAGNOSTIC DIGITAL BREAST TOMOSYNTHESIS, RIGHT CLINICAL INFORMATION: 6 month follow-up for asymmetry in the superior right breast on MLO view without prior sonographic correlate. COMPARISON: Mammography: [facility] on PACS. TECHNIQUE: Digital breast tomosynthesis is performed in both the craniocaudal and mediolateral oblique views along with computer-aided detection (CAD). Synthesized 2D images are generated from the tomosynthesis. FINDINGS: The breasts are heterogeneously dense, which may obscure small masses (ACR BI-RADS breast composition Category c). Previously seen asymmetry in the superior right breast on MLO view without prior sonographic correlate is not significantly changed from prior 6 months ago. No suspicious calcifications or other abnormal findings. MM/MM tomosynthesis diagnostic RT IMPRESSION: Asymmetry superior right breast on MLO view without prior sonographic correlate not significantly changed from prior, recommend 6 month follow-up for further evaluation of stability when the patient will be due for bilateral mammography. ASSESSMENT: BI-RADS BI-RADS 3 - Probably benign finding(s) - 6 month follow-up suggested RECOMMENDATION: 6 Month F/U Results were provided to the patient at time of visit by the technologist. This patient's information was entered into a reminder system with a target due date for their next mammogram. Electronically signed by: Ro Styles DO 09/30/2024 02:43 PM EDT
--- OUTSIDE RECORDS SUMMARY | 2024-09-30 13:17 | XMS_ITS | Continuity of Care Document ---
Author Organization [facility] [address] [facility] [address] [place] [address] Phone [phone] Social History Type Date Description Comments Sex Female Sex Unknown Medical Devices Description No Information Available Encounters Description No Information Available Assessments Description No Information Available Plan of Treatment No Information Available Functional Status Description No Information Available Mental Status Description No Information Available Referrals Description No Information Available
== END 2024-09-30 12:22 | disposition home or self-care (01) ==
LOC: HO.MAMMO 12:21
PROVIDERS: PCP Physician Assistant Medical; Visit Provider Physician Assistant Medical
DX: N64.89 Other specified disorders of breast (principal)
CPT/HCPCS: 77061; 77065

== ENCOUNTER → 2024-09-30 12:30 | Outpatient (BNV) | payer MEDICARE, SELFPAY | PROVIDERS: PCP Physician Assistant Medical; Visit Provider Internal Medicine | DX: N64.89 Other specified disorders of breast (principal) | CPT/HCPCS: 77065; G0279 ==

== ENCOUNTER 2024-10-07 09:03 | Outpatient (REF) | payer MEDICARE, SELFPAY ==
--- OUTSIDE RECORDS SUMMARY | 2024-10-07 09:17 | XMS_ITS | Continuity of Care Document ---
Author Organization [facility] [address] [facility] [address] [place] [address] Phone [phone] Social History Type Date Description Comments Sex Female Sex Unknown Medical Devices Description No Information Available Encounters Description No Information Available Assessments Description No Information Available Plan of Treatment No Information Available Functional Status Description No Information Available Mental Status Description No Information Available Referrals Description No Information Available
--- OUTSIDE RECORDS SUMMARY | 2024-10-07 09:18 | XMS_ITS | Encounter Summary ---
Author Organization [facility] Address [address] [facility] [address] [place] [phone] Phone Care Team Providers Care Slot Machine Key Person Name Role Phone Yusef Soares MD Primary Care Provider Wiley Segura DO Primary Care Provider [phone] Encounter Details Date Type Department Care Team (Late st Contact Info) Description 01/01/2018 Ancillary Orders [facility], X-Ray - [address] [address] Lisa Parham, [place] [address] [place] [phone] [email or web address] Radiculopathy, lumbar region; Sacral pain Social History Tobacco Use Types Packs/Day Years Used Date Smoking Tobacco: Never Assessed Comments Unknown Sex and Gender Information Value Date Recorded Sex Assigned at Female 12/29/2020 11:00 AM EDT Legal Sex Female 11:05 AM EDT Gender Identity Female 12/29/2020 11:00 AM EDT Sexual Orientation Straight 12/29/2020 11 :00 AM EDT documented as of this encounter Plan of Treatment Upcoming Encounters Date Type Department Care Team (Late st Contact Info) Description 02/20/2025 11:00 AM EST App[facility]ment [facility] [address] [place] [address] 02/20/2025 11:20 AM EST Office Visit [facility] [address] [place] [address] Catarino Costello MD [address] [place] [address] [email or web address] documented as of this encounter Results * XR Sacrum and Coccyx (01/01/2018 11:47 AM EDT) Anatomical Region Laterality Modality L-spine Radiographic Marianna ging 01/01/2018 12:4 6 PM EDT Impressions 01/01/2018 1:21 PM EDT No source of the pain detected. POS - [id number] Edited by: Constance Ibarra on 01/01/2018 12:56 PM Narrative 01/01/2018 1:21 PM EDT AP and lateral views of the sacrum and coccyx obtained. No finding of concern is identified. No gross sclerosis or erosion at SI joints. No hypertrophic changes of concern at lumbosacral junction. Small bone island suggested right ischium. Procedure Note Balbina Aldana MD - 01/01/2018 AP and lateral views of the sacrum and coccyx obtained. No finding ofconcern is identified. No gross sclerosis or erosion at SI joints. Nohypertrophic changes of concern at lumbosacral junction. Small bone islandsuggested right ischium. IMPRESSION: No source of the pain detected. POS - [id number] Edited by: Constance Ibarra on 01/01/2018 12:56 PM us Lisa Parham PARING MACHINE OPERATOR IMG XR SPINE Final Result * XR LUMBOSACRAL SPINE 4 OR MORE VIEWS (01/01/2018 11:46 AM EDT) Anatomical Region Laterality Modality L-spine Radiographic Marianna ging 01/01/2018 12:4 6 PM EDT Impressions 01/01/2018 1:21 PM EDT Minor degenerative changes. POS - [id number] Edited by: Constance Ibarra on 01/01/2018 12:57 PM Narrative 01/01/2018 1:21 PM EDT Five view lumbar spine obtained. No prior. There is milder rotatory scoliosis convex right at the thoracolumbar junction. No compression deformity. No marked spurring. No gross lytic or blastic change. Minor endplate spurring throughout. No marked disc height loss. No gross sclerosis or erosion seen at the SI joints. No spondylolysis or spondylolisthesis. No prominent hypertrophic changes of facets. There is some minor facet joint space loss at L5-S1 bilaterally. Procedure Note Balbina Aldana MD - 01/01/2018 Five view lumbar spine obtained. No prior. There is milder rotatoryscoliosis convex right at the thoracolumbar junction. No compressiondeformity. No marked spurring. No gross lytic or blastic change. Minorendplate spurring throughout. No marked disc height loss. No grosssclerosis or erosion seen at the SI joints. No spondylolysis orspondylolisthesis. No prominent hypertrophic changes of facets. There issome minor facet joint space loss at L5-S1 bilaterally. IMPRESSION: Minor degenerative changes. POS - [id number] Edited by: Constance Ibarra on 01/01/2018 12:57 PM Lisa Parham PARING MACHINE OPERATOR IMG XR SPINE Final Result documented in this encounter Visit Diagnoses Diagnosis Radiculopathy, lumbar region Thoracic or lumbosacral neuritis or radiculitis, unspecified Sacral pain Sacral pain Radiculopathy, lumbar region Thoracic or lumbosacral neuritis or radiculitis, unspecified documented in this encounter Care Teams Slot Machine Key Person Relationship Specialty Start Date End Date Yusef Soares MD [address] [place] [id number] PCP - General Internal Medicine 01/01/18 12/28/20 Wiley Segura DO [address] [place] [id number] PCP - General Internal Medicine 12/29/20 documented as of this encounter Additional Source Comments The information contained in this document represents components of the legal health record. It is not the complete legal health record.[facility]
== END 2024-10-07 09:04 | disposition home or self-care (01) ==
LOC: HO.HMGCX 09:03
PROVIDERS: PCP Physician Assistant Medical; Visit Provider Urology
DX: Z13.89 Encounter for screening for other disorder (principal)

== ENCOUNTER 2024-10-17 11:41 | Outpatient (AMB) | payer MEDICARE, SELFPAY ==
--- NOTE | 2024-10-17 11:43 | MHC.OFFVIS ---
Intake Visit Reasons: 1y follow up(pending) Intake Note: Patient is present for 1Y Follow Up Urology Med:NONE Antibiotic Allergy:None Blood Thinner: NONE Food Critic Required: No Allergies hydromorphone (From Dilaudid) Allergy (Verified 10/17/24 12:51) Palpitations meperidine (From DEMEROL) Adverse Reaction (Intermediate, Verified 10/17/24 12:51) AGITATION Medication List - Last Reconciled 10/17/24 by MURPHY Olson amlodipine 5 mg See Protocol PO DAILY estradiol 1 patch transdermal TOPETE@1000 melatonin 10 mg PO BEDTIME PRN omeprazole 40 mg PO DAILY rosuvastatin 10 mg PO DAILY HPI Comments Details: Leslie is a very pleasant 73-year-old female patient of Dr. Segura. She has a past medical history of hemorrhoids, hiatal hernia, sleep disorder, thyroid nodule, GERD, nephrolithiasis, and anxiety. In discussion with the patient today she reports to be doing and feeling well. She denies having had any bothersome urinary issues or concerns since her last office visit here over a year ago. Recent CT results reviewed with the patient today. 09/11 bilateral kidneys are normal in size, shape, and attenuation. No hydronephrosis, hydroureter, or calculi seen. The bladder is moderately decompressed which likely accounts for mildly thickened appearance of the wall per radiology report. She discusses being very active with pickleball, golfing, gardening, and hiking. When asked she denies urinary urgency, urinary frequency, incontinence, nocturia, hematuria, dysuria, foul smelling urine, changes to urinary stream, flank pain, fever, and or chills. She is happy with her current voiding parameters. She reports to be drinking plenty of water daily and adding 1 oz of lemon juice to water daily. In office urinalysis results reviewed with the patient today. All questions were answered. She otherwise offers no other issues or concerns at this time. PREVIOUS OFFICE NOTE: Nephrolithiasis Seen in hospital 06/08 Distal right ureteric stone Ureteroscopy performed Imaging - 10/09 renal ultrasound negative Intervention - 06/08 right ureteroscopy Stone composition - 06/08 calcium oxalate Therapeutic plan - encourage fluid intake - surveillance imaging PFSH Medical History Swelling of left ring finger History of mammogram (~03/21/24) Establishing care with new doctor, encounter for Essential hypertension Elevated ALT measurement Elevated AST (SGOT) Hemorrhoids Indigestion Hiatal hernia Encounter for screening fecal occult blood testing Black stools Abdominal pain Muscle strain of right shoulder External hemorrhoid, bleeding Multinodular thyroid Thyroid nodule Sleep disorder GERD (gastroesophageal reflux disease) Lump Normal colonoscopy Anxiety Surgical History (Updated 07/26/24 @ 14:35 by Cari Wang PA-C) History of colonoscopy (~01/01/20) Hx of elbow surgery History of cardiac catheterization (~10/2020) S/P LAURO (total abdominal hysterectomy) Family History Father History of colon cancer Family history of hypertension Family history of polyps in the colon Congestive heart failure Mother Family history of hypertension History of diabetes mellitus History of heart disease Congestive heart failure Brother Family history of prostate cancer Sister History of heart disease Sister Breast cancer History of heart disease Sister Fatty liver Social History Household Members: None Housing: House Alcohol intake: current Alcohol intake frequency: 0-2 drinks per day Alcohol type: wine Comment: NOT PROCEDURAL RELATED PAIN Patient Tobacco Use Status: Never used Tobacco Advance Directives Date on File: 06/21/21 service: No Current occupational status: retired Cognitive needs: No Hearing needs: No Vision needs: Yes (reading glasses) Review of Systems Const All systems reviewed & are unremarkable except as noted in HPI and below Physical Exam Const General: cooperative, healthy appearing, comfortable, no acute distress, well developed, alert and awake Orientation/consciousness: patient oriented x3 Limitations: no limitations HEENT Head: Yes normal to inspection, Yes normocephalic and Yes atraumatic Ears: hearing grossly normal bilaterally Eyes General: appearance normal, both eyes and all related structures Neck Neck: Yes normal visual inspection and Yes trachea midline Chest Chest palpation & inspection: normal inspection of the chest Resp Effort & Inspection: normal respiratory effort and able to speak in complete sentences Cardio Rate: regular rate GI Inspection: Yes normal to inspection General: Yes no CVA tenderness Back/Spine/Pelvis Back: no CVA tenderness Skin General skin exam: no rashes or lesions noted Neuro General: patient oriented x3 Extrem General: Yes normal to inspection Psych Appearance: grossly normal and well kempt Mental Status: mental status grossly normal Speech and movement: Normal speech and movement present and Clear speech present Affect: normal affect Attitude: cooperative Thought process: Normal thought process present Thought content: Normal thought content present Insight: Fair insight present (Psych) Judgement: Fair judgement present (Psych) Results AMB Urinalysis, Automated UA Leukoctes 0 Gary/uL Last Edit by KARYN Sullivan on 10/17/24 11:58 UA Nitrite Negative Last Edit by Meagan Beckman [facility] on 10/17/24 11:58 UA Urobilinogen 0.2 mg/dL Last Edit by Meagan Beckman [facility] on 10/17/24 11:58 UA Protein 0 mg/dL Last Edit by Meagan Beckman [facility] on 10/17/24 11:58 UA pH 6.0 Last Edit by Meagan Beckman [facility] on 10/17/24 11:58 UA Blood 25 Riky/uL Last Edit by Meagan Beckman [facility] on 10/17/24 11:58 UA Specific [place] 1.005 Last Edit by Meagan Beckman [facility] on 10/17/24 11:58 UA Ketone Negative Last Edit by KARYN Sullivan on 10/17/24 11:58 UA Bilirubin 0 mg/dL Last Edit by Meagan Beckman [facility] on 10/17/24 11:58 UA Glucose 0 mg/dL Last Edit by Meagan Beckman [facility] on 10/17/24 11:58 Results Reviewed Results Reviewed: Laboratory Last Values Urine pH (Auto) 6.0 10/17/24 11:57 Specific [place] (Auto) 1.005 10/17/24 11:57 Urine Protein (Auto) 0 mg/dL 10/17/24 11:57 Glucose (UA)(Auto) 0 mg/dL 10/17/24 11:57 Urine Ketones (Auto) Negative 10/17/24 11:57 Urine Blood (Auto) 25 Riky/uL 10/17/24 11:57 Urine Nitrite (Auto) Negative 10/17/24 11:57 Urine Bilirubin (Auto) 0 mg/dL 10/17/24 11:57 Urine Urobilinogen (Auto) 0.2 mg/dL 10/17/24 11:57 Leukocyte Esterase (Auto) 0 Gary/uL 10/17/24 11:57 Date of Service: 08/30/24 Procedure(s): CT abdomen pelvis w IV con FINDINGS: LUNG BASES: The visualized lung bases are unremarkable. LIVER, GALLBLADDER, AND BILIARY TREE: Mild diffuse fatty changes are present in the liver. The gallbladder is unremarkable with no evidence of radiopaque gallstones, gallbladder wall thickening, or obvious pericholecystic inflammatory changes. PANCREAS: Unremarkable with fatty infiltration SPLEEN: Unremarkable. ADRENAL GLANDS: Unremarkable. KIDNEYS AND URETERS: The kidneys are normal in size, shape, and attenuation. No hydronephrosis, hydroureter, or calculi seen. No perinephric stranding. BLADDER: Moderately decompressed which likely accounts for mildly thickened appearance of the wall. GASTROINTESTINAL TRACT: There are changes of diverticulosis in the sigmoid colon. Appendix is not well demonstrated. ABDOMINAL WALL: No significant hernia is appreciated. Multiple surgical clips are present in the upper abdomen adjacent to the aorta. LYMPH NODES: Normal. VASCULAR: Multifocal atherosclerotic calcifications are present in the aorta and iliac arteries. PELVIC VISCERA: There are surgical clips likely from prior hysterectomy and oophrectomy. OSSEOUS STRUCTURES: Unremarkable. IMPRESSION: Diverticulosis in sigmoid colon without evidence of acute infection. Fatty liver Assessment & Plan Assessment & Plan (1) Nephrolithiasis: Code(s): N20.0 - Calculus of kidney Category: Medical (2) Calcium oxalate stones: Code(s): N20.0 - Calculus of kidney Category: Medical Plan In office urinalysis results reviewed the patient today; as noted above. Recent CT results reviewed with the patient today; as noted above. She currently denies any bothersome urinary issues or concerns. She reports be happy with current voiding parameters. Continue with increased hydration relation to nephrolithiasis as well as overall health and well-being. Continue adding 1 oz of lemon juice to water daily. Will continue with surveillance monitoring. Will obtain renal ultrasound in 1 year. Follow-up in 1 year with imaging to be completed prior; or sooner with any issues, concerns, and or questions. Orders: Orders AMB Urinalysis Automated Today Z13.9 - Encounter for screening, unspecified US renal BI 1 Year N20.0 - Calculus of kidney Patient Instructions: The patient had an opportunity to ask questions regarding the treatment plan. All questions were answered. Physical exam, labs, and imaging were discussed and reviewed in detail. As well as risks, benefits, and discussion of treatment choices. No major barriers to understanding were identified. The patient expressed understanding and agreement with the above treatment plan. The patient was made aware they should contact our office by phone for worsening of their current condition, the appearance of new symptoms, or with any questions or concerns. Compliance is encouraged with any medications and follow up testing that is ordered. It is a privilege to be allowed the opportunity to participate in? your urological care.? Again, if you have any questions or concerns If you have any questions or concerns please do not hesitate to contact me. The office is [phone]. This note is constructed using voice recognition software. While every effort has been made to ensure accuracy siebel developer errors may have been included. Yours sincerely, MURPHY Olson Coding Level of Care Code Est Pt Level 3 (36794) Complex EM visit Add On G2211 Diagnoses Nephrolithiasis N20.0 Calcium oxalate stones N20.0
--- OUTSIDE RECORDS SUMMARY | 2024-10-17 12:23 | XMS_ITS | Encounter Summary ---
Author Organization [facility] Address [address] [place] [address] Phone Care Team Providers Care Fire Fighter Name Role Phone Yusef Soares MD Primary Care Provider Wiley Segura DO Primary Care Provider [phone] Encounter Details Date Type Department Care Team (Late st Contact Info) Description 01/01/2018 Ancillary Orders [facility], X-Ray - [address] [address] Lisa Parham, KENNEDY [address] [place] [phone] [email or web address] Radiculopathy, lumbar region; Sacral pain Social History [...] 11:00 AM EST Appointment [facility] [address] [place] [address] 02/20/2025 11:20 AM EST Office Visit [facility] [address] [place] [address] Catarino Costello MD [address] [place] [address] [email or web address] documented as of this encounter [...] on 01/01/2018 12:56 PM us Lisa Parham ADVERTISING SPACE CLERK IMG XR SPINE Final Result * XR [...] changes. POS - [id number] Edited by: Constance bIarra on 01/01/2018 12:57 PM Lisa Parham ADVERTISING SPACE CLERK IMG XR SPINE Final Result documented in this encounter Visit Diagnoses Diagnosis Radiculopathy, lumbar region Thoracic or lumbosacral neuritis or radiculitis, unspecified Sacral pain Sacral pain Radiculopathy, lumbar region Thoracic or lumbosacral neuritis or radiculitis, unspecified documented in this encounter Care Teams Fire Fighter Relationship Specialty Start Date End Date Yusef Soares MD [address] [place] [id number] PCP - General Internal Medicine 01/01/18 12/28/20 Wiley Segura DO [address] [place] [address] PCP - General Internal Medicine 12/29/20 documented as of this encounter Additional Source Comments The information contained in this document represents components of the legal health record. It is not the complete legal health record.[facility]
--- OUTSIDE RECORDS SUMMARY | 2024-10-17 12:23 | XMS_ITS | Patient Health Record ---
Author Organization [facility] Address [address] [place] [address] Care Team Providers Care Longshore Equipment Operator Name Role Phone ISELA, CANDIDA Primary Care Provider Wiley Sue Unavailable [phone] Allergies Allergen (clinical drug ingredient) Drug/Non Drug [...] Omeprazole 20 MG TAKE 1 CAPSULE BY [facility] EVERY MORNING FOR 30 DAYS for 90 [...] Problem Status W/U Status Risk Notes Problem 20864005 Rectal bleeding (K62.5) Active confirmed Problem 152212691 Gastroesophageal reflux disease without esophagitis (K21.9) Active confirmed Problem 388243709 Fatty liver (K76.0) Active confirmed Problem 64975526 Hiatal hernia (K44.9) Active confirmed Problem 93001742 Constipation, unspecified constipation type (K59.00) Active confirmed Problem 339331133 Gastroesophageal reflux disease, unspecified whether esophagitis present (K21.9) Active confirmed Problem 652595045 Fatty pancreas (K86.89) Active confirmed Plan Of Treatment Future Test Test Name Order Date UPPER GI ENDOSCOPY 12/25/2019 COLONOSCOPY 12/25/2019 Next Appt Details Provider Name:Wiley Choi Ganesh , 11/28/2024 11:00:00 AM, [address] [place] [address], [address], [place], [address], Insurance Providers Payer Name Payer Address Payer Phone Subscriber Number Group Number Insured Name Patient Relationship to Insured Coverage Start Date Coverage End Date MEDICARE OF [place] [address] [facility] [place] [address] [id number] GIANCARLO THOMSON Self - patient is the insured [employer] ATT[employer] CLAIMS [address] [place] [phone] [id number] GIANCARLO THOMSON Self - patient is the insured Medical (General) History Medical History History ICD Code Anxiety Neg. screening colonoscopy in 09/2008 Denies GA,DM,CVA,Lung disease,renal dise ase EGD 12/2019 with a moderate- sized hiatal hernia, negative for esophagitis, Judd's, nor H.pylori Screening Colonoscopy 12/2019 was negati ve Surgical History Surgery Date(Month/Year) LAURO Celiac Artery Surgery 1972
--- OUTSIDE RECORDS SUMMARY | 2024-10-17 12:23 | XMS_ITS | Patient Health Record ---
Author [facility] Address [address] [facility] [place] [address] Care Team Providers Care Automation Specialist Name Role Phone Wiley Segura MD Primary Care Provider Unavail able Mansoor Disla Unavailable [phone] Allergies Allergen (clinical drug ingredient) Drug/Non Drug Allergy documented on EMR Reaction Allergy Type Onset Date Status 12 Hour Nasal [place] Unknown Drug Allergy Active meperidine Demerol Unknown Drug Allergy Active Reason For Referral No Information Medications Medication SIG (Take, Route, Frequency, Duration) Notes Start Date End Date Status Rosuvastatin Calcium 10 MG 1 tablet Orally Once a day; Duration: 30 day(s) Not-Taking Atorvastatin Calcium Active Immunizations [...] Problem Status W/U Status Risk Notes Problem Acquired hallux valgus (46423385) Hallux valgus (acquired), left foot (M20.12) Active confirmed Plan Of Treatment No Information Insurance Providers Payer Name Payer Address Payer Phone Subscriber Number Group Number Insured Name Patient Relationship to Insured Coverage Start Date Coverage End Date Medicare National [employer] [address] [place] [address] [id number] Leslie Allen Self - patient is the insured [employer] [address] [place] [address] [id number] Leslie Allen Self - patient is the insured Medical (General) History Surgical History Surgery Date(Month/Year) Systocopy 1984 Celiac Artery Repair 1985
--- OUTSIDE RECORDS SUMMARY | 2024-10-17 12:23 | XMS_ITS | Continuity of Care Document ---
Author Organization [facility] [employer] [address] [place] [address] Phone [phone] Social History Type Date Description Comments Sex Female Sex Unknown Medical Devices Description No Information Available Encounters Description No Information Available Assessments Description No Information Available Plan of Treatment No Information Available Functional Status Description No Information Available Mental Status Description No Information Available Referrals Description No Information Available
== END 2024-10-17 12:10 | disposition home or self-care (01) ==
LOC: HO.HUSH 11:41
PROVIDERS: PCP Internal Medicine; Visit Provider Nurse Practitioner Family
DX: N20.0 Calculus of kidney (principal); Z13.9 Encounter for screening, unspecified
CPT/HCPCS: 99213; G2211

== ENCOUNTER → 2024-10-17 11:41 | Outpatient (BNVA) | payer MEDICARE, SELFPAY | PROVIDERS: PCP Internal Medicine; Visit Provider Nurse Practitioner Family | DX: N20.0 Calculus of kidney (principal) | CPT/HCPCS: 81003; 99212 ==

== ENCOUNTER 2025-01-28 12:59 | Outpatient (AMB) | payer MEDICARE, SELFPAY ==
--- NOTE | 2025-01-28 13:06 | A.OFFPC_ITS ---
Vital Signs 01/28/25 13:11 01/28/25 14:05 Height 5 ft 2 in Weight 129 lb 0.6 oz BMI 23.6 BP 162/64 H 154/78 H Blood Pressure Location Lt brachial Pulse 88 77 Pulse Source Pulse Oximeter Temp 96.6 F L Pulse Oximetry (%) 97 Intake Visit Reasons: 6 month f/u Intake Note: Vericose veins in both ankels seem to have gotten worse and painful and goes up the calf. Allergies hydromorphone (From Dilaudid) Allergy (Verified 01/28/25 14:05) Palpitations meperidine (From DEMEROL) Adverse Reaction (Intermediate, Verified 01/28/25 14:05) AGITATION Medication List - Last Reconciled 01/28/25 by Cari Wagn PA-C amlodipine 5 mg See Protocol PO DAILY estradiol 1 patch transdermal TOPETE@1000 omeprazole 40 mg PO DAILY Tobacco use date assessed: 07/26/24 Dental Screening Dental Screen Date: 07/26/24 HPI 6 month f/u HPI Details The patient is a 74-year-old female presenting for a follow-up visit. She reports that about 4-6 weeks ago, varicose veins on her right leg significantly worsened, and she experiences severe pain at night extending from her ankle up to her knee, predominantly in the anterior aspect of her leg. She has a history of varicose veins in her ankles but notes the recent changes are new. The patient has a history of a dislocated clavicle from a fall off a step stool while gardening, which could not be surgically repaired. The resulting inactivity from the injury, which prevented her from playing pickleball, golfing, biking, and hiking, led to a 5-pound weight gain. Her medications include rosuvastatin for cholesterol and blood pressure medication. Her blood work from July was reportedly normal. Regarding family history, her mother at age 76 due to heart illness, and her father lived to be 94. Her sister, age 70, has severe liver disease requiring a transplant and has had varices tied off in her neck. Social History - Exercise: The patient is typically simón y active, participating in pickleball, golf, biking, and hiking, but her activity level was recently reduced due to a shoulder injury. - Substance Use: The patient reports dri nking one glass of wine at night. - Weight Management: She reports a recen t weight gain of 5 pounds, which she attributes to being less active after her shoulder injury. [facility] Medical History (Updated 01/28/25 @ 14:17 by Cari Wang PA-C) Hyperlipidemia Varicose veins of bilateral lower extremities with pain Bilateral leg pain Swelling of left ring finger History of mammogram (~03/21/24) Establishing care with new doctor, encounter for Essential hypertension Elevated ALT measurement Elevated AST (SGOT) Hemorrhoids Indigestion Hiatal hernia Encounter for screening fecal occult blood testing Black stools Abdominal pain Muscle strain of right shoulder External hemorrhoid, bleeding Multinodular thyroid Thyroid nodule Sleep disorder GERD (gastroesophageal reflux disease) Lump Normal colonoscopy Anxiety Surgical History History of colonoscopy (~01/01/20) Hx of elbow surgery History of cardiac catheterization (~10/2020) S/P LAURO (total abdominal hysterectomy) Family History Father History of colon cancer Family history of hypertension Family history of polyps in the colon Congestive heart failure Mother Family history of hypertension History of diabetes mellitus History of heart disease Congestive heart failure Brother Family history of prostate cancer Sister History of heart disease Sister Breast cancer History of heart disease Sister Fatty liver Social History Household Members: None Housing: House Alcohol intake: current Alcohol intake frequency: 0-2 drinks per day Alcohol type: wine Comment: NOT PROCEDURAL RELATED PAIN Patient Tobacco Use Status: Never used Tobacco Advance Directives Date on File: 06/21/21 service: No Current occupational status: retired Cognitive needs: No Hearing needs: No Vision needs: Yes (reading glasses) Questionnaire PHQ-9 Over the last 2 weeks, how often have you been bothered by any of the following problems? 1. Little interest or pleasure in doing things: not at all 2. Feeling down, depressed, or hopeless: not at all 3. Trouble falling or staying asleep, or sleeping too much: not at all 4. Feeling tired or having little energy: not at all 5. Poor appetite or overeating: not at all 6. Feeling bad about yourself - or that you are a failure or have let yourself or your family down: not at all 7. Trouble concentrating on things, such as reading the newspaper or watching television: not at all 8. Moving or speaking so slowly that other people could have noticed. Or the opposite - being so fidgety or restless that you have been moving around a lot more than usual: not at all 9. Thoughts that you would be better off or of hurting yourself in some way: not at all Total score: 0 Depression Screening Interpretation: Negative Depression Screening Done: Yes 22056 - PHQ-9 Billing: Yes Source: Developed by Drs. Wiley Garcia, Karen Pelayo, Rodriguez Cochran and colleagues, with an educational ash from [employer]. Thrive Questionnaire Date Thrive assessed: 07/26/24 I am a: Patient What is your living situation today?: I have a steady place to live Within the past 12 months, did the food you bought not last and you didn't have the money to get more?: Never true Within the past 12 months, did you worry whether your food would run out before you got money to buy more?: Never true Do you have trouble paying for medicines?: No Do you have trouble getting transportation to medical appointments?: No Do you have trouble paying your heating and electricity bill?: No Do you have trouble taking care of your child, family member or friend?: No Do you have trouble with day-to-day activities such as bathing, preparing meals, shopping, managing finances, etc.?: No Are you currently unemployed and looking for a job?: No Are you interested in more education?: No Please select the resources that you would like help with: None THRIVE Score: 0 AUDIT C Alcohol Use Questionnaire (AUDIT-C) 1. How often do you have a drink containing alcohol?: 4 or more times a week 2. How many drinks containing alcohol do you have on a typical day when you are drinking?: 1 or 2 3. How often do you have six or more drinks on one occasion?: Never Total Score: 4 Score Reviewed/Action Taken: Yes (Pt declines) BRIANNA-7 AMB Questionnaire BRIANNA-7 Date BRIANNA - 7 assessed: 07/26/24 Source: Developed by Drs. Wiley Garcia, Rodriguez Moyer Kroenke and colleagues, with an educational ash from [employer]. Review of Systems Const Details: - Constitutional: Reports a 5-pound weight gain. - Integumentary/Vascular: Reports significantly worsening varicose veins on her right leg over the past 4-6 weeks with some bruising. - Musculoskeletal: Reports severe, nocturnal pain in the right leg, primarily in the front, extending from the ankle to the knee. All systems reviewed & are unremarkable except as noted in HPI and below Physical exam (Primary Care) Vital Signs: Last Vital Signs Temp 96.6 F L 01/28/25 13:11 Pulse 88 01/28/25 13:11 BP 162/64 H 01/28/25 13:11 Pulse Ox 97 01/28/25 13:11 Care Plan Goal for BP management: <140/90 pt to continue amlodipine 5 mg daily and return in 1 week for blood pressure check BMI result Body Mass Index 23.6 Normal BMI Tobacco/Smoking Status: Tobacco use Status Tobacco use date assessed 07/26/24 01/28/25 13:15 Patient Tobacco Use Status Never used Tobacco 01/28/25 13:15 PHQ-9: PHQ-9 Score PHQ-9: Total score 0 01/28/25 13:15 Depression Screening Interpretation: Negative Thrive Assessment: Date of Thrive Assessment Date Thrive assessed 07/26/24 01/28/25 13:15 Const Other: Appearance: Alert. Oriented X3. No acute distress. Head: Normal external exam. Normocephalic. Atraumatic. Eyes: Pupils are equal, round, and reactive to light. Extraocular movements intact. Conjunctiva and sclera normal. Eyelids normal. Throat: Moist mucous membranes. Neck: Normal inspection. Neck supple. Full range of motion. Cardiovascular: Normal heart rate and rhythm. Heart sound normal. No murmurs noted. Pulses normal throughout. Blood pressure recorded at 154/78, pulse 77. Respiratory: No respiratory distress. Painless inspiration. Breath sounds normal. No wheezes/rales/rhonchi noted. Chest nontender. No accessory muscle usage noted or decreased air movement noted. Back: Full range of motion noted. Skin: Skin warm and dry. Normal skin color. Normal skin turgor. No rashes/lesions/lacerations noted. Notable varicose veins in the right ankle, with pain at night extending from the ankle up to the knee. Extremities:Extremities exhibit normal range of motion. Chronic Right clavicle dislocated, with visible deformity. Varicose veins no were to bilateral lower extremity with pain. Mild calf tenderness. No lower extremity edema. Neuro: Oriented X 3. No motor deficit. No sensory deficit. Reflexes normal. Office Procedures Flu Questionnaire Does the patient have a severe egg allergy?: No Does the patient have severe life threatening allergies?: No Does the patient have a fever or illness today?: No Has the patient ever had Guillain-[place] Syndrome?: No Has the patient ever had any past reaction to a flu shot?: No Immunizations Fluarix [id number] (PF) 45 mcg (15 mcg x 3)/0.5 mL IM syringe Performing Provider: Cari Wang PA-C Performing Location[facility] Documented (not given) by: Deloris Jaime on 01/28/25 13:17 Dose Route Admin Location Dispensed Lot Number Expiration Date [facility] Project Structural Engineer 0.5 mL IM mL VIS Given Date VIS Provided VIS Publication Date 01/28/25 Single Vaccine 24 Eligibility Eligibility Date Funding Source Results Reviewed Results Reviewed: - Labs: Blood work from July was reported as normal. Coding Level of Care Code Est Pt Level 4 (72708) Complex EM visit Add On G2211 Diagnoses Varicose veins of bilateral lower extremities with pain I83.813 Essential hypertension I10 Hyperlipidemia E78.5 Additional Codes PHQ-9 - 96453 - PHQ-9 Billing: Yes ([id number]) Assessment & Plan Assessment & Plan (1) Varicose veins of bilateral lower extremities with pain: Code(s): I83.813 - Varicose veins of bilateral lower extremities with pain Category: Medical Plan: The patient presented with worsening varicose veins in her right leg over the last 4-6 weeks, accompanied by nocturnal pain. To rule out a deep vein thrombosis, a bilateral lower extremity ultrasound will be ordered. A referral is being made to Dr. Ivette Cardenas, a vascular surgeon, for further evaluation and management, with discussion of potential treatments such as vein stripping or ablation. (2) Essential hypertension: Code(s): I10 - Essential (primary) hypertension Category: Medical Plan: The patient?s blood pressure was elevated in the office, measuring 154/78 mmHg, which is unusual for her. She will monitor her blood pressure at home every morning before taking her medication. She was instructed to hold her amlodipine if her blood pressure is in the 120s/80s or 130s/80s. A follow-up nurse visit is scheduled in one week for a blood pressure check, with a three-month follow-up thereafter if her readings improve. (3) Hyperlipidemia: Code(s): E78.5 - Hyperlipidemia, unspecified Category: Medical Plan: The patient is currently on rosuvastatin, and her blood work from July showed good cholesterol levels. A decision was made to stop the rosuvastatin for now, and her cholesterol will be monitored. Plan Plan Patient was informed and verbally consented to the use of an ambient scribe for clinic note documentation during this visit. 1. Varicose Veins Of Lower Extremity The patient presented with worsening varicose veins in her right leg over the last 4-6 weeks, accompanied by nocturnal pain. To rule out a deep vein thrombosis, a bilateral lower extremity ultrasound will be ordered. A referral is being made to Dr. Ivette Cardenas, a vascular surgeon, for further evaluation and management, with discussion of potential treatments such as vein stripping or ablation. 2. Hypertension The patient?s blood pressure was elevated in the office, measuring 154/78 mmHg, which is unusual for her. She will monitor her blood pressure at home every morning before taking her medication. She was instructed to hold her amlodipine if her blood pressure is in the 120s/80s or 130s/80s. A follow-up nurse visit is scheduled in one week for a blood pressure check, with a three-month follow-up thereafter if her readings improve. 3. Hyperlipidemia The patient is currently on rosuvastatin, and her blood work from July showed good cholesterol levels. A decision was made to stop the rosuvastatin for now, and her cholesterol will be monitored. I discussed the patient's new and worsening varicose veins and associated leg pain. I explained that although the pain location is not typical for a blood clot, it is important to rule one out, so I ordered a bilateral leg ultrasound. I provided a referral to a vascular surgeon, Dr. Cardenas, to discuss further evaluation and potential treatments such as vein stripping. We addressed her elevated blood pressure, noting it was unusual and could be related to pain. We agreed on a plan for home monitoring and a nurse visit in one week. We also discussed discontinuing her rosuvastatin since her recent cholesterol levels were good and agreed to monitor it. Orders: Orders Influenza [id number] Immunization Today Z23 - Encounter for immunization US venous duplex LE BI Today I83.813 - Varicose veins of bilateral lower extremities with pain, M79.604 - Pain in right leg, M79.605 - Pain in left leg Referrals Vascular Surgery Referral I83.813 - Varicose veins of bilateral lower extremities with pain, M79.604 - Pain in right leg, M79.605 - Pain in left leg Medications: New Fluarix [id number] (PF) (flu vac ts 2024-(6mos up)-PF) 0.5 mL IM ONCE 0.5 mL 0RF NS Z23 - Encounter for immunization Patient Instructions: - An order for an ultrasound of both of your legs has been placed to check for blood clots. - A referral has been sent to Dr. Ivette Cardenas, a vascular surgeon, to evaluate your varicose veins. - Please stop taking your cholesterol medication, rosuvastatin, for now. - Check your blood pressure at home every morning. - If your blood pressure is in the 120s/80s or 130s/80s, you can skip your blood pressure medication for that day. - Please follow up in one week for a nurse visit to recheck your blood pressure. - Continue to exercise and stay active, as this is beneficial for your circulation.
[2025-01-28 13:11] VITALS: BP 162/64; PULSE 88; TEMP 35.9; O2SAT 97; BMI 23.6
[2025-01-28 14:05] VITALS: BP 154/78; PULSE 77
--- OUTSIDE RECORDS SUMMARY | 2025-01-28 14:41 | XMS_ITS | Continuity of Care Document ---
Author Organization [facility] [address] [place] [address] Phone [phone] Social History Type Date Description Comments Sex Female Sex Unknown Medical Devices Description No Information Available Encounters Description No Information Available Assessments Description No Information Available Plan of Treatment No Information Available Functional Status Description No Information Available Mental Status Description No Information Available Referrals Description No Information Available
--- OUTSIDE RECORDS SUMMARY | 2025-01-28 14:42 | XMS_ITS | Encounter Summary ---
Author Organization [facility] Address [address] [place] [address] Phone Care Team Providers Care Ticket Agent Name Role Phone Yusef Soares MD Primary Care Provider Wiley Segura DO Primary Care Provider [phone] Encounter Details Date Type Department Care Team (Late st Contact Info) Description 01/01/2018 Ancillary Orders [facility], X-Ray - [address] [address] Lisa Parham, [place] [address] [place] [phone] [email or web address] Radiculopathy, lumbar region; Sacral pain Social History [...] 11:00 AM EST Appointment [facility] [address] [place] [address] 02/20/2025 11:20 AM EST Office Visit [facility] [address] [place] [address] Catarino Costello MD [address] [place] [address], [address] [place] [address] [email or web address] documented as of this encounter [...] on 01/01/2018 12:56 PM us Lisa Parham SALES PRODUCT MANAGER IMG XR SPINE Final Result * XR [...] Ibarra on 01/01/2018 12:57 PM Lisa Parham SALES PRODUCT MANAGER IMG XR SPINE Final Result documented in this encounter Visit Diagnoses Diagnosis Radiculopathy, lumbar region Thoracic or lumbosacral neuritis or radiculitis, unspecified Sacral pain Sacral pain Radiculopathy, lumbar region Thoracic or lumbosacral neuritis or radiculitis, unspecified documented in this encounter Care Teams Ticket Agent Relationship Specialty Start Date End Date Yusef Soares MD [address] [place] [address] PCP - General Internal Medicine 01/01/18 12/28/20 Wiley Segura DO [address] [place] [address] PCP - General Internal Medicine 12/29/20 documented as of this encounter Additional Source Comments The information contained in this document represents components of the legal health record. It is not the complete legal health record.[facility]
--- OUTSIDE RECORDS SUMMARY | 2025-01-28 14:42 | XMS_ITS | Encounter Summary ---
Author Organization [facility] Address [address] [place] [address] [place] [address] Phone Care Team Providers Care Animal Shelter Clerk Name Role Phone Yusef Soares MD Primary Care Provider Wiley Segura DO Primary Care Provider [phone] Encounter Details Date Type Department Care Team (Late st Contact Info) Description 10/19/2020 Procedure Pass [facility], [address] [address] Social History Tobacco Use Types Packs/Day Years [...] 11:00 AM EST Appointment [facility] [address] [place], [place] [id number] 02/20/2025 11:20 AM EST Office Visit [facility] [address] [place] [address] Catarino Costello MD [address] [place] [address], [address] [place] [address] [email or web address] documented as of this encounter Visit Diagnoses Not on filedocumented in this encounter Care Teams Animal Shelter Clerk Relationship Specialty Start Date End Date Yusef Soares MD [address] [place] [address] PCP - General Internal Medicine 01/01/18 12/28/20 Wiley Segura DO [address] [place] [address] PCP - General Internal Medicine 12/29/20 documented as of this encounter Additional Source Comments The information contained in this document represents components of the legal health record. It is not the complete legal health record.[facility]
--- OUTSIDE RECORDS SUMMARY | 2025-01-28 14:42 | XMS_ITS | Clinical Summary ---
Author Organization [facility] Address [address] [place] [address] Phone Care Team Providers Care Risk Developer Name Role Phone ColtonWiley DO Primary Care Provider Allergies Active Allergy Reactions Criticality Noted Date Comments Meperidine Feeling Irritable Low 10/04/2023 Naproxen Sodium 10/04/2023 Medications cycloSPORINE (VEVYE) 0.1 % solution Place 1 drop into each eye 2 (two) times a day. Separate other eye products by at least 15 minutes. 2 mL 6 10/04/2023 Active fluorometholone (FML LIQUIFILM) 0.1 % ophthalmic suspension Place 1 drop into each eye 2 (two) times a day. Use 1 drop 2x/day x 2 weeks then stop 5 mL 10/04/2023 Active estradioL (VIVELLE-DOT) 0.025 mg/24 hr Apply topically. 05/16/2022 Active omeprazole (PRILOSEC) 40 MG capsule 1 capsule 30 minutes before morning meal as needed Orally Once a day Active rosuvastatin (CRESTOR) 10 MG tablet Take 10 mg by mouth daily. Active prednisoLONE acetate (PRED FORTE) 1 % ophthalmic suspension Place 1 drop into the right eye 4 (four) times a day. Stop after 1 week 5 mL 02/21/2024 Active perfluorohexylo ctane, PF, (MIEBO, PF,) 100 % Drop Apply 1 drop in each eye to eye 4 (four) times a day. 3 mL 6 08/21/2024 Active Active Problems No known active problems Family History Medical History Relation Comments Cataracts Mother Relation Status Comments Mother Social History Tobacco Use Types Packs/Day Years Used Date Smoking Tobacco: Never Smokeless Tobacco: Never Tobacco Cessation:Counseling Given: Not Answered Alcohol Use Standard Drinks/Week Comments Yes 0 (1 standard drink = 0.6 oz pure alcohol) Glass of wine nightly / socially Education Answer Date Recorded Are you interested in more education? Not on macho e 07/15/2022 Are you concerned about learning? Not on file 07/15/2022 No 07/15/2022 No 07/15/2022 Digital Access Answer Date Recorded No 08/13/2022 No 08/13/2022 Reliable internet access at home? Not on file 08/13/2022 Device with a working camera? Not on file Comments Unknown Sex and Gender Information Value Date Recorded Sex Assigned at Female 12/29/2020 11:00 AM EDT Legal Sex Female 11:05 AM EDT Gender Identity Female 12/29/2020 11:00 AM EDT Sexual Orientation Straight 12/29/2020 11 :00 AM EDT Last Filed Vital Signs Vital Sign Reading Time Taken Comments Blood Pressure - - Pulse - - Temperature - - Respiratory Rate - - Oxygen Saturation - - Inhaled Oxygen Concentration - - Weight 56.7 kg (125 lb) 10/29/2020 3:11 PM EDT Height 157.5 cm (5' 2 ) 10/29/2020 3:11 PM EDT Body Mass Index 22.86 10/29/2020 3:11 PM EDT Plan of Treatment Upcoming Encounters Date Type Department Care Team (Late st Contact Info) Description 02/20/2025 11:00 AM EST Appointment [facility] [address] [place] [address] 02/20/2025 11:20 AM EST Office Visit [facility] [address] [place] [address] Catarino Costello MD [address] [place] [address], [address] [place] [address] [email or web address] Health Maintenance Due Date Last Done Comments Adult Td,Tdap Booster 1948 LIPID PANEL 1948 DEPRESSION SCREENING 1960 HEPATITIS C SCREENING 1966 PNEUMOCOCCAL VACCINES (50+ years) (1 of 1 - PCV) 1998 ZOSTER VACCINES (2 of 3) 03/01/2012 01/05/2012 OSTEOPOROSIS SCREENING INITIAL (ONE-TIME) 2013 RSV VACCINE (1 - 1-dose 75+ series) 10/31/2023 INFLUENZA VACCINE (#1) 2024 0, 01/16/2019, 12/27/2017, Additional history exists COVID-19 VACCINE (3 - 2024- season) 2024 06/10/2020, 05/13/2020 SMOKING STATUS SCREENING (Once After 26 Yrs) Completed 08/21/2024 HEPATITIS A VACCINES Aged Out No long er eligible based on patient's age to complete this topic HIB VACCINES Aged Out No longer eligi ble based on patient's age to complete this topic IPV VACCINES Aged Out No longer eligi ble based on patient's age to complete this topic MENINGOCOCCAL VACCINES (ACWY) Aged Out No longer eligible based on patient's age to complete this topic MENINGOCOCCAL VACCINES (B) Aged Out N o longer eligible based on patient's age to complete this topic Medical Devices Not on file Insurance MEDICARE PART A & B [employer] MEDEX SUPPLEMENT MEDICARE PART A & B [facility] MEDEX SUPPLEMENT MEDICARE PART A & B [employer] MEDEX SUPPLEMENT MEDICARE PART A & B [employer] MEDEX SUPPLEMENT MEDICARE PART A & B [employer] MEDEX SUPPLEMENT MEDICARE PART A & B [employer] MEDEX SUPPLEMENT MEDICARE PART A & B Member Subscriber Plan / Payer (Ef fective 2018-Present) Name:Leslie Wagner Member ID:[id number] Relation to Subscriber:Self Name:Leslie Wagner Subscriber ID:[id number] Payer ID:[id number] Group ID:Not on file Type:Medicare Address[facility] [employer] [facility] [address] [address] [employer] MEDEX SUPPLEMENT MEDICARE PART A & B [employer] MEDEX SUPPLEMENT MEDICARE PART A & B [employer] MEDEX SUPPLEMENT Care Teams Risk Developer Relationship Specialty Start Date End Date Wiley Segura DO [address] [place] [address] PCP - General Internal Medicine 12/29/20 Additional Source Comments The information contained in this document represents components of the legal health record. It is not the complete legal health record.[facility]
--- OUTSIDE RECORDS SUMMARY | 2025-01-28 14:42 | XMS_ITS | Encounter Summary ---
Author Organization [facility] Address [address] [place] [address] Phone Care Team Providers Care Button Attaching Machine Operator Name Role Phone Yusef Soares MD Primary Care Provider Wiley Segura DO Primary Care Provider [phone] Reason for Referral * MRI/CAT Scan - Closed Specialty Diagnoses / Procedures Referred By Reid meek Referred To Contact Radiology Diagnoses Lumbar radiculopathy Procedures MRI Lumbar Spine Lisa Parham NP [address] [place] [address] Phone: tel: fax: mailto:[email or web address] [place], [place] Phone: tel: Referral ID Status Reason Start Date Expiration Date Visits Re quested Visits Authorized [id number] Closed 10/19/2020 10/19/2021 1 1 Encounter Details Date Type Department Care Team (Latest Contact Info) Description 10/19/2020 Transcribe Orders [facility] Department [address] [place] [address] Lisa Parham NP [address] [place] [phone] [email or web address] Lumbar radiculopathy (Primary Dx) Social History Tobacco Use Types Packs/Day Years [...] 11:00 AM EST Appointment [facility] [address] [place] [address] 02/20/2025 11:20 AM EST Office Visit [facility] [address] [place] [address] Catarino Costello MD [address] [place] [address], [address] [place] [address] [email or web address] documented as of this encounter Results * MRI LUMBAR SPINE (BONE) WITHOUT CONTRAST (11/04/2020 6:29 PM EDT) Anatomical Region Laterality Modality L-spine Magnetic Resonan ce 11/04/2020 8:39 PM EDT Impressions 11/04/2020 8:45 PM EDT Mild multilevel degenerative changes. No significant canal or neuroforaminal stenosis. Narrative 11/04/2020 8:45 PM EDT MRI LUMBAR SPINE (BONE) WITHOUT CONTRAST TECHNIQUE: Multi-sequence, multi-planar MRI of the lumbar spine was performed without intravenous contrast. COMPARISON: Radiographs of the lumbar spine on January 01, 2018. FINDINGS: Vertebrae: Mild dextrocurvature of the thoracolumbar spine. No compression fracture. No bone marrow replacing lesion. Conus: Normal position. No signal abnormality. Soft Tissue: Normal. No paraspinal edema, mass or fluid collection. Findings by level: T12-L1: Minimal bulging disc. Facet arthropathy. No listhesis. No bone marrow edema. No stenosis or nerve impingement. L1-L2: Normal disc height and contour. Facet arthropathy. No listhesis. No bone marrow edema. No stenosis or nerve impingement. L2-L3: Normal disc height and contour. Facet arthropathy. No listhesis. No bone marrow edema. No stenosis or nerve impingement. L3-L4: Normal disc height and contour. Facet arthropathy. No listhesis. No bone marrow edema. No stenosis or nerve impingement. L4-L5: Minimal bulging disc. Facet arthropathy. No listhesis. No bone marrow edema. No stenosis or nerve impingement. L5-S1: Minimal bulging disc with superimposed left central disc protrusion.. Facet arthropathy. No listhesis. No bone marrow edema. No stenosis or nerve impingement. Procedure Note Adam Jensen MD - 11/04/2020 MRI LUMBAR SPINE (BONE) WITHOUT CONTRAST TECHNIQUE: Multi-sequence, multi-planar MRI of the lumbar spine wasperformed without intravenous contrast. COMPARISON: Radiographs of the lumbar spine on January 01, 2018. FINDINGS: Vertebrae: Mild dextrocurvature of the thoracolumbar spine. No compressionfracture. No bone marrow replacing lesion. Conus: Normal position. No signal abnormality. Soft Tissue: Normal. No paraspinal edema, mass or fluid collection. Findings by level: T12-L1: Minimal bulging disc. Facet arthropathy. No listhesis. No bonemarrow edema. No stenosis or nerve impingement. L1-L2: Normal disc height and contour. Facet arthropathy. No listhesis. Nobone marrow edema. No stenosis or nerve impingement. L2-L3: Normal disc height and contour. Facet arthropathy. No listhesis. Nobone marrow edema. No stenosis or nerve impingement. L3-L4: Normal disc height and contour. Facet arthropathy. No listhesis. Nobone marrow edema. No stenosis or nerve impingement. L4-L5: Minimal bulging disc. Facet arthropathy. No listhesis. No bonemarrow edema. No stenosis or nerve impingement. L5-S1: Minimal bulging disc with superimposed left central discprotrusion.. Facet arthropathy. No listhesis. No bone marrow edema. Nostenosis or nerve impingement. IMPRESSION: Mild multilevel degenerative changes. No significant canal orneuroforaminal stenosis. us Lisa Parham WH[facility]K IMG MR XSPECIALTY Final Result documented in this encounter Visit Diagnoses Diagnosis Lumbar radiculopathy- Primary Thoracic or lumbosacral neuritis or radiculitis, unspecified Lumbar radiculopathy Thoracic or lumbosacral neuritis or radiculitis, unspecified documented in this encounter Care Teams Button Attaching Machine Operator Relationship Specialty Start Date End Date Yusef Soares MD [address] [place] [address] PCP - General Internal Medicine 01/01/18 12/28/20 Wiley Segura DO [address] [place] [address] PCP - General Internal Medicine 12/29/20 documented as of this encounter Additional Source Comments The information contained in this document represents components of the legal health record. It is not the complete legal health record.[facility]
== END 2025-01-28 13:39 | disposition home or self-care (01) ==
LOC: HO.HMCSH 12:59
PROVIDERS: PCP Physician Assistant Medical; Visit Provider Physician Assistant Medical
DX: I83.813 Varicose veins of bilateral lower extremities with pain (principal); I10 Essential (primary) hypertension; E78.5 Hyperlipidemia, unspecified; Z23 Encounter for immunization

== ENCOUNTER → 2025-01-28 12:59 | Outpatient (BNVA) | payer MEDICARE, SELFPAY | PROVIDERS: PCP Internal Medicine; Visit Provider Physician Assistant Medical | DX: I83.813 Varicose veins of bilateral lower extremities with pain (principal); I10 Essential (primary) hypertension; E78.5 Hyperlipidemia, unspecified; Z28.89 Immunization not carried out for other reason | CPT/HCPCS: 90471; 96127; 99212 ==

== ENCOUNTER 2025-02-20 08:30 | Outpatient (REF) | payer MEDICARE, SELFPAY ==
--- OUTSIDE RECORDS SUMMARY | 2025-02-18 09:00 | XMS_ITS | Encounter Summary ---
Author Organization [facility] Address [address] [place] [address] Phone Care Team Providers Care Electronic Design Engineer Name Role Phone ColtonWliey smalls Jimbo JOHNSON Primary Care Provider [phone] Encounter Details Date Type Department Care Team (Late st Contact Info) Description 02/18/2025 9:00 AM EST Pre-Admission Testing [facility] [place] [facility] [address] [place] [address] Carole Fuller MD [address] [place] [address], [address] [place] [address] Yuli [email or web address] [place]ON LICENSE OF [facility] Social History Tobacco Use Types Packs/Day Years Used Date Smoking Tobacco: Never Smokeless Tobacco: Never Alcohol Use Standard Drinks/Week Comments Yes 7 (1 standard drink = 0.6 oz pure [...] AM EDT documented as of this encounter Last Filed Vital Signs Vital Sign Reading Time Taken Comments Blood Pressure - - Pulse - - Temperature - - Respiratory Rate - - Oxygen Saturation - - Inhaled Oxygen Concentration - - Weight 55.3 kg (122 lb) 02/18/2025 9:00 AM EST Height 157.5 cm (5' 2 ) 02/18/2025 9:00 AM EST Body Mass Index 22.31 02/18/2025 9:00 AM EST documented in this encounter Patient Instructions * Patient Instructions* Albania Cordova, RN - 02/18/2025 9:00 AM EST Eating and Drinking before your surgery: Please do not eat any solid food at least 8 hours before the arrival time. We encourage the patient (including the patient with a feeding tube) to drink clear liquids up to 12oz (approximately 360 ml, 1.5 cup) until 2 hours before the scheduled arrival time. Apple sauce and thickener are considered to be solid food. If you need apple sauce or thickener to take your medication, you may substitute with clear jelly. Please note that the scheduled arrival time is earlier than your surgery time. Before Surgery Arrival Time You'll be asked to arrive 1-2 hours before your scheduled surgery. Your surgeon's office will confirm the exact time. Medication Instructions Medication Instructions General Medications Take medications as advised during your Pre-Procedure Evaluation (PPE) call. Diabetes Follow PPE instructions; contact your tool setter apprentice or prescribing provider if you have questions. Aspirin Continue unless told otherwise. Blood Thinners If you haven't received instructions, contact your surgeon or prescribing provider. Health Changes Notify your surgeon's office if you develop cold symptoms, fever, or experience major medical changes within 2 weeks before surgery. Transportation A responsible adult (18 years or older) is required to accompany you home. Please let your ride know that we will be calling them during the check-in process to confirm before proceeding You cannot drive yourself or take a taxi/public transport alone. What to Bring Item Details Photo ID Required at check-in. Medication List Include prescription, [id number], and supplements. Implant Device Card If you have a pacemaker/defibrillator, Inspire, spinal cord stimulator, deep brain stimulator, etc. Inhalers/Breathing Devices Bring if you use them. Valuables Leave at home. Day of Surgery Arrival Locations: (Your surgeon's office will tell you which location to report to.) Location Details Main [place]: Click here Address: [address] [place] [address] Go to the S Floor or 6th Floor Surgical Suites via the main [facility] elevators. [address] [place] [address]: Click here Address: [address] [place] [id number] Surgical Center is on the 2nd Floor. Pre-Op Procedures You'll confirm your name, birthdate, allergies, and procedure multiple times. A nurse and anesthesia care provider will review your history and answer questions. You may be asked to sign a consent form--ask for clarification if needed. Discuss anesthesia options (general, MAC, TIVA). You may change into a gown, store personal belongings, and have an IV started for fluids and medications. Remove: glasses, contacts, hearing aids, dentures, etc. before heading to the OR. After Surgery Recovery Room You'll be monitored closely in the Recovery area. Time spent here depends on the type of surgery and anesthesia received. Your care team will determine if you are eligible for same-day discharge or require an overnight stay. Outpatient (Same-Day Discharge) You'll receive written instructions and prescriptions. Once your escort arrives, you'll be transported to the [facility] by wheelchair. A nurse will call within 1-2 days to check on your recovery. Inpatient (Overnight Stay) Bring minimal personal items. Valuables are your responsibility. Rooms are typically semi-private. Frequent staff checks ensure comfort and safety. Hospital phones only make local calls through the nurses' station. A responsible adult must escort you home upon discharge. Pain Management Pain relief will be tailored to your needs--report discomfort early. Share what has worked in the past, including non-medicinal options. Let your team know if any pain meds have caused issues before. Services & Support Service How to Access Assistive Device Kits For hearing/visual needs. [place] through your surgeon's office. Payment Collector Services Available, including ASL and Braille. Request in advance. [facility] Worker Services Available upon request. Financial Assistance Contact the hospital's coordinator: [email or web address] Thank you for choosing [facility] and we look forward to seeing you. The Medical Evaluation Center Nurses documented in this encounter Progress Notes * Albania Cordova RN - 02/18/2025 9:00 AM EST PPE Call: Leslie Verified correct patient, procedure, site/laterality and date of the procedure. Laterality: Left Patient instructed in the following: NPO Guidelines Do not eat food or any cloudy liquids (dairy) 8 hours before your confirmed arrival time. You may drink water and clear liquids only, up until 2 hours prior to scheduled arrival time. Drinkup to 12 ounces of water (or 1?? cups) 2 hours before the scheduled arrival time at the hospital/surgery center. Continue to take medications as directed by your surgeon and/or PCP and take with just a few sips of water only on the morning of surgery. See AVS in media or letters Do not apply any skin lotion and or make up, hair products, fragrance, contact lenses, or jewelry on the day of surgery. Communicated need to have responsible person accompany patient home. Communicated need to bring picture identification, mobile phone and to leave any other valuables orjewelry at home. Patient informed of current Visitor policy. Patient informed of family/friend texting option. documented in this encounter Plan of Treatment Upcoming Encounters Date Type Department Care Team (Latest Contact Info) Description 02/24/2025 Procedure Pass [facility] [address] [place] [address] 02/24/2025 8:50 AM EST Hospital Encounter [facility] [address] [place] [address] Carole Fuller MD [address] [place] [address], [address] [place] [address] Margot [email or web address] [email or web address] 02/24/2025 8:50 AM EST - 02/24/2025 9:25 AM EST Surgery [facility] [address] [place] [address] Carole Fuller MD [address] [place] [address], [address] [address] Margot [email or web address] PHACOEMULSIFICATION OF CATARACT WITH INTRAOCULAR LENS IMPLANT 02/25/2025 2:30 PM EST Office Visit [facility] [address] [facility] [address] [place] [address] Carole Fuller MD [address] [place] [address], [address] [place] [address] Margot [email or web address] 03/04/2025 11:10 AM EST Office Visit [facility] [address] [place] [address] Carole Fuller MD [address] [place] [address], [address] [place] [address] Margot [email or web address] 03/27/2025 12:50 PM EST Office Visit [facility] [address] [facility] [address] [place] [address] Carole Fuller MD [address] [place] [address], [address] [place] [address] Margot [email or web address] 04/10/2025 1:00 PM EST Appointment [facility] [address] [place] [address] 04/10/2025 1:20 PM EST Office Visit [facility] [address] [address] Catarino Costello MD [address] [place] [address], [address] [place] [address] [email or web address] [place]. ON LICENSE OF [facility] Scheduled Procedures Name Priority Associated Diagnoses Date/Ti ne PHACOEMULSIFICATION OF CATAR ACT WITH INTRAOCULAR LENS IMPLANT Combined form of senile cataract of left eye 02/24/2025 8:50 AM EST documented as of this encounter Goals Goal Patient Goal Type Associated Problems Recent Progress Patient-Stated? Author Autogenera james Goal Care Plan Autogenerated Problem No Adelaida Rosenthal documented as of this encounter Visit Diagnoses Not on filedocumented in this encounter Additional Health Concerns Active Problems Noted Date Diagnosed Date Autogenerated Problem 02/11/2025 documented as of this encounter Care Teams Electronic Design Engineer Relationship Specialty Start Date End Date Wiley Segura DO [address] [place] [id number] PCP - General Internal Medicine 12/29/20 documented as of this encounter Additional Source Comments The information contained in this document represents components of the legal health record. It is not the complete legal health record.[facility]
--- NOTE | ~2025-02-20 | US_ITS ---
EXAMINATION: US TRIPLEX LOWER EXTREMITY, BILATERAL CLINICAL INFORMATION: Pain, lower extremities. COMPARISON: None available. TECHNIQUE: Color-flow triplex imaging with spectral analysis and compression Doppler were performed on the bilateral lower extremities. FINDINGS: Respiratory variation, normal compression and augmented flow are demonstrated throughout the interrogated common femoral vein, superficial femoral vein, profunda femoral vein, popliteal vein and midcalf peroneal and posterior tibial venous segments both lower extremities. There is no Reynolds's cyst. US/US venous duplex LE BI IMPRESSION: No acute deep venous thrombosis interrogated veins of the lower extremities. Negative for DVT. Electronically signed by: Kobe Akhtar MD 02/20/2025 09:24 AM EST
--- OUTSIDE RECORDS SUMMARY | 2025-02-20 09:07 | XMS_ITS | Clinical Summary ---
Author Organization [facility] Address [address] [place] [address] Phone Care Team Providers Care Technician Terminal And Repeater Name Role Phone ColtonWiley DO Primary Care Provider Allergies Active Allergy Reactions Criticality Noted Date Comments Meperidine Feeling Irritable Low 10/04/2023 Naproxen Sodium 10/04/2023 Medications cycloSPORINE (VEVYE) 0.1 % solution Place 1 drop into each eye 2 (two) times a day. Separate other eye products by at least 15 minutes. 2 mL 6 10/04/19 24 Active Additional Information Patient not taking.Reported on 02/18/2025 fluorometholon e (FML LIQUIFILM) 0.1 % ophthalmic suspension Place 1 drop into each eye 2 (two) times a day. Use 1 drop 2x/day x 2 weeks then stop 5 mL 10/04/19 24 Active Additional Information Patient not taking.Reported on 02/18/2025 estradioL (VIVELLE-DOT) 0.025 mg/24 hr Apply topically. 05/16/19 23 Active omeprazole (PRILOSEC) 40 MG capsule 1 capsule 30 minutes before morning meal as needed Orally Once a day Active rosuvastatin (CRESTOR) 10 MG tablet Take 10 mg by mouth daily. Active prednisoLONE acetate (PRED FORTE) 1 % ophthalmic suspension Place 1 drop into the right eye 4 (four) times a day. Stop after 1 week 5 mL 02/21/20 24 Active Additional Information Patient not taking.Reported on 02/18/2025 perfluorohexyl octane, PF, (MIEBO, PF,) 100 % Drop Apply 1 drop in each eye to eye 4 (four) times a day. 3 mL 6 08/22/19 Active Additional Information Patient not taking.Reported on 02/18/2025 VEVYE 0.1 % solutionIndica tions:Dry eyes Place 1 drop into each eye 2 (two) times a day. Separate other eye products by at least 15 minutes. 6 mL 6 02/12/20 Active bromfenac (PROLENSA) 0.07 % Drop ophthalmic solution Place 1 drop into the left eye daily. Start 3 days prior to procedure and continue as instructed 3 mL 1 02/12/20 25 025 Active Additional Information Patient not taking.Reported on 02/18/2025 estradioL (CLIMARA) 0.0375 mg/24 hr Apply 1 patch topically once a week. 01/15/20 Active PEG 400-propylene glycol, PF, (SYSTANE ULTRA) 0.4-0.3 % Dpet Place 1 drop into each eye as needed. Active VEVYE 0.1 % solutionIndica tions:Dry eyes Place 1 drop into each eye 2 (two) times a day. Separate other eye products by at least 15 minutes. 6 mL 6 02/11/20 25 025 Discontinued Active Problems No known active problems Encounters Date Type Department Care Team Description 02/18/2025 9:00 AM EST Pre-Admission Testing [facility] [address] [place] [address] Carole Fuller MD 02/17/2025 Telephone [facility] [address] [place] [address] Carole Fuller MD 02/11/2025 Orders Only [facility] [address] [place] [address] Carole Fuller MD 02/11/2025 Refill [facility] [address] [place] [address] Carole Fuller MD Medication Refill 02/11/2025 Orders Only [facility] [address] [place] [address] Carole Fuller MD Dry eyes 02/10/2025 1:30 PM EST Office Visit [facility] [address] [place] [address] Carole Fuller MD Nuclear sclerotic cataract, left (Primary Dx); Corneal scar; Regular astigmatism of both eyes; S/P LASIK (laser assisted in situ keratomileusis); Pseudophakia of right eye; Dry eyes 02/10/2025 Refill [facility] [address] [place] [address] Carole Fuller MD Med Change Request 02/10/2025 Prep for Surgery [facility] [address] [place] [address] Carole Fuller MD Combined form of senile cataract of left eye (Primary Dx) 02/05/2025 1:40 PM EST Office Visit [facility] [place] [address] [place] [address] Catarino Costello MD Retinal hemorrhage of right eye (Primary Dx); Combined forms of 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; Pseudophakia of right eye; Bilateral dry eyes from Last 3 Months Family History Medical History Relation Comments Cataracts Mother Glaucoma Mother Macular degeneration Mother Relation Status Comments Mother Social History Tobacco Use Types Packs/Day Years Used Date Smoking Tobacco: Never Smokeless Tobacco: Never Tobacco Cessation:Counseling Given: Not Answered Alcohol Use Standard Drinks/Week Comments Yes 7 [...] Mass Index 22.31 02/18/2025 9:00 AM EST Plan of Treatment Upcoming Encounters Date Type Department Care Team (Latest Contact Info) Description 02/24/2025 Procedure Pass [facility] [address] [place] [address] 02/24/2025 8:50 AM EST Hospital Encounter [facility] [address] [place] [address] Carole Fuller MD [address] [place] [address], [address] [address] Margot [email or web address] 02/24/2025 8:50 AM EST - 02/24/2025 9:25 AM EST Surgery [facility] [address] [place] [address] Carole Fuller MD [address] [place] [address], [address] [place] [address] Margot [email or web address] PHACOEMULSIFICATION OF CATARACT WITH INTRAOCULAR LENS IMPLANT 02/25/2025 2:30 PM EST Office Visit [facility] [place] [address] Carole Fuller MD [address] [place] [address], [address] [place] [address] Margot [email or web address] 03/04/2025 11:10 AM EST Office Visit [facility] [address] [facility] [address] [place] [address] Carole Fuller MD [address] [facility], [address] [place] [address] Margot [email or web address] 03/27/2025 12:50 PM EST Office Visit [facility] [address] [facility] [address] [place] [address] Carole Fuller MD [address] [facility], [address] [place] [address] Margot [email or web address] 04/10/2025 1:00 PM EST Appointment [facility] [place] [address] [facility] [address] [place] [address] 04/10/2025 1:20 PM EST Office Visit [facility] [place] [address] [facility] [address] [place] [address] Catarino Costello MD [address] [facility], [address] [place] [address] [email or web address] Scheduled Procedures Name Priority Associated Diagnoses Date/Ti me PHACOEMULSIFICATION OF CATAR ACT WITH INTRAOCULAR LENS IMPLANT Combined form of senile cataract of left eye 02/24/2025 8:50 AM EST Health Maintenance Due Date Last Done Comments Adult Td,Tdap Booster 1950 LIPID PANEL 1948 DEPRESSION SCREENING 1960 HEPATITIS C SCREENING 1966 PNEUMOCOCCAL VACCINES (50+ years) (1 of 1 - PCV) 1998 ZOSTER VACCINES (2 of 3) 03/01/2012 01/05/2012 OSTEOPOROSIS SCREENING INITIAL (ONE-TIME) 2013 RSV VACCINE (1 - 1-dose 75+ series) 10/31/2023 INFLUENZA VACCINE (#1) 2024 , 01/16/2019, 12/27/2017, Additional history exists COVID-19 VACCINE (2024- season) 2024 06/10/2020, 05/13/2020 SMOKING STATUS SCREENING (Once After 26 Yrs) Completed 02/18/2025 HEPATITIS A VACCINES Aged Out No long [...] on patient's age to complete this topic Goals Goal Patient Goal Type Associated Problems Recent Progress Patient-Stated? Author Autogenera james Goal Care Plan Autogenerated Problem Adelaida Perry Medical Devices Implanted Type Area Data Technician Device Identifier Shelf Expiration Date Model / Serial / Lot Staple Staple Abdomen Iol Procedures Procedure Name Priority Date/Time Associated Diagnosis Comments CORNEAL TOPOGRAPHY - OU - BOTH EYES Routine 02/10/2025 2:05 PM EST Nuclear sclerotic cataract, left OCT, RETINA - OU - BOTH EYES Routine 02/10/2025 2:04 PM EST Nuclear sclerotic cataract, left OPTICAL BIOMETRY - OU - BOTH EYES Routine 02/10/2025 2:04 PM EST Nuclear sclerotic cataract, left OCT, RETINA - OU - BOTH EYES Routine 02/05/2025 4:06 PM EST Retinal hemorrhage of right eye from Last 3 Months Results * Corneal Topography - OU - Both Eyes (02/10/2025 2:05 PM EST) Anatomical Region Laterality Modality Head Optical Coherenc e Tomography Narrative 02/10/2025 2:05 PM EST 3.28D cyl at 102 OD 0.19D cyl at 104 OS us Carole Venkateswaran MD OPHTHALMOLOGY IMAGING F inal Result * OCT, RETINA - OU - BOTH EYES - [place] (02/10/2025 2:04 PM EST) Narrative HARMONY - 02/10/2025 2:04 PM EST Right Eye Quality was good. Findings include normal foveal contour. Left Eye Quality was good. Findings include normal foveal contour. Carole Fuller MD OPHTHALMOLOGY IMAGING F inal Result Performing Organization Address [facility] de Phone Number HARMONY * Optical Biometry - OU - Both Eyes (02/10/2025 2:04 PM EST) [facility] Signature Axial Length - OS 22.25 HARMONY Axial Length - OD 21.70 HARMONY Narrative HARMONY - 02/10/2025 2:04 PM EST Right Eye Axial length was 21.70. Left Eye Axial length was 22.25. Notes I have reviewed the biometry data. Carole Fuller MD OPHTHALMOLOGY IMAGING F inal Result Performing Organization Address [facility] Phone Number KELLEYY * OCT, RETINA - OU - BOTH EYES - [place] (02/05/2025 4:06 PM EST) Narrative KELLEYY - 02/05/2025 4:06 PM EST Right Eye Quality was good. Findings include normal foveal contour. Disease has: been stable. Left Eye Quality was good. Findings include normal foveal contour. Disease has: been stable. Catarino Costello MD OPHTHALMOLOGY IMAGING Final Res ult Performing Organization Address [facility] de Phone Number [facility] [employer] Elena from Last 3 Months Additional Health Concerns Active Problems Noted Date Diagnosed Date Autogenerated Problem 02/11/2025 Insurance MEDICARE PART A & B [employer] MEDEX SUPPLEMENT MEDICARE PART A & B [employer] MED[employer] SUPPLEMENT MEDICARE PART A & B [employer] MED[employer] SUPPLEMENT MEDICARE PART A & B [employer]EX SUPPLEMENT MEDICARE PART A & B [employer] MEDEX SUPPLEMENT MEDICARE PART A & B [employer] MEDEX SUPPLEMENT MEDICARE PART A & B [employer] MEDEX SUPPLEMENT MEDICARE PART A & B [employer] MEDEX SUPPLEMENT MEDICARE PART A & B Member Subscriber Plan / Payer (Ef fective 2018-Present) Name:Leslie Wagner Member ID:[id number] Relation to Subscriber:Self Name:Leslie Wagner Subscriber ID:[id number] Payer ID:[id number] Group ID:Not on file Type:Medicare Address: [employer] [address] [place] [phone] [employer] MEDEX SUPPLEMENT Care Teams Technician Terminal And Repeater Relationship Specialty Start Date End Date Wiley Segura DO [address] [place] [address] PCP - General Internal Medicine 12/29/20 Additional Source Comments The information contained in this document represents components of the legal health record. It is not the complete legal health record.[facility]
--- OUTSIDE RECORDS SUMMARY | 2025-02-20 09:07 | XMS_ITS | Encounter Summary ---
Author Organization [facility] Address [address] [place] [address] [place] [phone] Phone Care Team Providers Care Hardware Engineer Name Role Phone Wiley Segura Primary Care Provider + [phone] Reason for Visit * Reason Comments Med Change Request Encounter Details Date Type Department Care Team (Late st Contact Info) Description 02/10/2025 Refill [facility] [address] [facility] [address] [place] [address] Carole Fuller MD [address] [facility], [address] [place] [address] [email or web address] Med Change Request Social History Tobacco Use Types Packs/Day Years [...] Procedure Pass [facility] [address] [place] [address] 02/24/2025 8:50 AM EST Hospital Encounter [facility] [address] [place] [address] Carole Fuller MD [address] [place] [address], [address] [place] [address] Margot [email or web address] 02/24/2025 8:50 AM EST - 02/24/2025 9:25 AM EST Surgery [facility] [address] [place] [address] Carole Fuller MD [address] [place] [address], [address] [place] [address] Margot [email or web address] PHACOEMULSIFICATION OF CATARACT WITH INTRAOCULAR LENS IMPLANT 02/25/2025 2:30 PM EST Office Visit [facility] [address] [facility] [address] [place] [address] Carole Fuller MD [address] [place] [address], [address] [place] [address] Margot [email or web address] 03/04/2025 11:10 AM EST Office Visit [facility] [address] [facility] [address] [place] [address] Carole Fuller MD [address] [place] [address], [address] [place] [address] Margot [email or web address] 03/27/2025 12:50 PM EST Office Visit [facility] [address] [place] [address] Craole Fuller MD 110 [facility], [address] [place] [address] Margot [email or web address] 04/10/2025 1:00 PM EST Appointment [facility] [place] [facility] [address] [place] [address] 04/10/2025 1:20 PM EST Office Visit [facility] [address] [place] [address] Catarino Costello MD [address] [facility], [address] [place] [address] [email or web address] Scheduled Procedures Name Priority Associated Diagnoses Date/Ti me PHACOEMULSIFICATION OF CATAR ACT WITH INTRAOCULAR LENS IMPLANT Combined form of senile cataract of left eye 02/24/2025 8:50 AM EST documented as of this encounter Visit Diagnoses Diagnosis Combined form of age-related cataract, left eye- Primary Dry eyes Unspecified tear film insufficiency Combined form of senile cataract of left eye documented in this encounter Care Teams Hardware Engineer Relationship Specialty Start Date End Date Wiley Segura DO [address] [place] [address] PCP - General Internal Medicine 12/29/20 documented as of this encounter Additional Source Comments The information contained in this document represents components of the legal health record. It is not the complete legal health record.[facility]
--- OUTSIDE RECORDS SUMMARY | 2025-02-20 09:07 | XMS_ITS | Continuity of Care Document ---
Author Organization [facility] [address] [place] [address] Phone [phone] Social History Type Date Description Comments Sex Female Sex Unknown Medical Devices Description No Information Available Encounters Description No Information Available Assessments Description No Information Available Plan of Treatment No Information Available Functional Status Description No Information Available Mental Status Description No Information Available Referrals Description No Information Available
--- OUTSIDE RECORDS SUMMARY | 2025-02-20 09:07 | XMS_ITS | Encounter Summary ---
Author Organization [facility] Address [address] [place] [address] Phone Care Team Providers Care Animal Bounty Hunter Name Role Phone Yusef Soares MD Primary Care Provider Wiley Segura DO Primary Care Provider [phone] Encounter Details Date Type Department Care Team (Late st Contact Info) Description 01/01/2018 Ancillary Orders [facility], X-Ray - [address] [address] Lisa Parham, KENNEDY [address] [place] [phone] [email or web address] Radiculopathy, lumbar region; Sacral pain Social History [...] Procedure Pass [facility] [address] [place] [address] 02/24/2025 8:50 AM EST Hospital Encounter [facility] [address] [place] [address] Carole Fuller MD [address] [place] [address], [address] [place] [address] Margot [email or web address] 02/24/2025 8:50 AM EST - 02/24/2025 9:25 AM EST Surgery [facility] [address] [place] [address] Carole Fuller MD [address] [place] [address], [address] [place] [address] Margot [email or web address] PHACOEMULSIFICATION OF CATARACT WITH INTRAOCULAR LENS IMPLANT 02/25/2025 2:30 PM EST Office Visit [facility] [address] [place] [address] [place] [address] Carole Fuller MD [address] [place] [address], [address] [place] [address] Margot [email or web address] 03/04/2025 11:10 AM EST Office Visit [facility] [address] [place] [address] Carole Fuller MD [address] [place] [address], [address] [place] [address] Margot [email or web address]@[facility] 03/27/2025 12:50 PM EST Office Visit [facility] [address] [place] [address] [place] [address] Carole Fuller MD [address] [place] [address], [address] [place] [address] Margot [email or web address] 04/10/2025 1:00 PM EST Appointment [facility] [place] [address] [facility] [address] [place] [address] 04/10/2025 1:20 PM EST Office Visit [facility] [place] [address] [facility] [address] [place] [address] Catarino Costello MD 110 [facility], [address] [place] [address] [email or web address] Scheduled Procedures Name Priority Associated Diagnoses Date/Ti ak PHACOEMULSIFICATION OF CATAR ACT WITH INTRAOCULAR LENS IMPLANT Combined form of senile cataract of left eye 02/24/2025 8:50 AM EST documented as of this encounter Results * [...] by: Constance Ibarra on 01/01/2018 12:56 PM Lisa Parham NP IMG XR SPINE Final [...] Thoracic or lumbosacral neuritis or radiculitis, unspecified Combined form of age-related cataract, left eye- Primary Combined form of senile cataract of left eye documented in this encounter Care Teams Animal Bounty Hunter Relationship Specialty Start Date End Date Yusef Soares MD [address] [place] [address] PCP - General Internal Medicine 01/01/18 12/28/20 Wiley Segura DO [address] [place] [address] PCP - General Internal Medicine 12/29/20 documented as of this encounter Additional Source Comments The information contained in this document represents components of the legal health record. It is not the complete legal health record.[facility]
--- OUTSIDE RECORDS SUMMARY | 2025-02-20 09:07 | XMS_ITS | Encounter Summary ---
Author Organization [facility] Address [address] [place] [address] [place] [address] Phone Care Team Providers Care Ceramic Plater Name Role Phone Wiley Segura Primary Care Provider [phone] Encounter Details Date Type Department Care Team (Late st Contact Info) Description 02/17/2025 Telephone [facility] [address] [facility] [address] [place] [address] Carole Fuller MD 110 [facility], [address] [place] [address] [email or web address] Social History Tobacco Use Types Packs/Day Years [...] as of this encounter Progress Notes * Kanika Light - 02/17/2025 10:14 AM EST Called pt. to give surgery arrival time, address, fasting instructions and eye drop details. documented in this encounter Plan of Treatment Upcoming Encounters Date Type Department Care Team (Latest Contact Info) Description 02/24/2025 Procedure Pass [facility] [address] [place] [address] 02/24/2025 8:50 AM EST Hospital Encounter [facility] [address] [place] [address] Carole Fuller MD [address] [place] [address] Margot [email or web address] 02/24/2025 8:50 AM EST - 02/24/2025 9:25 AM EST Surgery [facility] [address] [place] [address] Carole Fuller MD [address] [place] [address], [address] [place] [address] Margot [email or web address]@[facility] PHACOEMULSIFICATION OF CATARACT WITH INTRAOCULAR LENS IMPLANT 02/25/2025 2:30 PM EST Office Visit [facility] [address] [facility] [address] [place] [address] Carole Fuller MD [address] [place] [address], [address] [address] Margot [email or web address] 03/04/2025 11:10 AM EST Office Visit [facility] [address] [place] [address] Carole Fuller MD 110 [facility], [address] [place] [address] Margot [email or web address] 03/27/2025 12:50 PM EST Office Visit [facility] [address] [place] [address] Carole Fuller MD 110 [facility], [address] [place] [address] Margot [email or web address] 04/10/2025 1:00 PM EST Appointment [facility] [address] [place] [address] 04/10/2025 1:20 PM EST Office Visit [facility] [place] [address] [facility] [address] [place] [address] Catarino Costello MD [address] [facility], [address] [place] [address] [email or web address] Scheduled Procedures Name Priority Associated Diagnoses Date/Ti ny PHACOEMULSIFICATION OF CATAR ACT WITH INTRAOCULAR LENS [...] documented as of this encounter Care Teams Ceramic Plater Relationship Specialty Start Date End Date Wiley Segura DO [address] [place] [address] PCP - General Internal Medicine 12/29/20 documented as of this encounter Additional Source Comments The information contained in this document represents components of the legal health record. It is not the complete legal health record.[facility]
--- OUTSIDE RECORDS SUMMARY | 2025-02-20 09:08 | XMS_ITS | Encounter Summary ---
Author Organization [facility] Address [address] [place] [address] Phone Care Team Providers Care Advertising Layout Worker Name Role Phone Yusef Soares MD Primary Care Provider Wiley Segura DO Primary Care Provider [phone] Reason for Referral * MRI/CAT Scan - Closed Specialty Diagnoses / Procedures Referred By Reid meek Referred To Contact Radiology Diagnoses Lumbar radiculopathy Procedures MRI Lumbar Spine Lisa Parham NP [address] [place] [address] Phone: tel: fax: mailto:[email or web address] [place], [place] Phone: tel: Referral ID Status Reason Start Date Expiration Date Visits Re quested Visits Authorized [id number] Closed 10/19/2020 10/19/2021 1 1 Encounter Details Date Type Department Care Team (Latest Contact Info) Description 10/19/2020 Transcribe Orders [facility] [address] [place] [address] Lisa Parham NP [address] [place] [phone] [email or web address] Lumbar radiculopathy (Primary Dx) Social History Tobacco [...] Procedure Pass [facility] [address] [place] [address] 02/24/2025 8:50 AM EST Hospital Encounter [facility] [address] [place] [address] Carole Fuller MD [address] [place] [address] Margot [email or web address] 02/24/2025 8:50 AM EST - 02/24/2025 9:25 AM EST Surgery [facility] [address] [place] [address] Carole Fuller MD [address] [place] [address], [place] [phone] Margot [email or web address] PHACOEMULSIFICATION OF CATARACT WITH INTRAOCULAR LENS IMPLANT 02/25/2025 2:30 PM EST Office Visit [facility] [address] [facility] [address] [place] [address] Carole Fuller MD [address] [place] [address], [address] [address] Margot [email or web address] 03/04/2025 11:10 AM EST Office Visit [facility] [address] [address] Carole Fuller MD [address] [place] [address], [address] [place] [address] Margot [email or web address] 03/27/2025 12:50 PM EST Office Visit [facility] [place] [address] Carole Fuller MD [address] [place] [address], [address] [place] [address] Margot [email or web address] 04/10/2025 1:00 PM EST Appointment [facility]PHTH[facility] TESTING [address] [place] [address] 04/10/2025 1:20 PM EST Office Visit [facility] [address] [place] [address] Catarino Costello MD [address] [place] [address], [address] [place] [address] [email or web address] Scheduled Procedures Name Priority Associated Diagnoses Date/Ti pr PHACOEMULSIFICATION OF CATAR ACT WITH INTRAOCULAR LENS [...] eye documented in this encounter Care Teams Advertising Layout Worker Relationship Specialty Start Date End Date Yusef Soares MD [address] [place] [address] PCP - General Internal Medicine 01/01/18 12/28/20 Wiley Segura DO [address] [place] [address] PCP - General Internal Medicine 12/29/20 documented as of this encounter Additional Source Comments The information contained in this document represents components of the legal health record. It is not the complete legal health record.[facility]
--- OUTSIDE RECORDS SUMMARY | 2025-02-20 09:08 | XMS_ITS | Encounter Summary ---
Author Organization [facility] Address [address] [place] [address] [address] [place] [address] Phone Care Team Providers Care Mail Service Coordinator Name Role Phone Yusef Soares MD Primary Care Provider Wiley Segura DO Primary Care Provider [phone] Encounter Details Date Type Department Care Team (Late st Contact Info) Description 10/19/2020 Procedure Pass [facility], [address] [address] Social History Tobacco Use Types Packs/Day Years [...] Procedure Pass [facility] [address] [place] [address] 02/24/2025 8:50 AM [facility] Hospital Encounter [facility] [address] [place] [address] Carole Fuller MD [address] [place] [address], [address] [place] [address] Margot [email or web address] 02/24/2025 8:50 AM EST - 02/24/2025 9:25 AM EST Surgery [facility] [address] [place] [address] Carole Fuller MD [address] [place] [address], [address] [address] Margot [email or web address] PHACOEMULSIFICATION OF CATARACT WITH INTRAOCULAR LENS IMPLANT 02/25/2025 2:30 PM EST Office Visit [facility] 110 [facility] [address] [place] [address] Carole Fuller MD [address] [place] [address], [address] [place] [address] Margot [email or web address] 03/04/2025 11:10 AM EST Office Visit [facility] [address] [facility] [address] [place] [address] Carole Fuller MD [address] [place] [address], [address] [place] [address] Margot [email or web address] 03/27/2025 12:50 PM EST Office Visit [facility] [address] [facility] [address] [place] [address] Carole Fuller MD [address] [place] [address], [address] [place] [address] Margot [email or web address] 04/10/2025 1:00 PM EST Appointment [facility]PH[facility] TEST[facility] [address] [place] [address] 04/10/2025 1:20 PM EST Office Visit [facility] [address] [place] [address] Catarino Costello MD 110 [facility], [address] [place] [address] [email or web address] Scheduled Procedures Name Priority Associated Diagnoses Date/Ti mi PHACOEMULSIFICATION OF CATAR ACT WITH INTRAOCULAR LENS IMPLANT Combined form of senile cataract of left eye 02/24/2025 8:50 AM EST documented as of this encounter Visit Diagnoses Not on filedocumented in this encounter Care Teams Mail Service Coordinator Relationship Specialty Start Date End Date Yuesf Soares MD [address] [place] [address] PCP - General Internal Medicine 01/01/18 12/28/20 Wiley Segura DO [address] [place] [address] PCP - General Internal Medicine 12/29/20 documented as of this encounter Additional Source Comments The information contained in this document represents components of the legal health record. It is not the complete legal health record.[facility]
== END 2025-02-20 08:31 | disposition home or self-care (01) ==
LOC: HO.US 08:30
PROVIDERS: PCP Internal Medicine; Visit Provider Physician Assistant Medical
DX: I83.813 Varicose veins of bilateral lower extremities with pain (principal)
CPT/HCPCS: 93970

== ENCOUNTER → 2025-02-20 08:32 | Outpatient (BNV) | payer MEDICARE, SELFPAY | PROVIDERS: PCP Internal Medicine; Visit Provider Radiology Diagnostic Radiology | DX: M79.661 Pain in right lower leg (principal); M79.662 Pain in left lower leg | CPT/HCPCS: 93970 ==

== ENCOUNTER 2025-03-10 09:33 | Day surgery (SDC) | payer MEDICARE, SELFPAY ==
--- OUTSIDE RECORDS SUMMARY | 2025-02-05 13:40 | XMS_ITS | Encounter Summary ---
Author Organization [facility] Address [address] [place] [address] [place] [address] Phone Care Team Providers Care Upholstery Estimator Name Role Phone ColtonWiley smalls Jimbo JOHNSON Primary Care Provider [phone] Encounter Details Date Type Department Care Team (Late st Contact Info) Description 02/05/2025 1:40 PM EST Office Visit [facility] [address] [place] [address] Catarino Costello MD [address] [facility], [address] [place] [address] [email or web address] Retinal hemorrhage of right eye (Primary Dx); Combined forms of 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; Pseudophakia of right eye; Bilateral dry eyes Social History Tobacco Use Types Packs/Day Years Used Date Smoking Tobacco: Never Smokeless Tobacco: Never Alcohol Use Standard Drinks/Week Comments Yes 0 [...] AM EDT documented as of this encounter Progress Notes * Catarino Costello MD - 02/05/2025 1:40 PM EST PMHx: HTN, HLD Disc hemorrhage, OD - Noted to be present few weeks after cataract surgey - No posterior vitreous detachment - Mother with glaucoma - RNFL within normal limits (10/12/2023) - IOP normal-low - Heme as resolved as of 03/06/2024 Vitreomacular traction, 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, 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 rather than Mac Tel Pseudophakia, OD - S/p YAG laser capsulotomy cap 02/2024 Cataract, OS - Becoming visually significant - Recommend eval with cataract surgeon, patient requesting option for surgery in [place] H/o LASIK OU (~2014) Dry eye, both eyes - On systane QID, still having symptoms Return to retina clinic in 6 months documented in this encounter Plan of Treatment Upcoming Encounters Date Type Department Care Team (Late st Contact Info) Description 02/10/2025 1:00 PM EST Appointment [facility] [address] [place] [address] 02/10/2025 1:30 PM EST Office Visit [facility] [address] [place] [address] Carole Fuller MD [address] [facility], [address] [place] [address] Yuli [email or web address] 04/10/2025 1:00 PM EST Appointment [facility] [address] [place] [address] 04/10/2025 1:20 PM EST Office Visit [facility] [place] [address] [place] [address] Catarino Costello MD [address] [facility], [address] [place] [address] [email or web address] documented as of this encounter Procedures Procedure Name Priority Date/Time Associated Diagnosis Comments OCT, RETINA - OU - BOTH EYES Routine 02/05/2025 4:06 PM EST Retinal hemorrhage of right eye documented in this encounter Results * OCT, RETINA - OU - BOTH EYES - [place] (02/05/2025 4:06 PM EST) Narrative TARAN - 02/05/2025 4:06 PM EST Right Eye Quality was good. Findings include normal foveal contour. Disease has: been stable. Left Eye Quality was good. Findings include normal foveal contour. Disease has: been stable. us Catarino Costello MD OPHTHALMOLOGY IMAGING Final Res ult TARAN documented in this encounter Visit Diagnoses Diagnosis Retinal hemorrhage of right eye- Primary Retinal hemorrhage Combined forms of 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 Pseudophakia of right eye Lens replaced by other means Bilateral dry eyes documented in this encounter Care Teams Upholstery Estimator Relationship Specialty Start Date End Date Wiley Segura DO [address] [place] [address] PCP - General Internal Medicine 12/29/20 documented as of this encounter Additional Source Comments The information contained in this document represents components of the legal health record. It is not the complete legal health record.[facility]
--- OUTSIDE RECORDS SUMMARY | 2025-02-06 19:42 | XMS_ITS | Encounter Summary ---
Author Organization [facility] Address [address] [place] [address] Phone Care Team Providers Care Bus Mechanic Name Role Phone Yusef Soares MD Primary Care Provider Wiley Segura DO Primary Care Provider [phone] Reason for Referral * MRI/CAT Scan - Closed Specialty Diagnoses / Procedures Referred By Reid meek Referred To Contact Radiology Diagnoses Lumbar radiculopathy Procedures MRI Lumbar Spine Lisa Parham NP [address] [place] [address] Phone: tel: fax: mailto:[email or web address] [facility] [address] [place], [place] Phone: tel: Referral ID Status Reason Start Date Expiration Date Visits Re quested Visits Authorized [id number] Closed 10/19/2020 10/19/2021 1 1 Encounter Details Date Type Department Care Team (Latest Contact Info) Description 10/19/2020 Transcribe Orders [facility] Department [address] [place] [address] Lisa Parham NP [address] [place] [phone] [email or web address] Lumbar radiculopathy (Primary Dx) Social History Tobacco [...] 1:00 PM EST Appointment [facility] [place] [address] [place] [address] 02/10/2025 1:30 PM EST [facility] [address] [place] [address] Carole Fuller MD [address] [facility], [address] [place] [address] [email or web address] 04/10/2025 1:00 PM EST Appointment [facility] [place] [address] [place] [address] 04/10/2025 1:20 PM EST Office Visit [facility] [place] [address] [place] [address] Catarino Costello MD [address] [facility], [address] [place] [address] [email or web address] documented as of this encounter [...] degenerative changes. No significant canal orneuroforaminal stenosis. Lisa Parham NP IMG MR XSPECIALTY Final Result documented in this encounter Visit Diagnoses Diagnosis Lumbar radiculopathy- Primary Thoracic or lumbosacral neuritis or radiculitis, unspecified Lumbar radiculopathy Thoracic or lumbosacral neuritis or radiculitis, unspecified documented in this encounter Care Teams Bus Mechanic Relationship Specialty Start Date End Date Yusef Soares MD [address] [place] [address] PCP - General Internal Medicine 01/01/18 12/28/20 Wiley Segura DO [address] [place] [address] PCP - General Internal Medicine 12/29/20 documented as of this encounter Additional Source Comments The information contained in this document represents components of the legal health record. It is not the complete legal health record.[facility]
--- OUTSIDE RECORDS SUMMARY | 2025-02-06 19:42 | XMS_ITS | Encounter Summary ---
Author Organization [facility] Address [address] [place] [address] [place] [address] Phone Care Team Providers Care Regulatory Submissions Specialist Name Role Phone Yusef Soares MD Primary Care Provider [phone] Wiley Segura DO Primary Care Provider [phone] Encounter Details Date Type Department Care Team (Late st Contact Info) Description 10/19/2020 Procedure [facility], [address] [address] Social History Tobacco Use Types Packs/Day Years [...] 1:00 PM EST Appointment [facility] [address] [place] [address] 02/10/2025 1:30 PM EST Office Visit [facility] [address] [facility] [address] [place] [address] Carole Fuller MD [address] [facility], [address] [place] [address] Carole_Charles [email or web address] 04/10/2025 1:00 PM EST Appointment [facility] [address] [place] [address] 04/10/2025 1:20 PM EST Office Visit [facility] [address] [place] [address] Catarino Costello MD [address] [place] [address], [address] [place] [address] [email or web address] documented as of this encounter Visit Diagnoses Not on filedocumented in this encounter Care Teams Regulatory Submissions Specialist Relationship Specialty Start Date End Date Yusef Soares MD [address] [place] [address] PCP - General Internal Medicine 01/01/18 12/28/20 Wiley Segura DO [address] [place] [address] PCP - General Internal Medicine 12/29/20 documented as of this encounter Additional Source Comments The information contained in this document represents components of the legal health record. It is not the complete legal health record.[facility]
--- OUTSIDE RECORDS SUMMARY | 2025-02-06 19:42 | XMS_ITS | Encounter Summary ---
Author Organization [facility] Address [address] [place] [address] [place] [address] Phone Care Team Providers Care Sap Hana Architect Name Role Phone Yusef Soares MD Primary Care Provider [phone] Wiley Segura DO Primary Care Provider [phone] Encounter Details Date Type Department Care Team (Late st Contact Info) Description 01/01/2018 Ancillary Orders [facility], X-Ray - [address] [address] Lisa Parham, KENNED[place] [address] [place] [phone] [email or web address] Radiculopathy, lumbar region; Sacral pain Social History [...] 1:00 PM EST Appointment [facility] [place] [address] [place] [address] 02/10/2025 1:30 PM EST [facility] [address] [place] [address] Carole Fuller MD [address] [facility], [address] [place] [address] [email or web address] 04/10/2025 1:00 PM EST Appointment [facility] [place] [address] [place] [address] 04/10/2025 1:20 PM EST Office Visit [facility] [place] [address] [place] [address] Catarino Costello MD [address] [facility], [address] [place] [address] [email or web address] documented as of this encounter Results * [...] on 01/01/2018 12:56 PM us Lisa Parham NP IMG XR SPINE Final Result * XR [...] by: Constance Ibarra on 01/01/2018 12:57 PM us Lisa Parham NP IMG XR SPINE Final Result documented in this encounter Visit Diagnoses Diagnosis Radiculopathy, lumbar region Thoracic or lumbosacral neuritis or radiculitis, unspecified Sacral pain Sacral pain Radiculopathy, lumbar region Thoracic or lumbosacral neuritis or radiculitis, unspecified documented in this encounter Care Teams Sap Hana Architect Relationship Specialty Start Date End Date Yusef Soares MD [address] [place] [address] PCP - General Internal Medicine 01/01/18 12/28/20 Wiley Segura DO [address] [place] [address] PCP - General Internal Medicine 12/29/20 documented as of this encounter Additional Source Comments The information contained in this document represents components of the legal health record. It is not the complete legal health record.[facility]
--- OUTSIDE RECORDS SUMMARY | 2025-02-06 19:42 | XMS_ITS | Clinical Summary ---
Author Organization [facility] Address [address] [place] [address] Phone Care Team Providers Care Meat Counter Worker Name Role Phone ColtonWiley DO Primary Care Provider [phone] Allergies Active Allergy Reactions Criticality Noted Date [...] Active Active Problems No known active problems Encounters Date Type Department Care Team Description 02/05/2025 1:40 PM EST Office Visit [facility] [place] [address] [place] [address] Catarino Costello MD Retinal hemorrhage of right eye (Primary Dx); Combined forms of 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; Pseudophakia of right eye; Bilateral dry eyes from Last 3 Months Family History Medical History Relation Comments Cataracts [...] 1:00 PM EST Appointment [facility] [address] [place] [address] 02/10/2025 1:30 PM EST Office Visit [facility] [address] [place] [address] Carole Fuller MD [address] [facility], [address] [place] [address] [email or web address] 04/10/2025 1:00 PM EST Appointment [facility] [address] [place] [address] 04/10/2025 1:20 PM EST Office Visit [facility] [place] [address] [place] [address] Catarino Costello MD [address] [facility], [address] [place] [address] [email or web address] Health Maintenance Due Date Last Done Comments [...] STATUS SCREENING (Once After 26 Yrs) Completed 02/05/2025 HEPATITIS A VACCINES Aged Out No long [...] this topic Medical Devices Not on file Procedures Procedure Name Priority Date/Time Associated Diagnosis Comments DEC, RETINA - OU - BOTH EYES Routine 02/05/2025 4:06 PM EST Retinal hemorrhage of right eye from Last 3 Months Results * OCT, RETINA - OU - BOTH EYES - [place] (02/05/2025 4:06 PM EST) Narrative TARAN - 02/05/2025 4:06 PM EST Right Eye Quality was good. Findings include normal foveal contour. Disease has: been stable. Left Eye Quality was good. Findings include normal foveal contour. Disease has: been stable. us Catarino Costello MD OPHTHALMOLOGY IMAGING Final Res ult TARAN from Last 3 Months Insurance MEDICARE PART A & B [place] [employer] SUPPLEMENT MEDICARE PART A & B [employer] MEDEX SUPPLEMENT MEDICARE PART A & B [employer] MEDEX SUPPLEMENT MEDICARE PART A & B [facility] MEDEX SUPPLEMENT MEDICARE PART A & B [employer] MEDEX SUPPLEMENT MEDICARE PART A & B [employer] MEDEX SUPPLEMENT MEDICARE PART A & B [employer] MEDEX SUPPLEMENT MEDICARE PART A & B [place] MEDEX SUPPLEMENT MEDICARE PART A & B Member Subscriber Plan / Payer ( fective 2018-Present) Name:Noe Wagnern Member ID:[id number] Relation to Subscriber:Self Name:Leslie Wagner Subscriber ID:[id number] Payer ID:[id number] Group ID:Not on file Type:Medicare Address: [facility] [address] [employer] MEDEX SUPPLEMENT Care Teams Meat Counter Worker Relationship Specialty Start Date End Date Wiley Segura DO [address] [place] [address] PCP - General Internal Medicine 12/29/20 Additional Source Comments The information contained in this document represents components of the legal health record. It is not the complete legal health record.[facility]
--- OUTSIDE RECORDS SUMMARY | 2025-02-06 19:42 | XMS_ITS | Continuity of Care Document ---
Author Organization [facility] [address] [facility] [address] [place] [address] Phone [phone] Social History Type Date Description Comments Sex Female Sex Unknown Medical Devices Description No Information Available Encounters Description No Information Available Assessments Description No Information Available Plan of Treatment No Information Available Functional Status Description No Information Available Mental Status Description No Information Available Referrals Description No Information Available
--- NOTE | 2025-03-06 11:47 | HO.ANESPROP2 ---
Documented by User: Audelia Rome NP 03/06/25 11:53 HPI - Anesthesia Eval Consult details Narrative: 74yo F for Colonoscopy PMFSH Active Problems Active Problems: All Active Problems Hyperlipidemia (Acute) Varicose veins of bilateral lower extremities with pain (Acute) Bilateral leg pain (Acute) Swelling of left ring finger (Acute) Establishing care with new doctor, encounter for (Acute) Essential hypertension (Acute) Elevated ALT measurement (Acute) Elevated AST (SGOT) (Acute) Hemorrhoids (Acute) Indigestion (Acute) Hiatal hernia (Acute) Encounter for screening fecal occult blood testing (Acute) Black stools (Acute) Abdominal pain (Acute) Muscle strain of right shoulder (Acute) Synovial cyst of popliteal space [Reynolds], right knee (Acute) Knee pain, right (Acute) External hemorrhoid, bleeding (Acute) Nephrolithiasis (Acute) Tendinitis of right elbow (Acute) Upper respiratory tract infection (Acute) Rash (Acute) Animal bite of left forearm (Acute) Traumatic coccydynia (Acute) Upper respiratory tract infection (Acute) Left otitis media (Acute) Calcium oxalate stones (Acute) Multinodular thyroid (Acute) Thyroid nodule (Acute) Sleep disorder (Acute) GERD (gastroesophageal reflux disease) (Acute) Lump (Acute) SOB (shortness of breath) (Acute) Abnormal stress test (Acute) Precordial chest pain (Acute) Medial epicondylitis of right elbow (Acute) Elbow injury (Acute) Past Medical History Medical History Presence of stent in artery Varicose veins of lower extremity in distribution of greater saphenous vein Hyperlipidemia Varicose veins of bilateral lower extremities with pain Bilateral leg pain Swelling of left ring finger History of mammogram (~03/21/24) Establishing care with new doctor, encounter for Essential hypertension Elevated ALT measurement Elevated AST (SGOT) Hemorrhoids Indigestion Hiatal hernia Encounter for screening fecal occult blood testing Black stools Abdominal pain Muscle strain of right shoulder External hemorrhoid, bleeding Multinodular thyroid Thyroid nodule Sleep disorder GERD (gastroesophageal reflux disease) Lump Normal colonoscopy Anxiety Family History Family History Father History of colon cancer Family history of hypertension Family history of polyps in the colon Congestive heart failure Mother Family history of hypertension History of diabetes mellitus History of heart disease Congestive heart failure Brother Family history of prostate cancer Sister History of heart disease Sister Breast cancer History of heart disease Sister Fatty liver Family history of problems with anesthesia: No Surgical History Surgical History Hx of left cataract extraction (02/19/25) Hx of right cataract extraction (2022) Hx of colonoscopy (01/01/20) History of esophagogastroduodenoscopy (EGD) (01/01/20) Hx of cystoscopy (06/21/21) Hx of elbow surgery History of cardiac catheterization (~10/2020) S/P LAURO (total abdominal hysterectomy) History of Problems with Anesthesia: No Social History Social History Household Members: None Housing: House Are you a primary lawn care professional to a significant other at home: No Do you presently have visiting nurse or other home services: No Alcohol intake: current Alcohol intake frequency: 0-2 drinks per day Alcohol type: wine Comment: NOT PROCEDURAL RELATED PAIN Patient Tobacco Use Status: Never used Tobacco Use of substances other than those prescribed or required for medical reasons: No Have you been hit, kicked, punched, or otherwise hurt by someone within the past year? If so, by whom?: No Advance Directives: No Advance Directives Information Provided: Yes Advance Directives on File: Yes Advance Directives Date on File: 06/21/21 service: No Current occupational status: retired Cognitive needs: No Hearing needs: No Vision needs: Yes (reading glasses) Meds Allergies Allergy/AdvReac Type Severity Reaction Status Date / Time hydromorphone (From Dilaudid) Allergy Intermediate Palpitation Verified 03/10/25 09:59 s meperidine (From DEMEROL) AdvReac Intermediate AGITATION Verified 03/10/25 09:59 Home Medications ?Medication ?Instructions ?Recorded ?Confirmed ?Last Taken ?Type estradiol 0.0375 mg/24 hr weekly 1 patch transdermal TOPETE@1000 06/21/21 03/10/25 06/20/21 History transdermal patch Assessment and Plan Assessment Anesthesia Assessment: Chart Reviewed Final Anesthetic Review Family History of Problems with Anesthesia: No History of Problems with Anesthesia: No Documented by User: Christian Desai MD 03/10/25 10:40 [facility] Past Medical History Medical History Presence of stent in artery Varicose veins of lower extremity in distribution of greater saphenous vein Hyperlipidemia Varicose veins of bilateral lower extremities with pain Bilateral leg pain Swelling of left ring finger History of mammogram (~03/21/24) Establishing care with new doctor, encounter for Essential hypertension Elevated ALT measurement Elevated AST (SGOT) Hemorrhoids Indigestion Hiatal hernia Encounter for screening fecal occult blood testing Black stools Abdominal pain Muscle strain of right shoulder External hemorrhoid, bleeding Multinodular thyroid Thyroid nodule Sleep disorder GERD (gastroesophageal reflux disease) Lump Normal colonoscopy Anxiety Cognitive capacity: normal Functional capacity: independent ambulation Family History Family History Father History of colon cancer Family history of hypertension Family history of polyps in the colon Congestive heart failure Mother Family history of hypertension History of diabetes mellitus History of heart disease Congestive heart failure Brother Family history of prostate cancer Sister History of heart disease Sister Breast cancer History of heart disease Sister Fatty liver Surgical History Surgical History Hx of left cataract extraction (02/19/25) Hx of right cataract extraction (2022) Hx of colonoscopy (01/01/20) History of esophagogastroduodenoscopy (EGD) (01/01/20) Hx of cystoscopy (06/21/21) Hx of elbow surgery History of cardiac catheterization (~10/2020) S/P LAURO (total abdominal hysterectomy) Social History Social History Household Members: None Housing: House Are you a primary lawn care professional to a significant other at home: No Do you presently have visiting nurse or other home services: No Alcohol intake: current Alcohol intake frequency: 0-2 drinks per day Alcohol type: wine Comment: NOT PROCEDURAL RELATED PAIN Patient Tobacco Use Status: Never used Tobacco Use of substances other than those prescribed or required for medical reasons: No Have you been hit, kicked, punched, or otherwise hurt by someone within the past year? If so, by whom?: No Advance Directives: No Advance Directives Information Provided: Yes Advance Directives on File: Yes Advance Directives Date on File: 06/21/21 service: No Current occupational status: retired Cognitive needs: No Hearing needs: No Vision needs: Yes (reading glasses) Meds Allergies Allergy/AdvReac Type Severity Reaction Status Date / Time hydromorphone (From Dilaudid) Allergy Intermediate Palpitation Verified 03/10/25 09:59 s meperidine (From DEMEROL) AdvReac Intermediate AGITATION Verified 03/10/25 09:59 Home Medications ?Medication ?Instructions ?Recorded ?Confirmed ?Last Taken ?Type estradiol 0.0375 mg/24 hr weekly 1 patch transdermal TOPETE@1000 06/21/21 03/10/25 06/20/21 History transdermal patch Exam Airway Mallampati Class: II TM Dist: >3cm Neck ROM: Full Loose/Missing/Broken Teeth: No Heart: normal Lungs: normal Other: normal Assessment and Plan Assessment Anesthesia Assessment: Anesthesia Plan Discussed Final Anesthetic Review NPO: Yes ASA Class: II Final Preanesthetic Review: No Changes in Pt Med Stat, Meds/Allgs Chart Reviewed, Consent Obtained/Reviewed and Anes Risks/Benef Reviewed Patient Risk: Low Anesthetic Plan Anesthetic Plan: MAC: Disposition: Standard PACU
[2025-03-06 15:08] VITALS: BMI 23.6
[2025-03-06 15:31] VITALS: BMI 22.7
[2025-03-10 10:11] VITALS: BP 107/55; PULSE 91; RESP 14; TEMP 37.1; O2SAT 98
[2025-03-10] MEDS: Lactated Ringers 1,000 ML 100 ML IVCONT (10:19)
[2025-03-10 12:08] VITALS: BP 97/47; PULSE 82; RESP 16; TEMP 36.3; O2SAT 95
--- NOTE | 2025-03-10 12:16 | PM.OP ---
Brief Operative Note Date of Service: 03/10/25 Pre-op diagnosis: GERD, Rectal bleeding Post-op diagnosis: other (Hiatal hernia, Internal hemorrhoids) Procedure: EGD with biopsies, Colonoscopy to the cecum and TI Surgeon: Wiley Andersen MD Anesthesia: MAC Was an Vessel Traffic Officer used for this Procedure?: No Estimated blood loss (mL): 2.0 Pathology: other (A. EG Junction at 34 cm) Condition: stable Disposition: PACU
[2025-03-10 12:24] VITALS: BP 119/52; PULSE 68; RESP 16; O2SAT 98
[2025-03-10 12:31] VITALS: BP 116/68; PULSE 68; RESP 16; TEMP 36.2; O2SAT 98
--- NOTE | 2025-03-10 13:02 | OP_ITS ---
DATE OF SERVICE: 03/10/2025 SURGEON: Wiley Andersen MD INDICATIONS: The patient presents for evaluation of gastroesophageal reflux, occasional sense of dysphagia, hematochezia, and family history of colon cancer. Full consent has been obtained from her for both procedures, including risks of bleeding and perforation. PREOPERATIVE DIAGNOSIS: POSTOPERATIVE DIAGNOSIS: PROCEDURE PERFORMED: Esophagogastroduodenoscopy with biopsies, and colonoscopy to the cecum and terminal ileum. ESTIMATED BLOOD LOSS: COMPLICATIONS: ANESTHESIA: Medication used, monitored anesthesia care. ASSISTANTS: SPECIMENS: PREOPERATIVE DIAGNOSES: Gastroesophageal reflux, dysphagia, rectal bleeding, and family history of colon cancer. POSTOPERATIVE DIAGNOSES: Gastroesophageal reflux, dysphagia, rectal bleeding, and family history of colon cancer, hiatal hernia, reflux, diverticulosis, internal hemorrhoids. DESCRIPTION OF PROCEDURE: The patient was placed in the left lateral decubitus position. The Olympus video gastroscope was passed in the posterior oropharynx and upper esophagus under direct vision. The scope was passed slowly to the distal esophagus. The gastroesophageal junction cm. There was some slight irregularity consistent with reflux. There was no evidence of any esophagitis nor any definitive Judd mucosa. The scope entered the stomach there was a small to moderate-sized hiatal hernia. The scope was advanced to the pylorus, and the duodenum was cannulated to the descending portion. The duodenum including the bulb appeared normal without mass or ulceration. The scope was withdrawn back in the stomach. The gastric antrum and body appeared normal with good peristalsis. The scope was retroflexed visualizing the proximal stomach carefully, which appeared normal, without any sign of mass or ulceration. The scope was straightened and withdrawn back to the esophagus. Biopsies were obtained at the EG junction at 34 cm. Proximal to this, the esophageal mucosa appeared normal. There was no evidence of any proximal esophageal rings or webs. The scope was withdrawn from the patient. She was turned around for the colonoscopy. The digital rectal exam revealed no abnormalities. The Olympus video pediatric colonoscope was entered into the rectum and advanced easily to the cecum. Once in the cecum, I did identify normal-appearing cecal pouch with appendiceal orifice and a normal-appearing ileocecal valve. The terminal ileum was cannulated and appeared normal. The scope was withdrawn back in the colon. The entire cecum and ileocecal valve appeared normal. Scope was slowly withdrawn assessing all mucosal surfaces carefully. Preparation was excellent. I did not visualize any sign of polyps, colitis, nor angiodysplasia. There was a mild amount of sigmoid diverticulosis. In the rectum, scope was retroflexed visualizing internal hemorrhoids, but no other pathology. The rectal mucosa appeared normal. Scope was straightened and withdrawn from the patient. She tolerated both procedures well and was returned to the recovery area in stable condition. IMPRESSION: 1. Hiatal hernia, gastroesophageal reflux. 2. Diverticulosis. 3. Internal hemorrhoids. PLAN: The results of the biopsies will be checked. Even if Judd esophagus noted, I do not see any further surveillance of upper endoscopies as long as there is no dysplasia she was advised to continue her daily omeprazole, but I did advise that she could use it twice a day if needed. If the reflux continues to be problematic despite PPI therapy, then we may need to consider further evaluation of hiatal hernia surgery. However, at this point, I do not think that is necessary. Given the otherwise negative colonoscopy, I do not think that she would need any further screening colonoscopies going forward. She was advised to continue regimen of Metamucil and/or MiraLAX to help keep her bowel movements regular and avoid constipation. If things are stable, she will see me on a p.r.n. basis. MD LIZANDRO Mckeon/ROSANA / [id number]
== END 2025-03-10 13:40 | disposition home or self-care (01) ==
PROVIDERS: PCP Internal Medicine; Visit Provider Internal Medicine
PROC: 0DJD8ZZ Inspection of Lower Intestinal Tract, Via Natural or Artificial Opening Endoscopic (ICD-10-PCS; CPT 45378; principal; 2025-03-10 10:30)
DX: Z12.11 Encounter for screening for malignant neoplasm of colon (principal); K62.5 Hemorrhage of anus and rectum; R19.4 Change in bowel habit; Z80.0 Family history of malignant neoplasm of digestive organs; K21.00 Gastro-esophageal reflux disease with esophagitis, without bleeding; K44.9 Diaphragmatic hernia without obstruction or gangrene; R13.10 Dysphagia, unspecified; K57.30 Diverticulosis of large intestine without perforation or abscess without bleeding; K64.8 Other hemorrhoids
CPT/HCPCS: 43239; G0121; 88305; 88313; J2003; J2704; J3010